=== PATIENT | male | born 1955 | race Caucasian/White ===

== ENCOUNTER 2020-06-26 10:26 | Outpatient (REF) | payer MEDICARE, OTHER, SELFPAY ==
--- NOTE | 2020-06-26 10:28 | XR_ITS ---
EXAMINATION: KNEE X-RAY CLINICAL INFORMATION: Left knee pain COMPARISON: Right knee x-ray December 2008 TECHNIQUE: Standing AP view of both knees and lateral and sunrise view of the left knee FINDINGS: Left knee: Bone alignment is normal. No fracture or dislocation is seen. There are small osteophytes at the patellofemoral joint. Joint spaces are otherwise normal. There is no significant joint effusion. Standing AP view of the right knee demonstrates mild medial femoral tibial joint space narrowing. XR/XR knee standing BI IMPRESSION: Left knee: Small osteophytes at the patellofemoral joint. Right knee: Mild medial femoral tibial joint space narrowing.
--- NOTE | 2020-06-26 10:28 | XR_ITS ---
EXAMINATION: KNEE X-RAY CLINICAL INFORMATION: Left knee pain COMPARISON: Right knee x-ray December 2008 TECHNIQUE: Standing AP view of both knees and lateral and sunrise view of the left knee FINDINGS: Left knee: Bone alignment is normal. No fracture or dislocation is seen. There are small osteophytes at the patellofemoral joint. Joint spaces are otherwise normal. There is no significant joint effusion. Standing AP view of the right knee demonstrates mild medial femoral tibial joint space narrowing. XR/XR knee LT 2V IMPRESSION: Left knee: Small osteophytes at the patellofemoral joint. Right knee: Mild medial femoral tibial joint space narrowing.
== END 2020-06-26 10:27 | disposition home or self-care (01) ==
LOC: HO.HOSX 10:26
PROVIDERS: Visit Provider Orthopaedic Surgery
DX: M25.562 Pain in left knee (principal); M25.561 Pain in right knee
CPT/HCPCS: 73560; 73565; 99202

== ENCOUNTER 2020-09-26 16:09 | Outpatient (REF) | payer MEDICARE, OTHER, SELFPAY ==
[2020-09-26 16:51] LABS: MANUAL DIFF FLAG NO
[2020-09-26 16:55] LABS: Basophils Percent Auto 0.5 % (0-2); Hematocrit 46.4 % (42-52); Hemoglobin 15.6 g/dl (14.0-18.0); Imm Gran Abs Auto 0.01 X10*3/uL (0.00-0.03); Imm Gran Pct Auto 0.1 % (0.0-0.4); Lymphocytes Absolute Auto 2.1 X10*3/uL (1.2-4.9); Lymphocytes Percent Auto 25.9 % (20-40); Mean Corpuscular HGB Conc 33.6 g/dl (31.0-36.0); Mean Corpuscular Hemoglobin 30.4 pg (27.0-33.0); Mean Corpuscular Volume 90.3 fL (80-98); Mean Platelet Volume 10.6 fL (9.4-12.4); Monocytes Absolute Auto 0.7 X10*3/uL (0.1-1.2); Monocytes Percent Auto 8.2 % (2-11); Neutrophils Absolute Auto 5.3 X10*3/uL (2.0-8.3); Neutrophils Percent Auto 65.3 % (45-73); Platelet Count 200 X10*3/uL (160-400); Red Blood Count 5.14 X10*6/uL (4.60-5.80); Red Cell Distribution Width 12.7 % (11.0-16.0); White Blood Count 8.2 X10*3/uL (4.8-10.8)
== END 2020-09-26 16:10 | disposition home or self-care (01) ==
LOC: HO.LABR 16:09
PROVIDERS: PCP Internal Medicine; Visit Provider Clinical Nurse Specialist Psychiatric/Mental Health, Adult
DX: Z79.899 Other long term (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 (principal)
CPT/HCPCS: 36415; 85025

== ENCOUNTER 2020-10-29 10:54 | Outpatient (REF) | payer MEDICARE, MEDICAID, OTHER, SELFPAY ==
--- NOTE | ~2020-10-29 | CT_ITS ---
EXAMINATION: CT CHEST SCREENING CLINICAL INFORMATION: Smoking history COMPARISON: Previous chest x-ray most recent January 2020 TECHNIQUE: Multidetector volumetric CT imaging of the chest is performed without contrast using low dose technique. Additional 2D coronal and sagittal reformatted images and axial 3D maximum intensity projection (MIP) images are generated on the CT workstation. This CT examination was performed using dose optimization techniques as appropriate, variously including the following: *Automated exposure control *Adjustment of mA and/or kV according to patient size (this includes techniques or standardized protocols for targeted exams where dose is matched to indication/reason for exam; i.e. extremities or head) *Use of iterative reconstruction technique DLP: 93 mGy-cm FINDINGS: LUNGS: There is a 3 mm calcified left lower lobe nodule axial image 199 series 4. There is a 3 mm calcified right lower lobe nodule axial image 316 series 4. There is a 2 mm calcified right lower lobe nodule axial image 09/20/1934 series 4. There is a 3 mm peripheral or subpleural calcified right lower lobe nodule axial image 376 series 4. This minimal scarring or subsegmental atelectasis in the inferior segment of the lingula. MEDIASTINUM: There is coronary artery calcification. The esophagus is slightly distended and filled with air. The mediastinum is otherwise normal. PLEURA: There is no pleural effusion. No pleural mass or thickening. AXILLA: No lymphadenopathy. UPPER ABDOMEN: Unremarkable OSSEOUS STRUCTURES: There are degenerative changes of the spine. CT/CT lung screening IMPRESSION: Small calcified pulmonary nodules. Mild coronary artery calcification. Slightly distended air-filled esophagus. ASSESSMENT: Lung-RADS category 2: Benign RECOMMENDATION: Annual low-dose chest CT follow-up recommended.
== END 2020-10-29 10:55 | disposition home or self-care (01) ==
LOC: HO.CT 10:54
PROVIDERS: Visit Provider Surgery
DX: Z12.2 Encounter for screening for malignant neoplasm of respiratory organs (principal); F17.210 Nicotine dependence, cigarettes, uncomplicated
CPT/HCPCS: 71271

== ENCOUNTER 2020-11-06 15:41 | Emergency (ER) | payer MEDICARE, MEDICAID, OTHER, SELFPAY ==
[2020-11-06 15:49] VITALS: PULSE 103; RESP 20; TEMP 36.9; O2SAT 96; BMI 31.6
[2020-11-06 15:56] VITALS: RESP 20
[2020-11-06 16:00] VITALS: RESP 20
--- NOTE | 2020-11-06 16:00 | ED_ITS ---
HPI - Psych General Chief Complaint: Psychiatric Symptoms Stated Complaint: CRISIS Time Seen by Provider: 11/06/20 16:00 Source: patient and EMS Mode of arrival: EMS Limitations: no limitations History of Present Illness HPI Narrative: 65 yo male with hx of mental health issues comes in with some agitation after having issues not getting his AM medications from a [facility] - he is unsure why this happened, denies SI/HI feels more calm now, is sorry he had to come to the ED MD complaint: anxiety Onset (ago): hour(s) (this AM) Duration: intermittent History of same: Yes Relieving factors: none Exacerbating factors: medication Context: other (issue getting medication) Associated psychiatric symptoms: none Associated symptoms: denies other symptoms Treatments prior to arrival: none Related Data Home Medications Medication Instructions Recorded Confirmed aripiprazole 10 mg tablet 10 mg PO DAILY 05/29/20 11/06/20 atorvastatin 10 mg tablet 10 mg PO DAILY 05/29/20 11/06/20 clonazepam 0.5 mg tablet 0.5 mg PO BEDTIME PRN 05/29/20 11/06/20 clozapine 100 mg tablet 200 mg PO BEDTIME 05/29/20 11/06/20 trazodone 50 mg tablet 50 mg PO BEDTIME 05/29/20 11/06/20 clozapine 1 tab PO DAILY 11/06/20 11/06/20 magnesium oxide 400 mg PO BEDTIME 11/06/20 11/06/20 sodium chloride 1,000 mg PO TID 11/06/20 11/06/20 trolamine salicylate 1 appl TOPICAL DAILY PRN 11/06/20 11/06/20 Previous Rx's Medication Instructions Recorded docusate sodium 100 mg tablet 100 mg PO BID #90 tab 04/30/20 pantoprazole 40 mg tablet,delayed 40 mg PO DAILY #90 tab 06/11/20 release aspirin 81 mg tablet,delayed 81 mg PO DAILY #90 tab 08/07/20 release diclofenac sodium 75 mg 75 mg PO BID #60 tab 10/05/20 tablet,delayed release Allergies Allergy/AdvReac Type Severity Reaction Status Date / Time haloperidol [From Haldol] Allergy Mild UNKNOWN Verified 11/05/20 13:14 lithium [[place]] Allergy Mild UNKOWN Verified 11/05/20 13:14 [place] Citrate Allergy Unknown nervous Uncoded 02/10/17 00:00 breakdown Review of Systems Review of Systems: Constitutional : No Fever, No Chills ENT/Mouth : No Ear Pain, No Nasal Congestion, No sore throat Eyes: No Eye Pain, No Swelling, No Redness Cardiovascular : No Chest Pain, No SOB Respiratory : No Cough, No Sputum, No Dyspnea Gastrointestinal : No Nausea, No Vomiting, No Diarrhea, No Hematochezia, No Alli na Genitourinary : No Dysuria, No Urinary Frequency, No Hematuria Musculoskeletal : No Myalgias Skin : No Skin Lesions, No rash Neuro : No Weakness, No Numbness, No Paresthesias, No Dizziness, No Headache Psych : positive Anxiety, no Depression, no SI/HI Heme/Lymph: No Lymphadenopathy Endocrine : No Polyuria, No Polydipsia All other systems reviewed and are negative [facility] Past Medical History Attestation statement: The following information was validated with the patient. Medical History Dysphagia Erosive esophagitis GERD (gastroesophageal reflux disease) Paranoid schizophrenia Rotator cuff impingement syndrome of right shoulder Surgical History History of hernia surgery History of tonsillectomy and adenoidectomy Family History Family History (Updated 11/05/20 @ 13:17 by Reva Davis) Mother No problems noted. Father No problems noted. Social History Social History Alcohol intake: never Smoking Status: Current every day smoker Packs Per Day: 0.5 Use of substances other than those prescribed or required for medical reasons: No Advance Directives: No Advance Directives Information Provided: No Current occupational status: disabled Current occupation: Right Handed Physical Exam Vital Signs: Vital Signs: Last Vital Signs Temp 98.4 F 11/06/20 15:49 Pulse 103 H 11/06/20 15:49 Resp 20 11/06/20 18:00 Pulse Ox 96 11/06/20 15:49 Body Mass Index 31.6 Appearance: Alert. Oriented X3. No acute distress. Anxious Eyes: Pupils equal, round and reactive to light. ENT: Pharynx normal. Neck: Normal inspection. Neck supple. CVS: Normal heart rate and rhythm. Pulses normal. Respiratory: No respiratory distress. Breath sounds normal. Abdomen: Soft and nontender. Skin: Skin warm and dry. Normal skin color. Normal skin turgor. Extremities: No lower extremity edema. No calf ttp Neuro: Oriented X 3. No motor deficit. No sensory deficit. Psych: anxious no SI/HI. Course Course Course Narrative: fpc spoke to RN in crisis pod - patient has been aggressive and charging staff needs to be seen by BHN Physician observation started at 542pm Patient placed in physician observation because the patient needed more time BHN evaluation and to see the need for psych admission. At the time observation was started the patient's vitals were stable, patient is alert and oriented but slightly agitated, Neuro: nonfocal, CV RRR, Lungs clear MDM - Psych MDM Narrative Medical decision making narrative: 65 yo male with schizophrenia here calm and cooperative sent from fpc after issue with [facility] and medications, patient has no SI/HI, RN in crisis pod is going to call fpc to assess need for BHN as the patient seems appropriate and insightful at this time of today's events Lab Data Result diagrams: 11/06/20 16:48 11/06/20 16:48 Labs: Lab Results 11/06/20 11/06/20 11/06/20 Range/Units 16:48 16:48 16:48 WBC 8.3 (4.8-10.8) X10*3/uL RBC 5.02 (4.60-5.80) X10*6/uL Hgb 15.3 (14.0-18.0) g/dl Hct 45.3 (42-52) % MCV 90.2 (80-98) fL MCH 30.5 (27.0-33.0) pg MCHC 33.8 (31.0-36.0) g/dl RDW 12.3 (11.0-16.0) % Plt Count 184 (160-400) X10*3/uL MPV 10.4 (9.4-12.4) fL Immature Gran % (Auto) 0.4 (0.0-0.4) % Neut % (Auto) 73.9 H (45-73) % Lymph % (Auto) 17.7 L (20-40) % [place] % (Auto) 7.5 (2-11) % Eos % (Auto) 0.0 (0-4) % Baso % (Auto) 0.5 (0-2) % Lymph # (Auto) 1.5 (1.2-4.9) X10*3/uL [place] # (Auto) 0.6 (0.1-1.2) X10*3/uL Eos # (Auto) 0.0 (0.0-0.4) X10*3/uL Baso # (Auto) 0.0 (0.0-0.2) X10*3/uL Abs Immat Gran (auto) 0.03 (0.00-0.03) X10*3/uL Absolute Neuts (auto) 6.1 (2.0-8.3) X10*3/uL Absolute Nucleated RBC 0.000 (0.0-0.012) X10*3/uL Nucleated RBC % (auto) 0.0 (0.0-0.2) /100WBC Sodium 142 (135-145) mmol/L Potassium 4.4 (3.3-5.1) mmol/L Chloride 110 H (96-108) mmol/L Carbon Dioxide 25 (22-29) mmol/L Anion Gap 11 L (12-20) BUN 30 H (9-16) mg/dL Creatinine 0.89 (0.5-1.4) mg/dL Estim Creat Clear Calc 90.9 Estimated GFR > 60 Random Glucose 114 (60-115) mg/dL Calcium 8.8 (8.4-10.2) mg/dL Total Bilirubin 0.6 (0.0-1.0) mg/dL Direct Bilirubin 0.2 (0.0-0.5) mg/dL AST 19 (5-37) U/L ALT 33 (0-40) U/L Alkaline Phosphatase 120 H (39-117) U/L Total Protein 6.7 (6.5-8.0) g/dL Albumin 4.4 (3.5-5.0) g/dL Urine Opiates Screen (Not Detect) Ur Barbiturates Screen (Not Detect) Ur Phencyclidine Scrn (Not Detect) Ur Amphetamines Screen (Not Detect) U Benzodiazepines Scrn (Not Detect) Urine Cocaine Screen (Not Detect) U Marijuana (THC) Screen (Not Detect) Ethyl Alcohol mg/dL COVID-19 ([facility]) Negative (Negative) COVID-19 Clin Com See Note 11/06/20 11/06/20 Range/Units 16:48 19:20 WBC (4.8-10.8) X10*3/uL RBC (4.60-5.80) X10*6/uL Hgb (14.0-18.0) g/dl Hct (42-52) % MCV (80-98) fL MCH (27.0-33.0) pg MCHC (31.0-36.0) g/dl RDW (11.0-16.0) % Plt Count (160-400) X10*3/uL MPV (9.4-12.4) fL Immature Gran % (Auto) (0.0-0.4) % Neut % (Auto) (45-73) % Lymph % (Auto) (20-40) % [place] % (Auto) (2-11) % Eos % (Auto) (0-4) % Baso % (Auto) (0-2) % Lymph # (Auto) (1.2-4.9) X10*3/uL [place] # (Auto) (0.1-1.2) X10*3/uL Eos # (Auto) (0.0-0.4) X10*3/uL Baso # (Auto) (0.0-0.2) X10*3/uL Abs Immat Gran (auto) (0.00-0.03) X10*3/uL Absolute Neuts (auto) (2.0-8.3) X10*3/uL Absolute Nucleated RBC (0.0-0.012) X10*3/uL Nucleated RBC % (auto) (0.0-0.2) /100WBC Sodium (135-145) mmol/L Potassium (3.3-5.1) mmol/L Chloride (96-108) mmol/L Carbon Dioxide (22-29) mmol/L Anion Gap (12-20) BUN (9-16) mg/dL Creatinine (0.5-1.4) mg/dL Estim Creat Clear Calc Estimated GFR Random Glucose (60-115) mg/dL Calcium (8.4-10.2) mg/dL Total Bilirubin (0.0-1.0) mg/dL Direct Bilirubin (0.0-0.5) mg/dL AST (5-37) U/L ALT (0-40) U/L Alkaline Phosphatase (39-117) U/L Total Protein (6.5-8.0) g/dL Albumin (3.5-5.0) g/dL Urine Opiates Screen Not Detected (Not Detect) Ur Barbiturates Screen Not Detected (Not Detect) Ur Phencyclidine Scrn Not Detected (Not Detect) Ur Amphetamines Screen Not Detected (Not Detect) U Benzodiazepines Scrn Not Detected (Not Detect) Urine Cocaine Screen Not Detected (Not Detect) U Marijuana (THC) Screen Not Detected (Not Detect) Ethyl Alcohol < 10 mg/dL COVID-19 ([facility]) (Negative) COVID-19 Clin Com Discharge Plan Discharge Clinical Impression: Chronic schizophrenia Prescriptions: No Action docusate sodium [DOK] 100 mg tablet 100 mg PO BID Qty: 90 RF: 8 pantoprazole 40 mg tablet,delayed release (DR/EC) 40 mg PO DAILY Qty: 90 RF: 8 aspirin 81 mg tablet,delayed release (DR/EC) 81 mg PO DAILY Qty: 90 RF: 8 diclofenac sodium 75 mg tablet,delayed release (DR/EC) 75 mg PO BID Qty: 60 RF: 2 clozapine 25 mg tablet 1 tab PO DAILY RF: 0 trolamine salicylate 10 % Cream 1 appl TOPICAL DAILY PRN (Reason: Pain) RF: 0 sodium chloride 1,000 mg Tablet,Soluble 1,000 mg PO TID RF: 0 magnesium oxide 400 mg magnesium Tablet 400 mg PO BEDTIME RF: 0 clozapine 100 mg tablet 200 mg PO BEDTIME RF: 0 aripiprazole 10 mg tablet 10 mg PO DAILY RF: 0 atorvastatin 10 mg tablet 10 mg PO DAILY RF: 0 clonazepam 0.5 mg tablet 0.5 mg PO BEDTIME PRN (Reason: Anxiety) RF: 0 trazodone 50 mg tablet 50 mg PO BEDTIME RF: 0
[2020-11-06 16:54] LABS: MANUAL DIFF FLAG NO
[2020-11-06 16:55] LABS: Basophils Percent Auto 0.5 % (0-2); Hematocrit 45.3 % (42-52); Hemoglobin 15.3 g/dl (14.0-18.0); Imm Gran Abs Auto 0.03 X10*3/uL (0.00-0.03); Imm Gran Pct Auto 0.4 % (0.0-0.4); Lymphocytes Absolute Auto 1.5 X10*3/uL (1.2-4.9); Lymphocytes Percent Auto 17.7 % (20-40); Mean Corpuscular HGB Conc 33.8 g/dl (31.0-36.0); Mean Corpuscular Hemoglobin 30.5 pg (27.0-33.0); Mean Corpuscular Volume 90.2 fL (80-98); Mean Platelet Volume 10.4 fL (9.4-12.4); Monocytes Absolute Auto 0.6 X10*3/uL (0.1-1.2); Monocytes Percent Auto 7.5 % (2-11); Neutrophils Absolute Auto 6.1 X10*3/uL (2.0-8.3); Neutrophils Percent Auto 73.9 % (45-73); Platelet Count 184 X10*3/uL (160-400); Red Blood Count 5.02 X10*6/uL (4.60-5.80); Red Cell Distribution Width 12.3 % (11.0-16.0); White Blood Count 8.3 X10*3/uL (4.8-10.8)
[2020-11-06 17:12] LABS: COVID-19 Test Negative (Negative)
[2020-11-06 17:32] LABS: Ethanol < 10 mg/dL
[2020-11-06 17:35] LABS: Alanine Aminotransferase 33 U/L (0-40); Albumin Level 4.4 g/dL (3.5-5.0); Alkaline Phosphatase 120 U/L (39-117); Anion Gap 11 (12-20); Aspartate Amino Transferase 19 U/L (5-37); Bilirubin Direct 0.2 mg/dL (0.0-0.5); Bilirubin Total 0.6 mg/dL (0.0-1.0); Blood Urea Nitrogen 30 mg/dL (9-16); Calcium 8.8 mg/dL (8.4-10.2); Carbon Dioxide 25 mmol/L (22-29); Chloride 110 mmol/L (96-108); Creatinine Clr Calc Pharmacy 90.9; Estimated Glomerular Filt Rate > 60; Glucose Random 114 mg/dL (60-115); Potassium 4.4 mmol/L (3.3-5.1); Sodium 142 mmol/L (135-145); Total Protein 6.7 g/dL (6.5-8.0)
--- NOTE | 2020-11-06 17:42 | PC.NURSE ---
Per fpc staff Jennifer Monaco, warehouse examiner, pt has been increasingly irritable, charging at staff at times, 'erupting all of a sudden'; staff feeling as if pt becoming increasingly close to becoming assaultive.
[2020-11-06 18:00] VITALS: RESP 20
--- NOTE | 2020-11-06 18:40 | PC.NURSE ---
Pt resting, resp unlabored.
--- NOTE | 2020-11-06 18:51 | PC.NURSE ---
Late entry: per diamond at custodial, pt has been compliant w/ medications at all times.
--- NOTE | 2020-11-06 19:19 | PC.NURSE ---
Patient agreed to provide urine sample, IBARRA pending, N called/spoke with [facility]/confirmed receipt of referral, will continue to monitor.
[2020-11-06 20:23] LABS: Amphetamine Screen Urine Not Detected (Not Detect); Barbiturates, Urine Not Detected (Not Detect); Benzodiazepines Screen Urine Not Detected (Not Detect); Cannabinoid Screen Urine Not Detected (Not Detect); Cocaine Screen Urine Not Detected (Not Detect); Opiate Screen Urine Not Detected (Not Detect); Phencyclidine Screen Urine Not Detected (Not Detect)
--- NOTE | 2020-11-06 21:57 | PC.NURSE ---
BHN with patient, patient seems engaged, will continue to monitor.
[2020-11-06] MEDS: clonazePAM 0.5 MG TABLET PO (23:11)
[2020-11-06] MEDS: Magnesium Oxide 400 MG TABLET PO (23:11)
[2020-11-06] MEDS: Atorvastatin Calcium 10 MG TABLET PO ×2 (23:11→23:12)
[2020-11-06] MEDS: traZODone HCL 50 MG TABLET PO (23:11)
[2020-11-06] MEDS: Docusate Sodium 100 MG CAPSULE PO (23:11)
[2020-11-07 00:04] VITALS: BP 139/82; PULSE 87; RESP 14; TEMP 36.1; O2SAT 94
[2020-11-07] MEDS: cloZAPine 100 MG TABLET 200 MG PO ×2 (00:11→00:12)
--- NOTE | 2020-11-07 00:15 | MHC.CARE ---
Pt cleared for discharge by [facility], who communicated with pt's [facility] re: his return. Initial plan was for pt to discharge in the morning and program staff would pick him up, however pt began to demand to leave tonight and stated that he would pay for a taxi. Another staff person in the ED had reported that the taxis were running at night again, so it was requested of CARE team to attempt to order a cab for the pt. Turns out the taxis aren't running. This was relayed to [facility] clinician and [facility] nurse. Then it was asked of this technical writer and editor to request a lyft to bring pt home. This technical writer and editor advised that it is unlikely that there will be a explosives truck driver available at this hour and that pt should be prepared for the news that he may have to wait until the morning to leave. If a lyft isn't able to be secured for transport home, pt will remain in ED until the morning and fpc staff will pick pt up, per [facility] clinician.
--- NOTE | 2020-11-07 01:30 | MHC.CARE ---
Unable to secure a lyft for transport home.
[2020-11-07] MEDS: Omeprazole 20 MG CAPSULE.DR PO (06:46)
--- NOTE | 2020-11-07 07:09 | PC.NURSE ---
Report received. PT currently resting, calm and cooperative, asking to leave.
--- NOTE | 2020-11-07 08:11 | PC.NURSE ---
snf to leaf size picker pt at 9AM
[2020-11-07 09:02] VITALS: BP 129/78; PULSE 100; RESP 17; TEMP 37.2; O2SAT 95
== END 2020-11-07 09:04 | disposition home or self-care (01) ==
PROVIDERS: Emergency Provider Emergency Medicine
DX: F20.9 Schizophrenia, unspecified (principal); F41.9 Anxiety disorder, unspecified; Z20.822 Contact with and (suspected) exposure to COVID-19; F17.200 Nicotine dependence, unspecified, uncomplicated; Z79.899 Other long term (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
CPT/HCPCS: 36415; 80048; 80076; 80307; 80320; 85025; 87635; 99285

== ENCOUNTER 2021-10-23 18:08 | Inpatient (IN) | payer MEDICARE, OTHER, SELFPAY ==
[2021-10-23 18:11] VITALS: BP 130/90; PULSE 100; O2SAT 96
[2021-10-23 18:16] VITALS: BP 140/99; PULSE 100; RESP 20; TEMP 36.6; O2SAT 97
[2021-10-23 18:17] VITALS: BMI 26.6
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
[2021-10-23 18:30] LABS: MANUAL DIFF FLAG NO
[2021-10-23 18:33] LABS: Basophils Percent Auto 0.7 % (0-2); Hematocrit 44.5 % (42.0-52.0); Hemoglobin 15.3 g/dl (14.0-18.0); Imm Gran Abs Auto 0.02 X10*3/uL (0.00-0.03); Imm Gran Pct Auto 0.3 % (0.0-0.4); Lymphocytes Percent Auto 23.6 % (20-40); Mean Corpuscular HGB Conc 34.4 g/dl (31.0-36.0); Mean Corpuscular Hemoglobin 31.4 pg (27.0-33.0); Mean Corpuscular Volume 91.4 fL (80.0-98.0); Mean Platelet Volume 10.6 fL (9.4-12.4); Monocytes Percent Auto 6.9 % (2-11); Neutrophils Absolute Auto 5.2 x10*3/uL (2.0-8.3); Neutrophils Percent Auto 68.5 % (45-73); Platelet Count 182 X10*3/uL (160-400); Red Blood Count 4.87 X10*6/uL (4.60-5.80); Red Cell Distribution Width 12.4 % (11.0-16.0); White Blood Count 7.6 X10*3/uL (4.8-10.8)
[2021-10-23 18:34] LABS: Basophils Absolute Auto 0.1 X10*3/uL (0.0-0.2); Lymphocytes Absolute Auto 1.8 X10*3/uL (1.2-4.9); Monocytes Absolute Auto 0.5 X10*3/uL (0.1-1.2)
[2021-10-23 18:48] LABS: COVID-19 Test Negative (Negative); IDNOW Serial# 55D5AD1C
[2021-10-23 18:50] LABS: Alanine Aminotransferase 30 U/L (0-40); Albumin Level 4.3 g/dL (3.5-5.0); Alkaline Phosphatase 102 U/L (39-117); Anion Gap 12 (12-20); Aspartate Amino Transferase 19 U/L (5-37); Bilirubin Total 0.6 mg/dL (0.0-1.0); Blood Urea Nitrogen 23 mg/dL (9-16); Carbon Dioxide 24 mmol/L (22-29); Chloride 106 mmol/L (96-108); Creatinine Clr Calc Pharmacy 79.6; Estimated Glomerular Filt Rate > 60; Glucose Random 121 mg/dL (60-115); Magnesium 2.2 mg/dL (1.6-2.6); Sodium 138 mmol/L (135-145); Total Protein 6.5 g/dL (6.5-8.0)
--- NOTE | 2021-10-23 20:00 | PC.NURSE ---
this RN notified patient that we needed a urine sample. pt got upset and stated, i cant, i only had chili today pt was offered fluids, pt got even more upset stating i cant go! i dont care if youre the general surgeon, i cant go! pt agitated stating that the monitor is fibrilating and he was in trouble pt reassured asked if he would like the lights off or the tv on and he stated, no, i will go into cardiac arrest pt resting in bed at this time
[2021-10-23] MEDS: LORazepam 1 MG TABLET PO (21:08)
[2021-10-23 22:17] LABS: Appearance Urine CLEAR; Color Urine YELLOW; Glucose Urine UA NEG (NEG); Leukocyte Esterase Urine NEG (NEG); Nitrite Urine NEG (NEG); Specific Gravity - Urine 1.015 (1.005-1.025); Urine Blood NEG (NEG); Urine Ketones 5 MG/DL (NEG); Urine Protein NEG (NEG-TRACE)
[2021-10-23 22:27] LABS: Amphetamine Screen Urine Not Detected (Not Detect); Barbiturates, Urine Not Detected (Not Detect); Benzodiazepines Screen Urine Not Detected (Not Detect); Cannabinoid Screen Urine Not Detected (Not Detect); Cocaine Screen Urine Not Detected (Not Detect); Fentanyl, urine Not Detected (Not Detect); Opiate Screen Urine Not Detected (Not Detect); Phencyclidine Screen Urine Not Detected (Not Detect)
[2021-10-23 23:29] VITALS: BP 126/89; PULSE 99; RESP 16; TEMP 36.8; O2SAT 95
--- NOTE | 2021-10-24 | ECG_ITS ---
Test Reason : MED CLEARANCE Blood Pressure : / mmHG Vent. Rate : 088 BPM Atrial Rate : 088 BPM P-R Int : 160 ms QRS Dur : 090 ms QT Int : 350 ms P-R-T Axes : 060 -83 068 degrees QTc Int : 423 ms Normal sinus rhythm Left axis deviation Abnormal ECG When compared with ECG of 24-JAN-2020 09:37, No significant change was found Referred By: Heavenly Santos Electronically Signed By:SHAN PIZARRO MD
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
--- NOTE | 2021-10-24 07:19 | PC.NURSE ---
Patient slept through the night, no distress observed/reported, behavior non concerning at this time, med rec completed/pending provider's approval, awaiting care team evaluation, will continue to monitor.
[2021-10-24 07:34] VITALS: BP 137/85; PULSE 98; RESP 12; TEMP 37.1; O2SAT 98
--- NOTE | 2021-10-24 07:38 | PC.NURSE ---
patient appears to remain asleep at present respirations are even and unlabored patient appears in no distress
[2021-10-24] MEDS: LORazepam 1 MG TABLET PO (09:48)
[2021-10-24] MEDS: cloZAPine 25 MG TABLET 50 MG PO (12:39)
[2021-10-24] MEDS: Aspirin Enteric Coated 81 MG TABLET.DR PO (12:39)
[2021-10-24] MEDS: clonazePAM 0.5 MG TABLET PO (20:16)
[2021-10-24] MEDS: cloZAPine 100 MG TABLET 200 MG PO (20:16)
[2021-10-24] MEDS: traZODone HCL 50 MG TABLET PO (20:17)
[2021-10-24] MEDS: Atorvastatin Calcium 10 MG TABLET PO (20:17)
[2021-10-24] MEDS: Magnesium Oxide 400 MG TABLET PO (20:17)
[2021-10-24] MEDS: Diclofenac Sodium Delayed Rel 75 MG TABLET.DR PO (20:17)
[2021-10-24] MEDS: ARIPiprazole 10 MG TABLET PO (20:17)
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
[2021-10-25 06:00] VITALS: BP 131/78; PULSE 104; RESP 17; TEMP 35.9; O2SAT 94
[2021-10-25] MEDS: cloZAPine 25 MG TABLET 50 MG PO (08:11)
[2021-10-25] MEDS: Omeprazole 20 MG CAPSULE.DR PO (08:11)
[2021-10-25] MEDS: Diclofenac Sodium Delayed Rel 75 MG TABLET.DR PO ×2 (08:11→19:39)
[2021-10-25] MEDS: Aspirin Enteric Coated 81 MG TABLET.DR PO (08:11)
[2021-10-25 08:18] LABS: Estimated Average Glucose 103 mg/dL; Hemoglobin A1c % 5.2 %
[2021-10-25 08:25] LABS: Cholesterol 221 mg/dL; HDL Cholesterol 42 mg/dL; LDL Cholesterol Calculated 160 mg/dl; Magnesium 2.4 mg/dL (1.6-2.6); Triglycerides 97 mg/dL
[2021-10-25 08:47] LABS: Free T4 (Free Thyroxine) 1.49 ng/dL (0.71-1.85)
[2021-10-25 08:57] LABS: Folate 17.2 ng/mL (> or = 4.0); Vitamin B12 515 pg/mL (200-900)
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
[2021-10-25] MEDS: Acetaminophen 325 MG TABLET 650 MG PO (15:26)
[2021-10-25 17:59] VITALS: BP 127/86; PULSE 118; TEMP 36.7
[2021-10-25] MEDS: ARIPiprazole 10 MG TABLET PO (19:38)
[2021-10-25] MEDS: Magnesium Oxide 400 MG TABLET PO (19:39)
[2021-10-25] MEDS: cloZAPine 100 MG TABLET 200 MG PO (19:39)
[2021-10-25] MEDS: clonazePAM 0.5 MG TABLET PO (19:40)
[2021-10-25] MEDS: Atorvastatin Calcium 10 MG TABLET PO (19:41)
[2021-10-25] MEDS: traZODone HCL 50 MG TABLET PO (19:41)
[2021-10-26 08:30] VITALS: BP 126/90; PULSE 124; TEMP 36.2
[2021-10-26] MEDS: cloZAPine 25 MG TABLET 50 MG PO (08:32)
[2021-10-26] MEDS: Diclofenac Sodium Delayed Rel 75 MG TABLET.DR PO (08:32)
[2021-10-26] MEDS: Omeprazole 20 MG CAPSULE.DR PO (08:32)
[2021-10-26] MEDS: Aspirin Enteric Coated 81 MG TABLET.DR PO (08:32)
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
[2021-10-26] MEDS: clonazePAM 0.5 MG TABLET PO ×2 (11:29→20:00)
[2021-10-26] MEDS: Atorvastatin Calcium 10 MG TABLET PO (20:00)
[2021-10-26] MEDS: cloZAPine 25 MG TABLET 225 MG PO (20:00)
[2021-10-26] MEDS: Magnesium Oxide 400 MG TABLET PO (20:00)
[2021-10-26] MEDS: ARIPiprazole 10 MG TABLET PO (20:01)
[2021-10-26] MEDS: traZODone HCL 50 MG TABLET PO (20:02)
[2021-10-27] MEDS: Aspirin Enteric Coated 81 MG TABLET.DR PO (08:20)
[2021-10-27] MEDS: Omeprazole 20 MG CAPSULE.DR PO (08:20)
[2021-10-27] MEDS: Diclofenac Sodium Delayed Rel 75 MG TABLET.DR PO (08:20)
[2021-10-27] MEDS: cloZAPine 25 MG TABLET 50 MG PO (08:22)
[2021-10-27] MEDS: clonazePAM 0.5 MG TABLET PO ×2 (08:23→20:14)
[2021-10-27 08:30] VITALS: BP 125/91; PULSE 130; TEMP 36.8
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
[2021-10-27 18:00] VITALS: BP 132/96; PULSE 110; RESP 20; TEMP 35.9; O2SAT 96
[2021-10-27] MEDS: ARIPiprazole 10 MG TABLET PO (20:14)
[2021-10-27] MEDS: Atorvastatin Calcium 10 MG TABLET PO (20:14)
[2021-10-27] MEDS: cloZAPine 25 MG TABLET 225 MG PO (20:15)
[2021-10-27] MEDS: Magnesium Oxide 400 MG TABLET PO (20:16)
[2021-10-27] MEDS: traZODone HCL 50 MG TABLET PO (20:18)
[2021-10-28 06:00] VITALS: BP 139/88; PULSE 100; RESP 18; O2SAT 94
[2021-10-28] MEDS: Omeprazole 20 MG CAPSULE.DR PO (08:19)
[2021-10-28] MEDS: Diclofenac Sodium Delayed Rel 75 MG TABLET.DR PO (08:19)
[2021-10-28] MEDS: Aspirin Enteric Coated 81 MG TABLET.DR PO (08:19)
[2021-10-28] MEDS: cloZAPine 25 MG TABLET 50 MG PO (08:19)
[2021-10-28 11:32] LABS: Clozapine (Clozaril) 52 mcg/L; Norclozapine 86 mcg/L (25-400)
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
[2021-10-28] MEDS: clonazePAM 0.5 MG TABLET 0.25 MG PO (13:41)
[2021-10-28] MEDS: traZODone HCL 50 MG TABLET PO (20:07)
[2021-10-28] MEDS: cloZAPine 25 MG TABLET 225 MG PO (20:07)
[2021-10-28] MEDS: clonazePAM 0.5 MG TABLET PO (20:07)
[2021-10-28] MEDS: Atorvastatin Calcium 10 MG TABLET PO (20:07)
[2021-10-28] MEDS: ARIPiprazole 10 MG TABLET PO (20:07)
[2021-10-28] MEDS: Magnesium Oxide 400 MG TABLET PO (20:07)
[2021-10-29 06:17] VITALS: BP 119/77; PULSE 99; RESP 16; TEMP 36.2; O2SAT 95
[2021-10-29] MEDS: Aspirin Enteric Coated 81 MG TABLET.DR PO (07:52)
[2021-10-29] MEDS: Omeprazole 20 MG CAPSULE.DR PO (07:53)
[2021-10-29] MEDS: Diclofenac Sodium Delayed Rel 75 MG TABLET.DR PO ×2 (07:53→19:43)
[2021-10-29] MEDS: clonazePAM 0.5 MG TABLET 0.25 MG PO (07:53)
[2021-10-29] MEDS: cloZAPine 25 MG TABLET 50 MG PO (07:53)
[2021-10-29 16:10] VITALS: RESP 16
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
[2021-10-29] MEDS: ARIPiprazole 10 MG TABLET PO (19:42)
[2021-10-29] MEDS: cloZAPine 25 MG TABLET 225 MG PO (19:42)
[2021-10-29] MEDS: clonazePAM 0.5 MG TABLET PO (19:42)
[2021-10-29] MEDS: Magnesium Oxide 400 MG TABLET PO (19:42)
[2021-10-29] MEDS: traZODone HCL 50 MG TABLET PO (19:43)
[2021-10-29] MEDS: Atorvastatin Calcium 10 MG TABLET PO (19:43)
[2021-10-30] MEDS: clonazePAM 0.5 MG TABLET 0.25 MG PO (08:22)
[2021-10-30] MEDS: Omeprazole 20 MG CAPSULE.DR PO (08:22)
[2021-10-30 08:23] LABS: Neut%MD 78.9 %; Neutrophils Absolute Auto 9.7 x10*3/uL (2.0-8.3); WBCANC 12.3 X10*3/uL
[2021-10-30] MEDS: Diclofenac Sodium Delayed Rel 75 MG TABLET.DR PO ×2 (08:23→20:00)
[2021-10-30] MEDS: Aspirin Enteric Coated 81 MG TABLET.DR PO (08:23)
[2021-10-30] MEDS: cloZAPine 100 MG TABLET 50 MG PO (08:24)
[2021-10-30 08:28] VITALS: BP 109/76; PULSE 117; RESP 18; TEMP 36.3; O2SAT 97
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
[2021-10-30 19:39] VITALS: BP 108/74; PULSE 100; RESP 17; TEMP 36.6; O2SAT 95
[2021-10-30] MEDS: clonazePAM 0.5 MG TABLET PO (20:00)
[2021-10-30] MEDS: Magnesium Oxide 400 MG TABLET PO (20:01)
[2021-10-30] MEDS: Atorvastatin Calcium 10 MG TABLET PO (20:01)
[2021-10-30] MEDS: traZODone HCL 50 MG TABLET PO (20:01)
[2021-10-30] MEDS: ARIPiprazole 10 MG TABLET PO (20:01)
[2021-10-30] MEDS: cloZAPine 25 MG TABLET 225 MG PO (20:02)
[2021-10-31 06:00] VITALS: BP 109/70; PULSE 97; RESP 18; TEMP 36.4; O2SAT 97
[2021-10-31 07:00] VITALS: BMI 27.3
[2021-10-31] MEDS: Omeprazole 20 MG CAPSULE.DR PO (07:55)
[2021-10-31] MEDS: Aspirin Enteric Coated 81 MG TABLET.DR PO (07:55)
[2021-10-31] MEDS: clonazePAM 0.5 MG TABLET 0.25 MG PO (07:55)
[2021-10-31] MEDS: cloZAPine 100 MG TABLET 50 MG PO (07:55)
[2021-10-31] MEDS: Diclofenac Sodium Delayed Rel 75 MG TABLET.DR PO (07:56)
[2021-10-31 17:05] VITALS: BP 136/86; PULSE 99; RESP 20; O2SAT 96
[2021-10-31] MEDS: Atorvastatin Calcium 10 MG TABLET PO (20:01)
[2021-10-31] MEDS: traZODone HCL 50 MG TABLET PO (20:01)
[2021-10-31] MEDS: clonazePAM 0.5 MG TABLET PO (20:01)
[2021-10-31] MEDS: ARIPiprazole 10 MG TABLET PO (20:02)
[2021-10-31] MEDS: Magnesium Oxide 400 MG TABLET PO (20:02)
[2021-10-31] MEDS: cloZAPine 25 MG TABLET 225 MG PO (20:02)
[2021-11-01 06:00] VITALS: BP 133/69; PULSE 104; RESP 16; TEMP 35.8; O2SAT 99
[2021-11-01] MEDS: Diclofenac Sodium Delayed Rel 75 MG TABLET.DR PO ×2 (08:09→19:56)
[2021-11-01] MEDS: clonazePAM 0.5 MG TABLET 0.25 MG PO (08:09)
[2021-11-01] MEDS: cloZAPine 100 MG TABLET 50 MG PO (08:09)
[2021-11-01] MEDS: Omeprazole 20 MG CAPSULE.DR PO (08:09)
[2021-11-01] MEDS: Aspirin Enteric Coated 81 MG TABLET.DR PO (08:09)
--- NOTE | 2021-11-01 10:20 | P.PNPSI_ITS ---
Subjective Subjective Date of Service: 10/31/21 Reason For Visit: Behavioral Interim History: late entry; pt seen on 10/31 pt again says he's feeling better and staff agrees he is more calm than on admission. He makes one extraneous comment i think they're wiring me for sound... but then says never mind that. continues to be more able to complete thoughts, less latency. Mental Status Exam Mental Status Exam Narrative: Pt is alert and oriented; behavior is cooperative, more disorganized; dressed in hospital gown, unkempt hair, but adequate hygiene; mood is described as better and affect congruent; eye contact appropriate; thought blocking present and Speech is a little latent, but improved; otherwise normal rate, volume; a little bit of an odd prosody;? no psychomotor agitation present; thought process more goal oriented and less tangential; more able to finish his sentences; can get tangential (baseline). Thought content is on returning to custodial (and other unrelated topics); intermittent paranoid ideations but less so; denies any SI/HI. Denies any AVH, though seems internally preoccupied. ?Patients insight and judgment are impaired but improved. Diagnostics Vital Signs (24Hr): Vital Signs - 24 hr 10/31/21 17:05 11/01/21 06:00 Temperature 96.4 F L Pulse Rate 99 104 H Respiratory Rate 20 16 Blood Pressure 136/86 133/69 Pulse Oximetry 96 99 BMI result Body Mass Index 27.3 Labs Results: 10/23/21 18:24 10/23/21 18:24 Medications Medications Current Medications Acetaminophen (Acetaminophen 325 Mg Tablet) 650 mg PO Q6H PRN PRN Reason: Headache/Pain Mild Scale (1-3) Last Admin: 10/25/21 15:26 Dose: 650 mg Documented by: Al Hydroxide/Mg Hydroxide (Magnesium Hydrox/Alum Hydrox 30 Ml Oral.Susp) 30 ml PO Q6H PRN PRN Reason: Heartburn/Nausea Aripiprazole (Aripiprazole 10 Mg Tablet) 10 mg PO BEDTIME [facility] Last Admin: 10/31/21 20:02 Dose: 10 mg Documented by: Aspirin (Aspirin Enteric Coated 81 Mg Tablet.) 81 mg PO DAILY [facility] Last Admin: 11/01/21 08:09 Dose: 81 mg Documented by: Atorvastatin Calcium (Atorvastatin Calcium 10 Mg Tablet) 10 mg PO BEDTIME [facility] Last Admin: 10/31/21 20:01 Dose: 10 mg Documented by: Clonazepam (Clonazepam 0.5 Mg Tablet) 0.5 mg PO BEDTIME [facility] Last Admin: 10/31/21 20:01 Dose: 0.5 mg Documented by: Clonazepam (Clonazepam 0.5 Mg Tablet) 0.25 mg PO DAILY [facility] Last Admin: 11/01/21 08:09 Dose: 0.25 mg Documented by: Clonazepam (Clonazepam 0.5 Mg Tablet) 0.5 mg PO DAILY PRN PRN Reason: mild agitation Clozapine (Clozapine 25 Mg Tablet) 225 mg PO BEDTIME [facility] Last Admin: 10/31/21 20:02 Dose: 225 mg Documented by: Clozapine (Clozapine 100 Mg Tablet) 50 mg PO DAILY [facility] Last Admin: 11/01/21 08:09 Dose: 50 mg Documented by: Diclofenac Sodium (Diclofenac Sodium Delayed Rel 75 Mg Tablet.) 75 mg PO BID [facility] Last Admin: 11/01/21 08:09 Dose: 75 mg Documented by: Docusate Sodium (Docusate Sodium 100 Mg Capsule) 100 mg PO DAILY PRN PRN Reason: Constipation Hydroxyzine HCl (Hydroxyzine Hcl 25 Mg Tablet) 25 mg PO Q6H PRN PRN Reason: Anxiety Magnesium Hydroxide (Milk Of Magnesia 30 Ml Oral.Susp) 30 ml PO DAILY PRN PRN Reason: Constipation Magnesium Oxide (Magnesium Oxide 400 Mg Tablet) 400 mg PO BEDTIME [facility] Last Admin: 10/31/21 20:02 Dose: 400 mg Documented by: Omeprazole (Omeprazole 20 Mg Capsule.) 20 mg PO DAILY [facility] Last Admin: 11/01/21 08:09 Dose: 20 mg Documented by: Trazodone HCl (Trazodone Hcl 50 Mg Tablet) 50 mg PO BEDTIME [facility] Last Admin: 10/31/21 20:01 Dose: 50 mg Documented by: Allergies Allergies Allergy/AdvReac Type Severity Reaction Status Date / Time haloperidol [From Haldol] Allergy Mild UNKNOWN Verified 11/05/20 13:14 lithium [[place]] Allergy Mild UNKOWN Verified 11/05/20 13:14 [place] Citrate Allergy Unknown nervous Uncoded 02/10/17 00:00 breakdown Assessment & Plan Assessment & Plan (1) Paranoid schizophrenia: Status: Acute Code(s): F20.0 - Paranoid schizophrenia Plan Patient is a 66-year-old male with history of schizophrenia, dysphagia, GERD who lives in a custodial, takes medications regular and presents after becoming agitated and dysregulated, throwing something at a peer and pushing a staff person. Currently patient is calm. long term reports that patient intermittently gets agitated and can become unsafe and is asking for either medication regimen to be altered or for a p.r.n. to be added to help prevent patient from losing control and becoming unsafe. 10/26 patient intermittently agitated and at made an abrupt move with a semi- aggressive stance towards nurse; paranoid ideation and intermittent trouble articulating his thoughts both of which staff says are baseline. Given staff so report patient does not seem to restore with catatonia. Patient is has increased positive symptoms of agitation and disorganization so will increase clozapine. Difficult to decide between increasing clozapine verses Abilify. While clozapine has a higher risk for metabolic syndrome, it was chosen because it is currently at a lower dose, patient's current HbA1c is within normal limits and is less likely to cause TD than Abilify. 10/27 moderate disorganized speech and behavior but no inappropriate behaviors, calm on the unit; no outbursts. No unsafe behavior 10/28 not too much change. Patient has said if you verbally inappropriate things; seems anxious during most of interactions and will schedule clonazepam 0.25 mg daily to see if that can help 10/29 still with some agitated behaviors, punching in the air, yelling at staff a nd feeling paranoid and defensive. Patient cannot articulate why. Wants to go back to the custodial. Of note patient seem to have a little better time finishing his sentences and completing his thoughts which could be just an anomaly or due to the fact that clonazepam was scheduled in the morning. Will continue to monitor. Project Hire wants to give another day or so at current clozapine/Abilify dose before increasing, to see if there can be some improvement at this dose in effort to mitigate risk of side effects. 10/30 pt says he feels a little better; staff says calmer, not irritable; able to finish sentences a little better and somewhat less speech latency. PLAN: CV Q 15 minute checks [facility] order ANC 10/30 a little elevated continue Clonazepam 0.25mg daily since pt comes across anxious; seems to be helping Increased Clozapine to 250mg qhs (up from 200mg) on 10/26 Continue Clozapine 50mg qam Will order weekly ANC Continue abiilfy 15mg daily PRN Clonazepam 0.25mg daily prn Will continue patient's home medications for now Will review history and consider either p.r.n. or making further medication adjustments I spent minutes with the patient and/or on the patient floor today, greater than?50% of which was spent counseling/coordinating care. Reason for contiued inpatient stay Substantial Risk for: med/psych decompensation
[2021-11-01 18:00] VITALS: RESP 18
[2021-11-01] MEDS: clonazePAM 0.5 MG TABLET PO (19:55)
[2021-11-01] MEDS: ARIPiprazole 10 MG TABLET PO (19:55)
[2021-11-01] MEDS: Magnesium Oxide 400 MG TABLET PO (19:55)
[2021-11-01] MEDS: cloZAPine 25 MG TABLET 225 MG PO (19:56)
[2021-11-01] MEDS: traZODone HCL 50 MG TABLET PO (19:56)
[2021-11-01] MEDS: Atorvastatin Calcium 10 MG TABLET PO (19:56)
--- NOTE | 2021-11-01 23:24 | HO.PSYCHPN ---
Subjective Subjective Date of Service: 11/01/21 Reason For Visit: Behavioral Subjective Notes: Terry Warning Interim History: Patient seen and discussed with team. Patient evaluated today and upon interview he reports his mood is I dont know, complains that his feet fell asleep today. Pt states he is on medication because they say I have a chemical imbalance, says the meds are helping him. He is sleeping soundly. Says he is going to his assisted thursday. In the milieu, patient is safe and appropriate in behavior, found watching tv in the group room. Denies SI/SIB/HI upon inquiry. Denies irritability or assaultive ideation. Says he feels safe. Medication Compliance: Yes Side effects from medications: No Attending Groups: Yes Review of Systems Acute medical concerns: No Medical Review of Systems: unchanged Mental Status Exam Mental Status Exam Narrative: Pt is alert and oriented; behavior is cooperative, continues to be disorganized; dressed in hospital gown, unkempt hair, but adequate hygiene; mood is described as i dont know and affect is distracted; eye contact appropriate; thought blocking present and Speech is a little latent, but improved; otherwise normal rate, volume; a little bit of an odd prosody;? no psychomotor agitation present; thought process more goal oriented and less tangential; more able to finish his sentences; can get tangential (baseline). Thought content is on returning to assisted (and other unrelated topics); intermittent paranoid ideations but does not appear to be bothering him; denies any SI/HI. Denies any AVH, though seems internally preoccupied. ?Patients insight and judgment are impaired but improved. Diagnostics Vital Signs (24Hr): Vital Signs - 24 hr 11/01/21 06:00 11/01/21 18:00 Temperature 96.4 F L Pulse Rate 104 H Respiratory Rate 16 18 Blood Pressure 133/69 Pulse Oximetry 99 BMI result Body Mass Index 27.3 Labs Results: 10/23/21 18:24 10/23/21 18:24 Medications Medications Current Medications Acetaminophen (Acetaminophen 325 Mg Tablet) 650 mg PO Q6H PRN PRN Reason: Headache/Pain Mild Scale (1-3) Last Admin: 10/25/21 15:26 Dose: 650 mg Documented by: Al Hydroxide/Mg Hydroxide (Magnesium Hydrox/Alum Hydrox 30 Ml Oral.Susp) 30 ml PO Q6H PRN PRN Reason: Heartburn/Nausea Aripiprazole (Aripiprazole 10 Mg Tablet) 10 mg PO BEDTIME [facility] Last Admin: 11/01/21 19:55 Dose: 10 mg Documented by: Aspirin (Aspirin Enteric Coated 81 Mg Tablet.) 81 mg PO DAILY [facility] Last Admin: 11/01/21 08:09 Dose: 81 mg Documented by: Atorvastatin Calcium (Atorvastatin Calcium 10 Mg Tablet) 10 mg PO BEDTIME [facility] Last Admin: 11/01/21 19:56 Dose: 10 mg Documented by: Clonazepam (Clonazepam 0.5 Mg Tablet) 0.5 mg PO BEDTIME [facility] Last Admin: 11/01/21 19:55 Dose: 0.5 mg Documented by: Clonazepam (Clonazepam 0.5 Mg Tablet) 0.25 mg PO DAILY [facility] Last Admin: 11/01/21 08:09 Dose: 0.25 mg Documented by: Clonazepam (Clonazepam 0.5 Mg Tablet) 0.5 mg PO DAILY PRN PRN Reason: mild agitation Clozapine (Clozapine 25 Mg Tablet) 225 mg PO BEDTIME [facility] Last Admin: 11/01/21 19:56 Dose: 225 mg Documented by: Clozapine (Clozapine 100 Mg Tablet) 50 mg PO DAILY [facility] Last Admin: 11/01/21 08:09 Dose: 50 mg Documented by: Diclofenac Sodium (Diclofenac Sodium Delayed Rel 75 Mg Tablet.) 75 mg PO BID [facility] Last Admin: 11/01/21 19:56 Dose: 75 mg Documented by: Docusate Sodium (Docusate Sodium 100 Mg Capsule) 100 mg PO DAILY PRN PRN Reason: Constipation Hydroxyzine HCl (Hydroxyzine Hcl 25 Mg Tablet) 25 mg PO Q6H PRN PRN Reason: Anxiety Magnesium Hydroxide (Milk Of Magnesia 30 Ml Oral.Susp) 30 ml PO DAILY PRN PRN Reason: Constipation Magnesium Oxide (Magnesium Oxide 400 Mg Tablet) 400 mg PO BEDTIME [facility] Last Admin: 11/01/21 19:55 Dose: 400 mg Documented by: Omeprazole (Omeprazole 20 Mg Capsule.) 20 mg PO DAILY [facility] Last Admin: 11/01/21 08:09 Dose: 20 mg Documented by: Trazodone HCl (Trazodone Hcl 50 Mg Tablet) 50 mg PO BEDTIME [facility] Last Admin: 11/01/21 19:56 Dose: 50 mg Documented by: Allergies Allergies Allergy/AdvReac Type Severity Reaction Status Date / Time haloperidol [From Haldol] Allergy Mild UNKNOWN Verified 11/05/20 13:14 lithium [[place]] Allergy Mild UNKOWN Verified 11/05/20 13:14 [place] Citrate Allergy Unknown nervous Uncoded 02/10/17 00:00 breakdown Assessment & Plan Assessment & Plan (1) Paranoid schizophrenia: Status: Acute Code(s): F20.0 - Paranoid schizophrenia Plan Patient is a 66-year-old male with history of schizophrenia, dysphagia, GERD who lives in a assisted, takes medications regular and presents after becoming agitated and dysregulated, throwing something at a peer and pushing a staff person. Currently patient is calm. alf reports that patient intermittently gets agitated and can become unsafe and is asking for either medication regimen to be altered or for a p.r.n. to be added to help prevent patient from losing control and becoming unsafe. 10/26 patient intermittently agitated and at made an abrupt move with a semi-aggressive stance towards nurse; paranoid ideation and intermittent trouble articulating his thoughts both of which staff says are baseline. Given staff so report patient does not seem to restore with catatonia. Patient is has increased positive symptoms of agitation and disorganization so will increase clozapine. Difficult to decide between increasing clozapine verses Abilify. While clozapine has a higher risk for metabolic syndrome, it was chosen because it is currently at a lower dose, patient's current HbA1c is within normal limits and is less likely to cause TD than Abilify. 10/27 moderate disorganized speech and behavior but no inappropriate behaviors, calm on the unit; no outbursts. No unsafe behavior 10/28 not too much change. Patient has said if you verbally inappropriate things; seems anxious during most of interactions and will schedule clonazepam 0.25 mg daily to see if that can help 10/29 still with some agitated behaviors, punching in the air, yelling at staff and feeling paranoid and defensive. Patient cannot articulate why. Wants to go back to the assisted. Of note patient seem to have a little better time finishing his sentences and completing his thoughts which could be just an anomaly or due to the fact that clonazepam was scheduled in the morning. Will continue to monitor. Shipping Associate wants to give another day or so at current clozapine/Abilify dose before increasing, to see if there can be some improvement at this dose in effort to mitigate risk of side effects. 10/30 pt says he feels a little better; staff says calmer, not irritable; able to finish sentences a little better and somewhat less speech latency. 10/31: continue medications, no behavioral or mood concerns PLAN: CV Q 15 minute checks [facility] order ANC 10/30 a little elevated continue Clonazepam 0.25mg daily since pt comes across anxious; seems to be helping Increased Clozapine to 250mg qhs (up from 200mg) on 10/26 Continue Clozapine 50mg qam Will order weekly ANC Continue abiilfy 15mg daily PRN Clonazepam 0.25mg daily prn Will continue patient's home medications for now Will review history and consider either p.r.n. or making further medication adjustments I spent minutes with the patient and/or on the patient floor today, greater than?50% of which was spent counseling/coordinating care. Patient educated on: diagnosis Reason for contiued inpatient stay Substantial Risk for: inability to function and med/psych decompensation
[2021-11-02 06:00] VITALS: BP 119/80; PULSE 86; RESP 16; TEMP 37; O2SAT 95
[2021-11-02] MEDS: Diclofenac Sodium Delayed Rel 75 MG TABLET.DR PO ×2 (08:11→19:34)
[2021-11-02] MEDS: cloZAPine 100 MG TABLET 50 MG PO (08:11)
[2021-11-02] MEDS: Aspirin Enteric Coated 81 MG TABLET.DR PO (08:11)
[2021-11-02] MEDS: Omeprazole 20 MG CAPSULE.DR PO (08:11)
[2021-11-02] MEDS: clonazePAM 0.5 MG TABLET 0.25 MG PO (08:11)
[2021-11-02 16:33] VITALS: RESP 16
--- NOTE | 2021-11-02 18:35 | P.PNPSI_ITS ---
Subjective Subjective Date of Service: 11/02/21 Reason For Visit: Behavioral Interim History: Harris reports he is doing well. Today he has no questions or concerns with his medication regime He is visable in milieu, social and supportive of his room-mate. Medication Compliance: Yes Side effects from medications: No Attending Groups: Yes Review of Systems Acute medical concerns: No Medical Review of Systems: unchanged Mental Status Exam Mental Status Exam Patient Appearance: Disheveled Patient Orientation: Person, Place and Situation Level of Consciousness: Alert Patient Behavior: Appropriate, Talkative, Cooperative, Passive, Suspicious (mild), Anxious (mild), Distractible and Good Eye Contact Mood Description: Blunted Affect Description: Blunted Patient Cognition Impaired: No Ability to Follow Directions: Good Speech Pattern: Spontaneous Speech, Soft-Spoken and Delayed Memory Description: Episodic Impaired Hallucinations: None (denies) Delusions: Paranoid Ideation Thought Process: Distracted and Rumination Thought Content: positive for [place], positive for Perseveration, positive for Thought Blocking (appears to present sx, but denies), positive for Suicidal Ideation (denies) and positive for Homicidal Ideation (denies) Depressive Symptoms: Increased Anxiety and Thoughts of /Suicide (denies) Judgement: Fair Diagnostics Vital Signs (24Hr): Vital Signs - 24 hr 11/02/21 06:00 11/02/21 16:33 Temperature 98.6 F Pulse Rate 86 Respiratory Rate 16 16 Blood Pressure 119/80 Pulse Oximetry 95 BMI result Body Mass Index 27.3 Labs Results: 10/23/21 18:24 10/23/21 18:24 Medications Medications Current Medications Acetaminophen (Acetaminophen 325 Mg Tablet) 650 mg PO Q6H PRN PRN Reason: Headache/Pain Mild Scale (1-3) Last Admin: 10/25/21 15:26 Dose: 650 mg Documented by: Al Hydroxide/Mg Hydroxide (Magnesium Hydrox/Alum Hydrox 30 Ml Oral.Susp) 30 ml PO Q6H PRN PRN Reason: Heartburn/Nausea Aripiprazole (Aripiprazole 10 Mg Tablet) 10 mg PO BEDTIME [facility] Last Admin: 11/01/21 19:55 Dose: 10 mg Documented by: Aspirin (Aspirin Enteric Coated 81 Mg Tablet.) 81 mg PO DAILY [facility] Last Admin: 11/02/21 08:11 Dose: 81 mg Documented by: Atorvastatin Calcium (Atorvastatin Calcium 10 Mg Tablet) 10 mg PO BEDTIME [facility] Last Admin: 11/01/21 19:56 Dose: 10 mg Documented by: Clonazepam (Clonazepam 0.5 Mg Tablet) 0.5 mg PO BEDTIME [facility] Last Admin: 11/01/21 19:55 Dose: 0.5 mg Documented by: Clonazepam (Clonazepam 0.5 Mg Tablet) 0.25 mg PO DAILY [facility] Last Admin: 11/02/21 08:11 Dose: 0.25 mg Documented by: Clonazepam (Clonazepam 0.5 Mg Tablet) 0.5 mg PO DAILY PRN PRN Reason: mild agitation Clozapine (Clozapine 25 Mg Tablet) 225 mg PO BEDTIME [facility] Last Admin: 11/01/21 19:56 Dose: 225 mg Documented by: Clozapine (Clozapine 100 Mg Tablet) 50 mg PO DAILY [facility] Last Admin: 11/02/21 08:11 Dose: 50 mg Documented by: Diclofenac Sodium (Diclofenac Sodium Delayed Rel 75 Mg Tablet.) 75 mg PO BID [facility] Last Admin: 11/02/21 08:11 Dose: 75 mg Documented by: Docusate Sodium (Docusate Sodium 100 Mg Capsule) 100 mg PO DAILY PRN PRN Reason: Constipation Hydroxyzine HCl (Hydroxyzine Hcl 25 Mg Tablet) 25 mg PO Q6H PRN PRN Reason: Anxiety Magnesium Hydroxide (Milk Of Magnesia 30 Ml Oral.Susp) 30 ml PO DAILY PRN PRN Reason: Constipation Magnesium Oxide (Magnesium Oxide 400 Mg Tablet) 400 mg PO BEDTIME [facility] Last Admin: 11/01/21 19:55 Dose: 400 mg Documented by: Omeprazole (Omeprazole 20 Mg Capsule.) 20 mg PO DAILY [facility] Last Admin: 11/02/21 08:11 Dose: 20 mg Documented by: Trazodone HCl (Trazodone Hcl 50 Mg Tablet) 50 mg PO BEDTIME [facility] Last Admin: 11/01/21 19:56 Dose: 50 mg Documented by: Allergies Allergies Allergy/AdvReac Type Severity Reaction Status Date / Time haloperidol [From Haldol] Allergy Mild UNKNOWN Verified 11/05/20 13:14 lithium [[place]] Allergy Mild UNKOWN Verified 11/05/20 13:14 [place] Citrate Allergy Unknown nervous Uncoded 02/10/17 00:00 breakdown Assessment & Plan Assessment & Plan (1) Paranoid schizophrenia: Status: Acute Code(s): F20.0 - Paranoid schizophrenia Plan Patient is a 66-year-old male with history of schizophrenia, dysphagia, GERD who lives in a [place] [facility], takes medications regular and presents after becoming agitated and dysregulated, throwing something at a peer and pushing a staff person. Currently patient is calm. prison reports that patient intermittently gets agitated and can become unsafe and is asking for either medication regimen to be altered or for a p.r.n. to be added to help prevent patient from losing control and becoming unsafe. 10/26 patient intermittently agitated and at made an abrupt move with a semi- aggressive stance towards nurse; paranoid ideation and intermittent trouble articulating his thoughts both of which staff says are baseline. Given staff so report patient does not seem to restore with catatonia. Patient is has increased positive symptoms of agitation and disorganization so will increase clozapine. Difficult to decide between increasing clozapine verses Abilify. While clozapine has a higher risk for metabolic syndrome, it was chosen because it is currently at a lower dose, patient's current HbA1c is within normal limits and is less likely to cause TD than Abilify. 10/27 moderate disorganized speech and behavior but no inappropriate behaviors, calm on the unit; no outbursts. No unsafe behavior 10/28 not too much change. Patient has said if you verbally inappropriate things; seems anxious during most of interactions and will schedule clonazepam 0.25 mg daily to see if that can help 10/29 still with some agitated behaviors, punching in the air, yelling at staff and feeling paranoid and defensive. Patient cannot articulate why. Wants to go back to the [place] [facility]. Of note patient seem to have a little better time finishing his sentences and completing his thoughts which could be just an anomaly or due to the fact that clonazepam was scheduled in the morning. Will continue to monitor. Call Center Rn wants to give another day or so at current clozapine/Abilify dose before increasing, to see if there can be some improvement at this dose in effort to mitigate risk of side effects. 10/30 pt says he feels a little better; staff says calmer, not irritable; able to finish sentences a little better and somewhat less speech latency. 10/31: continue medications, no behavioral or mood concerns 11/02/21: Continue plan of care PLAN: CV Q 15 minute checks [facility] order ANC 10/30 a little elevated continue Clonazepam 0.25mg daily since pt comes across anxious; seems to be helping Increased Clozapine to 250mg qhs (up from 200mg) on 10/26 Continue Clozapine 50mg qam Will order weekly ANC Continue abiilfy 15mg daily PRN Clonazepam 0.25mg daily prn Will continue patient's home medications for now Will review history and consider either p.r.n. or making further medication adjustments I spent minutes with the patient and/or on the patient floor today, greater than?50% of which was spent counseling/coordinating care. Patient educated on: medication risk/benefits and therapeutic strategies Informed Consent: further education needed Reason for contiued inpatient stay Substantial Risk for: harm to self, inability to function and rapid decompensation
[2021-11-02] MEDS: ARIPiprazole 10 MG TABLET PO (19:33)
[2021-11-02] MEDS: clonazePAM 0.5 MG TABLET PO (19:33)
[2021-11-02] MEDS: Atorvastatin Calcium 10 MG TABLET PO (19:34)
[2021-11-02] MEDS: traZODone HCL 50 MG TABLET PO (19:34)
[2021-11-02] MEDS: cloZAPine 25 MG TABLET 225 MG PO (19:34)
[2021-11-02] MEDS: Magnesium Oxide 400 MG TABLET PO (19:34)
[2021-11-03] MEDS: clonazePAM 0.5 MG TABLET 0.25 MG PO (08:39)
[2021-11-03] MEDS: Omeprazole 20 MG CAPSULE.DR PO (08:39)
[2021-11-03] MEDS: Diclofenac Sodium Delayed Rel 75 MG TABLET.DR PO ×2 (08:39→19:15)
[2021-11-03] MEDS: Aspirin Enteric Coated 81 MG TABLET.DR PO (08:39)
[2021-11-03] MEDS: cloZAPine 100 MG TABLET 50 MG PO (08:39)
[2021-11-03 09:54] VITALS: BP 117/69; PULSE 100; RESP 18; TEMP 36.3; O2SAT 98
--- NOTE | 2021-11-03 15:37 | HO.PSYCHPN ---
Subjective Subjective Date of Service: 11/03/21 Reason For Visit: Behavioral Interim History: Reports he is feeling well. Denies sx of concern, denies breakthrough symptoms, believes he is prepared for discharge. Reports adequate sleep, appetite Visable with peers on the unit. Jovial, tangential at times. Medication Compliance: Yes Side effects from medications: No Attending Groups: Yes Review of Systems Acute medical concerns: No Medical Review of Systems: unchanged Mental Status Exam Mental Status Exam Patient Appearance: Disheveled Patient Orientation: Person, Place and Situation Level of Consciousness: Alert Patient Behavior: Appropriate, Talkative, Cooperative, Passive, Suspicious (mild), Anxious (mild), Distractible and Good Eye Contact Mood Description: Blunted Affect Description: Blunted Patient Cognition Impaired: No Ability to Follow Directions: Good Speech Pattern: Spontaneous Speech, Soft-Spoken and Delayed Memory Description: Episodic Impaired Hallucinations: None (denies) Delusions: Paranoid Ideation Thought Process: Distracted and Rumination Thought Content: positive for [place], positive for Perseveration, positive for Thought Blocking (appears to present sx, but denies), positive for Suicidal Ideation (denies) and positive for Homicidal Ideation (denies) Depressive Symptoms: Increased Anxiety and Thoughts of /Suicide (denies) Judgement: Fair Diagnostics Vital Signs (24Hr): Vital Signs - 24 hr 11/02/21 16:33 11/03/21 09:54 Temperature 97.4 F Pulse Rate 100 Respiratory Rate 16 18 Blood Pressure 117/69 Pulse Oximetry 98 BMI result Body Mass Index 27.3 Labs Results: 10/23/21 18:24 10/23/21 18:24 Medications Medications Current Medications Acetaminophen (Acetaminophen 325 Mg Tablet) 650 mg PO Q6H PRN PRN Reason: Headache/Pain Mild Scale (1-3) Last Admin: 10/25/21 15:26 Dose: 650 mg Documented by: Al Hydroxide/Mg Hydroxide (Magnesium Hydrox/Alum Hydrox 30 Ml Oral.Susp) 30 ml PO Q6H PRN PRN Reason: Heartburn/Nausea Aripiprazole (Aripiprazole 10 Mg Tablet) 10 mg PO BEDTIME [facility] Last Admin: 11/02/21 19:33 Dose: 10 mg Documented by: Aspirin (Aspirin Enteric Coated 81 Mg Tablet.) 81 mg PO DAILY [facility] Last Admin: 11/03/21 08:39 Dose: 81 mg Documented by: Atorvastatin Calcium (Atorvastatin Calcium 10 Mg Tablet) 10 mg PO BEDTIME [facility] Last Admin: 11/02/21 19:34 Dose: 10 mg Documented by: Clonazepam (Clonazepam 0.5 Mg Tablet) 0.5 mg PO DAILY PRN PRN Reason: mild agitation Clozapine (Clozapine 25 Mg Tablet) 225 mg PO BEDTIME [facility] Last Admin: 11/02/21 19:34 Dose: 225 mg Documented by: Clozapine (Clozapine 100 Mg Tablet) 50 mg PO DAILY [facility] Last Admin: 11/03/21 08:39 Dose: 50 mg Documented by: Diclofenac Sodium (Diclofenac Sodium Delayed Rel 75 Mg Tablet.) 75 mg PO BID [facility] Last Admin: 11/03/21 08:39 Dose: 75 mg Documented by: Docusate Sodium (Docusate Sodium 100 Mg Capsule) 100 mg PO DAILY PRN PRN Reason: Constipation Hydroxyzine HCl (Hydroxyzine Hcl 25 Mg Tablet) 25 mg PO Q6H PRN PRN Reason: Anxiety Magnesium Hydroxide (Milk Of Magnesia 30 Ml Oral.Susp) 30 ml PO DAILY PRN PRN Reason: Constipation Magnesium Oxide (Magnesium Oxide 400 Mg Tablet) 400 mg PO BEDTIME [facility] Last Admin: 11/02/21 19:34 Dose: 400 mg Documented by: Omeprazole (Omeprazole 20 Mg Capsule.) 20 mg PO DAILY [facility] Last Admin: 11/03/21 08:39 Dose: 20 mg Documented by: Trazodone HCl (Trazodone Hcl 50 Mg Tablet) 50 mg PO BEDTIME [facility] Last Admin: 11/02/21 19:34 Dose: 50 mg Documented by: Allergies Allergies Allergy/AdvReac Type Severity Reaction Status Date / Time haloperidol [From Haldol] Allergy Mild UNKNOWN Verified 11/05/20 13:14 lithium [[place]] Allergy Mild UNKOWN Verified 11/05/20 13:14 [place] Citrate Allergy Unknown nervous Uncoded 02/10/17 00:00 breakdown Assessment & Plan Assessment & Plan (1) Paranoid schizophrenia: Status: Acute Code(s): F20.0 - Paranoid schizophrenia Plan Patient is a 66-year-old male with history of schizophrenia, dysphagia, GERD who lives in a care home, takes medications regular and presents after becoming agitated and dysregulated, throwing something at a peer and pushing a staff person. Currently patient is calm. longterm reports that patient intermittently gets agitated and can become unsafe and is asking for either medication regimen to be altered or for a p.r.n. to be added to help prevent patient from losing control and becoming unsafe. 10/26 patient intermittently agitated and at made an abrupt move with a semi-aggressive stance towards nurse; paranoid ideation and intermittent trouble articulating his thoughts both of which staff says are baseline. Given staff so report patient does not seem to restore with catatonia. Patient is has increased positive symptoms of agitation and disorganization so will increase clozapine. Difficult to decide between increasing clozapine verses Abilify. While clozapine has a higher risk for metabolic syndrome, it was chosen because it is currently at a lower dose, patient's current HbA1c is within normal limits and is less likely to cause TD than Abilify. 10/27 moderate disorganized speech and behavior but no inappropriate behaviors, calm on the unit; no outbursts. No unsafe behavior 10/28 not too much change. Patient has said if you verbally inappropriate things; seems anxious during most of interactions and will schedule clonazepam 0.25 mg daily to see if that can help 10/29 still with some agitated behaviors, punching in the air, yelling at staff and feeling paranoid and defensive. Patient cannot articulate why. Wants to go back to the care home. Of note patient seem to have a little better time finishing his sentences and completing his thoughts which could be just an anomaly or due to the fact that clonazepam was scheduled in the morning. Will continue to monitor. Hydraulic Blocker wants to give another day or so at current clozapine/Abilify dose before increasing, to see if there can be some improvement at this dose in effort to mitigate risk of side effects. 10/30 pt says he feels a little better; staff says calmer, not irritable; able to finish sentences a little better and somewhat less speech latency. 10/31: continue medications, no behavioral or mood concerns 11/02/21: Continue plan of care 11/03/21: Prepare for discharge. Pt agrees that he is ready to leave the hospital. PLAN: CV Q 15 minute checks [facility] order ANC 10/30 a little elevated continue Clonazepam 0.25mg daily since pt comes across anxious; seems to be helping Increased Clozapine to 250mg qhs (up from 200mg) on 10/26 Continue Clozapine 50mg qam Will order weekly ANC Continue abiilfy 15mg daily PRN Clonazepam 0.25mg daily prn Will continue patient's home medications for now Will review history and consider either p.r.n. or making further medication adjustments I spent minutes with the patient and/or on the patient floor today, greater than?50% of which was spent counseling/coordinating care. Patient educated on: therapeutic strategies Informed Consent: further education needed Reason for contiued inpatient stay Substantial Risk for: inability to function and rapid decompensation
[2021-11-03 15:50] VITALS: RESP 16
[2021-11-03] MEDS: cloZAPine 25 MG TABLET 225 MG PO (19:15)
[2021-11-03] MEDS: Atorvastatin Calcium 10 MG TABLET PO (19:15)
[2021-11-03] MEDS: ARIPiprazole 10 MG TABLET PO (19:15)
[2021-11-03] MEDS: Magnesium Oxide 400 MG TABLET PO (19:15)
[2021-11-03] MEDS: traZODone HCL 50 MG TABLET PO (19:15)
[2021-11-04 06:00] VITALS: BP 135/71; PULSE 86; RESP 16; TEMP 36.4; O2SAT 96
[2021-11-04] MEDS: Diclofenac Sodium Delayed Rel 75 MG TABLET.DR PO (08:05)
[2021-11-04] MEDS: cloZAPine 100 MG TABLET 50 MG PO (08:05)
[2021-11-04] MEDS: Aspirin Enteric Coated 81 MG TABLET.DR PO (08:05)
[2021-11-04] MEDS: Omeprazole 20 MG CAPSULE.DR PO (08:06)
--- NOTE | 2021-11-04 09:34 | P.DS_ITS ---
DS: Providers Provider Date of Service: 11/04/21 Date of admission: 10/24/21 15:39 Date of discharge: 11/04/21 Primary care physician: Keven Kirkland MD Attending physician on admission: Jay Madrid Attending physician on discharge: Jay Madrid DS: Diagnosis Discharge Diagnosis (1) Paranoid schizophrenia: Status: Acute DS: Medications Discharge Medications Home Medications: Home Medications Medication Instructions Recorded Confirmed aripiprazole 10 mg tablet 10 mg PO BEDTIME 05/29/20 10/23/21 trazodone 50 mg tablet 50 mg PO BEDTIME 05/29/20 10/23/21 trolamine salicylate 10 % topical 1 appl TOPICAL DAILY PRN 11/06/20 10/23/21 cream aspirin 81 mg tablet,delayed 81 mg PO QAM 10/23/21 10/23/21 release atorvastatin 10 mg tablet 10 mg PO BEDTIME 10/23/21 10/23/21 docusate sodium 100 mg tablet (DOK) 100 mg PO NEEDED 10/23/21 10/23/21 Previous Rx's Medication Instructions Recorded sodium chloride 1,000 mg soluble 1,000 mg PO TID #90 tab 05/27/21 tablet pantoprazole 40 mg tablet,delayed 40 mg PO DAILY #90 tab 06/11/21 release magnesium oxide 400 mg PO BEDTIME #90 tab 07/03/21 diclofenac sodium 75 mg 75 mg PO BID #60 tab 08/30/21 tablet,delayed release clonazepam 0.5 mg tablet See Rx Instructions .ROUTE 11/04/21 .COMPLEX 30 Days #75 tab clozapine 200 mg tablet 200 mg PO BEDTIME 30 Days #30 tab 11/04/21 clozapine 25 mg tablet See Rx Instructions .ROUTE 11/04/21 .COMPLEX 30 Days #90 tab Mental Status Exam Mental Status Exam Narrative: Patient Appearance:?Disheveled Patient Orientation:?Person, Place and Situation Level of Consciousness:?Alert Patient Behavior:?Appropriate, Talkative, Cooperative, Passive, Suspicious (mild), Anxious (mild), Distractible and Good Eye Contact Mood Description:?Blunted Affect Description:?Blunted Patient Cognition Impaired:?No Ability to Follow Directions:?Good Speech Pattern:?Spontaneous Speech, Soft-Spoken and Delayed Memory Description:?Episodic Impaired Hallucinations:?None (denies) Delusions:?Paranoid Ideation Thought Process:?Distracted and Rumination Thought Content:?positive for [place], positive for Perseveration, positive for Thought Blocking (appears to present sx, but denies), denies Suicidal Ideation/Homicidal Ideation Depressive Symptoms:?Increased Anxiety and Thoughts of /Suicide (denies) Judgement:?Fair Data Data Completed and Pending Completed studies during hospitalization [Text1]: 10/24/21 10/30/21 09:50 07:59 Absolute Neuts (auto) 9.7 H Clozapine 52 Norclozapine 86 DS: Summary Hospital Course Hospital Course: HPI: On [facility] Patient is a 66-year-old male with history of schizophrenia, dysphagia, GERD who lives in a [facility], takes medications regular and presents after becoming agitated and dysregulated, throwing something at a peer and pushing a staff person.? Currently patient is calm.? senior living reports that patient intermittently gets agitated and can become unsafe and is asking for either medication regimen to be altered or for a p.r.n. to be added to help prevent patient from losing control and becoming unsafe. Hospital course: 10/26 patient intermittently agitated and at made an abrupt move with a semi- aggressive stance towards nurse; paranoid ideation and intermittent trouble articulating his thoughts both of which staff says are baseline. Not catatonic. Patient had increased positive symptoms of agitation and disorganization so increased clozapine (clozapine increased instead of Abilify since it is currently at a lower dose, patient's current HbA1c is within normal limits and is less likely to cause TD than Abilify). Patient remained with some moderately disorganized speech and behavior but was no longer an appropriate or aggressive and was calm on the unit. He seemed anxious and would sometimes say some carli bally inappropriate things so clonazepam 0.25 mg was scheduled which seemed helpful patient was able to finish his sentences and complete his thoughts better. Patient said he wanted to go back to the [facility]. Staff agreed that he was calmer, not irritable and both more organized in speech behavior than on admission. Staff who know him well feels that patient is at his baseline and team discussed with [facility]ci will also agreed the patient was appropriate for discharge home. He continued throughout his admission to deny any SI or HI and while he has a history of mood dysregulation, he is currently not in imminent risk for harm to self or others and a appropriate for discharge back to his fci which is staffed and a supportive environment. Time spent discussing smoking cessation with patient: 3 to 10 minutes Status at Discharge Functional status at discharge: independent ambulation Overall status at discharge: patient is back to baseline Time Spent with Patient Time attestation: Total time spent providing and/or coordinating discharge services: Time spent: Less than 30 minutes Discharge Plan Discharge Patient Disposition: Home, Self-Care Discharge Diagnosis: Schizophrenia, paranoid Referrals: Psychiatric Prescriber: Dr. Jose J Queen [Other] - 11/22/21 11:00 am (This is a Telehealth appointment) Keven Kirkland MD [Primary Care Provider] - 11/12/21 2:30 pm (in office) Discharge Medications: New clozapine 200 mg tablet 200 mg PO BEDTIME 30 Days Qty: 30 0RF Rx Instructions: take with 25mg tab for total of 225mg at bedtime clonazepam 0.5 mg tablet See Rx Instructions .ROUTE .COMPLEX 30 Days Qty: 75 0RF Rx Instructions: take 1/2 tab daily; take 1 tab at bedtime; may take additional tab daily as needed for anxiety/agitation Continued sodium chloride 1,000 mg tablet,soluble 1,000 mg PO TID Qty: 90 8RF pantoprazole 40 mg tablet,delayed release (DR/EC) 40 mg PO DAILY Qty: 90 8RF magnesium oxide 400 mg magnesium tablet 400 mg PO BEDTIME Qty: 90 8RF atorvastatin 10 mg tablet 10 mg PO BEDTIME 0RF aspirin 81 mg tablet,delayed release (DR/EC) 81 mg PO QAM 0RF docusate sodium [DOK] 100 mg tablet 100 mg PO NEEDED 0RF aripiprazole 10 mg tablet 10 mg PO BEDTIME 0RF trazodone 50 mg tablet 50 mg PO BEDTIME 0RF Changed clozapine 25 mg tablet See Rx Instructions .ROUTE .COMPLEX 30 Days Qty: 90 0RF Rx Instructions: take 2 tabs in the morning and 1 tab at bedtime Discontinued clozapine 100 mg tablet 200 mg PO BEDTIME 0RF clonazepam 0.5 mg tablet 0.5 mg PO BEDTIME 0RF Rx Instructions: MAY REPEAT X 1 No Action diclofenac sodium 75 mg tablet,delayed release (DR/EC) 75 mg PO Q12H Qty: 60 0RF Discharge Orders: Discharge Order (Routine); Ordered 11/04/21 Ordered By: Jay Madrid Diet: regular diet Activity on Discharge: As tolerated Stand Alone Forms: Patient Portal Discharge page, Community Support Care Plan Goals: Maintain mood and safe behaviors Take medications as prescribed Practice coping skills Continue with outpatient providers and reach out to them as needed Health Concerns: Mood stability and behaviors Plan of Treatment: Follow up with your PCP, psychiatric provider and other outpatient providers regarding above concerns Take medications as prescribed Assessment: Risk assessment at time of discharge:? Patient was interviewed prior to discharge and found to be fully oriented and without any SI or HI. Patient has i nsight and demonstrates good judgment in terms of wanting to pursue treatment. Patient is not in imminent risk of harm to self or others and has a safety plan that includes presenting to the closest ER or calling 911 if feeling unsafe.? Patient has been observed closely by nursing and unit staff throughout admission. Discharge Date/Time: 11/04/21 13:38
== END 2021-11-04 13:38 | disposition home or self-care (01) | DRG 885 ==
LOC: HO.ED 22:32 → HO.PM5 10-24 15:43
PROVIDERS: Emergency Medicine Emergency Medical Services; Physician Assistant; Registered Nurse; Admitting Provider Clinical Nurse Specialist Psychiatric/Mental Health, Adult; Emergency Provider Emergency Medicine; PCP Internal Medicine; Visit Provider Psychiatry & Neurology Psychiatry
DX: F20.0 Paranoid schizophrenia (principal); K21.9 Gastro-esophageal reflux disease without esophagitis; F17.210 Nicotine dependence, cigarettes, uncomplicated; Z20.822 Contact with and (suspected) exposure to COVID-19; Z71.6 Tobacco abuse counseling; Z88.8 Allergy status to other drugs, medicaments and biological substances; Z79.82 Long term (current) use of aspirin; Z79.899 Other long term (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
CPT/HCPCS: 36415; 80053; 80061; 80159; 80307; 81003; 82607; 82746; 83036; 83735; 84439; 84443; 85025; 85048; 87635; 93005; 99285

== ENCOUNTER 2022-02-21 16:00 | Emergency (ER) | payer MEDICARE, OTHER, SELFPAY ==
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
[2022-02-21 16:17] VITALS: BP 134/72; PULSE 92; TEMP 36.3; O2SAT 96; BMI 28.1
[2022-02-21 16:37] LABS: MANUAL DIFF FLAG NO
[2022-02-21 16:40] LABS: Appearance Urine CLEAR; Color Urine STRAW; Glucose Urine UA NEG (NEG); Leukocyte Esterase Urine NEG (NEG); Nitrite Urine NEG (NEG); Specific Gravity - Urine 1.015 (1.005-1.025); Urine Blood NEG (NEG); Urine Ketones NEG (NEG); Urine Protein NEG (NEG-TRACE)
[2022-02-21 16:44] LABS: Basophils Absolute Auto 0.1 X10*3/uL (0.0-0.2); Basophils Percent Auto 0.7 % (0-2); Hematocrit 47.4 % (42.0-52.0); Imm Gran Abs Auto 0.03 X10*3/uL (0.00-0.03); Imm Gran Pct Auto 0.4 % (0.0-0.4); Lymphocytes Absolute Auto 1.4 X10*3/uL (1.2-4.9); Lymphocytes Percent Auto 19.7 % (20-40); Mean Corpuscular HGB Conc 33.8 g/dl (31.0-36.0); Mean Corpuscular Hemoglobin 30.6 pg (27.0-33.0); Mean Corpuscular Volume 90.6 fL (80.0-98.0); Mean Platelet Volume 10.6 fL (9.4-12.4); Monocytes Absolute Auto 0.4 X10*3/uL (0.1-1.2); Monocytes Percent Auto 5.6 % (2-11); NRBC Pct Auto 0.3 /100WBC (0.0-0.2); Neutrophils Absolute Auto 5.4 x10*3/uL (2.0-8.3); Neutrophils Percent Auto 73.6 % (45-73); Platelet Count 176 X10*3/uL (160-400); Red Blood Count 5.23 X10*6/uL (4.60-5.80); Red Cell Distribution Width 12.4 % (11.0-16.0); White Blood Count 7.3 X10*3/uL (4.8-10.8)
--- NOTE | 2022-02-21 16:52 | PHA.MEDREC ---
Pharmacy Consult ? Medication Reconciliation Pharmacy has completed the medication reconciliation.
[2022-02-21 16:56] LABS: Acetaminophen LAB < 1 mcg/mL (<30); Ethanol < 10 mg/dL; Salicylate < 5.0 mg/dL (15-30)
[2022-02-21 16:57] LABS: Alanine Aminotransferase 28 U/L (0-40); Albumin Level 4.5 g/dL (3.5-5.0); Alkaline Phosphatase 114 U/L (39-117); Anion Gap 15 (12-20); Aspartate Amino Transferase 20 U/L (5-37); Bilirubin Total 0.6 mg/dL (0.0-1.0); Blood Urea Nitrogen 22 mg/dL (9-16); Calcium 9.1 mg/dL (8.4-10.2); Carbon Dioxide 24 mmol/L (22-29); Chloride 106 mmol/L (96-108); Creatinine Clr Calc Pharmacy 91.1; Estimated Glomerular Filt Rate > 60; Glucose Random 110 mg/dL (60-115); Potassium 4.2 mmol/L (3.3-5.1); Sodium 141 mmol/L (135-145); Total Protein 6.9 g/dL (6.5-8.0)
[2022-02-21 16:58] LABS: Amphetamine Screen Urine Not Detected (Not Detect); Barbiturates, Urine Not Detected (Not Detect); Benzodiazepines Screen Urine Not Detected (Not Detect); COVID-19 Test Negative (Negative); Cannabinoid Screen Urine Not Detected (Not Detect); Cocaine Screen Urine Not Detected (Not Detect); Fentanyl, urine Not Detected (Not Detect); IDNOW Serial# 16C4AD1C; Opiate Screen Urine Not Detected (Not Detect); Phencyclidine Screen Urine Not Detected (Not Detect)
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
[2022-02-21] MEDS: cloZAPine 25 MG TABLET PO (23:48)
[2022-02-21] MEDS: clonazePAM 0.5 MG TABLET PO (23:48)
[2022-02-21] MEDS: ARIPiprazole 10 MG TABLET PO (23:48)
[2022-02-21] MEDS: traZODone HCL 50 MG TABLET PO (23:48)
[2022-02-21] MEDS: Magnesium Oxide 400 MG TABLET PO (23:48)
[2022-02-21] MEDS: Atorvastatin Calcium 10 MG TABLET PO (23:48)
[2022-02-21] MEDS: cloZAPine 100 MG TABLET 200 MG PO (23:48)
[2022-02-21 23:50] VITALS: BP 125/82; PULSE 85; RESP 16; TEMP 36.4; O2SAT 95
--- NOTE | 2022-02-22 06:41 | PC.NURSE ---
Patient slept through the night, no distress observed/reported, behavior non concerning, medication compliant, patient was assessed by [facility] disposition discharge back to residential, residential will come pick him up in the morning, [place] ([phone]) is the banquet set up person at residential for ride, VSS, will continue to monitor.
[2022-02-22] MEDS: Omeprazole 20 MG CAPSULE.DR PO (06:48)
--- NOTE | 2022-02-22 07:05 | PC.NURSE ---
patient appears to remain asleep at present respirations are even and unlabored patient appears in nop distress
[2022-02-22] MEDS: Aspirin Enteric Coated 81 MG TABLET.DR PO (08:39)
[2022-02-22] MEDS: Sodium Chloride Tab 1 GM TABLET PO (08:39)
[2022-02-22] MEDS: clonazePAM 0.5 MG TABLET 0.25 MG PO (08:40)
[2022-02-22] MEDS: cloZAPine 25 MG TABLET 50 MG PO (08:40)
[2022-02-22] MEDS: Diclofenac Sodium Delayed Rel 75 MG TABLET.DR PO (08:40)
== END 2022-02-22 10:34 | disposition home or self-care (01) ==
PROVIDERS: Physician Assistant; Emergency Provider Student in an Organized Health Care Education/Training Program; PCP Internal Medicine
DX: F20.0 Paranoid schizophrenia (principal); R45.851 Suicidal ideations; F33.1 Major depressive disorder, recurrent, moderate; F17.210 Nicotine dependence, cigarettes, uncomplicated; Z71.6 Tobacco abuse counseling; Z20.822 Contact with and (suspected) exposure to COVID-19; Z79.899 Other long term (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
CPT/HCPCS: 36415; 80053; 80143; 80179; 80307; 81003; 82077; 83735; 85025; 87635; 99284

== ENCOUNTER 2023-01-08 09:22 | Outpatient (REF) | payer MEDICARE, OTHER, SELFPAY | END 2023-01-08 09:23 | disposition home or self-care (01) | LOC: HO.HOSX 09:22 | PROVIDERS: Visit Provider Physician Assistant | DX: Z13.89 Encounter for screening for other disorder (principal) ==

== ENCOUNTER 2023-03-19 10:54 | Emergency (ER) | payer MEDICARE, OTHER, SELFPAY ==
--- NOTE | 2023-03-19 10:59 | ED_ITS ---
HPI - Psych General Stated Complaint: CRISIS EVAL FROM [facility] PER EMS Time Seen by Provider: 03/19/23 10:59 Source: patient and EMS Mode of arrival: EMS Limitations: no limitations History of Present Illness HPI Narrative: 67 yo male with history of paranoid schizophrenia, dysphagia, GERD and HLD who presents to the ER via EMS from his custodial for evaluation Related Data Home Medications Medication Instructions Recorded Confirmed aripiprazole 10 mg tablet 10 mg PO BEDTIME 05/29/20 02/21/22 trazodone 50 mg tablet 50 mg PO BEDTIME 05/29/20 02/21/22 clonazepam 0.5 mg tablet 0.25 mg PO DAILY 02/21/22 02/21/22 clonazepam 0.5 mg tablet 0.5 mg PO BEDTIME 02/21/22 02/21/22 clonazepam 0.5 mg tablet 0.5 mg PO DAILY PRN Anxiety 02/21/22 02/21/22 clozapine 25 mg tablet 25 mg PO BEDTIME 02/21/22 02/21/22 clozapine 25 mg tablet 50 mg PO DAILY 02/21/22 02/21/22 Previous Rx's Medication Instructions Recorded clozapine 200 mg tablet 200 mg PO BEDTIME 30 days #30 tabs 11/04/21 atorvastatin 10 mg tablet 10 mg PO BEDTIME #90 tabs 04/24/22 pantoprazole 40 mg tablet,delayed 40 mg PO DAILY #90 tabs 06/18/22 release sodium chloride 1,000 mg soluble 1,000 mg PO BID #90 tabs 07/29/22 tablet magnesium oxide 400 mg PO BEDTIME #90 tabs 09/02/22 docusate sodium 100 mg tablet (DOK) 100 mg PO DAILY PRN Constipation 11/04/22 #90 tabs diclofenac sodium 75 mg 75 mg PO Q12H #60 tabs 11/20/22 tablet,delayed release aspirin 81 mg tablet,delayed 81 mg PO DAILY #90 tabs 12/29/22 release Allergies Allergy/AdvReac Type Severity Reaction Status Date / Time haloperidol [From Haldol] Allergy Mild UNKNOWN Verified 02/11/22 11:50 lithium [[place]] Allergy Mild UNKOWN Verified 02/11/22 11:50 [place] Citrate Allergy Unknown nervous Uncoded 02/10/17 00:00 breakdown PMFSH Past Medical History Medical History Dysphagia Erosive esophagitis GERD (gastroesophageal reflux disease) Paranoid schizophrenia Rotator cuff impingement syndrome of right shoulder Surgical History History of hernia surgery History of tonsillectomy and adenoidectomy Family History Family History Mother No problems noted. Father No problems noted. 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 Members Other:: [facility]: staff and clients Housing: Other Housing Other:: Detention Do you presently have visiting nurse or other home services: No Unable to assess alcohol history related to: Unknown Alcohol intake: never Patient Tobacco Use Status: Current someday Tobacco user Tobacco use type: Cigarette Cigarette Packs Per Day: 0.5 e-Cigarette/Vaping Use: Never Used Second Hand Smoke Exposure: Yes service: Yes ([employer]) Current occupational status: disabled Current occupation: Right Handed Sexual orientation: Did not discuss Cognitive needs: Yes Hearing needs: No Vision needs: No Discharge Plan Discharge Prescriptions: No Action atorvastatin 10 mg tablet 10 mg PO BEDTIME Qty: 90 8RF pantoprazole 40 mg tablet,delayed release (DR/EC) 40 mg PO DAILY Qty: 90 8RF sodium chloride 1,000 mg tablet,soluble 1,000 mg PO BID Qty: 90 6RF magnesium oxide 400 mg magnesium tablet 400 mg PO BEDTIME Qty: 90 8RF docusate sodium [DOK] 100 mg tablet 100 mg PO DAILY PRN (Reason: Constipation) Qty: 90 7RF diclofenac sodium 75 mg tablet,delayed release (DR/EC) 75 mg PO Q12H Qty: 60 0RF aspirin 81 mg tablet,delayed release (DR/EC) 81 mg PO DAILY Qty: 90 5RF clozapine 200 mg tablet 200 mg PO BEDTIME 30 Days Qty: 30 0RF Rx Instructions: take with 25mg tab for total of 225mg at bedtime clonazepam 0.5 mg tablet 0.5 mg PO BEDTIME clonazepam 0.5 mg tablet 0.25 mg PO DAILY clonazepam 0.5 mg tablet 0.5 mg PO DAILY PRN (Reason: Anxiety) clozapine 25 mg tablet 25 mg PO BEDTIME clozapine 25 mg tablet 50 mg PO DAILY aripiprazole 10 mg tablet 10 mg PO BEDTIME trazodone 50 mg tablet 50 mg PO BEDTIME
[2023-03-19 11:02] VITALS: BP 110/91; BP 146/74; PULSE 101; PULSE 115; RESP 18; TEMP 36.1; O2SAT 95; O2SAT 96; BMI 26.6
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
== END 2023-03-19 12:34 | disposition home or self-care (01) ==
LOC: HO.ED 11:17
PROVIDERS: Emergency Provider Emergency Medicine; PCP Internal Medicine
DX: F91.8 Other conduct disorders (principal); R45.1 Restlessness and agitation; F20.0 Paranoid schizophrenia; E78.5 Hyperlipidemia, unspecified; F17.210 Nicotine dependence, cigarettes, uncomplicated; Z79.899 Other long term (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
CPT/HCPCS: 99283

== ENCOUNTER 2023-11-05 09:53 | Outpatient (AMB) | payer MEDICARE, MEDICAID, SELFPAY ==
[2023-11-05 10:00] VITALS: BP 112/80; PULSE 102; O2SAT 96; BMI 29.8
--- NOTE | 2023-11-05 10:00 | A.OFFPC_ITS ---
Vital Signs 11/05/23 10:00 Height 5 ft 7 in Weight 190 lb 0.8 oz BMI 29.8 BP 112/80 Blood Pressure Location Lt brachial Position Sitting Pulse 102 H Pulse Source Pulse Oximeter Pulse Oximetry (%) 96 Oxygen Delivery Method Room Air Intake Visit Reasons: annual exam Research Program Assistant Required: No Accompanied by: Self / Same As Patient Allergies haloperidol [From Haldol] Allergy (Mild, Verified 02/11/22 11:50) UNKNOWN lithium [[place]] Allergy (Mild, Verified 02/11/22 11:50) UNKOWN [place] Citrate Allergy (Unknown, Uncoded 02/10/17 00:00) nervous breakdown Medication List - Last Reconciled 11/05/23 by Keven Kirkland MD aripiprazole 10 mg PO BEDTIME aspirin 81 mg PO DAILY atorvastatin 10 mg PO BEDTIME clonazepam 0.5 mg PO BEDTIME clonazepam 0.25 mg PO DAILY clonazepam 0.5 mg PO DAILY PRN clozapine 50 mg PO DAILY clozapine 200 mg PO BEDTIME 30 days clozapine 25 mg PO BEDTIME diclofenac sodium 75 mg PO Q12H docusate sodium (DOK) 100 mg PO DAILY PRN magnesium oxide 400 mg PO BEDTIME pantoprazole 40 mg PO DAILY sodium chloride 1,000 mg PO BID trazodone 50 mg PO BEDTIME Tobacco use date assessed: 11/05/23 Dental Screening Dental Screen Date: 11/05/23 Did you have a dental visit in the last 12 months?: No Did you have a dental problem in the last 6 months where you did not have access to dental care?: No HPI annual exam HPI Details schizophrenia; sees psych on meds; hyperlip on rx PFSH Medical History Dysphagia Erosive esophagitis GERD (gastroesophageal reflux disease) Paranoid schizophrenia Rotator cuff impingement syndrome of right shoulder Surgical History History of hernia surgery History of tonsillectomy and adenoidectomy Family History Mother No problems noted. Father No problems noted. Social History Household Members: Other Household Members Other:: [facility]: staff and clients Housing: Other Housing Other:: Detention Do you presently have visiting nurse or other home services: No Unable to assess alcohol history related to: Unknown Alcohol intake: never Patient Tobacco Use Status: Current someday Tobacco user Tobacco use type: Cigarette Cigarette Packs Per Day: 0.5 e-Cigarette/Vaping Use: Never Used Second Hand Smoke Exposure: Yes service: Yes ([employer]) Current occupational status: disabled Current occupation: Right Handed Sexual orientation: Did not discuss Cognitive needs: Yes Hearing needs: No Vision needs: No Questionnaire PHQ-9 Over the last 2 weeks, how often have you been bothered by any of the following problems? 1. Little interest or pleasure in doing things: not at all 2. Feeling down, depressed, or hopeless: not at all 3. Trouble falling or staying asleep, or sleeping too much: not at all 4. Feeling tired or having little energy: not at all 5. Poor appetite or overeating: not at all 6. Feeling bad about yourself - or that you are a failure or have let yourself or your family down: not at all 7. Trouble concentrating on things, such as reading the newspaper or watching television: not at all 8. Moving or speaking so slowly that other people could have noticed. Or the opposite - being so fidgety or restless that you have been moving around a lot more than usual: not at all 9. Thoughts that you would be better off or of hurting yourself in some way: not at all Total score: 0 Depression Screening Interpretation: Negative Depression Screening Done: Yes [id number] - PHQ-9 Billing: Yes Source: Developed by Drs. Adam Irby, Mendy Clemens, Michael Montero and colleagues, with an educational roel from [employer]. Thrive Questionnaire Date Thrive assessed: 11/05/23 I am a: Patient What is your living situation today?: I have a steady place to live Within the past 12 months, did the food you bought not last and you didn't have the money to get more?: Never true Within the past 12 months, did you worry whether your food would run out before you got money to buy more?: Never true Do you have trouble paying for medicines?: No Do you have trouble getting transportation to medical appointments?: No Do you have trouble paying your heating and electricity bill?: No Do you have trouble taking care of your child, family member or friend?: No Do you have trouble with day-to-day activities such as bathing, preparing meals, shopping, managing finances, etc.?: No Are you currently unemployed and looking for a job?: No Are you interested in more education?: No Please select the resources that you would like help with: None Currently or been in a relationship where the following occur: no concerns reported THRIVE Score: 0 AUDIT C Alcohol Use Questionnaire (AUDIT-C) 1. How often do you have a drink containing alcohol?: Never 3. How often do you have six or more drinks on one occasion?: Never Total Score: 0 Score Reviewed/Action Taken: Yes DEREK-7 AMB Questionnaire DEREK-7 Date DEREK - 7 assessed: 11/05/23 Source: Developed by Drs. Adam Irby, Mendy Clemens, Michael Montero and colleagues, with an educational roel from [employer]. Review of Systems Const Denies chills, Denies fatigue, Denies headache(s) and Denies weight loss Eyes Denies change in vision, Denies diplopia and Denies eye pain ENT Denies vertigo, Denies dizziness, Denies headache(s) and Denies nasal discharge Card Denies chest pain, Denies rapid heart rate and Denies dyspnea on exertion Resp Denies chest congestion, Denies cough, Denies pain with cough and Denies dyspnea on exertion GI Denies abdominal pain, Denies hematochezia and Denies change in bowel habits Musc Denies myalgias, Denies arthralgias and Denies joint swelling Skin/Breast Denies lesions and Denies unusual bruising Neuro Denies vertigo, Denies dizziness, Denies headache(s) and Denies focal weakness Endo Denies fatigue Physical exam (Primary Care) Vital Signs: Last Vital Signs Pulse 102 H 11/05/23 10:00 BP 112/80 11/05/23 10:00 Pulse Ox 96 11/05/23 10:00 Oxygen Delivery Method Room Air 11/05/23 10:00 BMI result Body Mass Index 29.8 Tobacco/Smoking Status: Tobacco use Status Tobacco use date assessed 11/05/23 11/05/23 10:03 Patient Tobacco Use Status Current someday Tobacco 11/05/23 10:03 Tobacco use type Cigarette 11/05/23 10:03 e-Cigarette/Vaping Use Never Used 11/05/23 10:03 PHQ-9: PHQ-9 Score PHQ-9: Total score 0 11/05/23 10:03 Depression Screening Interpretation: Negative Thrive Assessment: Date of Thrive Assessment Date Thrive assessed 11/05/23 11/05/23 10:03 Currently or been in a relationship where the following occur: no concerns reported Const General: cooperative, healthy appearing and no acute distress Orientation/consciousness: oriented to person, oriented to place and oriented to time HENMT Head: Yes normal to inspection, Yes normocephalic and Yes atraumatic Mouth: Normal oral and palatal mucosa present and tongue normal Throat: Yes posterior oropharynx normal and Yes uvula midline Eyes General: appearance normal, both eyes and all related structures Neck Neck: Yes normal visual inspection, Yes full ROM and Yes no lymphadenopathy Thyroid: Thyroid normal Carotids: normal carotid upstroke Chest Chest palpation & inspection: normal inspection of the chest Resp Effort & Inspection: normal respiratory effort and able to speak in complete sentences Auscultation: clear to auscultation bilaterally Cardio Jugular venous distension: no JVD Palpation: normal PMI Rate: regular rate Rhythm: regular rhythm Heart sounds: S1 normal heart sound present and S2 normal heart sound present GI Inspection: Yes normal to inspection Palpation (GI): Soft to palpation and No hepatosplenomegaly present Auscultation: normal bowel sounds General: Yes no CVA tenderness Back/Spine/Pelvis Back: no CVA tenderness Skin General skin exam: no rashes or lesions noted Neuro General: oriented to person, oriented to place and oriented to time Extrem General: Yes normal to inspection and Yes full ROM Assessment and Plan Assessment & Plan (1) Physical exam: Code(s): Z00.00 - Encounter for general adult medical examination without abnormal fi ndings Plan: do labs (2) Hyperlipidemia: Code(s): E78.5 - Hyperlipidemia, unspecified Plan: stable (3) Paranoid schizophrenia: Code(s): F20.0 - Paranoid schizophrenia Plan: per psych Orders: Orders Lipid Panel Today Z13.220 - Encounter for screening for lipoid disorders Complete Blood Count Auto Diff Today Z13.0 - Encounter for screening for diseases of the blood and blood-forming organs and certain disorders involving the immune mechanism Thyroid Stimulating Hormone Today Z13.29 - Encounter for screening for other suspected endocrine disorder Comprehensive [place]. Panel Fast Today Z13.9 - Encounter for screening, unspecified Coding Level of Care Code Est Pt Prev Care >65y(17868) Diagnoses Physical exam Z00.00 Hyperlipidemia E78.5 Paranoid schizophrenia F20.0
== END 2023-11-05 10:22 | disposition home or self-care (01) ==
PROVIDERS: PCP Internal Medicine; Visit Provider Internal Medicine
DX: Z00.00 Encounter for general adult medical examination without abnormal findings (principal); E78.5 Hyperlipidemia, unspecified; F20.0 Paranoid schizophrenia
CPT/HCPCS: 99397

== ENCOUNTER 2023-12-18 17:36 | Inpatient (IN) | payer MEDICARE, OTHER, SELFPAY ==
[2023-12-18 17:50] VITALS: BP 120/74; PULSE 108; O2SAT 98
[2023-12-18 18:03] VITALS: BP 138/86; PULSE 93; RESP 16; TEMP 37; O2SAT 98; BMI 24.6
--- NOTE | 2023-12-18 18:16 | ED_ITS ---
HPI - Psych General Chief Complaint: Psychiatric Symptoms Stated Complaint: hearing voices telling him to harm himself Time Seen by Provider: 12/18/23 18:12 Source: patient and EMS Mode of arrival: EMS Limitations: no limitations History of Present Illness ED Provider: Martha Castillo PA-C HPI Narrative: 68-year-old male with history of paranoid schizophrenia, dysphagia, GERD who lives in a care home presents the ER for evaluation of auditory hallucinations, voices telling him to kill himself. He is here on a voluntary basis for crisis evaluation. He states he is hearing things like the TV which is making it hard for him at home. He is hoping to get help from Dr. Madrid. He is a poor historian. He has been compliant with all his medications. He denies any drug use. He denies any suicidal thoughts. MD complaint: hallucinations Onset (ago): unknown History of same: Yes Relieving factors: medication Associated psychiatric symptoms: racing thoughts and auditory hallucinations Associated symptoms: insomnia Related Data Home Medications ?Medication ?Instructions ?Recorded ?Confirmed aripiprazole 10 mg tablet 10 mg PO BEDTIME 05/29/20 12/18/23 trazodone 50 mg tablet 50 mg PO BEDTIME 05/29/20 12/18/23 clonazepam 0.5 mg tablet 0.25 mg PO DAILY 02/21/22 12/18/23 clonazepam 0.5 mg tablet 0.5 mg PO BEDTIME 02/21/22 12/18/23 clonazepam 0.5 mg tablet 0.5 mg PO DAILY PRN Anxiety 02/21/22 12/18/23 clozapine 25 mg tablet 25 mg PO BEDTIME 02/21/22 12/18/23 clozapine 25 mg tablet 62.5 mg PO DAILY 02/21/22 12/18/23 Previous Rx's ?Medication ?Instructions ?Recorded clozapine 200 mg tablet 200 mg PO BEDTIME 30 days #30 tabs 11/04/21 aspirin 81 mg tablet,delayed 81 mg PO DAILY #90 tabs 12/29/22 release pantoprazole 40 mg tablet,delayed 40 mg PO DAILY #90 tabs 06/03/23 release sodium chloride 1,000 mg soluble 1,000 mg PO BID #90 tabs 08/19/23 tablet atorvastatin 10 mg tablet 10 mg PO BEDTIME #90 tabs 10/29/23 diclofenac sodium 75 mg 75 mg PO Q12H #60 tabs 11/02/23 tablet,delayed release magnesium oxide 400 mg PO BEDTIME #90 tabs 11/10/23 docusate sodium 100 mg tablet (DOK) 100 mg PO DAILY PRN Constipation 11/11/23 #90 tabs Allergies Allergy/AdvReac Type Severity Reaction Status Date / Time haloperidol [From Haldol] Allergy Mild UNKNOWN Verified 12/18/23 18:10 lithium [[place]] Allergy Mild UNKOWN Verified 12/18/23 18:10 [place] Citrate Allergy Unknown nervous Uncoded 12/18/23 18:10 breakdown Review of Systems 2 Review of Systems: Yes all other systems are reviewed and are negative [facility] Past Medical History Medical History Dysphagia Erosive esophagitis GERD (gastroesophageal reflux disease) Paranoid schizophrenia Rotator cuff impingement syndrome of right shoulder Surgical History History of hernia surgery History of tonsillectomy and adenoidectomy Family History Family History Mother No problems noted. Father No problems noted. 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 Members Other:: [facility]: staff and clients Housing: Other Housing Other:: [facility] Do you presently have visiting nurse or other home services: No Unable to assess alcohol history related to: Unknown Alcohol intake: never Patient Tobacco Use Status: Current someday Tobacco user Tobacco use type: Cigarette Cigarette Packs Per Day: 0.5 Smoked in Last 30 Days: Yes e-Cigarette/Vaping Use: Never Used Second Hand Smoke Exposure: Yes Use of substances other than those prescribed or required for medical reasons: No Advance Directives: No Advance Directives Information Provided: No Do you have a plan to hurt others: No Plan service: Yes ([employer]) Current occupational status: disabled Current occupation: Right Handed Sexual orientation: Did not discuss Cognitive needs: Yes Hearing needs: No Vision needs: No Physical Exam 2 Vital Signs: Vital Signs: Last Vital Signs Temp 98.6 F 12/18/23 18:17 Pulse 93 12/18/23 18:17 Resp 16 12/18/23 18:17 BP 138/86 12/18/23 18:17 Pulse Ox 98 12/18/23 18:17 O2 Del Method Room Air 12/18/23 18:17 BMI result Body Mass Index 24.6 Appearance: Alert. Oriented X3. No acute distress. Head: normocephalic, atraumatic. Eyes: Pupils equal, round and reactive to light. ENT: Pharynx normal. No tonsillar swelling or exudate. Neck: Normal inspection. Neck supple. CVS: Normal heart rate and rhythm. Pulses normal. Respiratory: No respiratory distress. Breath sounds normal. Abdomen: Soft and nontender. +BS x4 Skin: Skin warm and dry. Normal skin color. Normal skin turgor. No rashes. Extremities: No lower extremity edema. No joint swelling. Neuro/psych: Oriented X 3. No motor deficit. No sensory deficit. CN II-XII intact. Normal speech. Responding to internal stimuli, unable to answer simple questions Course Reevaluation(s) Reevaluation #1: Physician observation started at 19:37. Patient placed in physician observation because patient is awaiting CARE team evaluation for the possible need of inpatient psych admission. At the time observation was started patient's vital signs were stable. Patient is alert and oriented. Neuro exam is non-focal. CV: RRR and lungs are clear. Will continue to monitor. Time: 19:37 Time: 22:13 Medical Decision Making Medical Decision Making [facility] Narrative: 68-year-old male presenting to the ER for exacerbation of paranoid schizophrenia with auditory hallucinations. Patient is responding to internal stimuli and is dysregulated, unable to hold a conversation in the Behavioral pot. Patient denies any suicidal or homicidal thoughts. At this time patient would benefit from inpatient level of care for medication adjustments. Patient is in agreement. 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 No significant metabolic derangement 12/18/23 18:58 12/18/23 18:58 Labs: Lab Results 12/18/23 12/18/23 Range/Units 18:58 19:27 WBC 8.6 (4.8-10.8) X10*3/uL RBC 5.11 (4.60-5.80) X10*6/uL Hgb 15.8 (14.0-18.0) g/dl Hct 46.3 (42.0-52.0) % MCV 90.6 (80.0-98.0) fL MCH 30.9 (27.0-33.0) pg MCHC 34.1 (31.0-36.0) g/dl RDW 13.2 (11.0-16.0) % Plt Count 182 (160-400) X10*3/uL MPV 10.5 (9.4-12.4) fL Immature Gran % (Auto) 0.3 (0.0-0.4) % Neut % (Auto) 73.3 H (45-73) % Lymph % (Auto) 18.6 L (20-40) % [place] % (Auto) 7.0 (2-11) % Eos % (Auto) 0.2 (0-4) % Baso % (Auto) 0.6 (0-2) % Lymph # (Auto) 1.6 (1.2-4.9) X10*3/uL [place] # (Auto) 0.6 (0.1-1.2) X10*3/uL Eos # (Auto) 0.0 (0.0-0.4) X10*3/uL Baso # (Auto) 0.1 (0.0-0.2) X10*3/uL Abs Immat Gran (auto) 0.03 (0.00-0.03) X10*3/uL Absolute Neuts (auto) 6.3 (2.0-8.3) x10*3/uL Absolute Nucleated RBC 0.000 (0.0-0.012) X10*3/uL Nucleated RBC % (auto) 0.0 (0.0-0.2) /100WBC Sodium 141 (135-145) mmol/L Potassium 4.3 (3.3-5.1) mmol/L Chloride 106 (96-108) mmol/L Carbon Dioxide 26 (22-29) mmol/L Anion Gap 13 (12-20) BUN 21 H (9-16) mg/dL Creatinine 0.85 (0.5-1.4) mg/dL Estim Creat Clear Calc 79.3 Estimated GFR > 60 Random Glucose 136 H (60-115) mg/dL Calcium 9.5 (8.4-10.2) mg/dL Total Bilirubin 0.3 (0.0-1.0) mg/dL AST 19 (5-37) U/L ALT 26 (0-40) U/L Alkaline Phosphatase 110 (39-117) U/L Total Protein 6.8 (6.5-8.0) g/dL Albumin 4.4 (3.5-5.0) g/dL Urine Color Yellow Urine Appearance Clear Urine pH 7.0 (5.0-9.0) Ur Specific [place] 1.015 (1.005-1.025) Urine Protein Negative (Neg-Trace) mg/dL Urine Glucose (UA) Negative (Negative) mg/dL Urine Ketones Negative (Negative) mg/dL Urine Blood Negative (Negative) Urine Nitrite Negative (Negative) Ur Leukocyte Esterase Negative (Negative) Urine Opiates Screen Not Detected (Not Detect) Ur Buprenorphine Scrn Not Detected (Not Detect) ng/mL Ur Oxycodone Screen Not Detected (Not Detect) ng/mL Urine Methadone Screen Not Detected (Not Detect) ng/mL Urine Fentanyl Screen Not Detected (Not Detect) Ur Barbiturates Screen Not Detected (Not Detect) Ur Phencyclidine Scrn Not Detected (Not Detect) Ur Amphetamines Screen Not Detected (Not Detect) U Benzodiazepines Scrn Not Detected (Not Detect) Urine Cocaine Screen Not Detected (Not Detect) U Marijuana (THC) Screen Not Detected (Not Detect) Ethyl Alcohol < 10 mg/dL Independent Historian Clinical information obtained from an independent historian. History obtained from or confirmed by: EMS External Record Review External record reviewed: Inpatient record, Outpatient record, Prior outpatient labs and Prior outpatient radiology Prescription Management I considered prescription management with: Other (Antipsychotic) Chronic Conditions Patient?s care impacted by: Other (Paranoid schizophrenia) Social Determinants Patient?s care significantly limited by Social Determinants of Health including: Problems related to primary support group and Other Social Determinant of Health Critical Care Time Critical Care Time Critical Care Time: No Discharge Plan Discharge Clinical Impression: Paranoid schizophrenia Patient Disposition: Admitted As Inpatient
[2023-12-18 18:17] VITALS: BP 138/86; PULSE 93; RESP 16; TEMP 37; O2SAT 98
--- NOTE | 2023-12-18 18:25 | MHC.CARE ---
[employer] called patient's [facility] and spoke with Luca Pascal who states that patient approached staff and requested to come to the ED today due to increased, distressing AH. Luca reports pateint has been 'on and off' the past few days and has been interacting with his auditory hallucinations, be;ieving they are real. He has become more isolative and withdrawn and 'dwells on the AH' to the point that he gets 'real angry with other residents and staff.' Increased sleep difficulties are also reported by Luca. Long Term Mgr. [place] number is [phone] as needed for disposition/discharge planning.
[2023-12-18 19:04] LABS: MANUAL DIFF FLAG NO
[2023-12-18 19:07] LABS: Basophils Absolute Auto 0.1 X10*3/uL (0.0-0.2); Basophils Percent Auto 0.6 % (0-2); Eosinophils Percent Auto 0.2 % (0-4); Hematocrit 46.3 % (42.0-52.0); Hemoglobin 15.8 g/dl (14.0-18.0); Imm Gran Abs Auto 0.03 X10*3/uL (0.00-0.03); Imm Gran Pct Auto 0.3 % (0.0-0.4); Lymphocytes Absolute Auto 1.6 X10*3/uL (1.2-4.9); Lymphocytes Percent Auto 18.6 % (20-40); Mean Corpuscular HGB Conc 34.1 g/dl (31.0-36.0); Mean Corpuscular Hemoglobin 30.9 pg (27.0-33.0); Mean Corpuscular Volume 90.6 fL (80.0-98.0); Mean Platelet Volume 10.5 fL (9.4-12.4); Monocytes Absolute Auto 0.6 X10*3/uL (0.1-1.2); Neutrophils Absolute Auto 6.3 x10*3/uL (2.0-8.3); Neutrophils Percent Auto 73.3 % (45-73); Platelet Count 182 X10*3/uL (160-400); Red Blood Count 5.11 X10*6/uL (4.60-5.80); Red Cell Distribution Width 13.2 % (11.0-16.0); White Blood Count 8.6 X10*3/uL (4.8-10.8)
[2023-12-18 19:33] LABS: Alanine Aminotransferase 26 U/L (0-40); Albumin Level 4.4 g/dL (3.5-5.0); Alkaline Phosphatase 110 U/L (39-117); Anion Gap 13 (12-20); Aspartate Amino Transferase 19 U/L (5-37); Bilirubin Total 0.3 mg/dL (0.0-1.0); Blood Urea Nitrogen 21 mg/dL (9-16); Calcium 9.5 mg/dL (8.4-10.2); Carbon Dioxide 26 mmol/L (22-29); Chloride 106 mmol/L (96-108); Creatinine Clr Calc Pharmacy 79.3; Estimated Glomerular Filt Rate > 60; Ethanol < 10 mg/dL; Glucose Random 136 mg/dL (60-115); Potassium 4.3 mmol/L (3.3-5.1); Sodium 141 mmol/L (135-145); Total Protein 6.8 g/dL (6.5-8.0)
[2023-12-18 19:50] LABS: Appearance Urine Clear; Color Urine Yellow; Glucose Urine UA Negative (Negative); Leukocyte Esterase Urine Negative (Negative); Nitrite Urine Negative (Negative); Specific Gravity - Urine 1.015 (1.005-1.025); Urine Blood Negative (Negative); Urine Ketones Negative (Negative); Urine Protein Negative (Neg-Trace)
[2023-12-18 20:52] LABS: Amphetamine Screen Urine Not Detected (Not Detect); Barbiturates, Urine Not Detected (Not Detect); Benzodiazepines Screen Urine Not Detected (Not Detect); Buprenorphine Scr Not Detected (Not Detect); Cannabinoid Screen Urine Not Detected (Not Detect); Cocaine Screen Urine Not Detected (Not Detect); Fentanyl, urine Not Detected (Not Detect); Methadone Screen, Urine Not Detected (Not Detect); Opiate Screen Urine Not Detected (Not Detect); Oxycodone Screen Urine Not Detected (Not Detect); Phencyclidine Screen Urine Not Detected (Not Detect)
[2023-12-18] MEDS: traZODone HCL 50 MG TABLET PO (23:07)
[2023-12-18] MEDS: Acetaminophen 325 MG TABLET 650 MG PO (23:07)
--- NOTE | 2023-12-18 23:42 | PC.NURSE ---
this rn did not do inital admission, previous rn did not document.
--- NOTE | 2023-12-19 01:47 | PC.NURSE ---
Placed PT in disp bed. Not able to discharge due to [place] suicide scale not being complete on inital triage.
[2023-12-19 03:16] VITALS: BP 158/88; PULSE 90; RESP 18; TEMP 36.6; O2SAT 95
[2023-12-19 03:17] VITALS: BMI 29.0
--- NOTE | 2023-12-19 03:18 | PC.ADMIT ---
Addendum entered by David Wall RN 12/19/23 03:39: Patient would only state that he is here to see Dr. Madrid. Patient appears anxious, unkempt, and is odorous. He is fidgety. His skin check was performed and skin is intact. He is a current everyday smoker but is refusing nicotine replacement. His answers to questions are mostly vague. Some questions he will provide limited answers, some he declines and states that its personal and other questions he just cant recall. He seems to need a quiet place and doesn't do well with chaos or loudness. He was triggered upon arrival when a patient on the unit was yelling. After that incident he could not concentrate and states I feel bad for that woman . He could not complete the safety tool due to lack of concentration and focus and when asked a question would respond with sherman degroot, I cant think . Patient states that he likes to be alone and doesnt like crowded places. Patient does not want to talk about auditory hallucinations, if he has them, or what they tell him. He appears to get upset when tallking about anything personal. He states he has no support system besides the people at his [facility]. He has a sister and two brothers that he does not speak with. He states he cant remember the name of anyone there that he confides in or speaks with. RN decided it was best to acclimate the patient around the unit and get him to his room so that he could rest. Patient has no lower teeth and should be on a modified diet. He also reports some difficulty with constipation. He takes colace at his [facility] and reports having to dis-impact himself occasionally. Patient is safe on the unit, states he will speak with staff if he has any issues or concerns. Trazadone administered for sleep and patient is currently sleeping. No acute concerns. Will monitor sleep patterns and behaviors overnight and continue care with behavioral health team in the morning. Original Note: Patient is being admitted to through the [facility] ED Behavioral Health Pod with a diagnosis of Paranoid Schizophrenia. Patient resides at a [facility] in [place]. skilled nursing staff report that over the last few days the patient has become more irritable, isolative, and withdrawn which is not his baseline. According to the medical record patient has been observed interacting with hallucinations, voices telling him to kill himself . RN made small talk with patient first in the ED Behavioral Health Pod. RN asked him a few questions about his living situation. Patient reports I dont really want to get into it, I know your trying to help me but.. .
[2023-12-19] MEDS: clonazePAM 0.5 MG TABLET PO ×2 (07:01→20:25)
--- NOTE | 2023-12-19 07:29 | HE.PHANOTE ---
clozaril Called patients [facility] to confirm clozaril dose and date last taken. Spoke with Rip. Patient takes 62.5 mg of clozaril in the morning and 225 mg in the evening. Patient last took doses on 12/18/23 in morning ( missed PM doses on 12/17)
[2023-12-19 08:00] VITALS: BP 151/80; PULSE 86; RESP 18; TEMP 37.1; O2SAT 95
[2023-12-19 08:20] LABS: Estimated Average Glucose 111 mg/dL; Hemoglobin A1c % 5.5 % (<6.0)
[2023-12-19 08:38] LABS: Cholesterol 177 mg/dL (<200); HDL Cholesterol 51 mg/dL (>40); LDL Cholesterol Calculated 111 mg/dL (<100); Magnesium 2.3 mg/dL (1.6-2.6); Triglycerides 76 mg/dL (<150)
[2023-12-19 08:50] LABS: Free T4 (Free Thyroxine) 1.19 ng/dL (0.71-1.85); Thyroid Stimulating Hormone 2.03 uIU/mL (0.32-4.0)
[2023-12-19 09:03] LABS: Folate 11.2 ng/mL (> or = 4.0); Vitamin B12 631 pg/mL (200-900)
[2023-12-19] MEDS: Aspirin 81 MG TAB.CHEW PO (09:55)
[2023-12-19] MEDS: cloZAPine 25 MG TABLET 62.5 MG PO (09:55)
[2023-12-19] MEDS: Sodium Chloride Tab 1 GM TABLET PO ×2 (11:25→20:24)
[2023-12-19] MEDS: Diclofenac Sodium Delayed Rel 75 MG TABLET.DR PO ×2 (11:25→20:25)
[2023-12-19] MEDS: Omeprazole 20 MG CAPSULE.DR PO (11:26)
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
[2023-12-19] MEDS: hydrOXYzine HCL 25 MG TABLET PO (17:25)
[2023-12-19 20:00] VITALS: BP 128/86; PULSE 88; RESP 18; TEMP 36.9; O2SAT 95
[2023-12-19] MEDS: ARIPiprazole 10 MG TABLET PO (20:24)
[2023-12-19] MEDS: Acetaminophen 325 MG TABLET 650 MG PO (20:24)
[2023-12-19] MEDS: Atorvastatin Calcium 10 MG TABLET PO (20:24)
[2023-12-19] MEDS: Magnesium Oxide 400 MG TABLET PO (20:24)
[2023-12-19] MEDS: cloZAPine 25 MG TABLET PO (20:25)
[2023-12-20] MEDS: Omeprazole 20 MG CAPSULE.DR PO (05:28)
[2023-12-20] MEDS: hydrOXYzine HCL 25 MG TABLET PO ×2 (05:29→20:23)
[2023-12-20] MEDS: Docusate Sodium 100 MG CAPSULE PO (05:29)
[2023-12-20] MEDS: clonazePAM 0.5 MG TABLET PO ×2 (05:35→20:23)
[2023-12-20 08:00] VITALS: BP 142/85; PULSE 87; RESP 18; TEMP 36.4; O2SAT 94
[2023-12-20] MEDS: Aspirin 81 MG TAB.CHEW PO (09:23)
[2023-12-20] MEDS: Diclofenac Sodium Delayed Rel 75 MG TABLET.DR PO ×2 (09:23→20:22)
[2023-12-20] MEDS: cloZAPine 25 MG TABLET 62.5 MG PO (09:23)
[2023-12-20] MEDS: Sodium Chloride Tab 1 GM TABLET PO ×2 (09:25→20:23)
--- NOTE | 2023-12-20 10:57 | P.PNPSI_ITS ---
Subjective Subjective Date of Service: 12/20/23 Reason For Visit: Schizophrenia Subjective Notes: 3 Day Interim History: Angry, psychotic, disorganized, punched the wall while talking with tw. Ep[employer] preoccupation. Expressed himself verbally, verbally caustic and abusive, then ambivalent and apologetic for his expression. The did this, he made people to make me angry, like you, like [place]. I am sorry, this has nothing to do with you. But is does, people leave me, you will leave me, where is Julius, did he leave too? Pt able to work to acknowledge some parameters on team being here to assist him, listen and help him move ahead which he was able to hear and calmed after this. Medication Compliance: Yes Side effects from medications: No Attending Groups: No Review of Systems Acute medical concerns: No Medical Review of Systems: unchanged Review of Systems Review of Systems Yes Unobtainable due to mental status Mental Status Exam Mental Status Exam Patient Appearance: Fatigued Patient Orientation: Person, Place and Situation Level of Consciousness: Alert Patient Behavior: Appropriate, Talkative, Cooperative and Good Eye Contact Mood Description: Depressed, Hostile and Angry Affect Description: Flat Patient Cognition Impaired: No Ability to Follow Directions: Good Speech Pattern: Spontaneous Speech Memory Description: Episodic Impaired Hallucinations: Auditory Delusions: Present Perceptual Disturbances: Derealization Thought Process: Rumination Thought Content: positive for Perseveration Depressive Symptoms: Increased Fatigue, Loss of Energy and Difficulty Concentrating Judgement: Fair Diagnostics Vital Signs (24Hr): Vital Signs - 24 hr 12/19/23 20:00 Temperature 98.4 F Pulse Rate 88 Respiratory Rate 18 Blood Pressure 128/86 Pulse Oximetry 95 Oxygen Delivery Method Room Air BMI result Body Mass Index 29.0 Labs 12/18/23 18:58 12/18/23 18:58 Labs: Laboratory Results - last 48 hr 12/18/23 12/18/23 12/19/23 18:58 19:27 07:30 WBC 8.6 RBC 5.11 Hgb 15.8 Hct 46.3 MCV 90.6 MCH 30.9 MCHC 34.1 RDW 13.2 Plt Count 182 MPV 10.5 Immature Gran % (Auto) 0.3 Neut % (Auto) 73.3 H Lymph % (Auto) 18.6 L [place] % (Auto) 7.0 Eos % (Auto) 0.2 Baso % (Auto) 0.6 Lymph # (Auto) 1.6 [place] # (Auto) 0.6 Eos # (Auto) 0.0 Baso # (Auto) 0.1 Abs Immat Gran (auto) 0.03 Absolute Neuts (auto) 6.3 Absolute Nucleated RBC 0.000 Nucleated RBC % (auto) 0.0 Sodium 141 Potassium 4.3 Chloride 106 Carbon Dioxide 26 Anion Gap 13 BUN 21 H Creatinine 0.85 Estim Creat Clear Calc 79.3 Estimated GFR > 60 Random Glucose 136 H Estimat Average Glucose 111 Hemoglobin A1c % 5.5 Calcium 9.5 Magnesium 2.3 Total Bilirubin 0.3 AST 19 ALT 26 Alkaline Phosphatase 110 Total Protein 6.8 Albumin 4.4 Triglycerides 76 Cholesterol 177 LDL Cholesterol, Calc 111 H HDL Cholesterol 51 Vitamin B12 631 Folate 11.2 TSH 2.03 Free T4 1.19 Urine Color Yellow Urine Appearance Clear Urine pH 7.0 Ur Specific [place] 1.015 Urine Protein Negative Urine Glucose (UA) Negative Urine Ketones Negative Urine Blood Negative Urine Nitrite Negative Ur Leukocyte Esterase Negative Urine Opiates Screen Not Detected Ur Buprenorphine Scrn Not Detected Ur Oxycodone Screen Not Detected Urine Methadone Screen Not Detected Urine Fentanyl Screen Not Detected Ur Barbiturates Screen Not Detected Ur Phencyclidine Scrn Not Detected Ur Amphetamines Screen Not Detected U Benzodiazepines Scrn Not Detected Urine Cocaine Screen Not Detected U Marijuana (THC) Screen Not Detected Ethyl Alcohol < 10 Medications Medications Current Medications Acetaminophen (Acetaminophen 325 Mg Tablet) 650 mg PO Q6H PRN PRN Reason: Headache/Pain Mild Scale (1-3) Last Admin: 12/19/23 20:24 Dose: 650 mg Al Hydroxide/Mg Hydroxide (Magnesium Hydrox/Alum Hydrox 30 Ml Oral.Susp) 30 ml PO Q6H PRN PRN Reason: Heartburn/Nausea Aripiprazole (Aripiprazole 10 Mg Tablet) 10 mg PO BEDTIME [facility] Last Admin: 12/19/23 20:24 Dose: 10 mg Artificial Tears (Artificial Tears 15 Ml Drops) 2 drop EYE-BOTH Q4H PRN PRN Reason: discomfort Aspirin (Aspirin 81 Mg Tab.Chew) 81 mg PO DAILY [facility] Last Admin: 12/20/23 09:23 Dose: 81 mg Atorvastatin Calcium (Atorvastatin Calcium 10 Mg Tablet) 10 mg PO BEDTIME [facility] Last Admin: 12/19/23 20:24 Dose: 10 mg Clonazepam (Clonazepam 0.5 Mg Tablet) 0.5 mg PO DAILY PRN PRN Reason: Anxiety Last Admin: 12/20/23 05:35 Dose: 0.5 mg Clonazepam (Clonazepam 0.5 Mg Tablet) 0.5 mg PO BEDTIME [facility] Last Admin: 12/19/23 20:25 Dose: 0.5 mg Clonazepam (Clonazepam 0.125 Mg Tab.Rapdis) 0.25 mg PO DAILY [facility] Last Admin: 12/20/23 09:23 Dose: 0.25 mg Clozapine (Clozapine 25 Mg Tablet) 62.5 mg PO DAILY [facility] Last Admin: 12/20/23 09:23 Dose: 62.5 mg Clozapine (Clozapine 25 Mg Tablet) 25 mg PO BEDTIME [facility] Last Admin: 12/19/23 20:25 Dose: 25 mg Diclofenac Sodium (Diclofenac Sodium Delayed Rel 75 Mg Tablet.) 75 mg PO BID [facility] Last Admin: 12/20/23 09:23 Dose: 75 mg Docusate Sodium (Docusate Sodium 100 Mg Capsule) 100 mg PO DAILY PRN PRN Reason: Constipation Last Admin: 12/20/23 05:29 Dose: 100 mg Hydroxyzine HCl (Hydroxyzine Hcl 25 Mg Tablet) 25 mg PO Q6H PRN PRN Reason: Anxiety Last Admin: 12/20/23 05:29 Dose: 25 mg Magnesium Hydroxide (Milk Of Magnesia 30 Ml Oral.Susp) 30 ml PO DAILY PRN PRN Reason: Constipation Magnesium Oxide (Magnesium Oxide 400 Mg Tablet) 400 mg PO BEDTIME [facility] Last Admin: 12/19/23 20:24 Dose: 400 mg Omeprazole (Omeprazole 20 Mg Capsule.) 20 mg PO DAILY@0630 [facility] Last Admin: 12/20/23 05:28 Dose: 20 mg Sodium Chloride (Sodium Chloride Tab 1 Gm Tablet) 1 gm PO BID [facility] Last Admin: 12/20/23 09:25 Dose: 1 gm Trazodone HCl (Trazodone Hcl 50 Mg Tablet) 50 mg PO BEDTIME MRX1 PRN PRN Reason: Insomnia Last Admin: 12/18/23 23:07 Dose: 50 mg Allergies Allergies Allergy/AdvReac Type Severity Reaction Status Date / Time haloperidol [From Haldol] Allergy Mild UNKNOWN Verified 12/18/23 18:10 lithium [[place]] Allergy Mild UNKOWN Verified 12/18/23 18:10 [place] Citrate Allergy Unknown nervous Uncoded 12/18/23 18:10 breakdown Assessment & Plan Assessment & Plan (1) Paranoid schizophrenia: Status: Acute Code(s): F20.0 - Paranoid schizophrenia Assessment and Plan: 68 yo male, exacerbation of paranoid schizophrenia with an increase in auditory perceptual alterations, isolation and withdrawal. Plan: Re-establish regime, Clozaril titration Collateral contact Observe in [facility] Medical eval 12/19 Clarification of Clozaril dosing. 200 mg HS, 62.5 mg AM Reason for continued inpatient stay Substantial Risk for: rapid decompensation Time Spent With Patient Time: Total time managing care of this patient today ____ minutes.
[2023-12-20 20:00] VITALS: BP 132/85; PULSE 95; RESP 18; TEMP 36.7; O2SAT 99
[2023-12-20] MEDS: ARIPiprazole 10 MG TABLET PO (20:22)
[2023-12-20] MEDS: traZODone HCL 50 MG TABLET PO (20:22)
[2023-12-20] MEDS: Atorvastatin Calcium 10 MG TABLET PO (20:23)
[2023-12-20] MEDS: Magnesium Oxide 400 MG TABLET PO (20:23)
[2023-12-20] MEDS: cloZAPine 100 MG TABLET 200 MG PO (20:23)
[2023-12-21 07:30] VITALS: BP 137/80; PULSE 108; RESP 16; TEMP 36.3; O2SAT 94
[2023-12-21] MEDS: cloZAPine 25 MG TABLET 62.5 MG PO (08:10)
[2023-12-21] MEDS: Sodium Chloride Tab 1 GM TABLET PO ×2 (08:10→19:47)
[2023-12-21] MEDS: Diclofenac Sodium Delayed Rel 75 MG TABLET.DR PO ×2 (08:12→19:47)
[2023-12-21] MEDS: Aspirin 81 MG TAB.CHEW PO (08:12)
[2023-12-21] MEDS: Omeprazole 20 MG CAPSULE.DR PO (08:12)
--- NOTE | 2023-12-21 09:54 | P.PNPSI_ITS ---
Subjective Subjective Date of Service: 12/21/23 Reason For Visit: Schizophrenia Interim History: Met with patient; discussed with team Patient having trouble getting his sentences out, rambling some, starting a thought and then switching gears, emotional and tearful at times; expressed gratitude and love for [place] people and apologized that they were not being treated well. Patient says I thought I was hearing voices... I wanted to see the water.... [Then tearfully] I am sorry I am taking up your time.. Patient said that he was sure he heard [place] praying to him about 2 nights ago. Mental Status Exam Mental Status Exam Narrative: Pt is alert and oriented; behavior is cooperative, but disorganized; dressed in hospital gown, unkempt hair, marginal hygiene; mood is described as anxious and affect congruent, somewhat labile; eye contact appropriate; thought blocking present, but normal rate, volume; a little bit of an odd prosody; some intermittent psychomotor agitation present; thought process distracted; can get some goal oriented thoughts out a lot of tangential thinking;Thought content is on various concerns about the [place] people, his life, auditory hallucinations and other seemingly unrelated topics; intermittent paranoid ideations; denies any SI/HI. +AH, and internally preoccupied. ?Patients insight and judgment are impaired Diagnostics Vital Signs (24Hr): Vital Signs - 24 hr 12/20/23 20:00 Temperature 98.1 F Pulse Rate 95 Respiratory Rate 18 Blood Pressure 132/85 Pulse Oximetry 99 Oxygen Delivery Method Room Air BMI result Body Mass Index 29.0 Labs 12/18/23 18:58 12/18/23 18:58 Medications Medications Current Medications Acetaminophen (Acetaminophen 325 Mg Tablet) 650 mg PO Q6H PRN PRN Reason: Headache/Pain Mild Scale (1-3) Last Admin: 12/19/23 20:24 Dose: 650 mg Al Hydroxide/Mg Hydroxide (Magnesium Hydrox/Alum Hydrox 30 Ml Oral.Susp) 30 ml PO Q6H PRN PRN Reason: Heartburn/Nausea Aripiprazole (Aripiprazole 10 Mg Tablet) 10 mg PO BEDTIME [facility] Last Admin: 12/20/23 20:22 Dose: 10 mg Artificial Tears (Artificial Tears 15 Ml Drops) 2 drop EYE-BOTH Q4H PRN PRN Reason: discomfort Aspirin (Aspirin 81 Mg Tab.Chew) 81 mg PO DAILY [facility] Last Admin: 12/21/23 08:12 Dose: 81 mg Atorvastatin Calcium (Atorvastatin Calcium 10 Mg Tablet) 10 mg PO BEDTIME [facility] Last Admin: 12/20/23 20:23 Dose: 10 mg Clonazepam (Clonazepam 0.5 Mg Tablet) 0.5 mg PO DAILY PRN PRN Reason: Anxiety Last Admin: 12/20/23 05:35 Dose: 0.5 mg Clonazepam (Clonazepam 0.5 Mg Tablet) 0.5 mg PO BEDTIME [facility] Last Admin: 12/20/23 20:23 Dose: 0.5 mg Clonazepam (Clonazepam 0.125 Mg Tab.Rapdis) 0.25 mg PO DAILY [facility] Last Admin: 12/21/23 08:10 Dose: 0.25 mg Clozapine (Clozapine 25 Mg Tablet) 62.5 mg PO DAILY [facility] Last Admin: 12/21/23 08:10 Dose: 62.5 mg Clozapine (Clozapine 100 Mg Tablet) 200 mg PO BEDTIME [facility] Last Admin: 12/20/23 20:23 Dose: 200 mg Diclofenac Sodium (Diclofenac Sodium Delayed Rel 75 Mg Tablet.) 75 mg PO BID [facility] Last Admin: 12/21/23 08:12 Dose: 75 mg Docusate Sodium (Docusate Sodium 100 Mg Capsule) 100 mg PO DAILY PRN PRN Reason: Constipation Last Admin: 12/20/23 05:29 Dose: 100 mg Hydroxyzine HCl (Hydroxyzine Hcl 25 Mg Tablet) 25 mg PO Q6H PRN PRN Reason: Anxiety Last Admin: 12/20/23 20:23 Dose: 25 mg Magnesium Hydroxide (Milk Of Magnesia 30 Ml Oral.Susp) 30 ml PO DAILY PRN PRN Reason: Constipation Magnesium Oxide (Magnesium Oxide 400 Mg Tablet) 400 mg PO BEDTIME [facility] Last Admin: 12/20/23 20:23 Dose: 400 mg Omeprazole (Omeprazole 20 Mg Capsule.Dr) 20 mg PO DAILY@0630 [facility] Last Admin: 12/21/23 08:12 Dose: 20 mg Sodium Chloride (Sodium Chloride Tab 1 Gm Tablet) 1 gm PO BID [facility] Last Admin: 12/21/23 08:10 Dose: 1 gm Trazodone HCl (Trazodone Hcl 50 Mg Tablet) 50 mg PO BEDTIME MRX1 PRN PRN Reason: Insomnia Last Admin: 12/20/23 20:22 Dose: 50 mg Allergies Allergies Allergy/AdvReac Type Severity Reaction Status Date / Time haloperidol [From Haldol] Allergy Mild UNKNOWN Verified 12/18/23 18:10 lithium [[place]] Allergy Mild UNKOWN Verified 12/18/23 18:10 Magnet Citrate Allergy Unknown nervous Uncoded 12/18/23 18:10 breakdown Assessment & Plan Assessment & Plan (1) Paranoid schizophrenia: Status: Acute Code(s): F20.0 - Paranoid schizophrenia Assessment and Plan: 68 yo male, history of paranoid schizophrenia, living a a senior care. Pt to ER with an increase in auditory perceptual alterations, isolation, withdrawal from community, poor sleep and increase in mood lability, anger, agitation in response to the intensity of perceptual alterations. Hospital course: 12/19 Angry, psychotic, disorganized, punched the wall while talking with tw. 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 Expressed himself verbally, verbally caustic and abusive, then ambivalent and apologetic for his expression. The did this, he made people to make me angry, like you, like [place]. I am sorry, this has nothing to do with you. But is does, people leave me, you will leave me, where is Julius, did he leave too? Pt able to work to acknowledge some parameters on team being here to assist him, listen and help him move ahead which he was able to hear and calmed after this. -Clarification of Clozaril dosing. 200 mg HS, 62.5 mg AM (last admission 10/2021, was on total of Clozaril 275mg daily (225mg qhs/50mg daily); now on total of 262.5mg 12/20 Patient having trouble getting his sentences out, rambling some, starting a thought and then switching gears, emotional and tearful at times; expressed gratitude and love for [place] people and apologized that they were not being treated well. Patient says I thought I was hearing voices... I wanted to see the water.... [Then tearfully] I am sorry I am taking up your time.. Patient said that he was sure he heard [place] praying to him about 2 nights ago. Plan: CV q15min Medications: Aripiprazole 10 mg PO BEDTIME [facility] Clozapine 62.5 mg PO DAILY [facility] Clozapine 200 mg PO BEDTIME [facility] Magnesium Oxide 400 mg PO BEDTIME [facility] Trazodone HCl ?50 mg PO BEDTIME MRX1 PRN Clonazepam 0.5 mg PO DAILY PRN Clonazepam 0.25 mg PO DAILY [facility] Clonazepam 0.5 mg PO BEDTIME [facility] Aspirin 81 mg PO DAILY [facility] Atorvastatin Calcium 10 mg PO BEDTIME [facility] Docusate Sodium 100 mg PO DAILY PRN Omeprazole 20 mg PO DAILY@0630 [facility] Sodium Chloride 1 gm PO BID [facility] Diclofenac Sodium 75 mg PO BID [facility] Artificial Tears 2 drop EYE-BOTH Q4H PRN Patient educated on: diagnosis and medication risk/benefits Informed Consent: understands, does not understand and further education needed Reason for continued inpatient stay Substantial Risk for: inability to function Time Spent With Patient Time: Total time managing care of this patient today ____ minutes.
[2023-12-21] MEDS: Artificial Tears 15 ML DROPS 2 DROP EYE-BOTH ×2 (15:47→19:46)
[2023-12-21] MEDS: Atorvastatin Calcium 10 MG TABLET PO (19:47)
[2023-12-21] MEDS: clonazePAM 0.5 MG TABLET PO (19:47)
[2023-12-21] MEDS: ARIPiprazole 10 MG TABLET PO (19:47)
[2023-12-21] MEDS: Magnesium Oxide 400 MG TABLET PO (19:47)
[2023-12-21] MEDS: cloZAPine 100 MG TABLET 200 MG PO (19:47)
[2023-12-21 20:00] VITALS: BP 143/91; PULSE 97; RESP 16; TEMP 36.4; O2SAT 95
[2023-12-22] MEDS: Omeprazole 20 MG CAPSULE.DR PO (06:01)
[2023-12-22 08:00] VITALS: BP 125/83; PULSE 100; RESP 16; TEMP 36.4; O2SAT 95
[2023-12-22] MEDS: Aspirin 81 MG TAB.CHEW PO (09:01)
[2023-12-22] MEDS: cloZAPine 25 MG TABLET 62.5 MG PO (09:02)
[2023-12-22] MEDS: Diclofenac Sodium Delayed Rel 75 MG TABLET.DR PO ×2 (09:03→21:39)
[2023-12-22] MEDS: Sodium Chloride Tab 1 GM TABLET PO ×2 (09:05→21:40)
[2023-12-22] MEDS: clonazePAM 0.5 MG TABLET PO (12:18)
--- NOTE | 2023-12-22 17:35 | HO.PSYCHPN ---
Subjective Subjective Date of Service: 12/22/23 Reason For Visit: Schizophrenia Subjective Notes: Conditional Voluntary and 3 Day Interim History: Met with patient; discussed with team Patient still struggling to get his sentences out, distracted by racing thoughts and internal preoccupation,. He says he is having problem with voices, that he can not sleep... He said he is worried he is going crazy... Unrelated patient said I thought I would hit but only to defend myself... Later on he said I am going to break boards like Hai Alexis..' but then tearfully apologized and said he did not mean it. Patient agreed to increase clonazepam and Clozaril. Signed a CV Mental Status Exam Mental Status Exam Narrative: Pt is alert and oriented; behavior is cooperative, but disorganized; dressed in hospital gown, unkempt hair, marginal hygiene; mood is described as anxious and affect congruent, somewhat labile; eye contact appropriate; thought blocking present, but normal rate, volume; a little bit of an odd prosody; some intermittent psychomotor agitation present; thought process distracted; can get some goal oriented thoughts out a lot of tangential thinking;Thought content is on various concerns about the [employer] people, his life, auditory hallucinations and other seemingly unrelated topics; intermittent paranoid ideations; denies any SI/HI. +AH, and internally preoccupied. ?Patients insight and judgment are impaired Diagnostics Vital Signs (24Hr): Vital Signs - 24 hr 12/21/23 20:00 12/22/23 08:00 Temperature 97.6 F 97.5 F Pulse Rate 97 100 Respiratory Rate 16 16 Blood Pressure 143/91 H 125/83 Pulse Oximetry 95 95 Oxygen Delivery Method Room Air Room Air BMI result Body Mass Index 29.0 Labs 12/18/23 18:58 12/18/23 18:58 Medications Medications Current Medications Acetaminophen (Acetaminophen 325 Mg Tablet) 650 mg PO Q6H PRN PRN Reason: Headache/Pain Mild Scale (1-3) Last Admin: 12/19/23 20:24 Dose: 650 mg Al Hydroxide/Mg Hydroxide (Magnesium Hydrox/Alum Hydrox 30 Ml Oral.Susp) 30 ml PO Q6H PRN PRN Reason: Heartburn/Nausea Aripiprazole (Aripiprazole 10 Mg Tablet) 10 mg PO BEDTIME COUNTS INCLUDE 234 BEDS AT THE [facility] Last Admin: 06/03/24 19:47 Dose: 10 mg Artificial Tears (Artificial Tears 15 Ml Drops) 2 drop EYE-BOTH Q4H PRN PRN Reason: discomfort Last Admin: 12/21/23 19:46 Dose: 2 drop Artificial Tears (Artificial Tears 15 Ml Drops) 1 drop EYE-BOTH TID COUNTS INCLUDE 234 BEDS AT THE [facility] Last Admin: 12/22/23 14:41 Dose: Not Given Aspirin (Aspirin 81 Mg Tab.Chew) 81 mg PO DAILY COUNTS INCLUDE 234 BEDS AT THE [facility] Last Admin: 12/22/23 09:01 Dose: 81 mg Atorvastatin Calcium (Atorvastatin Calcium 10 Mg Tablet) 10 mg PO BEDTIME COUNTS INCLUDE 234 BEDS AT THE [facility] Last Admin: 12/21/23 19:47 Dose: 10 mg Clonazepam (Clonazepam 0.5 Mg Tablet) 0.5 mg PO DAILY PRN PRN Reason: Anxiety Last Admin: 12/20/23 05:35 Dose: 0.5 mg Clonazepam (Clonazepam 0.125 Mg Tab.Rapdis) 0.5 mg PO DAILY COUNTS INCLUDE 234 BEDS AT THE [facility] Clonazepam (Clonazepam 1 Mg Tablet) 1 mg PO BEDTIME COUNTS INCLUDE 234 BEDS AT THE [facility] Clozapine (Clozapine 25 Mg Tablet) 225 mg PO BEDTIME COUNTS INCLUDE 234 BEDS AT THE [facility] Clozapine (Clozapine 25 Mg Tablet) 50 mg PO DAILY COUNTS INCLUDE 234 BEDS AT THE [facility] Diclofenac Sodium (Diclofenac Sodium Delayed Rel 75 Mg Tablet.Dr) 75 mg PO BID COUNTS INCLUDE 234 BEDS AT THE [facility] Last Admin: 12/22/23 09:03 Dose: 75 mg Docusate Sodium (Docusate Sodium 100 Mg Capsule) 100 mg PO DAILY PRN PRN Reason: Constipation Last Admin: 12/20/23 05:29 Dose: 100 mg Hydroxyzine HCl (Hydroxyzine Hcl 25 Mg Tablet) 25 mg PO Q6H PRN PRN Reason: Anxiety Last Admin: 12/20/23 20:23 Dose: 25 mg Magnesium Hydroxide (Milk Of Magnesia 30 Ml Oral.Susp) 30 ml PO DAILY PRN PRN Reason: Constipation Magnesium Oxide (Magnesium Oxide 400 Mg Tablet) 400 mg PO BEDTIME COUNTS INCLUDE 234 BEDS AT THE [facility] Last Admin: 12/21/23 19:47 Dose: 400 mg Omeprazole (Omeprazole 20 Mg Capsule.Dr) 20 mg PO DAILY@0630 COUNTS INCLUDE 234 BEDS AT THE [facility] Last Admin: 12/22/23 06:01 Dose: 20 mg Sodium Chloride (Sodium Chloride Tab 1 Gm Tablet) 1 gm PO BID COUNTS INCLUDE 234 BEDS AT THE [facility] Last Admin: 12/22/23 09:05 Dose: 1 gm Trazodone HCl (Trazodone Hcl 50 Mg Tablet) 50 mg PO BEDTIME MRX1 PRN PRN Reason: Insomnia Last Admin: 12/20/23 20:22 Dose: 50 mg Allergies Allergies Allergy/AdvReac Type Severity Reaction Status Date / Time haloperidol [From Haldol] Allergy Mild UNKNOWN Verified 12/18/23 18:10 lithium [[place]] Allergy Mild UNKOWN Verified 12/18/23 18:10 [place] Citrate Allergy Unknown nervous Uncoded 12/18/23 18:10 breakdown Assessment & Plan Assessment & Plan (1) Paranoid schizophrenia: Status: Acute Code(s): F20.0 - Paranoid schizophrenia Assessment and Plan: 68 yo male, history of paranoid schizophrenia, living a a [facility]. Pt to ER with an increase in auditory perceptual alterations, isolation, withdrawal from community, poor sleep and increase in mood lability, anger, agitation in response to the intensity of perceptual alterations. Hospital course: 12/19 Angry, psychotic, disorganized, punched the wall while talking with tw. Buddhism preoccupation. Expressed himself verbally, verbally caustic and abusive, then ambivalent and apologetic for his expression. The did this, he made people to make me angry, like you, like [place]. I am sorry, this has nothing to do with you. But is does, people leave me, you will leave me, where is Julius, did he leave too? Pt able to work to acknowledge some parameters on team being here to assist him, listen and help him move ahead which he was able to hear and calmed after this. -Clarification of Clozaril dosing. 200 mg HS, 62.5 mg AM (last admission 10/2021, was on total of Clozaril 275mg daily (225mg qhs/50mg daily); now on total of 262.5mg 12/20 Patient having trouble getting his sentences out, rambling some, starting a thought and then switching gears, emotional and tearful at times; expressed gratitude and love for [employer] people and apologized that they were not being treated well. Patient says I thought I was hearing voices... I wanted to see the water.... [Then tearfully] I am sorry I am taking up your time.. Patient said that he was sure he heard [place] praying to him about 2 nights ago. 12/21 Patient still struggling to get his sentences out, distracted by racing thoughts and internal preoccupation,. He says he is having problem with voices, that he can not sleep... He said he is worried he is going crazy... Unrelated patient said I thought I would hit but only to defend myself... Later on he said I am going to break boards like Hai Alexis..' but then tearfully apologized and said he did not mean it. Patient agreed to increase clonazepam and Clozaril. Signed a CV -will increase Clozaril by 12.5 mg; for now Will increase clonazepam. Increasing Clozaril since hopefully less risk EPS side effects verses aripiprazole Plan: CV (signed 12/21) q15min Medications: Change to Clozapine 50 mg PO DAILY [facility] Increase to Clozapine 225 mg PO BEDTIME [facility] Increase to Clonazepam 0. 0.5 mg PO DAILY [facility] Increase to Clonazepam 1 mg PO BEDTIME [facility] Continue Clonazepam 0.5 mg PO DAILY PRN Continue Aripiprazole 10 mg PO BEDTIME [facility] Continue Magnesium Oxide 400 mg PO BEDTIME [facility] Trazodone HCl ?50 mg PO BEDTIME MRX1 PRN Aspirin 81 mg PO DAILY [facility] Atorvastatin Calcium 10 mg PO BEDTIME [facility] Docusate Sodium 100 mg PO DAILY PRN Omeprazole 20 mg PO DAILY@0630 [facility] Sodium Chloride 1 gm PO BID [facility] Diclofenac Sodium 75 mg PO BID [facility] Artificial Tears 2 drop EYE-BOTH Q4H PRN Patient educated on: diagnosis and medication risk/benefits Informed Consent: understands, does not understand and further education needed Reason for continued inpatient stay Substantial Risk for: inability to function Time Spent With Patient Time: Total time managing care of this patient today ____ minutes.
--- NOTE | 2023-12-22 18:04 | PC.NURSE ---
Mr. Neville was awake in his room at shift change. He took all meds as ordered. Provider ordered a clonazepam PRN x 1 for agitation late morning. Agitation was evidenced by striking the plexiglass at the nurses station and 2 verbal outbursts while waiting for this music writer to prepare his morning meds. Mr. Neville spent most of this shift in his room, including eating his meals in his room. His agitation was greatly reduced after the x1 clonazepam, evidenced by a pleasant and polite demeanor, making intermittent eye contact and holding the door open for this music writer to wheel the WOW out of his room, and calling me by name. He denied A-V hallucinations but did appear to be responding.
[2023-12-22 20:00] VITALS: BP 147/94; PULSE 105; RESP 16; TEMP 36.4
[2023-12-22] MEDS: ARIPiprazole 10 MG TABLET PO (21:39)
[2023-12-22] MEDS: Magnesium Oxide 400 MG TABLET PO (21:39)
[2023-12-22] MEDS: Atorvastatin Calcium 10 MG TABLET PO (21:39)
[2023-12-22] MEDS: clonazePAM 1 MG TABLET PO (21:39)
[2023-12-22] MEDS: cloZAPine 25 MG TABLET 225 MG PO (21:40)
[2023-12-23 05:19] LABS: Clozapine (Clozaril) 88 mcg/L; Norclozapine 182 mcg/L (25-400)
[2023-12-23] MEDS: Omeprazole 20 MG CAPSULE.DR PO (07:22)
[2023-12-23] MEDS: Aspirin 81 MG TAB.CHEW PO (09:05)
[2023-12-23] MEDS: Sodium Chloride Tab 1 GM TABLET PO ×2 (09:05→20:28)
[2023-12-23] MEDS: Diclofenac Sodium Delayed Rel 75 MG TABLET.DR PO (09:06)
[2023-12-23] MEDS: cloZAPine 25 MG TABLET 50 MG PO (09:06)
[2023-12-23 09:21] VITALS: BP 115/84; PULSE 95; RESP 18; TEMP 36.3; O2SAT 96
--- NOTE | 2023-12-23 09:54 | P.PNPSI_ITS ---
Subjective Subjective Date of Service: 12/23/23 Reason For Visit: Schizophrenia Interim History: met with patient; discussed with team pt reports he's better and good. He says he slept well and no AH at all. Pt is also much more able to complete his sentences which are much more organized. Pt asked about discharge which was discussed and agreed on for Thursday. Mental Status Exam Mental Status Exam Narrative: Pt is alert and oriented; behavior is cooperative, more organized, friendly, more calm; dressed in hospital gown, unkempt hair, marginal hygiene; mood is described as good and affect congruent, brighter, more calm; eye contact appropriate; less thought blocking present, normal rate, volume; a little bit of an odd prosody; today no intermittent psychomotor agitation present; thought process more goal oriented and more linear though can still be distracted;Thought content is on feeling better, going home; intermittently on various concerns about the [employer] people, his life, and other seemingly unrelated topics; no intermittent paranoid ideations expressed; denies any SI/HI. Reports AH resolved. ?Patients insight and judgment are impaired but improved and maybe close to baseline Diagnostics Vital Signs (24Hr): Vital Signs - 24 hr 12/22/23 20:00 12/23/23 09:21 Temperature 97.5 F 97.3 F Pulse Rate 105 H 95 Respiratory Rate 16 18 Blood Pressure 147/94 H 115/84 Pulse Oximetry 96 Oxygen Delivery Method Room Air BMI result Body Mass Index 29.0 Labs 12/18/23 18:58 12/18/23 18:58 Labs: Laboratory Results - last 48 hr 12/18/23 20:43 Clozapine 88 Norclozapine 182 Medications Medications Current Medications Acetaminophen (Acetaminophen 325 Mg Tablet) 650 mg PO Q6H PRN PRN Reason: Headache/Pain Mild Scale (1-3) Last Admin: 12/19/23 20:24 Dose: 650 mg Al Hydroxide/Mg Hydroxide (Magnesium Hydrox/Alum Hydrox 30 Ml Oral.Susp) 30 ml PO Q6H PRN PRN Reason: Heartburn/Nausea Aripiprazole (Aripiprazole 10 Mg Tablet) 10 mg PO BEDTIME [facility] Last Admin: 12/22/23 21:39 Dose: 10 mg Artificial Tears (Artificial Tears 15 Ml Drops) 2 drop EYE-BOTH Q4H PRN PRN Reason: discomfort Last Admin: 12/21/23 19:46 Dose: 2 drop Artificial Tears (Artificial Tears 15 Ml Drops) 1 drop EYE-BOTH TID [facility] Last Admin: 12/23/23 09:21 Dose: Not Given Aspirin (Aspirin 81 Mg Tab.Chew) 81 mg PO DAILY [facility] Last Admin: 12/23/23 09:05 Dose: 81 mg Atorvastatin Calcium (Atorvastatin Calcium 10 Mg Tablet) 10 mg PO BEDTIME [facility] Last Admin: 12/22/23 21:39 Dose: 10 mg Clonazepam (Clonazepam 0.5 Mg Tablet) 0.5 mg PO DAILY PRN PRN Reason: Anxiety Last Admin: 12/20/23 05:35 Dose: 0.5 mg Clonazepam (Clonazepam 0.125 Mg Tab.Rapdis) 0.5 mg PO DAILY [facility] Last Admin: 12/23/23 09:06 Dose: 0.5 mg Clonazepam (Clonazepam 1 Mg Tablet) 1 mg PO BEDTIME [facility] Last Admin: 12/22/23 21:39 Dose: 1 mg Clozapine (Clozapine 25 Mg Tablet) 225 mg PO BEDTIME [facility] Last Admin: 12/22/23 21:40 Dose: 225 mg Clozapine (Clozapine 25 Mg Tablet) 50 mg PO DAILY [facility] Last Admin: 12/23/23 09:06 Dose: 50 mg Diclofenac Sodium (Diclofenac Sodium Delayed Rel 75 Mg Tablet.) 75 mg PO BID [facility] Last Admin: 12/23/23 09:06 Dose: 75 mg Docusate Sodium (Docusate Sodium 100 Mg Capsule) 100 mg PO DAILY PRN PRN Reason: Constipation Last Admin: 12/20/23 05:29 Dose: 100 mg Hydroxyzine HCl (Hydroxyzine Hcl 25 Mg Tablet) 25 mg PO Q6H PRN PRN Reason: Anxiety Last Admin: 12/20/23 20:23 Dose: 25 mg Magnesium Hydroxide (Milk Of Magnesia 30 Ml Oral.Susp) 30 ml PO DAILY PRN PRN Reason: Constipation Magnesium Oxide (Magnesium Oxide 400 Mg Tablet) 400 mg PO BEDTIME [facility] Last Admin: 12/22/23 21:39 Dose: 400 mg Omeprazole (Omeprazole 20 Mg Capsule.Dr) 20 mg PO DAILY@0630 [facility] Last Admin: 12/23/23 07:22 Dose: 20 mg Sodium Chloride (Sodium Chloride Tab 1 Gm Tablet) 1 gm PO BID [facility] Last Admin: 12/23/23 09:05 Dose: 1 gm Trazodone HCl (Trazodone Hcl 50 Mg Tablet) 50 mg PO BEDTIME MRX1 PRN PRN Reason: Insomnia Last Admin: 12/20/23 20:22 Dose: 50 mg Allergies Allergies Allergy/AdvReac Type Severity Reaction Status Date / Time haloperidol [From Haldol] Allergy Mild UNKNOWN Verified 12/18/23 18:10 lithium [[place]] Allergy Mild UNKOWN Verified 12/18/23 18:10 [place] Citrate Allergy Unknown nervous Uncoded 12/18/23 18:10 breakdown Assessment & Plan Assessment & Plan (1) Paranoid schizophrenia: Status: Acute Code(s): F20.0 - Paranoid schizophrenia Assessment and Plan: 68 yo male, history of paranoid schizophrenia, living a a [facility]. Pt to ER with an increase in auditory perceptual alterations, isolation, withdrawal from community, poor sleep and increase in mood lability, anger, agitation in response to the intensity of perceptual alterations. Hospital course: 12/19 Angry, psychotic, disorganized, punched the wall while talking with tw. [employer] preoccupation. Expressed himself verbally, verbally caustic and abusive, then ambivalent and apologetic for his expression. The did this, he made people to make me angry, like you, like [place]. I am sorry, this has nothing to do with you. But is does, people leave me, you will leave me, where is Julius, did he leave too? Pt able to work to acknowledge some parameters on team being here to assist him, listen and help him move ahead which he was able to hear and calmed after this. -Clarification of Clozaril dosing. 200 mg HS, 62.5 mg AM (last admission 10/2021, was on total of Clozaril 275mg daily (225mg qhs/50mg daily); now on total of 262.5mg 12/20 Patient having trouble getting his sentences out, rambling some, starting a thought and then switching gears, emotional and tearful at times; expressed gratitude and love for [employer] people and apologized that they were not being treated well. Patient says I thought I was hearing voices... I wanted to see the water.... [Then tearfully] I am sorry I am taking up your time.. Patient said that he was sure he heard [place] praying to him about 2 nights ago. 12/21 Patient still struggling to get his sentences out, distracted by racing thoughts and internal preoccupation,. He says he is having problem with voices, that he can not sleep... He said he is worried he is going crazy... Unrelated patient said I thought I would hit but only to defend myself... Later on he said I am going to break boards like Hai Alexis..' but then tearfully apologized and said he did not mean it. Patient agreed to increase clonazepam and Clozaril. Signed a CV -will increase Clozaril by 12.5 mg; for now Will increase clonazepam. Increasing Clozaril since hopefully less risk EPS side effects verses aripiprazole 12/22 pt reports he's better and good. He says he slept well and no AH at all. Pt is also much more able to complete his sentences which are much more organized. Pt asked about discharge which was discussed and agreed on for Thursday. May be approaching baseline Plan: CV (signed 12/21) q15min Medications: Change to Clozapine 50 mg PO DAILY [facility] Increase to Clozapine 225 mg PO BEDTIME [facility] Increase to Clonazepam 0. 0.5 mg PO DAILY [facility] Increase to Clonazepam 1 mg PO BEDTIME [facility] Continue Clonazepam 0.5 mg PO DAILY PRN Continue Aripiprazole 10 mg PO BEDTIME [facility] Continue Magnesium Oxide 400 mg PO BEDTIME [facility] Trazodone HCl ?50 mg PO BEDTIME MRX1 PRN Aspirin 81 mg PO DAILY [facility] Atorvastatin Calcium 10 mg PO BEDTIME [facility] Docusate Sodium 100 mg PO DAILY PRN Omeprazole 20 mg PO DAILY@0630 [facility] Sodium Chloride 1 gm PO BID [facility] Diclofenac Sodium 75 mg PO BID [facility] Artificial Tears 2 drop EYE-BOTH Q4H PRN Patient educated on: diagnosis, medication risk/benefits and therapeutic strategies Informed Consent: understands and further education needed Reason for continued inpatient stay Substantial Risk for: stable for discharge and rapid decompensation Time Spent With Patient Time: Total time managing care of this patient today ____ minutes.
[2023-12-23] MEDS: hydrOXYzine HCL 25 MG TABLET PO (11:05)
[2023-12-23 20:00] VITALS: BP 134/79; PULSE 97; RESP 18; TEMP 36.4; O2SAT 96
[2023-12-23] MEDS: Atorvastatin Calcium 10 MG TABLET PO (20:27)
[2023-12-23] MEDS: ARIPiprazole 10 MG TABLET PO (20:27)
[2023-12-23] MEDS: Magnesium Oxide 400 MG TABLET PO (20:28)
[2023-12-23] MEDS: cloZAPine 200 MG, cloZAPine 25 MG 225 MG PO (20:28)
[2023-12-23] MEDS: clonazePAM 1 MG TABLET PO (20:28)
[2023-12-24] MEDS: Omeprazole 20 MG CAPSULE.DR PO (06:19)
[2023-12-24 07:55] VITALS: BP 115/73; PULSE 93; RESP 17; TEMP 36.4; O2SAT 94
[2023-12-24] MEDS: cloZAPine 25 MG TABLET 50 MG PO (08:24)
[2023-12-24] MEDS: Aspirin 81 MG TAB.CHEW PO (08:24)
[2023-12-24] MEDS: Sodium Chloride Tab 1 GM TABLET PO ×2 (08:25→20:14)
[2023-12-24] MEDS: Diclofenac Sodium Delayed Rel 75 MG TABLET.DR PO ×2 (08:25→20:14)
--- NOTE | 2023-12-24 19:51 | P.PNPSI_ITS ---
Subjective Subjective Date of Service: 12/24/23 Reason For Visit: Schizophrenia Interim History: Met with patient; discussed with team Patient a little anxious today but says overall better; says sleeping well and continues to deny any AH.? Patient shared more about his life and his favored topics which include, Judaism people, Dennis Wilson, Jaimes Mod[place], and Casey Howell. Mental Status Exam Mental Status Exam Narrative: Pt is alert and oriented; behavior is cooperative, more organized, friendly, more calm; dressed in hospital gown, unkempt hair, marginal hygiene; mood is described as good and affect congruent, brighter, more calm; eye contact appropriate; less thought blocking present, normal rate, volume; a little bit of an odd prosody; today no intermittent psychomotor agitation present; thought process more goal oriented and more linear though can still be distracted;Thought content is on feeling better, going home; intermittently on various concerns about the Judaism people, his life, and other seemingly unrelated topics; no intermittent paranoid ideations expressed; denies any SI/HI. Reports AH resolved. ?Patients insight and judgment are impaired but improved and maybe close to baseline Diagnostics Vital Signs (24Hr): Vital Signs - 24 hr 12/23/23 20:00 12/24/23 07:55 Temperature 97.6 F 97.5 F Pulse Rate 97 93 Respiratory Rate 18 17 Blood Pressure 134/79 115/73 Pulse Oximetry 96 94 Oxygen Delivery Method Room Air Room Air BMI result Body Mass Index 29.0 Labs 12/18/23 18:58 12/18/23 18:58 Labs: Laboratory Results - last 48 hr 12/18/23 20:43 Clozapine 88 Norclozapine 182 Medications Medications Current Medications Acetaminophen (Acetaminophen 325 Mg Tablet) 650 mg PO Q6H PRN PRN Reason: Headache/Pain Mild Scale (1-3) Last Admin: 12/19/23 20:24 Dose: 650 mg Al Hydroxide/Mg Hydroxide (Magnesium Hydrox/Alum Hydrox 30 Ml Oral.Susp) 30 ml PO Q6H PRN PRN Reason: Heartburn/Nausea Aripiprazole (Aripiprazole 10 Mg Tablet) 10 mg PO BEDTIME DACIA Last Admin: 12/23/23 20:27 Dose: 10 mg Artificial Tears (Artificial Tears 15 Ml Drops) 2 drop EYE-BOTH Q4H PRN PRN Reason: discomfort Last Admin: 12/21/23 19:46 Dose: 2 drop Artificial Tears (Artificial Tears 15 Ml Drops) 1 drop EYE-BOTH TID REPLACED BY [facility] Last Admin: 12/24/23 15:41 Dose: Not Given Aspirin (Aspirin 81 Mg Tab.Chew) 81 mg PO DAILY REPLACED BY [facility] Last Admin: 12/24/23 08:24 Dose: 81 mg Atorvastatin Calcium (Atorvastatin Calcium 10 Mg Tablet) 10 mg PO BEDTIME REPLACED BY [facility] Last Admin: 12/23/23 20:27 Dose: 10 mg Clonazepam (Clonazepam 0.5 Mg Tablet) 0.5 mg PO DAILY PRN PRN Reason: Anxiety Last Admin: 12/20/23 05:35 Dose: 0.5 mg Clonazepam (Clonazepam 0.125 Mg Tab.Rapdis) 0.5 mg PO DAILY REPLACED BY [facility] Last Admin: 12/24/23 08:25 Dose: 0.5 mg Clonazepam (Clonazepam 1 Mg Tablet) 1 mg PO BEDTIME REPLACED BY [facility] Last Admin: 12/23/23 20:28 Dose: 1 mg Clozapine (Clozapine 25 Mg Tablet) 50 mg PO DAILY REPLACED BY [facility] Last Admin: 12/24/23 08:24 Dose: 50 mg Clozapine 200 mg/ Clozapine 25 (mg) 225 mg PO BEDTIME REPLACED BY [facility] Last Admin: 12/23/23 20:28 Dose: 225 mg Diclofenac Sodium (Diclofenac Sodium Delayed Rel 75 Mg Tablet.) 75 mg PO BID REPLACED BY [facility] Last Admin: 12/24/23 08:25 Dose: 75 mg Docusate Sodium (Docusate Sodium 100 Mg Capsule) 100 mg PO DAILY PRN PRN Reason: Constipation Last Admin: 12/20/23 05:29 Dose: 100 mg Hydroxyzine HCl (Hydroxyzine Hcl 25 Mg Tablet) 25 mg PO Q6H PRN PRN Reason: Anxiety Last Admin: 12/23/23 11:05 Dose: 25 mg Magnesium Hydroxide (Milk Of Magnesia 30 Ml Oral.Susp) 30 ml PO DAILY PRN PRN Reason: Constipation Magnesium Oxide (Magnesium Oxide 400 Mg Tablet) 400 mg PO BEDTIME REPLACED BY [facility] Last Admin: 12/23/23 20:28 Dose: 400 mg Omeprazole (Omeprazole 20 Mg Capsule.Dr) 20 mg PO DAILY@0630 REPLACED BY [facility] Last Admin: 12/24/23 06:19 Dose: 20 mg Sodium Chloride (Sodium Chloride Tab 1 Gm Tablet) 1 gm PO BID REPLACED BY [facility] Last Admin: 12/24/23 08:25 Dose: 1 gm Trazodone HCl (Trazodone Hcl 50 Mg Tablet) 50 mg PO BEDTIME MRX1 PRN PRN Reason: Insomnia Last Admin: 12/20/23 20:22 Dose: 50 mg Allergies Allergies Allergy/AdvReac Type Severity Reaction Status Date / Time haloperidol [From Haldol] Allergy Mild UNKNOWN Verified 12/18/23 18:10 lithium [[place]] Allergy Mild UNKOWN Verified 12/18/23 18:10 [place] Citrate Allergy Unknown nervous Uncoded 12/18/23 18:10 breakdown Assessment & Plan Assessment & Plan (1) Paranoid schizophrenia: Status: Acute Code(s): F20.0 - Paranoid schizophrenia Assessment and Plan: 68 yo male, history of paranoid schizophrenia, living a a fdc. Pt to ER with an increase in auditory perceptual alterations, isolation, withdrawal from community, poor sleep and increase in mood lability, anger, agitation in response to the intensity of perceptual alterations. Hospital course: 12/19 Angry, psychotic, disorganized, punched the wall while talking with tw. [employer]ybeterian preoccupation. Expressed himself verbally, verbally caustic and abusive, then ambivalent and apologetic for his expression. The did this, he made people to make me angry, like you, like Landstrom. I am sorry, this has nothing to do with you. But is does, people leave me, you will leave me, where is Julius, did he leave too? Pt able to work to acknowledge some parameters on team being here to assist him, listen and help him move ahead which he was able to hear and calmed after this. -Clarification of Clozaril dosing. 200 mg HS, 62.5 mg AM (last admission 10/2021, was on total of Clozaril 275mg daily (225mg qhs/50mg daily); now on total of 262.5mg 12/20 Patient having trouble getting his sentences out, rambling some, starting a thought and then switching gears, emotional and tearful at times; expressed gratitude and love for Judaism people and apologized that they were not being treated well. Patient says I thought I was hearing voices... I wanted to see the water.... [Then tearfully] I am sorry I am taking up your time.. Patient said that he was sure he heard Pope [place] praying to him about 2 nights ago. 12/21 Patient still struggling to get his sentences out, distracted by racing thoughts and internal preoccupation,. He says he is having problem with voices, that he can not sleep... He said he is worried he is going crazy... Unrelated patient said I thought I would hit but only to defend myself... Later on he said I am going to break boards like Hai Alexis..' but then tearfully apologized and said he did not mean it. Patient agreed to increase clonazepam and Clozaril. Signed a CV -will increase Clozaril by 12.5 mg; for now Will increase clonazepam. Increasing Clozaril since hopefully less risk EPS side effects verses aripiprazole 12/22 pt reports he's better and good. He says he slept well and no AH at all. Pt is also much more able to complete his sentences which are much more organized. Pt asked about discharge which was discussed and agreed on for Thursday. May be approaching baseline 12/23 patient remains stable; will continue current regimen including increased clonazepam. Patient wants to discharge and return to fdc; he has extensive outpatient support in place. He has not in imminent risk for harm to self or others and request for discharge honored. Plan: CV (signed 12/21) q15min Medications: Change to Clozapine 50 mg PO DAILY DACIA Increase to Clozapine 225 mg PO BEDTIME DACIA Increase to Clonazepam 0.5 mg PO DAILY DACIA Increase to Clonazepam 1 mg PO BEDTIME DACIA Continue Clonazepam 0.5 mg PO DAILY PRN Continue Aripiprazole 10 mg PO BEDTIME DACIA Continue Magnesium Oxide 400 mg PO BEDTIME DACIA Trazodone HCl ?50 mg PO BEDTIME MRX1 PRN Aspirin 81 mg PO DAILY DACIA Atorvastatin Calcium 10 mg PO BEDTIME DACIA Docusate Sodium 100 mg PO DAILY PRN Omeprazole 20 mg PO DAILY@0630 DACIA Sodium Chloride 1 gm PO BID DACIA Diclofenac Sodium 75 mg PO BID DACIA Artificial Tears 2 drop EYE-BOTH Q4H PRN Patient educated on: diagnosis and medication risk/benefits Informed Consent: understands and further education needed Reason for continued inpatient stay Substantial Risk for: stable for discharge Time Spent With Patient Time: Total time managing care of this patient today ____ minutes.
[2023-12-24 20:00] VITALS: BP 123/73; PULSE 88; RESP 18; TEMP 36.4; O2SAT 96
[2023-12-24] MEDS: Magnesium Oxide 400 MG TABLET PO (20:14)
[2023-12-24] MEDS: Atorvastatin Calcium 10 MG TABLET PO (20:14)
[2023-12-24] MEDS: cloZAPine 200 MG, cloZAPine 25 MG 225 MG PO (20:14)
[2023-12-24] MEDS: clonazePAM 1 MG TABLET PO (20:14)
[2023-12-24] MEDS: ARIPiprazole 10 MG TABLET PO (20:14)
--- NOTE | 2023-12-24 20:19 | P.DS_ITS ---
DS: Providers Provider Date of Service: 12/25/23 Date of admission: 12/18/23 21:23 Date of discharge: 12/25/23 Primary care physician: Keven Kirkland MD Attending physician on admission: Jay Madrid Attending physician on discharge: Jay Madrid DS: Diagnosis Discharge Diagnosis (1) Paranoid schizophrenia: Status: Acute DS: Medications Discharge Medications Home Medications: Previous Rx's ?Medication ?Instructions ?Recorded aspirin 81 mg tablet,delayed 81 mg PO DAILY #90 tabs 12/29/22 release pantoprazole 40 mg tablet,delayed 40 mg PO DAILY #90 tabs 06/03/23 release sodium chloride 1,000 mg soluble 1,000 mg PO BID #90 tabs 08/19/23 tablet atorvastatin 10 mg tablet 10 mg PO BEDTIME #90 tabs 10/29/23 diclofenac sodium 75 mg 75 mg PO Q12H #60 tabs 11/02/23 tablet,delayed release aripiprazole 10 mg tablet 10 mg PO BEDTIME 30 days #30 tabs 12/24/23 clonazepam 0.5 mg tablet 0.5 mg PO DAILY 30 days #30 tabs 12/24/23 clonazepam 0.5 mg tablet 0.5 mg PO DAILY PRN Anxiety 30 12/24/23 days #30 tabs clonazepam 1 mg tablet See Rx Instructions .Route 12/24/23 .COMPLEX 30 days #30 tabs clozapine 200 mg tablet 200 mg PO BEDTIME 30 days #30 tabs 12/24/23 clozapine 25 mg tablet 25 mg PO BEDTIME 30 days #30 tabs 12/24/23 clozapine 50 mg tablet 50 mg PO DAILY 30 days #30 tabs 12/24/23 docusate sodium 100 mg tablet (DOK) 100 mg PO DAILY PRN Constipation 12/24/23 30 days #90 tabs magnesium oxide 400 mg PO BEDTIME 30 days #30 tabs 12/24/23 peg [id number] 1 1 drp ophthalmic (eye) TID 30 days 12/24/23 %-0.2 %-0.2 % eye drops #15 mL (Artificial Tears ([id number])) trazodone 50 mg tablet 50 mg PO BEDTIME PRN insomnia 30 12/24/23 days #30 tabs Mental Status Exam Mental Status Exam Narrative: Pt is alert and oriented; behavior is cooperative, more organized, friendly, more calm; dressed in hospital gown, unkempt hair, marginal hygiene; mood is described as good and affect congruent, brighter, more calm; eye contact appropriate; less thought blocking present, normal rate, volume; a little bit of an odd prosody; today no intermittent psychomotor agitation present; thought process more goal oriented and more linear though can still be distracte d;Thought content is on feeling better, going home; intermittently on various concerns about the Pentecostalism people, his life, and other seemingly unrelated topics; no intermittent paranoid ideations expressed; denies any SI/HI. Reports AH resolved. ?Patients insight and judgment are impaired but improved and at baseline Data Data Completed and Pending Completed studies during hospitalization [Text1]: 12/18/23 12/18/23 12/18/23 18:58 19:27 20:43 WBC 8.6 RBC 5.11 Hgb 15.8 Hct 46.3 MCV 90.6 MCH 30.9 MCHC 34.1 RDW 13.2 Plt Count 182 MPV 10.5 Immature Gran % (Auto) 0.3 Neut % (Auto) 73.3 H Lymph % (Auto) 18.6 L [place] % (Auto) 7.0 Eos % (Auto) 0.2 Baso % (Auto) 0.6 Lymph # (Auto) 1.6 [place] # (Auto) 0.6 Eos # (Auto) 0.0 Baso # (Auto) 0.1 Abs Immat Gran (auto) 0.03 Absolute Neuts (auto) 6.3 Absolute Nucleated RBC 0.000 Nucleated RBC % (auto) 0.0 Sodium 141 Potassium 4.3 Chloride 106 Carbon Dioxide 26 Anion Gap 13 BUN 21 H Creatinine 0.85 Estim Creat Clear Calc 79.3 Estimated GFR > 60 Random Glucose 136 H Estimat Average Glucose Hemoglobin A1c % Calcium 9.5 Magnesium Total Bilirubin 0.3 AST 19 ALT 26 Alkaline Phosphatase 110 Total Protein 6.8 Albumin 4.4 Triglycerides Cholesterol LDL Cholesterol, Calc HDL Cholesterol Vitamin B12 Folate TSH Free T4 Urine Color Yellow Urine Appearance Clear Urine pH 7.0 Ur Specific [place] 1.015 Urine Protein Negative Urine Glucose (UA) Negative Urine Ketones Negative Urine Blood Negative Urine Nitrite Negative Ur Leukocyte Esterase Negative Urine Opiates Screen Not Detected Ur Buprenorphine Scrn Not Detected Ur Oxycodone Screen Not Detected Urine Methadone Screen Not Detected Urine Fentanyl Screen Not Detected Ur Barbiturates Screen Not Detected Ur Phencyclidine Scrn Not Detected Clozapine 88 Norclozapine 182 Ur Amphetamines Screen Not Detected U Benzodiazepines Scrn Not Detected Urine Cocaine Screen Not Detected U Marijuana (THC) Screen Not Detected Ethyl Alcohol < 10 12/19/23 07:30 WBC RBC Hgb Hct MCV MCH MCHC RDW Plt Count MPV Immature Gran % (Auto) Neut % (Auto) Lymph % (Auto) [place] % (Auto) Eos % (Auto) Baso % (Auto) Lymph # (Auto) [place] # (Auto) Eos # (Auto) Baso # (Auto) Abs Immat Gran (auto) Absolute Neuts (auto) Absolute Nucleated RBC Nucleated RBC % (auto) Sodium Potassium Chloride Carbon Dioxide Anion Gap BUN Creatinine Estim Creat Clear Calc Estimated GFR Random Glucose Estimat Average Glucose 111 Hemoglobin A1c % 5.5 Calcium Magnesium 2.3 Total Bilirubin AST ALT Alkaline Phosphatase Total Protein Albumin Triglycerides 76 Cholesterol 177 LDL Cholesterol, Calc 111 H HDL Cholesterol 51 Vitamin B12 631 Folate 11.2 TSH 2.03 Free T4 1.19 Urine Color Urine Appearance Urine pH Ur Specific [place] Urine Protein Urine Glucose (UA) Urine Ketones Urine Blood Urine Nitrite Ur Leukocyte Esterase Urine Opiates Screen Ur Buprenorphine Scrn Ur Oxycodone Screen Urine Methadone Screen Urine Fentanyl Screen Ur Barbiturates Screen Ur Phencyclidine Scrn Clozapine Norclozapine Ur Amphetamines Screen U Benzodiazepines Scrn Urine Cocaine Screen U Marijuana (THC) Screen Ethyl Alcohol DS: Summary Hospital Course Hospital Course: 68 yo male, history of paranoid schizophrenia, living a a longterm. Pt to ER with an increase in auditory perceptual alterations, isolation, withdrawal from community, poor sleep and increase in mood lability, anger, agitation in response to the intensity of perceptual alterations. Hospital course: 6/ Angry, psychotic, disorganized, punched the wall while talking with tw. Adventism preoccupation. Expressed himself verbally, verbally caustic and abus rica, then ambivalent and apologetic for his expression. The henderson did this, he made people to make me angry, like you, like Landstrom. I am sorry, this has nothing to do with you. But is does, people leave me, you will leave me, where is Julius, did he leave too? Pt able to work to acknowledge some parameters on team being here to assist him, listen and help him move ahead which he was able to hear and calmed after this. -Clarification of Clozaril dosing. 200 mg HS, 62.5 mg AM (last admission 10/2021, was on total of Clozaril 275mg daily (225mg qhs/50mg daily); now on total of 262.5mg 12/20 Patient having trouble getting his sentences out, rambling some, starting a thought and then switching gears, emotional and tearful at times; expressed gratitude and love for Pentecostalism people and apologized that they were not being treated well. Patient says I thought I was hearing voices... I wanted to see the water.... [Then tearfully] I am sorry I am taking up your time.. Patient said that he was sure he heard [place] praying to him about 2 nights ago. 12/21 Patient still struggling to get his sentences out, distracted by racing thoughts and internal preoccupation,. He says he is having problem with voices, that he can not sleep... He said he is worried he is going crazy... Unrelated patient said I thought I would hit but only to defend myself... Later on he said I am going to break boards like Hai Alexis..' but then tearfully apologized and said he did not mean it. Patient agreed to increase clonazepam and Clozaril. Signed a CV -will increase Clozaril by 12.5 mg; for now Will increase clonazepam. Increasing Clozaril since hopefully less risk EPS side effects verses aripiprazole 12/22 pt reports he's better and good. He says he slept well and no AH at all. Pt is also much more able to complete his sentences which are much more organized. Pt asked about discharge which was discussed and agreed on for Thursday. May be approaching baseline 12/23 patient remains stable; will continue current regimen including increased clonazepam. Patient wants to discharge and return to longterm; he has extensive outpatient support in place. He has not in imminent risk for harm to self or others and request for discharge honored. Medications: Change to Clozapine 50 mg PO DAILY DACIA Increase to Clozapine 225 mg PO BEDTIME DACIA Increase to Clonazepam 0.5 mg PO DAILY DACIA Increase to Clonazepam 1 mg PO BEDTIME DACIA Continue Clonazepam 0.5 mg PO DAILY PRN Continue Aripiprazole 10 mg PO BEDTIME DACIA Continue Magnesium Oxide 400 mg PO BEDTIME DACIA Trazodone HCl ?50 mg PO BEDTIME MRX1 PRN Time spent discussing smoking cessation with patient: 3 to 10 minutes Status at Discharge Functional status at discharge: independent ambulation Overall status at discharge: patient is back to baseline Time Spent with Patient Time attestation: Total time managing care of this patient today ____ minutes. Time spent: Less than 30 minutes Discharge Plan Discharge Anticipated Discharge Date/Time: 12/25/23 11:19 Patient Disposition: Home, Self-Care Discharge Diagnosis: schizophrenia Referrals: [facility] Psychiatry checo Mcneil [Other] - 01/12/24 10:20 am Keven Kirkland MD [Primary Care Provider] - 1 Week (office will call patient forfollow-up appointment.) Discharge Medications: Continued pantoprazole 40 mg tablet,delayed release (DR/EC) 40 mg PO DAILY Qty: 90 8RF sodium chloride 1,000 mg tablet,soluble 1,000 mg PO BID Qty: 90 6RF clozapine 25 mg tablet 25 mg PO BEDTIME 30 Days Qty: 30 0RF Rx Instructions: take with 200mg tab for total of 225mg at bedtime aripiprazole 10 mg tablet 10 mg PO BEDTIME 30 Days Qty: 30 0RF clozapine 200 mg tablet 200 mg PO BEDTIME 30 Days Qty: 30 0RF Rx Instructions: take with 25mg tab for total of 225mg at bedtime magnesium oxide 400 mg magnesium tablet 400 mg PO BEDTIME 30 Days Qty: 30 0RF Changed trazodone 50 mg tablet 50 mg PO BEDTIME PRN (Reason: insomnia) 30 Days Qty: 30 0RF clonazepam 1 mg tablet See Rx Instructions .ROUTE .COMPLEX 30 Days Qty: 30 0RF Rx Instructions: Give 1/2 to 1 tab, 30 minutes before bedtime clozapine 50 mg tablet 50 mg PO DAILY 30 Days Qty: 30 0RF Discontinued docusate sodium [DOK] 100 mg tablet 100 mg PO DAILY PRN (Reason: Constipation) Qty: 90 0RF clonazepam 0.5 mg tablet 0.25 mg PO DAILY clonazepam 0.5 mg tablet 0.5 mg PO DAILY PRN (Reason: Anxiety) No Action aspirin 81 mg tablet,delayed release (DR/EC) 81 mg PO DAILY Qty: 90 10RF atorvastatin 10 mg tablet 10 mg PO BEDTIME Qty: 90 1RF docusate sodium [DOK] 100 mg tablet 100 mg PO BID clonazepam 0.5 mg tablet 0.5 mg PO DAILY amoxicillin-pot clavulanate 875-125 mg Tablet 1 tab PO BID Qty: 8 0RF Discharge Orders: Discharge Order (Routine); Ordered 12/25/23 Ordered By: Jay Madrid Diet: Regular diet Activity on Discharge: As tolerated Stand Alone Forms: Patient Portal Discharge page, Community Support Print Language: Danish Care Plan Goals: Maintain mood and safe behaviors Take medications as prescribed Practice coping skills Continue with outpatient providers and reach out to them as needed Health Concerns: Mood stability and behaviors Elevated cholesterol GERD Plan of Treatment: Follow up with your PCP, psychiatric provider and other outpatient providers regarding above concerns Take medications as prescribed Assessment: Risk assessment at time of discharge:? Patient was interviewed prior to discharge and found to be fully oriented and without any SI or HI. Patient has improved insight and judgment and wants to continue treatment. Patient is not in imminent risk of harm to self or others and has a safety plan that includes presenting to the closest ER or calling 911 if feeling unsafe.? Patient has been observed closely by nursing and unit staff throughout admission; patient has not engaged in any behaviors that suggest dangerousness to self or others and has demonstrated appropriate behaviors and impulse control Discharge Date/Time: 12/25/23 11:55
[2023-12-25] MEDS: Omeprazole 20 MG CAPSULE.DR PO (05:48)
[2023-12-25 08:00] VITALS: BP 107/63; PULSE 92; RESP 18; TEMP 36.4; O2SAT 95
[2023-12-25] MEDS: Diclofenac Sodium Delayed Rel 75 MG TABLET.DR PO (08:19)
[2023-12-25] MEDS: cloZAPine 25 MG TABLET 50 MG PO (08:19)
[2023-12-25] MEDS: Sodium Chloride Tab 1 GM TABLET PO (08:20)
[2023-12-25] MEDS: Aspirin 81 MG TAB.CHEW PO (08:20)
[2023-12-25 08:32] LABS: Neut%MD 68.9 %; Neutrophils Absolute Auto 5.3 x10*3/uL (2.0-8.3); WBCANC 7.7 X10*3/uL
--- NOTE | 2023-12-25 09:00 | ECG_ITS ---
Test Reason : DISCHARGE Blood Pressure : / mmHG Vent. Rate : 096 BPM Atrial Rate : 096 BPM P-R Int : 152 ms QRS Dur : 090 ms QT Int : 354 ms P-R-T Axes : 061 268 055 degrees QTc Int : 447 ms Normal sinus rhythm Right superior axis deviation Right ventricular hypertrophy Abnormal ECG When compared with ECG of 24-OCT-2021 16:08, No significant change was found Referred By: Jay Madrid Electronically Signed By:SHAN PIZARRO MD
== END 2023-12-25 11:55 | disposition home or self-care (01) | DRG 885 ==
LOC: HO.ED 20:29 → HO.PM5 21:46
PROVIDERS: Admitting Provider Clinical Nurse Specialist Psychiatric/Mental Health, Adult; Emergency Provider Emergency Medicine Emergency Medical Services; PCP Internal Medicine; Visit Provider Psychiatry & Neurology Psychiatry
DX: F20.0 Paranoid schizophrenia (principal); F17.210 Nicotine dependence, cigarettes, uncomplicated; Z71.6 Tobacco abuse counseling; Z79.82 Long term (current) use of aspirin; Z79.899 Other long term (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
CPT/HCPCS: 36415; 80053; 80061; 80159; 80307; 81003; 82607; 82746; 83036; 83735; 84439; 84443; 85025; 85048; 93005; 99285; S9485

== ENCOUNTER 2023-12-18 21:23 | Outpatient (BNV) | payer MEDICARE, SELFPAY | END 2023-12-25 09:00 | PROVIDERS: Admitting Provider Clinical Nurse Specialist Psychiatric/Mental Health, Adult; Emergency Provider Emergency Medicine Emergency Medical Services; PCP Internal Medicine; Visit Provider Internal Medicine Cardiovascular Disease | DX: R94.31 Abnormal electrocardiogram [ECG] [EKG] (principal) | CPT/HCPCS: 93010 ==

== ENCOUNTER → 2023-12-18 21:23 | Outpatient (BNV) | payer MEDICARE, MEDICAID, SELFPAY | PROVIDERS: Admitting Provider Clinical Nurse Specialist Psychiatric/Mental Health, Adult; Emergency Provider Emergency Medicine Emergency Medical Services; PCP Internal Medicine; Visit Provider Clinical Nurse Specialist Psychiatric/Mental Health, Adult | DX: F20.0 Paranoid schizophrenia (principal) | CPT/HCPCS: 90792; 99231; 99232; 99238 ==

== ENCOUNTER 2024-01-22 12:34 | Observation (INO) | payer MEDICARE, OTHER, SELFPAY ==
--- NOTE | ~2024-01-22 | XR_ITS ---
EXAMINATION: XR CHEST 2 VIEW CLINICAL INFORMATION: Cough, choking COMPARISON: 01/24/2020 TECHNIQUE: Frontal and lateral views of the chest obtained. FINDINGS: The lungs are clear. There are no pleural effusions. The cardiomediastinal silhouette is normal. XR/XR chest 2V IMPRESSION: No acute cardiopulmonary disease.
[2024-01-22 12:43] VITALS: BP 124/70; BP 139/58; PULSE 115; PULSE 116; RESP 16; TEMP 37.9; O2SAT 94; O2SAT 95; BMI 29.6
[2024-01-22 12:45] VITALS: BP 139/58; PULSE 116; RESP 16; TEMP 37.9; O2SAT 94
--- NOTE | 2024-01-22 14:53 | ED_ITS ---
HPI - General Adult General Chief complaint: Nausea/Vomiting/Diarrhea Stated complaint: N/V/SHAKING Time Seen by Provider: 01/22/24 14:52 History of Present Illness ED Provider: Dr. Guy HPI narrative: 68 y/o M patient; PMH paranoid schizophrenia, dysphagia, GERD; who presents from [facility] with report of nausea/vomiting, shakiness, and diaphoresis. The patient states he was at the day program today when he ? aspirated food and then had two episodes of vomiting. He denies: abdominal pain, SOB, cough/congestion, dysuria/hematuria/frequency. Related Data Previous Rx's ?Medication ?Instructions ?Recorded aspirin 81 mg tablet,delayed 81 mg PO DAILY #90 tabs 12/29/22 release pantoprazole 40 mg tablet,delayed 40 mg PO DAILY #90 tabs 06/03/23 release sodium chloride 1,000 mg soluble 1,000 mg PO BID #90 tabs 08/19/23 tablet atorvastatin 10 mg tablet 10 mg PO BEDTIME #90 tabs 10/29/23 aripiprazole 10 mg tablet 10 mg PO BEDTIME 30 days #30 tabs 12/24/23 clonazepam 0.5 mg tablet 0.5 mg PO DAILY PRN Anxiety 30 12/24/23 days #30 tabs clonazepam 1 mg tablet See Rx Instructions .Route 12/24/23 .COMPLEX 30 days #30 tabs clozapine 200 mg tablet 200 mg PO BEDTIME 30 days #30 tabs 12/24/23 clozapine 25 mg tablet 25 mg PO BEDTIME 30 days #30 tabs 12/24/23 clozapine 50 mg tablet 50 mg PO DAILY 30 days #30 tabs 12/24/23 docusate sodium 100 mg tablet (DOK) 100 mg PO DAILY PRN Constipation 12/24/23 30 days #90 tabs magnesium oxide 400 mg PO BEDTIME 30 days #30 tabs 12/24/23 trazodone 50 mg tablet 50 mg PO BEDTIME PRN insomnia 30 12/24/23 days #30 tabs Allergies Allergy/AdvReac Type Severity Reaction Status Date / Time haloperidol [From Haldol] Allergy Mild UNKNOWN Verified 01/22/24 12:47 lithium [[place]] Allergy Mild UNKOWN Verified 01/22/24 12:47 [place] Citrate Allergy Unknown nervous Uncoded 01/22/24 12:47 breakdown Review of Systems 2 Review of Systems: Yes all other systems are reviewed and are negative Neurologic: Denies Sensory deficit (Neuro) [facility] Past Medical History Attestation statement: The following information was validated with the patient. 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 Father No problems noted. 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 Housing: Other Housing Other:: [facility] Do you presently have visiting nurse or other home services: Yes ([facility], meals delivered, nursing visits) Unable to assess alcohol history related to: Unknown Alcohol intake: never Patient Tobacco Use Status: Current everyday Tobacco user Tobacco use type: Cigarette Cigarette Packs Per Day: 0.5 e-Cigarette/Vaping Use: Never Used Second Hand Smoke Exposure: No Advance Directives: Yes Advance Directives Information Provided: Yes Advance Directives on File: No Do you have a plan to hurt others: No Plan service: Yes ( [employer]) Current occupational status: disabled Current occupation: Right Handed Sexual orientation: Did not discuss Cognitive needs: Yes Hearing needs: No Vision needs: No Physical Exam ED Vital Signs: Vital Signs - 24 hr 01/22/24 12:43 01/22/24 12:45 01/22/24 16:00 Temperature 100.3 F 100.3 F 98.7 F Pulse Rate 116 H 116 H 110 H Respiratory Rate 16 16 22 H Blood Pressure 139/58 L 139/58 L 117/76 Pulse Oximetry 94 94 95 Oxygen Delivery Method Nasal Cannula Nasal Cannula Room Air Oxygen Flow Rate 2 BMI result Body Mass Index 29.6 Patient is febrile, tachycardic, and hypoxic requiring 2L NC. Const General: cooperative Orientation/consciousness: patient oriented x3 HENMT Head: Yes normal to inspection and Yes atraumatic Eyes General: appearance normal, both eyes and all related structures Pupils: Equal, round and reactive pupils present EOM: EOMs intact bilaterally Neck Neck: Yes normal visual inspection, Yes full ROM, Yes supple and No tender Chest Chest palpation & inspection: normal inspection of the chest and normal palpation of entire chest wall Resp Effort & Inspection: normal respiratory effort, able to speak in complete sentences, no cough and no respiratory distress Auscultation: clear to auscultation bilaterally Cardio Rate: tachycardic Rhythm: regular rhythm Peripheral pulses: Peripheral pulses 2+ throughout GI Inspection: Yes normal to inspection and No distended Palpation (GI): Soft to palpation, not firm, nontender, no guarding and not rigid Auscultation: normal bowel sounds Back/Spine/Pelvis Back: No back tenderness Neuro General: patient oriented x3 Cranial nerves: Yes Equal, round and reactive pupils present Motor exam (neuro): 5/5 motor strength present throughout Sensory Exam: No Sensory deficit (Neuro) Course Course Course Narrative: Patient is febrile, tachycardic, and hypoxic requiring 2L NC. Ordered for blood cultures, LA, CXR, and basic labs. Starting on 1L IVF and Tylenol 1g IV. Reevaluation(s) Reevaluation #1: Laboratory studies reviewed. Leukocytosis 14.8. Patient is meeting SIRS criteria with fever and tachycardia. Started on Ceftriaxone and Doxycycline for suspected respiratory source. Possible aspiration event today followed by nausea/vomiting. COVID/FLU/RSV negative. SIRS focused exam completed. Plan: Admit to hospitalist for hypoxia Condition: Stable Medications Administered Generic Name Dose Route Start Last Admin Trade Name Freq PRN Reason Stop Dose Admin Doxycycline Hyclate 100 mg/ 250 mls @ 166.67 mls/hr 01/22/24 15:58 01/22/24 16:47 Sodium Chloride IV 01/22/24 17:27 166.67 mls/hr ONCE ONE Administration Sodium Chloride 1,000 mls @ 999 mls/hr 01/22/24 16:45 01/22/24 16:47 Ns IV 01/22/24 17:45 999 mls/hr .Q1H1M DACIA Administration Discontinued Medications Generic Name Dose Route Start Last Admin Trade Name Freq PRN Reason Stop Dose Admin Sodium Chloride 1,000 mls @ 999 mls/hr 01/22/24 15:00 01/22/24 16:31 Ns IV 01/22/24 16:00 Infused .Q1H1M DACIA Infusion Acetaminophen 1,000 mg in 100 mls @ 400 mls/hr 01/22/24 15:05 01/22/24 16:31 Ofirmev IV 01/22/24 15:19 Infused ONCE ONE Infusion Ceftriaxone Sodium 1 gm/ 50 mls @ 100 mls/hr 01/22/24 15:58 01/22/24 16:48 Sodium Chloride IV 01/22/24 16:27 Infused ONCE ONE Infusion Medical Decision Making Lab Data 01/22/24 15:20 01/22/24 15:20 Labs: Lab Results 01/22/24 01/22/24 Range/Units 15:20 15:23 WBC 14.8 H (4.8-10.8) X10*3/uL RBC 4.96 (4.60-5.80) X10*6/uL Hgb 15.4 (14.0-18.0) g/dl Hct 44.1 (42.0-52.0) % MCV 88.9 (80.0-98.0) fL MCH 31.0 (27.0-33.0) pg MCHC 34.9 (31.0-36.0) g/dl RDW 13.3 (11.0-16.0) % Plt Count 153 L (160-400) X10*3/uL MPV 10.7 (9.4-12.4) fL Immature Gran % (Auto) 0.4 (0.0-0.4) % Neut % (Auto) 88.3 H (45-73) % Lymph % (Auto) 3.6 L (20-40) % [place] % (Auto) 7.4 (2-11) % Eos % (Auto) 0.0 (0-4) % Baso % (Auto) 0.3 (0-2) % Lymph # (Auto) 0.5 L (1.2-4.9) X10*3/uL [place] # (Auto) 1.1 (0.1-1.2) X10*3/uL Eos # (Auto) 0.0 (0.0-0.4) X10*3/uL Baso # (Auto) 0.0 (0.0-0.2) X10*3/uL Abs Immat Gran (auto) 0.06 H (0.00-0.03) X10*3/uL Absolute Neuts (auto) 13.0 H (2.0-8.3) x10*3/uL Absolute Nucleated RBC 0.000 (0.0-0.012) X10*3/uL Nucleated RBC % (auto) 0.0 (0.0-0.2) /100WBC VBG pH 7.41 (7.32-7.43) VBG pCO2 41 mmHg VBG pO2 50 mmHg VBG HCO3 26 (22-26) mmol/L VBG O2 Saturation 81.0 % VBG Base Excess 2.2 mmol/L Sodium 140 (135-145) mmol/L Potassium 4.0 (3.3-5.1) mmol/L Chloride 107 (96-108) mmol/L Carbon Dioxide 24 (22-29) mmol/L Anion Gap 13 (12-20) BUN 30 H (9-16) mg/dL Creatinine 0.92 (0.5-1.4) mg/dL Estim Creat Clear Calc 81.8 Estimated GFR > 60 Random Glucose 104 (60-115) mg/dL Lactic Acid 0.9 (0.5-2.0) mmol/L Calcium 9.3 (8.4-10.2) mg/dL Total Bilirubin 0.6 (0.0-1.0) mg/dL Direct Bilirubin 0.2 (0.0-0.5) mg/dL AST 20 (5-37) U/L ALT 32 (0-40) U/L Alkaline Phosphatase 105 (39-117) U/L Total Protein 6.8 (6.5-8.0) g/dL Albumin 4.3 (3.5-5.0) g/dL Lipase 27 (8-78) U/L Influenza Type A (PCR) NEGATIVE (Negative) Influenza Type B (PCR) NEGATIVE (Negative) RSV RNA Qual (PCR) NEGATIVE (Negative) SARS-CoV-2 RNA (RT-PCR) NEGATIVE (Negative) Radiology Impression Discussion of test interpretation with radiology: I have reviewed the radiologist's reading. Radiologist Impression: EXAMINATION: XR CHEST 2 VIEW CLINICAL INFORMATION: Cough, choking COMPARISON: 01/24/2020 TECHNIQUE: Frontal and lateral views of the chest obtained. FINDINGS: The lungs are clear. There are no pleural effusions. The cardiomediastinal silhouette is normal. XR/XR chest 2V IMPRESSION: No acute cardiopulmonary disease. Discharge Plan Discharge Clinical Impression: Sepsis, Aspiration pneumonia due to vomitus Patient Disposition: Admitted As Inpatient Print Language: Bulgarian
[2024-01-22 15:26] LABS: MANUAL DIFF FLAG NO
[2024-01-22 15:29] LABS: VBG Base Excess 2.2 mmol/L; VBG HCO3 26 mmol/L (22-26); VBG pCO2 41 mmHg; VBG pH 7.41 (7.32-7.43); VBG pO2 50 mmHg
[2024-01-22 15:30] LABS: Venous Blood Gas Refer to POC result
[2024-01-22 15:35] LABS: Basophils Percent Auto 0.3 % (0-2); Hematocrit 44.1 % (42.0-52.0); Hemoglobin 15.4 g/dl (14.0-18.0); Imm Gran Abs Auto 0.06 X10*3/uL (0.00-0.03); Imm Gran Pct Auto 0.4 % (0.0-0.4); Lymphocytes Absolute Auto 0.5 X10*3/uL (1.2-4.9); Lymphocytes Percent Auto 3.6 % (20-40); Mean Corpuscular HGB Conc 34.9 g/dl (31.0-36.0); Mean Corpuscular Volume 88.9 fL (80.0-98.0); Mean Platelet Volume 10.7 fL (9.4-12.4); Monocytes Absolute Auto 1.1 X10*3/uL (0.1-1.2); Monocytes Percent Auto 7.4 % (2-11); Neutrophils Percent Auto 88.3 % (45-73); Platelet Count 153 X10*3/uL (160-400); Red Blood Count 4.96 X10*6/uL (4.60-5.80); Red Cell Distribution Width 13.3 % (11.0-16.0); White Blood Count 14.8 X10*3/uL (4.8-10.8)
[2024-01-22 15:39] LABS: Lactic Acid 0.9 mmol/L (0.5-2.0)
[2024-01-22] MEDS: Acetaminophen 1,000 MG/100 ML PIGGYBACK 400 MG IV (15:44)
[2024-01-22] MEDS: 0.9 % Sodium Chloride 1,000 ML 999 ML IV ×2 (15:44→16:47)
[2024-01-22 15:45] LABS: Alanine Aminotransferase 32 U/L (0-40); Albumin Level 4.3 g/dL (3.5-5.0); Alkaline Phosphatase 105 U/L (39-117); Anion Gap 13 (12-20); Aspartate Amino Transferase 20 U/L (5-37); Bilirubin Direct 0.2 mg/dL (0.0-0.5); Bilirubin Total 0.6 mg/dL (0.0-1.0); Blood Urea Nitrogen 30 mg/dL (9-16); Calcium 9.3 mg/dL (8.4-10.2); Carbon Dioxide 24 mmol/L (22-29); Chloride 107 mmol/L (96-108); Creatinine Clr Calc Pharmacy 81.8; Estimated Glomerular Filt Rate > 60; Glucose Random 104 mg/dL (60-115); Lipase 27 U/L (8-78); Sodium 140 mmol/L (135-145); Total Protein 6.8 g/dL (6.5-8.0)
[2024-01-22 16:00] VITALS: BP 117/76; PULSE 110; RESP 22; TEMP 37.1; O2SAT 95
[2024-01-22 16:12] LABS: Influenza A PCR NEGATIVE (Negative); Influenza B PCR NEGATIVE (Negative); Resp Syncy Virus RNA Qual PCR NEGATIVE (Negative); SARS COV2 PCR INHOUSE NEGATIVE (Negative)
[2024-01-22] MEDS: cefTRIAXone sodium 1 GM in 0.9 % Sodium Chloride 50 ML IV (16:39)
[2024-01-22] MEDS: Doxycycline Hyclate 100 MG in 0.9 % Sodium Chloride 250 ML 166.67 MG IV (16:47)
--- NOTE | 2024-01-22 17:16 | PM.IMHP ---
History of Present Illness Date of Service: 01/22/24 Attending physician on admission: Erick Jacinto Chief Complaint: nausea/vomiting ?aspiration This is a 68-year-old male with history of paranoid schizophrenia, esophagitis, documented history of dysphagia who presents to the emergency department with question nausea/vomiting. Patient is a somewhat disorganized historian. Per the emergency room provider he had an aspiration event earlier today following which time he had episode of vomiting and was sent in for further evaluation. Patient however denies any choking or coughing after eating. He did report that he was eating and then he began shaking and then felt like he needed to try to induce vomiting which he attempted but nothing much came up. In the emergency department he was tachycardic and mildly tachypneic on arrival. He was also noted to have low-grade fever of 100.3. Reportedly he require 2 L of supplemental oxygen as he dropped to 88% on room air. He received ceftriaxone and doxycycline, IV fluid. Chest x-ray was negative for any infiltrate. Lab work was significant for leukocytosis of 14.8 and was otherwise unremarkable. At the time of evaluation he was denying any shortness of breath cough. He denies any abdominal pain, nausea, vomiting, diarrhea. 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 Father No problems noted. 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 Housing: Other Housing Other:: long-term Do you presently have visiting nurse or other home services: Yes (long-term, meals delivered, nursing visits) Unable to assess alcohol history related to: Unknown Alcohol intake: never Patient Tobacco Use Status: Current everyday Tobacco user Tobacco use type: Cigarette Cigarette Packs Per Day: 0.5 e-Cigarette/Vaping Use: Never Used Second Hand Smoke Exposure: No Advance Directives: Yes Advance Directives Information Provided: Yes Advance Directives on File: No Do you have a plan to hurt others: No Plan service: Yes ([employer]) Current occupational status: disabled Current occupation: Right Handed Sexual orientation: Did not discuss Cognitive needs: Yes Hearing needs: No Vision needs: No Meds Allergies Allergy/AdvReac Type Severity Reaction Status Date / Time haloperidol [From Haldol] Allergy Mild UNKNOWN Verified 01/22/24 12:47 lithium [[place]] Allergy Mild UNKOWN Verified 01/22/24 12:47 [place] Citrate Allergy Unknown nervous Uncoded 01/22/24 12:47 breakdown Active Medications: Current Medications Acetaminophen (Acetaminophen 325 Mg Tablet) 650 mg PO Q6H PRN PRN Reason: Pain, Mild (Pain Scale 1-3), fever or headache Albuterol Sulfate (Albuterol Sulfate (0.083%) 2.5 Mg/3 Ml Vial.Neb) 2.5 mg INHALE Q6H PRN PRN Reason: Shortness of Breath Amoxicillin/Clavulanate Potassium (Amoxicillin/Potassium Clav 875 Mg Tablet) 875 mg PO BID [facility] Docusate Sodium (Docusate Sodium 100 Mg Capsule) 100 mg PO BID [facility] Enoxaparin Sodium (Enoxaparin Sodium 40 Mg/0.4 Ml Syringe) 40 mg SUBCUT Q24H [facility] Doxycycline Hyclate 100 mg/ (Sodium Chloride) 250 mls @ 166.67 mls/hr IV ONCE ONE Stop: 01/22/24 17:27 Last Admin: 01/22/24 16:47 Dose: 166.67 mls/hr Sodium Chloride (Ns) 1,000 mls @ 999 mls/hr IV .Q1H1M [facility] Stop: 01/22/24 17:45 Last Admin: 01/22/24 16:47 Dose: 999 mls/hr Nicotine (Nicotine 14 Mg Patch.Td24) 14 mg TRANSDERMA DAILY [facility] Ondansetron HCl (Ondansetron Hcl 4 Mg/2 Ml Vial) 4 mg IVPUSH Q8H PRN PRN Reason: Nausea and Vomiting Polyethylene Glycol (Polyethylene Glycol 3350 17 Gm Powd.Pack) 17 gm PO DAILY PRN PRN Reason: Constipation Physical Exam Vital Signs and Narrative: Vital Signs: Last Vital Signs Temp 98.7 F 01/22/24 16:00 Pulse 110 H 01/22/24 16:00 Resp 22 H 01/22/24 16:00 BP 117/76 01/22/24 16:00 Pulse Ox 95 01/22/24 16:00 O2 Del Method Room Air 01/22/24 16:00 O2 Flow Rate 2 01/22/24 12:45 Oxygen Flow Rate 2 01/22/24 12:43 BMI result Body Mass Index 29.6 Const: General: cooperative, comfortable, no acute distress, alert and awake Nutritional Appearance: average body habitus Resp: Effort & Inspection: normal respiratory effort, able to speak in complete sentences, no respiratory distress and no use of accessory muscles Auscultation: clear to auscultation bilaterally Cardio: Rate: tachycardic GI: Other: no guarding, no rebound, +BS Inspection: No distended Palpation (GI): Soft to palpation and nontender Neuro: Other: Grossly nonfocal General: moves all extremities Results Labs 01/22/24 15:20 01/22/24 15:20 Labs: Laboratory Results - last 24 hr 01/22/24 01/22/24 15:20 15:23 MCV 88.9 MCH 31.0 MCHC 34.9 RDW 13.3 Plt Count 153 L MPV 10.7 Immature Gran % (Auto) 0.4 Neut % (Auto) 88.3 H Lymph % (Auto) 3.6 L [place] % (Auto) 7.4 Eos % (Auto) 0.0 Baso % (Auto) 0.3 Lymph # (Auto) 0.5 L [place] # (Auto) 1.1 Eos # (Auto) 0.0 Baso # (Auto) 0.0 Abs Immat Gran (auto) 0.06 H Absolute Neuts (auto) 13.0 H Absolute Nucleated RBC 0.000 Nucleated RBC % (auto) 0.0 VBG pH 7.41 VBG pCO2 41 VBG pO2 50 VBG HCO3 26 VBG O2 Saturation 81.0 VBG Base Excess 2.2 Anion Gap 13 Estim Creat Clear Calc 81.8 Estimated GFR > 60 Random Glucose 104 Lactic Acid 0.9 Calcium 9.3 Total Bilirubin 0.6 Direct Bilirubin 0.2 AST 20 ALT 32 Alkaline Phosphatase 105 Total Protein 6.8 Albumin 4.3 Lipase 27 Influenza Type A (PCR) NEGATIVE Influenza Type B (PCR) NEGATIVE RSV RNA Qual (PCR) NEGATIVE SARS-CoV-2 RNA (RT-PCR) NEGATIVE Imaging Radiologist's Impressions: Impressions Chest X-Ray 01/22/24 15:55 IMPRESSION: No acute cardiopulmonary disease. Assessment and Plan (1) Aspiration pneumonia due to vomitus: Status: Acute Plan This is a 68-year-old male with a history of paranoid schizophrenia, peptic ulcer disease, sent in from long-term due to possible aspiration event Nausea/vomiting No abdominal pain Seems to have resolved at this time Symptomatic support acute hypoxia due to aspiration event Chest x-ray negative for infiltrate. no respiratory symptoms at this time received empiric antibiotics in ED follow blood cultures speech evaluation empiric augmentin to cover for any possible aspiration Wean oxygen as tolerated NPO pending swallow evaluation SIRS meets sirs criteria with tachycardia, tachypnea and leukocytosis No severe features. No definitive source of infection. Lactic acid normal Follow-up results of blood cultures Schizophrenia Continue baseline medication Esophagitis/GERD continue PPI ?h/o hyponatremia continue baseline dose of sodium chloride HLD continue statin DVT prophylaxis-Lovenox dispo - return to long-term when medically stable Likely will require a 2 midnight in the hospital for close monitoring of oxygen saturation as well as evaluation of dysphagia in the setting of possible aspiration event Quality Stroke Does the patient have a stroke diagnosis?: No VTE Prior VTE?: No VTE Risk Level:: Medical - moderate - high VTE Device Contraindication: N/A - Device Ordered VTE Drug Contraindication: N/A - Med Ordered
--- NOTE | 2024-01-22 17:19 | PHA.MEDREC ---
Pharmacy Consult ? Medication Reconciliation Pharmacy has completed the medication reconciliation. Confirmed medication with list provided by [facility].
[2024-01-22 19:09] VITALS: BP 122/74; PULSE 98; RESP 17; TEMP 36.7
--- NOTE | 2024-01-22 19:43 | PC.NURSE ---
This RN spoke with pt regarding meds that were due @ 5pm. Per pt will take the lovenox, but refused the nicotine. Plan of care ongoing.
[2024-01-22] MEDS: Enoxaparin Sodium 40 MG/0.4 ML SYRINGE SUBCUT (19:49)
--- NOTE | 2024-01-22 19:50 | PC.NURSE ---
Pt medicated per sep. Plan of care ongoing.
[2024-01-22 20:00] VITALS: BP 126/73; PULSE 87; RESP 20; TEMP 36.5; O2SAT 97
[2024-01-22 20:36] VITALS: BMI 30.3
[2024-01-22] MEDS: LORazepam 2 MG/ML VIAL 1 MG IVPUSH (23:53)
[2024-01-23 04:00] VITALS: BP 130/77; PULSE 86; RESP 20; TEMP 37; O2SAT 96
[2024-01-23 06:51] LABS: Hematocrit 43.2 % (42.0-52.0); Hemoglobin 14.8 g/dl (14.0-18.0); Mean Corpuscular HGB Conc 34.3 g/dl (31.0-36.0); Mean Corpuscular Hemoglobin 31.2 pg (27.0-33.0); Mean Corpuscular Volume 91.1 fL (80.0-98.0); Mean Platelet Volume 10.7 fL (9.4-12.4); Platelet Count 141 X10*3/uL (160-400); Red Blood Count 4.74 X10*6/uL (4.60-5.80); Red Cell Distribution Width 13.7 % (11.0-16.0); White Blood Count 11.4 X10*3/uL (4.8-10.8)
[2024-01-23 08:00] VITALS: BP 132/77; PULSE 82; RESP 20; TEMP 36.7; O2SAT 96
--- NOTE | 2024-01-23 10:28 | P.DS_ITS ---
DS: Providers Provider Date of Service: 01/23/24 Date of admission: 01/22/24 17:10 Primary care physician: Keven Kirkland MD DS: Diagnosis Discharge Diagnosis (1) Aspiration pneumonia due to vomitus: Status: Acute DS: Summary Hospital Course Hospital Course: History and physical as per admitting provider. This is a 68-year-old male with history of paranoid schizophrenia, esophagitis, documented history of dysphagia who presents to the emergency department with question nausea/vomiting. Patient is a somewhat disorganized historian. Per the emergency room provider he had an aspiration event earlier today following which time he had episode of vomiting and was sent in for further evaluation. Patient however denies any choking or coughing after eating. He did report that he was eating and then he began shaking and then felt like he needed to try to induce vomiting which he attempted but nothing much came up. In the emergency department he was tachycardic and mildly tachypneic on arrival. He was also noted to have low- grade fever of 100.3. Reportedly he require 2 L of supplemental oxygen as he dropped to 88% on room air. He received ceftriaxone and doxycycline, IV fluid. Chest x-ray was negative for any infiltrate. Lab work was significant for leukocytosis of 14.8 and was otherwise unremarkable. At the time of evaluation he was denying any shortness of breath cough. He denies any abdominal pain, nausea, vomiting, diarrhea. 68-year-old man admitted after an episode of vomiting with eating. He likely developed aspiration pneumonia with hypoxia. Chest x-ray was negative infiltrate the patient had no other respiratory symptoms. He did meet SIRS criteria with tachycardia, tachypnea leukocytosis but no severe features. He was treated with Augmentin initially. He had a bedside swallow and did well, regular diet was ordered and patient had no issues with choking difficulty swallowing with eating. Plan will be to transfer patient back to [facility] today, he is in agreement of this. Schizophrenia. Continue baseline medications Esophagitis/GERD. Continue PPI Hyperlipidemia. Continue statin Time Attestation Discharge Coordination Time (in mins): 35 Quality: Safe Use of Opioids Does Pt have an Active Cancer Diagnosis on the Problem List?: No Quality: Stroke Does the patient have a stroke diagnosis?: No Physical Exam Vital Signs: Vital Signs: Last Vital Signs Temp 98.0 F 01/23/24 08:00 Pulse 82 01/23/24 08:00 Resp 20 01/23/24 08:00 BP 132/77 01/23/24 08:00 Pulse Ox 96 01/23/24 08:00 O2 Del Method Room Air 01/23/24 08:00 O2 Flow Rate 2 01/22/24 20:00 Oxygen Flow Rate 2 01/22/24 12:43 BMI result Body Mass Index 30.3 Appearing in no acute distress head is normocephalic atraumatic eyes pupils are PERRLA sclera is anicteric mouth throat mucous membranes are intact and moist neck is supple no lymphadenopathy, no JVD noted lung sounds are clear to auscultation heart regular rate rhythm, clear S1, S2 positive bowel sounds, abdomen is soft, nontender neuro patient is alert x3, no focal deficits DS: Data Data Completed and Pending Labs on day of discharge: Laboratory Results - last 24 hr 01/22/24 01/22/24 01/23/24 15:20 15:23 06:31 WBC 14.8 H 11.4 H RBC 4.96 4.74 Hgb 15.4 14.8 Hct 44.1 43.2 MCV 88.9 91.1 MCH 31.0 31.2 MCHC 34.9 34.3 RDW 13.3 13.7 Plt Count 153 L 141 L MPV 10.7 10.7 Immature Gran % (Auto) 0.4 Neut % (Auto) 88.3 H Lymph % (Auto) 3.6 L [place] % (Auto) 7.4 Eos % (Auto) 0.0 Baso % (Auto) 0.3 Lymph # (Auto) 0.5 L [place] # (Auto) 1.1 Eos # (Auto) 0.0 Baso # (Auto) 0.0 Abs Immat Gran (auto) 0.06 H Absolute Neuts (auto) 13.0 H Absolute Nucleated RBC 0.000 0.000 Nucleated RBC % (auto) 0.0 0.0 VBG pH 7.41 VBG pCO2 41 VBG pO2 50 VBG HCO3 26 VBG O2 Saturation 81.0 VBG Base Excess 2.2 Sodium 140 Potassium 4.0 Chloride 107 Carbon Dioxide 24 Anion Gap 13 BUN 30 H Creatinine 0.92 Estim Creat Clear Calc 81.8 Estimated GFR > 60 Random Glucose 104 Lactic Acid 0.9 Calcium 9.3 Total Bilirubin 0.6 Direct Bilirubin 0.2 AST 20 ALT 32 Alkaline Phosphatase 105 Total Protein 6.8 Albumin 4.3 Lipase 27 Influenza Type A (PCR) NEGATIVE Influenza Type B (PCR) NEGATIVE RSV RNA Qual (PCR) NEGATIVE SARS-CoV-2 RNA (RT-PCR) NEGATIVE Discharge Plan Discharge Anticipated Discharge Date/Time: 01/23/24 10:26 Patient Disposition: Xfer Other Discharge Diagnosis: Aspiration pneumonia Referrals: Keven Kirkland MD [Primary Care Provider] - 1 Week Discharge Medications: New amoxicillin-pot clavulanate 875-125 mg Tablet 1 tab PO BID Qty: 8 0RF Continued aspirin 81 mg tablet,delayed release (DR/EC) 81 mg PO DAILY Qty: 90 5RF pantoprazole 40 mg tablet,delayed release (DR/EC) 40 mg PO DAILY Qty: 90 8RF sodium chloride 1,000 mg tablet,soluble 1,000 mg PO BID Qty: 90 6RF atorvastatin 10 mg tablet 10 mg PO BEDTIME Qty: 90 0RF docusate sodium [DOK] 100 mg tablet 100 mg PO BID clonazepam 0.5 mg tablet 0.5 mg PO DAILY trazodone 50 mg tablet 50 mg PO BEDTIME PRN (Reason: insomnia) 30 Days Qty: 30 0RF clonazepam 1 mg tablet See Rx Instructions .ROUTE .COMPLEX 30 Days Qty: 30 0RF Rx Instructions: Give 1/2 to 1 tab, 30 minutes before bedtime clozapine 25 mg tablet 25 mg PO BEDTIME 30 Days Qty: 30 0RF Rx Instructions: take with 200mg tab for total of 225mg at bedtime aripiprazole 10 mg tablet 10 mg PO BEDTIME 30 Days Qty: 30 0RF clozapine 50 mg tablet 50 mg PO DAILY 30 Days Qty: 30 0RF clozapine 200 mg tablet 200 mg PO BEDTIME 30 Days Qty: 30 0RF Rx Instructions: take with 25mg tab for total of 225mg at bedtime magnesium oxide 400 mg magnesium tablet 400 mg PO BEDTIME 30 Days Qty: 30 0RF Discharge Orders: Discharge Order (Routine); Ordered 01/23/24 Ordered By: Melvina Patiño Diet: Advance to usual diet Activity on Discharge: As tolerated Stand Alone Forms: Patient Portal Discharge page Print Language: Citizen Of [place] Care Plan Goals: Complete course of antibiotic Health Concerns: Aspiration pneumonia Plan of Treatment: Follow-up with primary care provider as needed Take all medications as prescribed Assessment: See discharge summary
--- NOTE | 2024-01-23 11:47 | MHC.CM.PN ---
Carmen 01/23/24, pt lives in a senior living, he has been medically cleared to return there. CM contacted senior living and asked if they could pick pt. up and was told that they cannot, only one staff person is on today. [facility] was arranged to bring pt home, senior living notified, DC summary will be faxed to [phone] per senior living request.
== END 2024-01-23 12:00 | disposition other institution (70) ==
LOC: HO.ED 16:35 → HO.EDOVER 17:20 → HO.IMC 18:14
PROVIDERS: Admitting Provider Physician Assistant Medical; Emergency Provider Emergency Medicine; PCP Internal Medicine; Visit Provider Nurse Practitioner Acute Care
DX: J69.0 Pneumonitis due to inhalation of food and vomit (principal); R11.2 Nausea with vomiting, unspecified; R50.9 Fever, unspecified; R61 Generalized hyperhidrosis; K21.9 Gastro-esophageal reflux disease without esophagitis; D72.829 Elevated white blood cell count, unspecified; R05.9 Cough, unspecified; R09.89 Other specified symptoms and signs involving the circulatory and respiratory systems; Z79.899 Other long term (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; Z03.818 Encounter for observation for suspected exposure to other biological agents ruled out
CPT/HCPCS: 0241U; 36415; 71046; 80048; 80076; 82803; 83605; 83690; 85025; 85027; 87040; 96365; 96366; 96367; 96372; 96375; 99222; 99285; J0131; J0696; J1650; J2060

== ENCOUNTER → 2024-01-22 17:10 | Outpatient (BNV) | payer MEDICARE, MEDICAID, SELFPAY | PROVIDERS: Admitting Provider Physician Assistant Medical; Emergency Provider Emergency Medicine; PCP Internal Medicine; Visit Provider Physician Assistant Medical | DX: J69.0 Pneumonitis due to inhalation of food and vomit (principal) | CPT/HCPCS: 99223; 99239 ==

== ENCOUNTER 2024-03-10 10:49 | Outpatient (AMB) | payer MEDICARE, MEDICAID, SELFPAY ==
[2024-03-10 10:50] VITALS: BP 112/72; PULSE 86; O2SAT 96; BMI 30.1
--- NOTE | 2024-03-10 10:50 | AM.OFFVISMDC ---
Intake Vital Signs 03/10/24 10:50 Height 5 ft 8 in Weight 198 lb BMI 30.1 BP 112/72 Blood Pressure Location Lt brachial Position Sitting Pulse 86 Pulse Source Pulse Oximeter Pulse Oximetry (%) 96 Oxygen Delivery Method Room Air Intake Visit Reasons: MAW Allergies haloperidol [From Haldol] Allergy (Mild, Verified 03/10/24 10:51) UNKNOWN lithium [[place]] Allergy (Mild, Verified 03/10/24 10:51) UNKOWN [place] Citrate Allergy (Unknown, Uncoded 03/10/24 10:51) nervous breakdown Medication List - Last Reconciled 03/11/24 by Keven Kirkland MD acetaminophen (Tylenol) 650 mg PO Q6H PRN aspirin 81 mg PO DAILY clonazepam Give 1/2 to 1 tab, 30 minutes before bedtime 30 days clonazepam 0.5 mg PO DAILY clozapine 25 mg PO BEDTIME 30 days clozapine 200 mg PO BEDTIME 30 days clozapine 50 mg PO DAILY 30 days docusate sodium (DOK) 100 mg PO BID magnesium oxide 400 mg PO BEDTIME 30 days omeprazole 20 mg PO DAILY pantoprazole 40 mg PO DAILY sodium chloride 1,000 mg PO BID trazodone 50 mg PO BEDTIME PRN 30 days HPI MAW HPI Details paranoid schizophrenia; on rx and complinat; PFSH Medical History Dysphagia Erosive esophagitis Paranoid schizophrenia Rotator cuff impingement syndrome of right shoulder GERD (gastroesophageal reflux disease) Surgical History History of hernia surgery History of tonsillectomy and adenoidectomy Family History Mother No problems noted. Father No problems noted. 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 Housing: Other Housing Other:: [facility] member Do you presently have visiting nurse or other home services: No Unable to assess alcohol history related to: Unknown Alcohol intake: never Patient Tobacco Use Status: Current someday Tobacco user Tobacco use type: Cigarette Cigarette Packs Per Day: 0.5 e-Cigarette/Vaping Use: Never Used Second Hand Smoke Exposure: No Advance Directives Date on File: 01/22/24 service: Yes ( [employer]) Current occupational status: disabled Current occupation: Right Handed Sexual orientation: Did not discuss Cognitive needs: Yes Hearing needs: No Vision needs: No Questionnaire Medicare Wellness Checkup What [age] What gender do you identify with?: male During the past 4 weeks, how much have you been bothered by emotional problems such as feeling anxious, depressed, irritable, sad or downhearted, and blue?: not at all During the past 4 weeks, has your physical & emotional health limited your social activities with family, friends, neighbors, or groups?: not at all During the past 4 weeks, how much bodily pain have you generally had?: no pain During the past 4 weeks, was someone available to help you if you needed & wanted help?: no, not at all During the past 4 weeks, what was the hardest physical activity you could do for at least 2 minutes?: moderate Can you get to places out of walking distance without help? (For eg., can you travel alone on buses, taxis or drive your car?): Yes Can you go shopping for groceries or clothes without someone's help?: No Can you prepare your own meals?: Yes Can you do your housework without help?: Yes Because of any health problems, do you need the help of another person with your personal care needs such as eating, bathing, dressing or getting around the house?: No Can you handle your own money without help?: Yes During the past 4 weeks, how would you rate your health in general?: good During the past 4 weeks how have things been going for you?: pretty well Are you having difficulties driving your car?: not applicable, I don't use a car Do you always fasten your seat belt when you are in a car?: yes, usually During past 4 weeks, have you been bothered by the following: never: Falling or dizzy when standing up, Sexual problems?, Trouble eating well?, Teeth or denture problems?, Problems using the telephone? and Tiredness or fatigue? Have you fallen 2 or more times in the past year?: No Are you afraid of falling?: No Are you a smoker?: yes, and I might quit During the past 4 weeks, how many drinks of wine, beer, or other alcoholic beverages did you have?: no alcohol at all Do you exercise for about 20 minutes 3 or more times a week?: yes, some of the time Have you been given information to help with the following?: no: Hazards in your house that might hurt you? and no: Keeping track of your medications? How often do you have trouble taking medicines the way you have been told to take them?: I always take medicine as prescribed How confident are you that you can control & manage most of your health problems?: very confident What is your race?: White Mini Mental State Exam (MMSE) Orientation What is the (year) (season) (date) (day) (month)?: year and season Where are we (state) (county) (town or city) (hospital) (floor)?: state Registration Name of 3 unrelated objects clearly and slowly, then ask patient to repeat all 3 of them. (1st repeat determines score. Make sure they can repeat all three): object 1, object 2 and object 3 Recall Ask patient to repeat the 3 items from question #3.: object 1 Score Score: 7 Activity of Daily Living Bathing - sponge bath, tub bath or shower: receives no assistance (gets in/out by self, if usual bathing means Dressing - getting clothes from closets & drawers, including inner/outer garments & fasteners.: gets clothes & gets completely dressed without help Toileting - going to the 'toilet room' for urine/bowel elimination & cleaning self/arranging clothes: goes to toilet room, cleans self, arranges clothes without help Transfer: moves in & out of bed and chair without help (may use support object) Continence: controls urination/bowel movements completely by self Feeding: feeds self without help Total Score: 0 Information obtained from: patient Using telephone: independent Traveling: needs assistance Shopping: needs assistance Preparing meals: needs assistance Housework: independent Taking medicine: needs assistance Managing money: needs assistance PHQ-9 Over the last 2 weeks, how often have you been bothered by any of the following problems? 1. Little interest or pleasure in doing things: not at all 2. Feeling down, depressed, or hopeless: not at all 3. Trouble falling or staying asleep, or sleeping too much: not at all 4. Feeling tired or having little energy: not at all 5. Poor appetite or overeating: not at all 6. Feeling bad about yourself - or that you are a failure or have let yourself or your family down: not at all 7. Trouble concentrating on things, such as reading the newspaper or watching television: not at all 8. Moving or speaking so slowly that other people could have noticed. Or the opposite - being so fidgety or restless that you have been moving around a lot more than usual: not at all 9. Thoughts that you would be better off or of hurting yourself in some way: not at all Total score: 0 Depression Screening Interpretation: Negative Depression Screening Done: Yes 13518 - PHQ-9 Billing: Yes Source: Developed by Drs. Adam Irby, Mendy Clemens, Michael Montero and colleagues, with an educational roel from [employer]. Review of Systems Const Denies chills, Denies fatigue, Denies headache(s) and Denies weight loss Eyes Denies change in vision, Denies diplopia and Denies eye pain ENT Reports Normal hearing present, Denies vertigo, Denies dizziness, Denies headache(s) and Denies nasal discharge Card Denies chest pain, Denies rapid heart rate and Denies dyspnea on exertion Resp Denies chest congestion, Denies cough, Denies pain with cough and Denies dyspnea on exertion GI Denies abdominal pain, Denies hematochezia and Denies change in bowel habits Musc Denies myalgias, Denies arthralgias and Denies joint swelling Skin/Breast Denies lesions and Denies unusual bruising Neuro Reports Normal hearing present, Denies vertigo, Denies dizziness, Denies headache(s) and Denies focal weakness Endo Denies fatigue Physical Exam Vital Signs: Last Vital Signs Pulse 86 03/10/24 10:50 BP 112/72 03/10/24 10:50 Pulse Ox 96 03/10/24 10:50 Oxygen Delivery Method Room Air 03/10/24 10:50 BMI result Body Mass Index 30.1 Neuro Cranial nerves: Yes Normal hearing present Assessment & Plan Assessment & Plan (1) Encounter for subsequent annual wellness visit (AWV) in Medicare patient: Comment: whisper and rhomberg tests nl; all AWV forms given to patient Code(s): Z00.00 - Encounter for general adult medical examination without abnormal findings Plan: smoking screen Quality Reporting (2019) Depression/Bipolar (159/160/161/177) PHQ-9: Total score: 0 Coding Level of Care Code Medicare Subsequent (G0439) Diagnoses Encounter for subsequent annual wellness visit (AWV) in Medicare patient Z00.00 CPT Codes Advance Care Planning - Advance Care Planning discussion: On file, no changes ([id number]) Advance Care Planning Advance Care Planning discussion: On file, no changes Forms completed: Health Care Proxy
== END 2024-03-10 14:07 | disposition home or self-care (01) ==
PROVIDERS: PCP Internal Medicine; Visit Provider Internal Medicine
DX: Z00.00 Encounter for general adult medical examination without abnormal findings (principal)
CPT/HCPCS: 1123F; G0439

== ENCOUNTER 2024-05-06 10:44 | Outpatient (AMB) | payer MEDICARE, MEDICAID, SELFPAY ==
--- NOTE | 2024-05-06 08:36 | MHC.OFFVIS ---
Intake Visit Reasons: Current Smoker Allergies haloperidol [From Haldol] Allergy (Mild, Verified 03/10/24 10:51) UNKNOWN lithium [[place]] Allergy (Mild, Verified 03/10/24 10:51) UNKOWN [place] Citrate Allergy (Unknown, Uncoded 03/10/24 10:51) nervous breakdown HPI HPI Current Smoker: Details: Initial visit for this 68yo smoker with a 25PYH. Patient started smoking at age 17 for 51 years at 1/2ppd. . Reports marijuana use. Denies second hand smoke exposure. Denies exposure to chemicals or substances like asbestos. . Denies known family history of lung cancer. Denies personal history of cancers. . Denies chest CT in last year. LDCT done 10/29/20 was lung-RADS 2 . Denies recent travel outside the [place]. Denies recent respiratory illness or recent hospitalization for respiratory issues. Reports testing positive for COVID. Admits receiving COVID Vaccine. . Denies fever, chills, new/worsening cough, hemoptysis, hoarseness or dysphagia. Denies significant chest pain, significant dyspnea or unintentional weight loss. Patient Lung Cancer Screening Questionnaire reviewed with patient by provider. . Shared Decision Making Completed. Patient meets criteria. Discussed in detail with patient, the risk vs benefit of LDCT screening. Patient consents to proceed with scan. Discussed smoking cessation. [facility] Medical History (Updated 05/06/24 @ 11:03 by Juany Mckeon PA-C) Hyperlipidemia Nicotine dependence, cigarettes, uncomplicated Dysphagia Erosive esophagitis Paranoid schizophrenia Rotator cuff impingement syndrome of right shoulder GERD (gastroesophageal reflux disease) Surgical History (Updated 05/06/24 @ 10:58 by Juany Mckeon PA-C) History of right inguinal hernia repair History of esophagogastroduodenoscopy (EGD) History of tonsillectomy and adenoidectomy Family History Mother No problems noted. Father No problems noted. 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 Housing: Other Housing Other:: nursing home member Do you presently have visiting nurse or other home services: No Unable to assess alcohol history related to: Unknown Alcohol intake: never Patient Tobacco Use Status: Current everyday Tobacco user Tobacco use type: Cigarette Cigarette Packs Per Day: 0.5 Years Smoked: (onset 17yo, 1/2ppd x 51yrs, 25PYH) e-Cigarette/Vaping Use: Never Used Second Hand Smoke Exposure: No Advance Directives Date on File: 01/22/24 service: Yes ([employer]) Current occupational status: disabled Current occupation: Right Handed Sexual orientation: Did not discuss Cognitive needs: Yes Hearing needs: No Vision needs: No Assessment & Plan Assessment & Plan (1) Nicotine dependence, cigarettes, uncomplicated: Comment: (onset 17yo, 1/2ppd x 51yrs, 25PYH) Code(s): F17.210 - Nicotine dependence, cigarettes, uncomplicated Category: Medical Plan: - SDM visit completed today in office. - Patient meets criteria for LDCT for lung cancer screening purposes and is asymptomatic. - Smoking cessation counseling offered. Patients can always call [phone]. - Will arrange for a LDCT scan of the chest for screening purposes at [facility]. - Risks, benefits, and alternatives were discussed in detail and the patient agrees to proceed. - Risks discussed include but are not limited to: radiation exposure, anxiety during testing and while awaiting results, false negatives, false positives and possibility of additional intervention such as further imaging or surgical procedures for benign disease. - Benefits are obviously detection of lung cancer at an early stage which can lead to improved outcomes. - Discussed the importance of screening program compliance with adherence to yearly LDCT scan as scheduled - or sooner interval scans for personalized screening regimen. - Discussed follow up plan. Our office will send a letter discussing results and if needed set up phone call and office visit based on CT findings. - Patient educated on results categorization and the management decisions for suspicious findings potentially found on the screening LDCT scan. Any patient with a Lung RADS score of 3 or 4 will be reviewed by a multidisciplinary team at [facility] to form a plan of action in regards to scan findings. - If further work up is warranted for a suspicious lung finding this will be followed by the Lung Cancer Screening program in conjunction with the Thoracic Surgery Department at [facility]. - A copy of the office note and LDCT will be sent to the patient's PCP - as well as documentation on any associated further plans of care. - Incidental findings on LDCT are the PCP's responsibility. These findings are indicated with an S finding on the LDCT Assessment. A note discussing the findings will be sent to the PCP who is then responsible for further management. - All questions answered.? Coding Level of Care Code Lung Cancer Screening G0296 Diagnoses Nicotine dependence, cigarettes, uncomplicated F17.210
== END 2024-05-06 11:04 | disposition home or self-care (01) ==
PROVIDERS: PCP Internal Medicine; Visit Provider Physician Assistant Medical
DX: F17.210 Nicotine dependence, cigarettes, uncomplicated (principal)
CPT/HCPCS: G0296

== ENCOUNTER 2024-05-06 11:02 | Outpatient (REF) | payer MEDICARE, MEDICAID, SELFPAY ==
--- NOTE | ~2024-05-06 | CT_ITS ---
EXAMINATION: CT LOW-DOSE SCREENING CHEST WITHOUT CONTRAST CLINICAL INFORMATION: Nicotine dependence, cigarettes, uncomplicated. The patient is a current smoker with a 51 pack-year history of smoking. COMPARISON: X-ray chest 01/22/2024. CT chest 10/29/2020. TECHNIQUE: Multidetector volumetric CT imaging of the chest is performed on a Siemens SOMATOM Definition scanner without contrast using low dose technique. Additional 2D coronal and sagittal reformatted images and axial 3D maximum intensity projection (MIP) images are generated on the CT workstation. This CT examination was performed using dose optimization techniques as appropriate, variously including the following: *Automated exposure control *Adjustment of mA and/or kV according to patient size (this includes techniques or standardized protocols for targeted exams where dose is matched to indication/reason for exam; i.e. extremities or head) *Use of iterative reconstruction technique TOTAL EXAM DLP: 67 mGy-cm. CTDIvol: 1.88 mGy. FINDINGS: PULMONARY NODULES: A few scattered calcified and noncalcified micronodules are seen, which are unchanged (see saved loo images). LUNGS: Lungs bilaterally symmetrically expanded. There is mild emphysema along with bronchial thickening without bronchiectasis. No effusion or pneumothorax. Central airways patent. MEDIASTINUM: No mediastinal, hilar or axillary adenopathy or free fluid collection. CORONARY ARTERY CALCIFICATION: Moderate. THYROID GLAND: Unremarkable to the extent seen. CARDIOVASCULAR STRUCTURES: Aortic and heart size normal. No pericardial effusion. CHEST WALL/AXILLA: Unremarkable. UPPER ABDOMEN: Included portions of the solid organs in the upper abdomen unremarkable on noncontrast imaging. OSSEOUS STRUCTURES: No suspicious focal findings. CT/CT lung screening IMPRESSION: 1. No evidence of pulmonary malignancy. 2. Mild emphysema and bronchial thickening. 3. Moderate coronary calcifications. ASSESSMENT: 1. Lung-RADS Category 2: Benign appearance or behavior of nodules. N/A 2. Lung-RADS Category S: Negative. There are no clinically significant or potentially clinically significant findings not related to the lungs requiring urgent additional evaluation. RECOMMENDATION: Continued routine annual low-dose CT lung screening in 1 year is recommended. An order for CT CHEST LOW DOSE CANCER SCREENING ([id number]) can be placed. Electronically signed by: Juvencio Thomas MD 06/23/2024 02:53 PM [facility]
== END 2024-05-06 11:03 | disposition home or self-care (01) ==
LOC: HO.CT 11:02
PROVIDERS: PCP Internal Medicine; Visit Provider Physician Assistant Medical
DX: Z12.2 Encounter for screening for malignant neoplasm of respiratory organs (principal); F17.210 Nicotine dependence, cigarettes, uncomplicated
CPT/HCPCS: 71271; G0296

== ENCOUNTER 2024-05-09 09:35 | Outpatient (AMB) | payer MEDICARE, MEDICAID, SELFPAY ==
[2024-05-09 09:36] VITALS: BP 110/68; PULSE 95; O2SAT 93; BMI 29.6
--- NOTE | 2024-05-09 09:36 | A.OFFPC_ITS ---
Vital Signs 05/09/24 09:36 Height 5 ft 8 in Weight 195 lb BMI 29.6 BP 110/68 Blood Pressure Location Lt brachial Position Sitting Pulse 95 Pulse Source Pulse Oximeter Pulse Oximetry (%) 93 Oxygen Delivery Method Room Air Intake Visit Reasons: 6mof\[employer] Assistant Required: No Accompanied by: Staff Allergies haloperidol [From Haldol] Allergy (Mild, Verified 05/09/24 09:36) UNKNOWN lithium [[place]] Allergy (Mild, Verified 05/09/24 09:36) UNKOWN [place] Citrate Allergy (Unknown, Uncoded 05/09/24 09:36) nervous breakdown Medication List - Last Reconciled 05/09/24 by Keven Kirkland MD acetaminophen (Tylenol) 650 mg (2 x 325 mg) PO Q6H PRN aspirin 81 mg PO DAILY atorvastatin 10 mg PO DAILY clonazepam Give 1/2 to 1 tab, 30 minutes before bedtime 30 days clonazepam 0.5 mg PO DAILY clozapine 25 mg PO BEDTIME 30 days clozapine 200 mg PO BEDTIME 30 days clozapine 50 mg PO DAILY 30 days docusate sodium (DOK) 100 mg PO BID magnesium oxide 400 mg PO BEDTIME 30 days omeprazole 20 mg PO DAILY pantoprazole 40 mg PO DAILY sodium chloride 1,000 mg PO BID trazodone 50 mg PO BEDTIME PRN 30 days Tobacco use date assessed: 11/05/23 Fall risk assessment: No Falls in past year Last assessed Fall Risk: 05/09/24 Dental Screening Dental Screen Date: 11/05/23 HPI 6mof\u HPI Details hyperlipidemia on rx; doing well; compliant [facility] Medical History (Updated 05/06/24 @ 11:03 by Juany Mckeon PA-C) Hyperlipidemia Nicotine dependence, cigarettes, uncomplicated Dysphagia Erosive esophagitis Paranoid schizophrenia Rotator cuff impingement syndrome of right shoulder GERD (gastroesophageal reflux disease) Surgical History (Updated 05/06/24 @ 10:58 by Juany Mckeon PA-C) History of right inguinal hernia repair History of esophagogastroduodenoscopy (EGD) History of tonsillectomy and adenoidectomy Family History Mother No problems noted. Father No problems noted. 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 Housing: Other Housing Other:: care home member Do you presently have visiting nurse or other home services: No Unable to assess alcohol history related to: Unknown Alcohol intake: never Patient Tobacco Use Status: Current everyday Tobacco user Tobacco use type: Cigarette Cigarette Packs Per Day: 0.5 Years Smoked: (onset 17yo, 1/2ppd x 51yrs, 25PYH) e-Cigarette/Vaping Use: Never Used Second Hand Smoke Exposure: No Advance Directives Date on File: 01/22/24 service: Yes ([employer]) Current occupational status: disabled Current occupation: Right Handed Sexual orientation: Did not discuss Cognitive needs: Yes Hearing needs: No Vision needs: No Questionnaire PHQ-9 Over the last 2 weeks, how often have you been bothered by any of the following problems? 1. Little interest or pleasure in doing things: not at all 2. Feeling down, depressed, or hopeless: not at all 3. Trouble falling or staying asleep, or sleeping too much: not at all 4. Feeling tired or having little energy: not at all 5. Poor appetite or overeating: not at all 6. Feeling bad about yourself - or that you are a failure or have let yourself or your family down: not at all 7. Trouble concentrating on things, such as reading the newspaper or watching television: not at all 8. Moving or speaking so slowly that other people could have noticed. Or the opposite - being so fidgety or restless that you have been moving around a lot more than usual: not at all 9. Thoughts that you would be better off or of hurting yourself in some way: not at all Total score: 0 Depression Screening Interpretation: Negative Depression Screening Done: Yes 97148 - PHQ-9 Billing: Yes Source: Developed by Drs. Adam Irby, Mendy Clemens, Michael Montero and colleagues, with an educational roel from [email or web address]. Thrive Questionnaire Date Thrive assessed: 11/05/23 AUDIT C Alcohol Use Questionnaire (AUDIT-C) 1. How often do you have a drink containing alcohol?: Never 3. How often do you have six or more drinks on one occasion?: Never Total Score: 0 Score Reviewed/Action Taken: Yes DEREK-7 AMB Questionnaire DEREK-7 Date DEREK - 7 assessed: 11/05/23 Source: Developed by Drs. Adam Irby, Mendy Clemens, Michael Montero and colleagues, with an educational roel from [email or web address]. Review of Systems Const Denies chills, Denies headache(s) and Denies weight loss ENT Denies headache(s) Card Denies chest pain, Denies syncope, Denies irregular heart rhythm and Denies dyspnea Resp Denies chest congestion, Denies cough and Denies dyspnea GI Denies abdominal pain, Denies change in stool character, Denies nausea and Denies vomiting Musc Denies deformity and Denies joint swelling Neuro Denies syncope and Denies headache(s) Physical exam (Primary Care) Vital Signs: Last Vital Signs Pulse 95 05/09/24 09:36 BP 110/68 05/09/24 09:36 Pulse Ox 93 05/09/24 09:36 Oxygen Delivery Method Room Air 05/09/24 09:36 BMI result Body Mass Index 29.6 Tobacco/Smoking Status: Tobacco use Status Tobacco use date assessed 11/05/23 05/09/24 09:44 Patient Tobacco Use Status Current everyday Tobacco 05/09/24 09:44 Tobacco use type Cigarette 05/09/24 09:44 e-Cigarette/Vaping Use Never Used 05/09/24 09:44 PHQ-9: PHQ-9 Score PHQ-9: Total score 0 05/09/24 09:44 Depression Screening Interpretation: Negative Thrive Assessment: Date of Thrive Assessment Date Thrive assessed 11/05/23 05/09/24 09:44 Const General: cooperative, comfortable, no acute distress and alert Neck Neck: Yes no lymphadenopathy Thyroid: Thyroid normal Resp Effort & Inspection: normal respiratory effort Auscultation: clear to auscultation bilaterally Percussion: percussion normal Cardio Jugular venous distension: no JVD Palpation: normal PMI Rate: regular rate Rhythm: regular rhythm Heart sounds: S1 normal heart sound present and S2 normal heart sound present GI Inspection: Yes normal to inspection Palpation (GI): No hepatosplenomegaly present Skin General skin exam: no rashes or lesions noted Extrem General: Yes no clubbing, cyanosis or edema Coding Level of Care Code Est Pt Level 3 (81625) Diagnoses Hyperlipidemia E78.5 Assessment & Plan Assessment & Plan (1) Hyperlipidemia: Code(s): E78.5 - Hyperlipidemia, unspecified Category: Medical Plan: stable; same rx Orders: Orders Lipid Panel Today Z13.220 - Encounter for screening for lipoid disorders Medications: Refilled acetaminophen (Tylenol) 650 mg (2 x 325 mg) PO Q6H PRN 90 caps 0RF fever or pain trazodone 50 mg PO BEDTIME 30 days PRN 30 tabs 0RF insomnia pantoprazole 40 mg PO DAILY 90 tabs 8RF magnesium oxide 400 mg PO BEDTIME 30 days 30 tabs 1RF aspirin 81 mg PO DAILY 90 tabs 10RF sodium chloride 1,000 mg PO BID 90 tabs 6RF
== END 2024-05-09 09:54 | disposition home or self-care (01) ==
PROVIDERS: PCP Internal Medicine; Visit Provider Internal Medicine
DX: E78.5 Hyperlipidemia, unspecified (principal)

== ENCOUNTER → 2024-05-09 09:35 | Outpatient (BNVA) | payer MEDICARE, MEDICAID, SELFPAY | PROVIDERS: PCP Internal Medicine; Visit Provider Internal Medicine | DX: E78.5 Hyperlipidemia, unspecified (principal); Z79.899 Other long term (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 | CPT/HCPCS: 96127; 99212 ==

== ENCOUNTER 2024-06-07 15:41 | Emergency (ER) | payer MEDICARE, MEDICAID, SELFPAY ==
[2024-06-07 15:46] VITALS: BP 152/78; PULSE 86; O2SAT 94
[2024-06-07 15:51] VITALS: BP 139/80; PULSE 90; RESP 18; TEMP 36.6; O2SAT 95; BMI 27.3
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
[2024-06-07 17:25] LABS: MANUAL DIFF FLAG NO
[2024-06-07 17:26] LABS: Basophils Percent Auto 0.3 % (0-2); Eosinophils Percent Auto 0.4 % (0-4); Hematocrit 43.1 % (42.0-52.0); Hemoglobin 14.9 g/dl (14.0-18.0); Imm Gran Abs Auto 0.03 X10*3/uL (0.00-0.03); Imm Gran Pct Auto 0.3 % (0.0-0.4); Lymphocytes Absolute Auto 1.4 X10*3/uL (1.2-4.9); Lymphocytes Percent Auto 13.4 % (20-40); Mean Corpuscular HGB Conc 34.6 g/dl (31.0-36.0); Mean Corpuscular Hemoglobin 31.1 pg (27.0-33.0); Mean Platelet Volume 10.3 fL (9.4-12.4); Monocytes Absolute Auto 0.7 X10*3/uL (0.1-1.2); Monocytes Percent Auto 7.3 % (2-11); Neutrophils Percent Auto 78.3 % (45-73); Platelet Count 169 X10*3/uL (160-400); Red Blood Count 4.79 X10*6/uL (4.60-5.80); Red Cell Distribution Width 12.6 % (11.0-16.0); White Blood Count 10.2 X10*3/uL (4.8-10.8)
[2024-06-07 17:42] LABS: Anion Gap 13 (12-20); Blood Urea Nitrogen 17 mg/dL (9-16); Calcium 9.3 mg/dL (8.4-10.2); Carbon Dioxide 25 mmol/L (22-29); Chloride 108 mmol/L (96-108); Creatinine Clr Calc Pharmacy 84.6; Estimated Glomerular Filt Rate > 60; Glucose Random 113 mg/dL (60-115); Potassium 3.9 mmol/L (3.3-5.1); Sodium 142 mmol/L (135-145)
--- NOTE | 2024-06-07 18:24 | PC.NURSE ---
Pt reports he does not need to urinate at this time. Will attempt again later for a sample
--- NOTE | 2024-06-07 21:23 | MHC.CARE ---
Pt cleared by CARE team- dispo- return home to continue working with current providers. skilled nursing contacted, Luca from prison reports he is the only staff on at the moment and they are unable to picking supervisor pt until the am. Pt is not safe to send home in [facility]. Dr. Charlton consulted.
[2024-06-07 23:33] VITALS: BP 140/67; PULSE 74; RESP 18; TEMP 36.6; O2SAT 96
[2024-06-08] MEDS: traZODone HCL 50 MG TABLET PO (00:33)
[2024-06-08] MEDS: clonazePAM 0.5 MG TABLET PO (00:33)
[2024-06-08] MEDS: Sodium Chloride Tab 1 GM TABLET PO ×2 (01:18→08:38)
[2024-06-08] MEDS: cloZAPine 100 MG TABLET 200 MG PO (01:18)
[2024-06-08] MEDS: cloZAPine 25 MG TABLET PO (01:18)
--- NOTE | 2024-06-08 01:45 | PC.NURSE ---
med rec completed per med list from retirement. MD Couchu made aware and meds ordered per sep. pt medicated per sep, resting comfortably. prior to medicating pt agitated d/t transportation to retirement not available tonight. per retirement staff at time of discharge only 1 staff on overnight and pt cannot be picked up until AM. MD Couchu consulted about possible transfer home via lyft and per MD not comfortable with plan. pt awaiting for retirement staff in AM at this time.
[2024-06-08 08:00] VITALS: BP 133/72; PULSE 98; RESP 17; O2SAT 94
[2024-06-08] MEDS: clonazePAM 0.5 MG TABLET 0.25 MG PO (08:37)
[2024-06-08] MEDS: cloZAPine 25 MG TABLET 50 MG PO (08:38)
[2024-06-08] MEDS: Atorvastatin Calcium 10 MG TABLET PO (08:39)
[2024-06-08] MEDS: Aspirin Enteric Coated 81 MG TABLET.DR PO (08:39)
[2024-06-08] MEDS: Omeprazole 20 MG CAPSULE.DR PO (08:39)
[2024-06-08] MEDS: Acetaminophen 325 MG TABLET 650 MG PO (08:39)
[2024-06-08] MEDS: ARIPiprazole 10 MG TABLET PO (08:39)
[2024-06-08 10:15] VITALS: BP 133/72; PULSE 98; RESP 17; TEMP -17.7; TEMP 0; O2SAT 94
== END 2024-06-08 09:15 | disposition home or self-care (01) ==
PROVIDERS: Emergency Provider Emergency Medicine Emergency Medical Services; PCP Internal Medicine
DX: F20.9 Schizophrenia, unspecified (principal); R45.1 Restlessness and agitation; E78.5 Hyperlipidemia, unspecified; F17.210 Nicotine dependence, cigarettes, uncomplicated; Z79.899 Other long term (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
CPT/HCPCS: 36415; 80048; 85025; 99284; S9485

== ENCOUNTER 2024-06-30 11:32 | Outpatient (AMB) | payer MEDICARE, MEDICAID, SELFPAY ==
[2024-06-30 11:41] VITALS: BP 118/68; PULSE 93; O2SAT 97; BMI 27.0
--- NOTE | 2024-06-30 11:41 | MHC.PC.OV ---
Vital Signs 06/30/24 11:41 Height 5 ft 10 in Weight 188 lb BMI 27.0 BP 118/68 Blood Pressure Location Lt brachial Position Sitting Pulse 93 Pulse Source Pulse Oximeter Pulse Oximetry (%) 97 Oxygen Delivery Method Room Air Intake Visit Reasons: med review Allergies haloperidol [From Haldol] Allergy (Mild, Verified 06/30/24 11:41) UNKNOWN lithium [[place]] Allergy (Mild, Verified 06/30/24 11:41) UNKOWN lactose Adverse Reaction (Verified 06/30/24 11:41) Unknown [place] Citrate Allergy (Unknown, Uncoded 06/30/24 11:41) nervous breakdown Medication List - Last Reconciled 07/01/24 by Keven Kirkland MD acetaminophen (Tylenol) 650 mg (2 x 325 mg) PO Q6H PRN aripiprazole 10 mg PO DAILY aspirin 81 mg PO DAILY atorvastatin 10 mg PO DAILY clonazepam 0.5 mg PO BEDTIME clonazepam 0.25 mg PO DAILY [clonazepam 0.5 mg PO NEEDED PRN] clozapine 25 mg PO BEDTIME 30 days clozapine 200 mg PO BEDTIME 30 days clozapine 50 mg PO DAILY 30 days magnesium oxide 400 mg PO BEDTIME 30 days omeprazole 20 mg PO DAILY sodium chloride 1,000 mg PO BID trazodone 50 mg PO BEDTIME PRN 30 days Tobacco use date assessed: 11/05/23 Fall risk assessment: No Falls in past year Last assessed Fall Risk: 06/30/24 Dental Screening Dental Screen Date: 11/05/23 HPI med review HPI Details had an er visit for schizophrenia; doing well with psych [facility] Medical History Hyperlipidemia Nicotine dependence, cigarettes, uncomplicated Dysphagia Erosive esophagitis Paranoid schizophrenia Rotator cuff impingement syndrome of right shoulder GERD (gastroesophageal reflux disease) Surgical History History of right inguinal hernia repair History of esophagogastroduodenoscopy (EGD) History of tonsillectomy and adenoidectomy Family History Mother No problems noted. Father No problems noted. 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 Housing: Other Housing Other:: half-way member Do you presently have visiting nurse or other home services: No Unable to assess alcohol history related to: Unknown Alcohol intake: never Patient Tobacco Use Status: Current everyday Tobacco user Tobacco use type: Cigarette Cigarette Packs Per Day: 0.5 Years Smoked: (onset 17yo, 1/2ppd x 51yrs, 25PYH) e-Cigarette/Vaping Use: Never Used Second Hand Smoke Exposure: No Advance Directives Date on File: 01/22/24 service: Yes ([employer]) Current occupational status: disabled Current occupation: Right Handed Sexual orientation: Did not discuss Cognitive needs: Yes Hearing needs: No Vision needs: No Questionnaire PHQ-9 Over the last 2 weeks, how often have you been bothered by any of the following problems? 1. Little interest or pleasure in doing things: not at all 2. Feeling down, depressed, or hopeless: not at all 3. Trouble falling or staying asleep, or sleeping too much: not at all 4. Feeling tired or having little energy: not at all 5. Poor appetite or overeating: not at all 6. Feeling bad about yourself - or that you are a failure or have let yourself or your family down: not at all 7. Trouble concentrating on things, such as reading the newspaper or watching television: not at all 8. Moving or speaking so slowly that other people could have noticed. Or the opposite - being so fidgety or restless that you have been moving around a lot more than usual: not at all 9. Thoughts that you would be better off or of hurting yourself in some way: not at all Total score: 0 Depression Screening Interpretation: Negative Depression Screening Done: Yes 52947 - PHQ-9 Billing: Yes Source: Developed by Drs. Adam Irby, Mendy Clemens, Micheal Montero and colleagues, with an educational roel from [employer]. Thrive Questionnaire Date Thrive assessed: 11/05/23 AUDIT C Alcohol Use Questionnaire (AUDIT-C) 1. How often do you have a drink containing alcohol?: Never 3. How often do you have six or more drinks on one occasion?: Never Total Score: 0 Score Reviewed/Action Taken: Yes DEREK-7 AMB Questionnaire DEREK-7 Date DEREK - 7 assessed: 11/05/23 Source: Developed by Drs. Adam Irby, Mendy Clemens, Michael Montero and colleagues, with an educational roel from [employer]. Review of Systems Const Denies chills, Denies headache(s) and Denies weight loss ENT Denies headache(s) Card Denies chest pain, Denies syncope, Denies irregular heart rhythm and Denies dyspnea Resp Denies chest congestion, Denies cough and Denies dyspnea GI Denies abdominal pain, Denies change in stool character, Denies nausea and Denies vomiting Musc Denies deformity and Denies joint swelling Neuro Denies syncope and Denies headache(s) Physical exam (Primary Care) Vital Signs: Last Vital Signs Pulse 93 06/30/24 11:41 BP 118/68 06/30/24 11:41 Pulse Ox 97 06/30/24 11:41 Oxygen Delivery Method Room Air 06/30/24 11:41 BMI result Body Mass Index 27.0 Tobacco/Smoking Status: Tobacco use Status Tobacco use date assessed 11/05/23 06/30/24 11:45 Patient Tobacco Use Status Current everyday Tobacco 06/30/24 11:45 Tobacco use type Cigarette 06/30/24 11:45 e-Cigarette/Vaping Use Never Used 06/30/24 11:45 PHQ-9: PHQ-9 Score PHQ-9: Total score 0 06/30/24 11:45 Depression Screening Interpretation: Negative Thrive Assessment: Date of Thrive Assessment Date Thrive assessed 11/05/23 06/30/24 11:45 Const General: cooperative, comfortable, no acute distress and alert Neck Neck: Yes no lymphadenopathy Thyroid: Thyroid normal Resp Effort & Inspection: normal respiratory effort Auscultation: clear to auscultation bilaterally Percussion: percussion normal Cardio Jugular venous distension: no JVD Palpation: normal PMI Rate: regular rate Rhythm: regular rhythm Heart sounds: S1 normal heart sound present and S2 normal heart sound present GI Inspection: Yes normal to inspection Palpation (GI): No hepatosplenomegaly present Skin General skin exam: no rashes or lesions noted Extrem General: Yes no clubbing, cyanosis or edema Coding Level of Care Code Est Pt Level 3 (68147) Diagnoses Paranoid schizophrenia F20.0 Additional Codes PHQ-9 - 25040 - PHQ-9 Billing: Yes ([id number]) Assessment & Plan Assessment & Plan (1) Paranoid schizophrenia: Code(s): F20.0 - Paranoid schizophrenia Category: Medical Plan: stable; as per psych
== END 2024-06-30 13:06 | disposition home or self-care (01) ==
PROVIDERS: PCP Internal Medicine; Visit Provider Internal Medicine
DX: F20.0 Paranoid schizophrenia (principal)

== ENCOUNTER → 2024-06-30 11:32 | Outpatient (BNVA) | payer MEDICARE, MEDICAID, SELFPAY | PROVIDERS: PCP Internal Medicine; Visit Provider Internal Medicine | DX: F20.0 Paranoid schizophrenia (principal) | CPT/HCPCS: 96127; 99212 ==

== ENCOUNTER 2024-09-07 16:07 | Emergency (ER) | payer MEDICARE, MEDICAID, SELFPAY ==
[2024-09-07 16:10] VITALS: BP 180/100; PULSE 92; O2SAT 99
[2024-09-07 16:19] VITALS: BP 136/79; PULSE 84; RESP 16; TEMP 36.5; O2SAT 95; BMI 29.2
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
--- OUTSIDE RECORDS SUMMARY | 2024-09-07 16:50 | XMS_ITS | Encounter Summary ---
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 Social History Tobacco Use Types Packs/Day Years Used Date Smoking Tobacco: Never Assessed Sex and Gender Information Value Date Recorded Sex Assigned at Not on file Legal Sex Male 10:48 AM EST Gender Identity Not on file Sexual Orientation Not on file documented as of this encounter Plan of Treatment Not on file documented as of this encounter Procedures Procedure Name Priority Date/Time Associated Diagnosis Comments CBC WITH AUTO DIFFERENTIAL Routine 08/16/2024 6:30 AM EST Other halfway (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 CBC AND DIFFERENTIAL Routine 08/16/2024 6:30 AM EST Other halfway (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 documented in this encounter Results * CBC auto differential (08/16/2024 6:30 AM EST) WBC 8.2 4.8 - 10.8 K/[facility] LAB HEMETOLOGY METHOD 08/16/2024 10:[address] [facility] RBC 5.00 4.50 - 5.50 M/[facility] LAB HEMETOLOGY METHOD 08/16/2024 10:05 AM [facility] Hemoglobin 15.5 13.5 - 17.5 g/dL LAB HEMETOLOGY METHOD 08/16/2024 10:05 AM [facility] LAB Hematocrit 46.9 42.0 - 54.0 % LAB HEMETOLOGY METHOD 08/16/2024 10:05 AM [facility] LAB MCV 94.4 79.0 - 98.0 FL LAB HEMETOLOGY METHOD 08/16/2024 10:05 AM [facility] LAB MCH 31.2 27.0 - 32.0 pcg LAB HEMETOLOGY METHOD 08/16/2024 10:05 AM [facility] LAB MCHC 33.0 32.0 - 37.0 g/dL LAB HEMETOLOGY METHOD 08/16/2024 10:05 AM [facility] LAB RDW 13.0 11.0 - 15.0 % LAB HEMETOLOGY METHOD 08/16/2024 10:05 AM [facility] LAB Platelets 180 130 - 400 K/mcL LAB HEMETOLOGY METHOD 08/16/2024 10:05 AM [facility] LAB MPV 11.0 7.0 - 11.0 FL LAB HEMETOLOGY METHOD 08/16/2024 10:05 AM [facility] LAB NRBC 0.0 <1.0 % LAB HEMETOLOGY METHOD 08/16/2024 10:05 AM [facility] NRBC Absolute 0.00 <0.10 K/mcL LAB HEMETOLOGY METHOD 08/16/2024 10:05 AM [facility] Neutrophils Relative 69.6 % LAB HEMETOLOGY METHOD 08/16/2024 10:05 AM [facility] Lymphocytes Relative 21.3 % LAB HEMETOLOGY METHOD 08/16/2024 10:05 AM [facility] Monocytes Relative 7.1 % LAB HEMETOLOGY METHOD 08/16/2024 10:05 AM [facility] Eosinophils Relative 1.3 % LAB HEMETOLOGY METHOD 08/16/2024 10:05 AM [facility] Basophils Relative 0.5 % LAB HEMETOLOGY METHOD 08/16/2024 10:05 AM [facility] Immature Granulocytes Relative 0.2 % LAB HEMETOLOGY METHOD 08/16/2024 10:05 AM [facility] Neutrophils Absolute 5.72 1.50 - 7.00 K/mcL LAB HEMETOLOGY METHOD 08/16/2024 10:05 AM [facility] Lymphocytes Absolute 1.75 1.00 - 5.00 K/mcL LAB HEMETOLOGY METHOD 08/16/2024 10:05 AM [facility] Monocytes Absolute 0.58 0.20 - 1.00 K/mcL LAB HEMETOLOGY METHOD 08/16/2024 10:[address] [facility] Eosinophils Absolute 0.11 0.00 - 0.50 K/mcL LAB HEMETOLOGY METHOD 08/16/2024 10:05 AM [facility] Basophils Absolute 0.04 0.00 - 0.20 K/mcL LAB HEMETOLOGY METHOD 08/16/2024 10:05 AM [facility] Immature Granulocytes Absolute 0.02 0.00 - 0.03 K/mcL LAB HEMETOLOGY METHOD 08/16/2024 10:05 AM [facility] Blood Venous blood specimen / Unknown Venipuncture / Unknown 08/16/2024 6:30 AM EST 08/16/2024 8:35 AM EST us Steve Fitzgerald MD LAB BLOOD ORDERABLES Final Resul t [facility] [address] [place] [address], documented in this encounter Visit Diagnoses Diagnosis Other halfway (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 documented in this encounter Care Teams Web Press Operator Apprentice Relationship Specialty Start Date End Date Keven Kirkland MD [address] [place] [address] PCP - General Internal Medicine 11/28/16 documented as of this encounter
--- OUTSIDE RECORDS SUMMARY | 2024-09-07 16:50 | XMS_ITS | Encounter Summary ---
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 Social History Tobacco Use [...] Diagnosis Comments CBC WITH AUTO DIFFERENTIAL Routine 07/19/2024 7:29 AM EST Other penitentiary (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 CBC AND DIFFERENTIAL Routine 07/19/2024 7:29 AM EST Other penitentiary (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 documented in this encounter Results * (ABNORMAL) CBC auto differential (07/19/2024 7:29 AM EST) WBC 5.6 4.8 - 10.8 K/[facility] LAB HEMETOLOGY METHOD 07/19/2024 12:18 PM EST [facility] RBC 4.80 4.50 - 5.50 /[facility] LAB HEMETOLOGY METHOD 07/19/2024 12:18 PM [facility] LAB Hemoglobin 14.8 13.5 - 17.5 g/dL LAB HEMETOLOGY METHOD 07/19/2024 12:18 PM [facility] LAB Hematocrit 45.0 42.0 - 54.0 % LAB HEMETOLOGY METHOD 07/19/2024 12:18 PM [facility] LAB MCV 93.2 79.0 - 98.0 FL LAB HEMETOLOGY METHOD 07/19/2024 12:18 PM [facility] LAB MCH 30.6 27.0 - 32.0 pcg LAB HEMETOLOGY METHOD 07/19/2024 12:18 PM [facility] LAB MCHC 32.9 32.0 - 37.0 g/dL LAB HEMETOLOGY METHOD 07/19/2024 12:18 PM [facility] LAB RDW 12.7 11.0 - 15.0 % LAB HEMETOLOGY METHOD 07/19/2024 12:18 PM [facility] LAB Platelets 155 130 - 400 K/mcL LAB HEMETOLOGY METHOD 07/19/2024 12:18 PM [facility] LAB MPV 11.1(H) 7.0 - 11.0 FL LAB HEMETOLOGY METHOD 07/19/2024 12:18 PM [facility] LAB NRBC 0.0 <1.0 % LAB HEMETOLOGY METHOD 07/19/2024 12:18 PM [facility] LAB NRBC Absolute 0.00 <0.10 K/mcL LAB HEMETOLOGY METHOD 07/19/2024 12:18 PM [facility] Neutrophils Relative 65.6 % LAB HEMETOLOGY METHOD 07/19/2024 12:18 PM [facility] Lymphocytes Relative 25.4 % LAB HEMETOLOGY METHOD 07/19/2024 12:18 PM [facility] Monocytes Relative 6.9 % LAB HEMETOLOGY METHOD 07/19/2024 12:18 PM EST [facility] Eosinophils Relative 1.4 % LAB HEMETOLOGY METHOD 07/19/2024 12:18 PM [facility] Basophils Relative 0.5 % LAB HEMETOLOGY METHOD 07/19/2024 12:18 PM [facility] Immature Granulocytes Relative 0.2 % LAB HEMETOLOGY METHOD 07/19/2024 12:18 PM EST [facility] LAB Neutrophils Absolute 3.68 1.50 - 7.00 K/mcL LAB HEMETOLOGY METHOD 07/19/2024 12:18 PM [facility] Lymphocytes Absolute 1.43 1.00 - 5.00 K/mcL LAB HEMETOLOGY METHOD 07/19/2024 12:18 PM [facility] Monocytes Absolute 0.39 0.20 - 1.00 K/mcL LAB HEMETOLOGY METHOD 07/19/2024 12:18 PM EST [facility] LAB Eosinophils Absolute 0.08 0.00 - 0.50 K/mcL LAB HEMETOLOGY METHOD 07/19/2024 12:18 PM EST [facility] LAB Basophils Absolute 0.03 0.00 - 0.20 K/mcL LAB HEMETOLOGY METHOD 07/19/2024 12:18 PM [facility] Immature Granulocytes Absolute 0.01 0.00 - 0.03 K/mcL LAB HEMETOLOGY METHOD 07/19/2024 12:18 PM EST [facility] LAB Blood Venous blood specimen / Unknown Venipuncture / Unknown 07/19/2024 7:29 AM EST 07/19/2024 11:33 AM EST us Steve Fitzgerald MD LAB BLOOD ORDERABLES Final Resul t [facility]) [facility] [address] [place], [place] [address] [phone] documented in this encounter Visit Diagnoses Diagnosis 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
--- OUTSIDE RECORDS SUMMARY | 2024-09-07 16:50 | XMS_ITS | Encounter Summary ---
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 Social History Tobacco Use [...] Procedure Name Priority Date/Time Associated Diagnosis Comments TRAVEL PHLEBOTOMY FEE Routine 05/24/2024 9:08 AM EST 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 CBC WITH AUTO DIFFERENTIAL Routine 05/24/2024 9:08 AM EST [place] 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 CBC AND DIFFERENTIAL Routine 05/24/2024 9:08 AM EST 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 documented in this encounter Results * (ABNORMAL) CBC auto differential (05/24/2024 9:08 AM EST) WBC 5.8 4.8 - 10.8 K/[facility] LAB HEMETOLOGY METHOD 05/24/2024 11:38 AM [facility] LAB RBC 4.80 4.50 - 5.50 M/mcL LAB HEMETOLOGY METHOD 05/24/2024 11:38 AM [facility] LAB Hemoglobin 14.5 13.5 - 17.5 g/dL LAB HEMETOLOGY METHOD 05/24/2024 11:38 AM [facility] LAB Hematocrit 44.4 42.0 - 54.0 % LAB HEMETOLOGY METHOD 05/24/2024 11:38 AM [facility] LAB MCV 92.5 79.0 - 98.0 FL LAB HEMETOLOGY METHOD 05/24/2024 11:38 AM [facility] LAB MCH 30.2 27.0 - 32.0 pcg LAB HEMETOLOGY METHOD 05/24/2024 11:38 AM [facility] LAB MCHC 32.7 32.0 - 37.0 g/dL LAB HEMETOLOGY METHOD 05/24/2024 11:38 AM [facility] LAB RDW 12.8 11.0 - 15.0 % LAB HEMETOLOGY METHOD 05/24/2024 11:38 AM [facility] LAB Platelets 167 130 - 400 K/mcL LAB HEMETOLOGY METHOD 05/24/2024 11:38 AM [facility] LAB MPV 11.6(H) 7.0 - 11.0 FL LAB HEMETOLOGY METHOD 05/24/2024 11:38 AM [facility] LAB NRBC 0.0 <1.0 % LAB HEMETOLOGY METHOD 05/24/2024 11:38 AM [facility] LAB NRBC Absolute 0.00 <0.10 K/mcL LAB HEMETOLOGY METHOD 05/24/2024 11:38 AM [facility] LAB Neutrophils Relative 70.4 % LAB HEMETOLOGY METHOD 05/24/2024 11:38 AM [facility] LAB Lymphocytes Relative 21.6 % LAB HEMETOLOGY METHOD 05/24/2024 11:38 AM [facility] LAB Monocytes Relative 6.5 % LAB HEMETOLOGY METHOD 05/24/2024 11:38 AM [facility] LAB Eosinophils Relative 0.3 % LAB HEMETOLOGY METHOD 05/24/2024 11:38 AM [facility] LAB Basophils Relative 0.9 % LAB HEMETOLOGY METHOD 05/24/2024 11:38 AM [facility] LAB Immature Granulocytes Relative 0.3 % LAB HEMETOLOGY METHOD 05/24/2024 11:38 AM [facility] LAB Neutrophils Absolute 4.10 1.50 - 7.00 K/mcL LAB HEMETOLOGY METHOD 05/24/2024 11:38 AM [facility] LAB Lymphocytes Absolute 1.26 1.00 - 5.00 K/mcL LAB HEMETOLOGY METHOD 05/24/2024 11:38 AM [facility] LAB Monocytes Absolute 0.38 0.20 - 1.00 K/mcL LAB HEMETOLOGY METHOD 05/24/2024 11:38 AM [facility] LAB Eosinophils Absolute 0.02 0.00 - 0.50 K/mcL LAB HEMETOLOGY METHOD 05/24/2024 11:38 AM [facility] LAB Basophils Absolute 0.05 0.00 - 0.20 K/mcL LAB HEMETOLOGY METHOD 05/24/2024 11:38 AM [facility] LAB Immature Granulocytes Absolute 0.02 0.00 - 0.03 K/mcL LAB HEMETOLOGY METHOD 05/24/2024 11:38 AM [facility] LAB Blood Venous blood specimen / Unknown Venipuncture / Unknown 05/24/2024 9:08 AM EST 05/24/2024 10:32 AM EST us Steve Fitzgerald MD LAB BLOOD ORDERABLES Final Resul t [facility] LAB [address] [place] [address], * Travel phlebotomy fee (05/24/2024 9:08 AM EST) [facility] TRAVEL PHLEBOTOMY FEE Completed 05/24/2024 11:02 AM EST [facility] LAB Blood Venous blood specimen / Unknown Venipuncture / Unknown 05/24/2024 9:08 AM EST 05/24/2024 10:32 AM EST Steve Fitzgerald MD LAB BLOOD ORDERABLES Final Resul t Performing Organization Address [facility] Co de Phone Number [facility] [address] [place] [address], documented in this encounter Visit Diagnoses Diagnosis 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
--- OUTSIDE RECORDS SUMMARY | 2024-09-07 16:50 | XMS_ITS | Encounter Summary ---
Author Organization [facility] Address [address] [place] [address] Care Team Providers Care Senior Sql Server Developer Name Role Phone Keven Kirkland MD Primary Care Provider [phone] Encounter Details Date Type Department Care Team (Late st Contact Info) Description 06/21/[address] 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 LAB Hemoglobin 15.1 13.5 - 17.5 g/dL LAB HEMETOLOGY METHOD 06/21/2024 10:[address] [facility] LAB Hematocrit 46.0 42.0 - 54.0 % LAB HEMETOLOGY METHOD 06/21/2024 10:[address] [facility] LAB MCV 92.2 79.0 - 98.0 FL LAB HEMETOLOGY METHOD 06/21/2024 10:[address] [facility] LAB MCH 30.3 27.0 - 32.0 pcg LAB HEMETOLOGY METHOD 06/21/2024 10:[address] [facility] LAB MCHC 32.8 32.0 - 37.0 g/dL LAB HEMETOLOGY METHOD 06/21/2024 10:[address] [facility] LAB RDW 12.6 11.0 - 15.0 % LAB HEMETOLOGY METHOD 06/21/2024 10:[address] [facility] LAB Platelets 193 130 - 400 K/mcL LAB HEMETOLOGY METHOD 06/21/2024 10:[address] [facility] LAB MPV 11.3(H) 7.0 - 11.0 FL LAB HEMETOLOGY METHOD 06/21/2024 10:[address] [facility] LAB NRBC 0.0 <1.0 % LAB HEMETOLOGY METHOD 06/21/2024 10:[address] [facility] LAB NRBC Absolute 0.00 <0.10 K/mcL LAB HEMETOLOGY METHOD 06/21/2024 10:[address] [facility] LAB Neutrophils Relative 72.8 % LAB HEMETOLOGY METHOD 06/21/2024 10:[address] [facility] LAB Lymphocytes Relative 19.8 % LAB HEMETOLOGY METHOD 06/21/2024 10:[address] [facility] LAB Monocytes Relative 6.0 % LAB HEMETOLOGY METHOD 06/21/2024 10:[address] [facility] LAB Eosinophils Relative 0.6 % LAB HEMETOLOGY METHOD 06/21/2024 10:[address] [facility] LAB Basophils Relative 0.5 % LAB HEMETOLOGY METHOD 06/21/2024 10:[address] [facility] LAB Immature Granulocytes Relative 0.3 % LAB HEMETOLOGY METHOD 06/21/2024 10:[address] [facility] LAB Neutrophils Absolute 6.46 1.50 - 7.00 K/mcL LAB HEMETOLOGY METHOD 06/21/2024 10:[address] [facility] LAB Lymphocytes Absolute 1.75 1.00 - 5.00 K/mcL LAB HEMETOLOGY METHOD 06/21/2024 10:[address] [facility] LAB Monocytes Absolute 0.53 0.20 - 1.00 K/mcL LAB HEMETOLOGY METHOD 06/21/2024 10:[address] [facility] LAB Eosinophils Absolute 0.05 0.00 - 0.50 K/mcL LAB HEMETOLOGY METHOD 06/21/2024 10:[address] [facility] LAB Basophils Absolute 0.04 0.00 - 0.20 K/mcL LAB HEMETOLOGY METHOD 06/21/2024 10:[address] [facility] LAB Immature Granulocytes Absolute 0.03 0.00 - 0.03 K/mcL LAB HEMETOLOGY METHOD 06/21/2024 10:[address] [facility] LAB Blood Venous blood specimen / Unknown Venipuncture / Unknown 06/21/2024 6:31 AM EST 06/21/2024 9:47 AM EST us Steve Fitzgerald MD LAB BLOOD ORDERABLES Final Resul t [facility]) [facility] [address] [place], [place] [address] [phone] documented in this encounter Visit Diagnoses Diagnosis Other jail (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 documented in this encounter Care Teams Senior Sql Server Developer Relationship Specialty Start Date End Date Keven Kirkland MD [address] [facility] [address] [place] [address] PCP - General Internal Medicine 11/28/16 documented as of this encounter
--- OUTSIDE RECORDS SUMMARY | 2024-09-07 16:50 | XMS_ITS | Clinical Summary ---
Author Organization [address] [facility] Address [address] [place] [address] Phone Care Team Providers Care Color Developer Name Role Phone Keven Kirkland MD Primary Care Provider Encounters Date Type Department Care Team Description 08/16/[address] [facility] Lab [address] [place] [phone] Steve Fitzgerald MD Other [facility] (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 07/19/[address] [facility] [address] [place] [phone] Steve Fitzgerald MD Other [facility] (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 06/21/[address] [facility] Lab [address] [place] [phone] Steve Ftizgerald MD Other [facility] (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 from Last 3 Months Social History Tobacco Use Types Packs/Day Years Used Date Smoking Tobacco: Never Assessed Sex and Gender Information Value Date Recorded Sex Assigned at Not on file Legal Sex Male 10:48 AM EST Gender Identity Not on file Sexual Orientation Not on file Plan of Treatment Health Maintenance Due Date Last Done Comments DTaP,Tdap,and Td Vaccines (1 - Tdap) 1973 Pneumococcal Vaccine: 50+ Ye ars (1 of 1 - PCV) 2004 Zoster Vaccines (1 of 2) 2004 Abdominal Aortic Aneurysm (A AA) Screen 06/23/2022 Cholesterol Screening (Lipid Panel) 06/23/2022 Colorectal Cancer Screening: Colonoscopy 06/23/2022 Depression Screening 06/23/2022 Falls Risk Assessment 06/23/2022 Hepatitis C Screening 06/23/2022 Medicare Annual Wellness Visit 06/23/2022 Social Influencers of Health Screening 06/23/2022 COVID-19 Vaccine ( - 2023-2 5 season) 2024 Influenza Vaccine (#1) 2024 RSV Immunization Patients 60 + Years Old (1 - 1-dose 75+ series) 2029 HIB Vaccines Aged Out No longer eligi ble based on patient's age to complete this topic HPV Vaccines Aged Out No longer eligi ble based on patient's age to complete this topic Hepatitis A Vaccines Aged Out No long er eligible based on patient's age to complete this topic Hepatitis B Vaccines Aged Out No long er eligible based on patient's age to complete this topic IPV Vaccines Aged Out No longer eligi ble based on patient's age to complete this topic MMR Vaccines Aged Out No longer eligi ble based on patient's age to complete this topic Meningococcal ACWY Vaccine Aged Out N o longer eligible based on patient's age to complete this topic Meningococcal B Vacine Aged Out No lo nger eligible based on patient's age to complete this topic RSV Immunization Patients Un ramón 20 months Aged Out No longer eligible b ased on patient's age to complete this topic Varicella Vaccines Aged Out No longer eligible based on patient's age to complete this topic Procedures Procedure Name Priority Date/Time Associated Diagnosis Comments CBC WITH AUTO DIFFERENTIAL Routine 08/16/2024 6:30 AM EST Other [facility] (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 CBC AND DIFFERENTIAL Routine 08/16/2024 6:30 AM EST 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 WBC 8.2 4.8 - 10.8 K/mcL LAB HEMETOLOGY METHOD 08/16/2024 10:05 AM [facility] LAB RBC 5.00 4.50 - 5.50 M/mcL LAB HEMETOLOGY METHOD 08/16/2024 10:05 AM [facility] LAB Hemoglobin 15.5 13.5 - 17.5 g/dL LAB HEMETOLOGY METHOD 08/16/2024 10:05 AM [facility] LAB Hematocrit 46.9 42.0 - 54.0 % LAB HEMETOLOGY METHOD 08/16/2024 10:05 AM [facility] LAB MCV 94.4 79.0 - 98.0 FL LAB HEMETOLOGY METHOD 08/16/2024 10:05 AM [facility] LAB MCH 31.2 27.0 - 32.0 pcg LAB HEMETOLOGY METHOD 08/16/2024 10:05 AM [facility] LAB MCHC 33.0 32.0 - 37.0 g/dL LAB HEMETOLOGY METHOD 08/16/2024 10:05 AM [facility] LAB RDW 13.0 11.0 - 15.0 % LAB HEMETOLOGY METHOD 08/16/2024 10:05 AM [facility] LAB Platelets 180 130 - 400 K/mcL LAB HEMETOLOGY METHOD 08/16/2024 10:05 AM [facility] LAB MPV 11.0 7.0 - 11.0 FL LAB HEMETOLOGY METHOD 08/16/2024 10:05 AM [facility] LAB NRBC 0.0 <1.0 % LAB HEMETOLOGY METHOD 08/16/2024 10:05 AM [facility] LAB NRBC Absolute 0.00 <0.10 K/mcL LAB HEMETOLOGY METHOD 08/16/2024 10:05 AM [facility] LAB Neutrophils Relative 69.6 % LAB HEMETOLOGY METHOD 08/16/2024 10:05 AM [facility] LAB Lymphocytes Relative 21.3 % LAB HEMETOLOGY METHOD 08/16/2024 10:05 AM [facility] LAB Monocytes Relative 7.1 % LAB HEMETOLOGY METHOD 08/16/2024 10:05 AM [facility] LAB Eosinophils Relative 1.3 % LAB HEMETOLOGY METHOD 08/16/2024 10:05 AM [facility] LAB Basophils Relative 0.5 % LAB HEMETOLOGY METHOD 08/16/2024 10:05 AM [facility] LAB Immature Granulocytes Relative 0.2 % LAB HEMETOLOGY METHOD 08/16/2024 10:05 AM [facility] LAB Neutrophils Absolute 5.72 1.50 - 7.00 K/mcL LAB HEMETOLOGY METHOD 08/16/2024 10:05 AM [facility] LAB Lymphocytes Absolute 1.75 1.00 - 5.00 K/mcL LAB HEMETOLOGY METHOD 08/16/2024 10:05 AM [facility] LAB Monocytes Absolute 0.58 0.20 - 1.00 K/mcL LAB HEMETOLOGY METHOD 08/16/2024 10:05 AM [facility] LAB Eosinophils Absolute 0.11 0.00 - 0.50 K/mcL LAB HEMETOLOGY METHOD 08/16/2024 10:05 AM [facility] LAB Basophils Absolute 0.04 0.00 - 0.20 K/mcL LAB HEMETOLOGY METHOD 08/16/2024 10:05 AM [facility] LAB Immature Granulocytes Absolute 0.02 0.00 - 0.03 K/mcL LAB HEMETOLOGY METHOD 08/16/2024 10:05 AM EST [facility] LAB Blood Venous blood specimen / Unknown Venipuncture / Unknown 08/16/2024 6:30 AM EST 08/16/2024 8:35 AM EST us Steve Fitzgerald MD LAB BLOOD ORDERABLES Final Resul t [facility] [address] [place] [address], from Last 3 Months Insurance MEDICARE MEDICAID - [place] Care Teams Color Developer Relationship Specialty Start Date End Date Keven Kirkland MD [address] [place] [address] PCP - General Internal Medicine 11/28/16
[2024-09-07 16:51] LABS: Appearance Urine Clear; Color Urine Yellow; Glucose Urine UA Negative (Negative); Leukocyte Esterase Urine Negative (Negative); Nitrite Urine Negative (Negative); PH 6.5 (5.0-9.0); Specific Gravity - Urine >= 1.030 (1.005-1.025); Urine Blood Negative (Negative); Urine Ketones Negative (Negative); Urine Protein Negative (Neg-Trace)
[2024-09-07] MEDS: LORazepam 1 MG TABLET PO (16:55)
[2024-09-07 17:00] LABS: Amphetamine Screen Urine Not Detected (Not Detect); Barbiturates, Urine Not Detected (Not Detect); Benzodiazepines Screen Urine Not Detected (Not Detect); Buprenorphine Scr Not Detected (Not Detect); Cannabinoid Screen Urine Not Detected (Not Detect); Cocaine Screen Urine Not Detected (Not Detect); Fentanyl, urine Not Detected (Not Detect); Methadone Screen, Urine Not Detected (Not Detect); Opiate Screen Urine Not Detected (Not Detect); Oxycodone Screen Urine Not Detected (Not Detect); Phencyclidine Screen Urine Not Detected (Not Detect)
--- NOTE | 2024-09-07 18:30 | MHC.EDTECH ---
Blood work was taken send to the lab, Patient resting quietly on his bed.
[2024-09-07 18:37] LABS: MANUAL DIFF FLAG NO
[2024-09-07 18:39] LABS: Basophils Percent Auto 0.5 % (0-2); Eosinophils Percent Auto 0.5 % (0-4); Hematocrit 42.6 % (42.0-52.0); Hemoglobin 14.8 g/dl (14.0-18.0); Imm Gran Abs Auto 0.02 X10*3/uL (0.00-0.03); Imm Gran Pct Auto 0.2 % (0.0-0.4); Lymphocytes Absolute Auto 1.6 X10*3/uL (1.2-4.9); Lymphocytes Percent Auto 18.1 % (20-40); Mean Corpuscular HGB Conc 34.7 g/dl (31.0-36.0); Mean Corpuscular Hemoglobin 31.4 pg (27.0-33.0); Mean Corpuscular Volume 90.4 fL (80.0-98.0); Mean Platelet Volume 10.2 fL (9.4-12.4); Monocytes Absolute Auto 0.6 X10*3/uL (0.1-1.2); Monocytes Percent Auto 7.3 % (2-11); Neutrophils Absolute Auto 6.3 x10*3/uL (2.0-8.3); Neutrophils Percent Auto 73.4 % (45-73); Platelet Count 182 X10*3/uL (160-400); Red Blood Count 4.71 X10*6/uL (4.60-5.80); Red Cell Distribution Width 12.6 % (11.0-16.0); White Blood Count 8.6 X10*3/uL (4.8-10.8)
[2024-09-07 18:58] LABS: Anion Gap 10 (12-20); Blood Urea Nitrogen 25 mg/dL (9-16); Calcium 8.6 mg/dL (8.4-10.2); Carbon Dioxide 25 mmol/L (22-29); Chloride 107 mmol/L (96-108); Creatinine Clr Calc Pharmacy 93.3; Estimated Glomerular Filt Rate > 60; Ethanol 12 mg/dL; Glucose Random 113 mg/dL (60-115); Potassium 4.2 mmol/L (3.3-5.1); Sodium 138 mmol/L (135-145)
[2024-09-07 19:11] LABS: Salicylate < 5.0 mg/dL (15-30)
--- NOTE | 2024-09-07 19:21 | MHC.CARE ---
Per ED provider Libertad Núñez MD Pt does not require a LOC evaluation. T/W spoke to Pt who is calm and not currently experiencing a crisis.
[2024-09-07 20:48] VITALS: BP 111/75; PULSE 83; RESP 16; TEMP 36.9; O2SAT 94
--- NOTE | 2024-09-07 22:40 | PC.NURSE ---
Patient continues to wait for Lyft ride home. intermediate staff unable to come and pick patient up, patient has no other contacts to bring him home.
== END 2024-09-07 20:59 | disposition home or self-care (01) ==
PROVIDERS: Emergency Provider Emergency Medicine
DX: F41.9 Anxiety disorder, unspecified (principal); F20.0 Paranoid schizophrenia; E78.5 Hyperlipidemia, unspecified; F17.210 Nicotine dependence, cigarettes, uncomplicated; Z79.02 Long term (current) use of antithrombotics/antiplatelets; Z79.899 Other long term (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; Z79.82 Long term (current) use of aspirin
CPT/HCPCS: 36415; 80048; 80179; 80307; 81003; 85025; 99284; 99285

== ENCOUNTER 2024-12-27 10:16 | Outpatient (AMB) | payer MEDICARE, MEDICAID, SELFPAY ==
[2024-12-27 10:21] VITALS: BP 124/62; PULSE 102; TEMP 36.3; O2SAT 95; BMI 29.9
--- NOTE | 2024-12-27 10:21 | A.OFFPC_ITS ---
Vital Signs 12/27/24 10:21 Height 5 ft 8 in Weight 196 lb 6 oz BMI 29.9 BP 124/62 Blood Pressure Location Lt brachial Position Sitting Pulse 102 H Pulse Source Pulse Oximeter Temp 97.3 F Temp Source Temporal Artery Scan Pulse Oximetry (%) 95 Oxygen Delivery Method Room Air Intake Visit Reasons: MARRY from [facility]/follow up Allergies haloperidol [From Haldol] Allergy (Mild, Verified 12/27/24 10:23) UNKNOWN lithium [[place]] Allergy (Mild, Verified 12/27/24 10:23) UNKOWN lactose Adverse Reaction (Verified 12/27/24 10:23) Unknown [place] Citrate Allergy (Unknown, Uncoded 12/27/24 10:23) nervous breakdown Medication List - Last Reconciled 12/27/24 by Leona Ramírez MD acetaminophen (Tylenol) 650 mg (2 x 325 mg) PO Q6H PRN aripiprazole 10 mg PO DAILY aspirin 81 mg PO DAILY atorvastatin 10 mg PO DAILY clonazepam (Klonopin) 1 mg PO BID PRN clozapine 25 mg PO BEDTIME 30 days clozapine 200 mg PO BEDTIME 30 days clozapine 50 mg PO DAILY 30 days diclofenac sodium 75 mg PO Q12H magnesium oxide 400 mg PO BEDTIME 30 days sodium chloride 1,000 mg PO BID trazodone 50 mg PO BEDTIME PRN 30 days Tobacco use date assessed: 12/27/24 Fall risk assessment: No Falls in past year Last assessed Fall Risk: 12/27/24 Dental Screening Dental Screen Date: 12/27/24 Did you have a dental visit in the last 12 months?: No Did you have a dental problem in the last 6 months where you did not have access to dental care?: No Was dental information given to patient?: Patient declined HPI MARRY from [facility]/follow up HPI Details 69-year-old overweight male with a histo ry of paranoid schizophrenia hypercholesterolemia patient is a smoker with GERD coming in to be seen for the 1st time. Patient [facility] Medical History (Updated 12/27/24 @ 17:08 by Leona Ramírez MD) Hyperlipidemia Nicotine dependence, cigarettes, uncomplicated Dysphagia Erosive esophagitis Paranoid schizophrenia Rotator cuff impingement syndrome of right shoulder GERD (gastroesophageal reflux disease) Surgical History History of right inguinal hernia repair History of esophagogastroduodenoscopy (EGD) History of tonsillectomy and adenoidectomy Family History Mother No problems noted. Father No problems noted. 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 Housing: Other Housing Other:: intermediate member Do you presently have visiting nurse or other home services: No Unable to assess alcohol history related to: Unknown Alcohol intake: never Patient Tobacco Use Status: Current everyday Tobacco user Tobacco use type: Cigarette Cigarette Packs Per Day: 1.5 Cigarettes Per Day: 30 Years Smoked: (onset 17yo, 1/2ppd x 51yrs, 25PYH) Packs Per Year: 0 e-Cigarette/Vaping Use: Never Used Second Hand Smoke Exposure: No Advance Directives Date on File: 01/22/24 service: Yes ([employer]) Current occupational status: disabled Current occupation: Right Handed Sexual orientation: Did not discuss Cognitive needs: Yes Hearing needs: No Vision needs: No Questionnaire PHQ-9 Over the last 2 weeks, how often have you been bothered by any of the following problems? 1. Little interest or pleasure in doing things: not at all 2. Feeling down, depressed, or hopeless: not at all 3. Trouble falling or staying asleep, or sleeping too much: nearly every day 4. Feeling tired or having little energy: several days 5. Poor appetite or overeating: several days 6. Feeling bad about yourself - or that you are a failure or have let yourself or your family down: not at all 7. Trouble concentrating on things, such as reading the newspaper or watching television: several days 8. Moving or speaking so slowly that other people could have noticed. Or the opposite - being so fidgety or restless that you have been moving around a lot more than usual: not at all 9. Thoughts that you would be better off or of hurting yourself in some way: not at all Total score: 6 Depression Screening Interpretation: Negative Depression Screening Done: Yes 23522 - PHQ-9 Billing: Yes Source: Developed by Drs. Adam Irby, Mendy Clemens, Michael Montero and colleagues, with an educational roel from [facility]. Thrive Questionnaire Date Thrive assessed: 12/27/24 I am a: Patient What is your living situation today?: I choose not to answer this question Within the past 12 months, did the food you bought not last and you didn't have the money to get more?: I choose not to answer this question Within the past 12 months, did you worry whether your food would run out before you got money to buy more?: I choose not to answer this question Do you have trouble paying for medicines?: I choose not to answer this question Do you have trouble getting transportation to medical appointments?: I choose not to answer this question Do you have trouble paying your heating and electricity bill?: I choose not to answer this question Do you have trouble taking care of your child, family member or friend?: I choose not to answer this question Do you have trouble with day-to-day activities such as bathing, preparing meals, shopping, managing finances, etc.?: I choose not to answer this question Are you currently unemployed and looking for a job?: I choose not to answer this question Are you interested in more education?: I choose not to answer this question Please select the resources that you would like help with: Transportation Currently or been in a relationship where the following occur: I choose not to answer THRIVE Score: 0 AUDIT C Alcohol Use Questionnaire (AUDIT-C) 1. How often do you have a drink containing alcohol?: Never 3. How often do you have six or more drinks on one occasion?: Never Total Score: 0 DEREK-7 AMB Questionnaire DEREK-7 Date DEREK - 7 assessed: 12/27/24 Feeling nervous, anxious, or on edge: 1 = Several days Not being able to stop or control worryin = Several days Worrying too much about different things: 2 = More than half the days Trouble relaxin = More than half the days Being so restless that it is hard to sit still: 0 = Not at all Becoming easily annoyed or irritable: 2 = More than half the days Feeling afraid as if something awful might happen: 2 = More than half the days Total DEREK-7 score (0-4 normal; 5-9 mild; 10-14 moderate; 15-21 severe): 10 Source: Developed by Mendy Ordoñez B.W. Sarath, Michael Montero and colleagues, with an educational roel from [facility]. DEREK-7 Assessment Billing DEREK-7 Assessment Tool: DEREK-7 Assessment 52918 Physical exam (Primary Care) Vital Signs: Last Vital Signs Temp 97.3 F 12/27/24 10:21 Pulse 102 H 12/27/24 10:21 BP 124/62 12/27/24 10:21 Pulse Ox 95 12/27/24 10:21 Oxygen Delivery Method Room Air 12/27/24 10:21 BMI result Body Mass Index 29.9 Tobacco/Smoking Status: Tobacco use Status Tobacco use date assessed 12/27/24 12/27/24 10:27 Patient Tobacco Use Status Current everyday Tobacco 12/27/24 10:38 Tobacco use type Cigarette 12/27/24 10:38 e-Cigarette/Vaping Use Never Used 12/27/24 10:38 PHQ-9: PHQ-9 Score PHQ-9: Total score 6 12/27/24 10:53 Depression Screening Interpretation: Negative Thrive Assessment: Date of Thrive Assessment Date Thrive assessed 12/27/24 12/27/24 10:27 Currently or been in a relationship where the following occur: I choose not to answer Const General: alert; No acute distress Eyes Conjunctivae: conjunctivae normal Resp Auscultation: clear to auscultation bilaterally Cardio Rate: regular rate Rhythm: regular rhythm GI Inspection: Yes normal to inspection Extrem General: Yes normal to inspection and No edema Immunizations pneumoc 20-lroenzo conj-dip cr(PF) 0.5 mL IM syringe Performing Provider: Leona Ramírez MD [facility] Administered by: MELANIE Beltran on 12/27/24 10:53 Dose Route Admin Location Dispensed Lot Number Expiration Date [facility] Paper Folder 0.5 mL IM Left Deltoid 0.5 mL [id number] 09/17/25 0412-8169-67 [employer] VIS Given Date VIS Provided VIS Publication Date 12/27/24 Single Vaccine 21 Eligibility Eligibility Date Funding Source Not [facility] Eligible 12/27/24 Private Coding Level of Care Code Est Pt Level 4 (25736) Complex EM visit Add On G2211 Diagnoses Nicotine dependence, cigarettes, uncomplicated F17.210 Hyperlipidemia E78.5 Paranoid schizophrenia F20.0 Gastroesophageal reflux disease without esophagitis K21.9 Esophagitis presence: without esophagitis Additional Codes DEREK-7 Assessment Billing - DEREK-7 Assessment Tool: DEREK-7 Assessment 44501 ([id number]) PHQ-9 - 12752 - PHQ-9 Billing: Yes ([id number]) Assessment & Plan Assessment & Plan (1) Nicotine dependence, cigarettes, uncomplicated: Comment: (onset 17yo, 1/2ppd x 51yrs, 25PYH) lung cancer screening program April 2024 Code(s): F17.210 - Nicotine dependence, cigarettes, uncomplicated Category: Medical Plan: Patient is strongly advised to stop smoking! April 2024 last CAT scan patient is in the lung cancer screening program (2) Hyperlipidemia: Code(s): E78.5 - Hyperlipidemia, unspecified Category: Medical Plan: Avoid fried foods, chicken skin, eggs, butter margarine, pastries and meat. Be it pork or beef they have a lot of cholesterol on atorvastatin. LDL goal of less than 130 and triglyceride of less than 150 (3) Paranoid schizophrenia: Code(s): F20.0 - Paranoid schizophrenia Category: Medical Plan: Continue to follow-up with counseling and therapy (4) GERD (gastroesophageal reflux disease): Code(s): K21.9 - Gastro-esophageal reflux disease without esophagitis Category: Medical Qualifiers: Esophagitis presence: without esophagitis Qualified Code(s): K21.9 - Gastro-esophageal reflux disease without esophagitis Plan: Avoid the foods that causes that usually spicy foods, tomato products, juices, coffee, soda and foods that your sensitive to. After eating do not lie down, allow 3-4 hours before in lie down. And keep the head of bed above 30 degrees to avoid the acid from going up. Orders: Orders Free T4 (Free Thyroxine) Today E78.5 - Hyperlipidemia, unspecified Lipid Panel Today E78.00 - Pure hypercholesterolemia, unspecified, E78.5 - Hyperlipidemia, unspecified Thyroid Stimulating Hormone Today E78.5 - Hyperlipidemia, unspecified Hepatitis B,C Profile Today E78.5 - Hyperlipidemia, unspecified, R79.89 - Other specified abnormal findings of blood chemistry Pneumococcal 20 Immunization Today Z23 - Encounter for immunization Complete Blood Count Auto Diff Today E78.5 - Hyperlipidemia, unspecified Comprehensive Met. Panel Today E78.5 - Hyperlipidemia, unspecified Hemoglobin A1c Today E78.5 - Hyperlipidemia, unspecified Vitamin B12 and Folate Today E78.5 - Hyperlipidemia, unspecified Prostate Specific Antigen Scr Today E78.5 - Hyperlipidemia, unspecified UA CC w/rflx Micro + Cult Today E78.5 - Hyperlipidemia, unspecified, R30.0 - Dysuria Uric Acid Today E78.5 - Hyperlipidemia, unspecified T Spot TB Today E78.5 - Hyperlipidemia, unspecified Medications: New docusate sodium (Colace) 100 mg PO DAILY PRN 30 caps 12RF constipation Changed From acetaminophen (Tylenol) 650 mg (2 x 325 mg) PO Q6H PRN 90 caps 0RF fever or pain To acetaminophen 650 mg (2 x 325 mg) PO Q6H PRN 90 caps 0RF fever or pain Refilled magnesium oxide 400 mg PO BEDTIME 30 tabs 0RF 30 days atorvastatin 10 mg PO DAILY 30 tabs 2RF diclofenac sodium 75 mg PO Q12H 60 tabs 0RF M17.11 - Unilateral primary osteoarthritis, right knee
--- OUTSIDE RECORDS SUMMARY | 2024-12-27 11:53 | XMS_ITS | Encounter Summary ---
Author Organization [facility] Address [address] [place] [address] Care Team Providers Care Tour Leader Name Role Phone Keven Kirkland MD Primary Care Provider [phone] Encounter Details Date Type Department Care Team (Late st Contact Info) Description 11/08/2024 Lab Requisition [facility] - Main Lab [address] [facility] [place] [address] Steve Fitzgerald MD [address] Other long-term (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 Social History Tobacco Use [...] Diagnosis Comments CBC WITH AUTO DIFFERENTIAL Routine 11/08/2024 6:10 AM EDT Other long-term (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 CBC AND DIFFERENTIAL Routine 11/08/2024 6:10 AM EDT Other long-term (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 documented in this encounter Results * (ABNORMAL) CBC auto differential (11/08/2024 6:10 AM EDT) WBC 7.6 4.8 - 10.8 K/[facility] LAB HEMETOLOGY METHOD 11/08/2024 8:37 AM EDT [facility] RBC 5.10 4.50 - 5.50 M/mcL LAB HEMETOLOGY METHOD 11/08/2024 8:37 AM [facility] LAB Hemoglobin 15.9 13.5 - 17.5 g/dL LAB HEMETOLOGY METHOD 11/08/2024 8:37 AM [facility] LAB Hematocrit 47.6 42.0 - 54.0 % LAB HEMETOLOGY METHOD 11/08/2024 8:37 AM [facility] LAB MCV 93.5 79.0 - 98.0 FL LAB HEMETOLOGY METHOD 11/08/2024 8:37 AM [facility] LAB MCH 31.2 27.0 - 32.0 pcg LAB HEMETOLOGY METHOD 11/08/2024 8:37 AM [facility] LAB MCHC 33.4 32.0 - 37.0 g/dL LAB HEMETOLOGY METHOD 11/08/2024 8:37 AM [facility] LAB RDW 12.5 11.0 - 15.0 % LAB HEMETOLOGY METHOD 11/08/2024 8:37 AM [facility] LAB Platelets 201 130 - 400 K/mcL LAB HEMETOLOGY METHOD 11/08/2024 8:37 AM [facility] LAB MPV 11.2(H) 7.0 - 11.0 FL LAB HEMETOLOGY METHOD 11/08/2024 8:37 AM [facility] LAB NRBC 0.0 <1.0 % LAB HEMETOLOGY METHOD 11/08/2024 8:37 AM [facility] LAB NRBC Absolute 0.00 <0.10 K/mcL LAB HEMETOLOGY METHOD 11/08/2024 8:37 AM [facility] LAB Neutrophils Relative 64.7 % LAB HEMETOLOGY METHOD 11/08/2024 8:37 AM [facility] LAB Lymphocytes Relative 25.3 % LAB HEMETOLOGY METHOD 11/08/2024 8:37 AM EDT [facility] LAB Monocytes Relative 8.1 % LAB HEMETOLOGY METHOD 11/08/2024 8:37 AM EDT [facility] LAB Eosinophils Relative 1.1 % LAB HEMETOLOGY METHOD 11/08/2024 8:37 AM EDT [facility] LAB Basophils Relative 0.5 % LAB HEMETOLOGY METHOD 11/08/2024 8:37 AM EDT [facility] LAB Immature Granulocytes Relative 0.3 % LAB HEMETOLOGY METHOD 11/08/2024 8:37 AM EDT [facility] LAB Neutrophils Absolute 4.90 1.50 - 7.00 K/mcL LAB HEMETOLOGY METHOD 11/08/2024 8:37 AM EDT [facility] LAB Lymphocytes Absolute 1.91 1.00 - 5.00 K/mcL LAB HEMETOLOGY METHOD 11/08/2024 8:37 AM EDT [facility] LAB Monocytes Absolute 0.61 0.20 - 1.00 K/mcL LAB HEMETOLOGY METHOD 11/08/2024 8:37 AM EDT [facility] LAB Eosinophils Absolute 0.08 0.00 - 0.50 K/mcL LAB [facility]ETOLOGY METHOD [facility] Basophils Absolute 0.04 0.00 - 0.20 K/mcL LAB HEMETOLOGY METHOD 11/08/2024 8:37 AM EDT [facility] LAB Immature Granulocytes Absolute 0.02 0.00 - 0.03 K/mcL LAB HEMETOLOGY METHOD 11/08/2024 8:37 AM EDT [facility] LAB Blood Venous blood specimen / Unknown Venipuncture / Unknown 11/08/2024 6:10 AM EDT 11/08/2024 7:39 AM EDT us Steve Fitzgerald MD LAB BLOOD ORDERABLES Final Resul t [place]YAN ARGUETA [place] ([facility] LAB [address] [place] [address], documented in this encounter Visit Diagnoses Diagnosis 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
== END 2024-12-27 11:09 | disposition home or self-care (01) ==
LOC: HO.HMCH 10:17
PROVIDERS: PCP Internal Medicine; Visit Provider Internal Medicine
DX: F17.210 Nicotine dependence, cigarettes, uncomplicated (principal); E78.5 Hyperlipidemia, unspecified; F20.0 Paranoid schizophrenia; K21.9 Gastro-esophageal reflux disease without esophagitis; Z23 Encounter for immunization

== ENCOUNTER → 2024-12-27 10:16 | Outpatient (BNVA) | payer MEDICARE, MEDICAID, SELFPAY | PROVIDERS: PCP Internal Medicine; Visit Provider Internal Medicine | DX: Z23 Encounter for immunization (principal); E78.5 Hyperlipidemia, unspecified; F20.0 Paranoid schizophrenia; K21.9 Gastro-esophageal reflux disease without esophagitis; F17.210 Nicotine dependence, cigarettes, uncomplicated; Z71.3 Dietary counseling and surveillance | CPT/HCPCS: 90471; 90677; 96127; 99212 ==

== ENCOUNTER 2025-06-01 14:32 | Outpatient (AMB) | payer MEDICARE, SELFPAY ==
--- NOTE | 2025-06-01 14:40 | MHC.PC.OV ---
Vital Signs 06/01/25 14:41 Height 5 ft 8 in Weight 196 lb 8 oz BMI 29.9 BP 118/70 Blood Pressure Location Lt brachial Position Sitting Pulse 90 Pulse Source Pulse Oximeter Temp 97.3 F Temp Source Temporal Artery Scan Pulse Oximetry (%) 96 Oxygen Delivery Method Room Air Intake Visit Reasons: medication f/u Accompanied by: Staff Allergies haloperidol (From Haldol) Allergy (Mild, Verified 06/01/25 14:41) UNKNOWN lithium ([place]) Allergy (Mild, Verified 06/01/25 14:41) UNKOWN lactose Adverse Reaction (Verified 06/01/25 14:41) Unknown [place] Citrate Allergy (Unknown, Uncoded 12/27/24 10:23) nervous breakdown Medication List - Last Reconciled 06/01/25 by Leona Ramírez MD acetaminophen 650 mg (2 x 325 mg) PO Q6H PRN aripiprazole 10 mg PO DAILY atorvastatin 10 mg PO DAILY clonazepam (Klonopin) 1 mg PO BID PRN clozapine 25 mg PO BEDTIME 30 days clozapine 200 mg PO BEDTIME 30 days clozapine 50 mg PO DAILY 30 days diclofenac sodium 75 mg PO Q12H docusate sodium (Colace) 100 mg PO DAILY PRN magnesium oxide 400 mg PO BEDTIME 30 days sodium chloride 1,000 mg PO BID trazodone 100 mg PO BEDTIME Tobacco use date assessed: 12/27/24 Fall risk assessment: No Falls in past year Last assessed Fall Risk: 12/27/24 Dental Screening Dental Screen Date: 12/27/24 Did you have a dental visit in the last 12 months?: No Did you have a dental problem in the last 6 months where you did not have access to dental care?: No Was dental information given to patient?: No [facility] Medical History Hyperlipidemia Nicotine dependence, cigarettes, uncomplicated Dysphagia Erosive esophagitis Paranoid schizophrenia Rotator cuff impingement syndrome of right shoulder GERD (gastroesophageal reflux disease) Surgical History History of right inguinal hernia repair History of esophagogastroduodenoscopy (EGD) History of tonsillectomy and adenoidectomy Family History Mother No problems noted. Father No problems noted. 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 Housing: Other Housing Other:: senior living member Do you presently have visiting nurse or other home services: No Alcohol intake: never Patient Tobacco Use Status: Current everyday Tobacco user Tobacco use type: Cigarette Cigarette Packs Per Day: 1.5 Cigarettes Per Day: 30 Years Smoked: (onset 17yo, 1/2ppd x 51yrs, 25PYH) e-Cigarette/Vaping Use: Never Used Second Hand Smoke Exposure: No Advance Directives Date on File: 01/22/24 service: Yes ( [employer]) Current occupational status: disabled Current occupation: Right Handed Sexual orientation: Did not discuss Cognitive needs: Yes Hearing needs: No Vision needs: No Questionnaire PHQ-9 Over the last 2 weeks, how often have you been bothered by any of the following problems? 1. Little interest or pleasure in doing things: not at all 2. Feeling down, depressed, or hopeless: not at all 3. Trouble falling or staying asleep, or sleeping too much: nearly every day 4. Feeling tired or having little energy: several days 5. Poor appetite or overeating: several days 6. Feeling bad about yourself - or that you are a failure or have let yourself or your family down: not at all 7. Trouble concentrating on things, such as reading the newspaper or watching television: several days 8. Moving or speaking so slowly that other people could have noticed. Or the opposite - being so fidgety or restless that you have been moving around a lot more than usual: not at all 9. Thoughts that you would be better off or of hurting yourself in some way: not at all Total score: 6 Depression Screening Interpretation: Negative Depression Screening Done: Yes 14227 - PHQ-9 Billing: Yes Source: Developed by Drs. Adam Irby, Mendy Clemens, Michael Montero and colleagues, with an educational roel from [employer]. Thrive Questionnaire Date Thrive assessed: 12/27/24 I am a: Patient What is your living situation today?: I choose not to answer this question Within the past 12 months, did the food you bought not last and you didn't have the money to get more?: I choose not to answer this question Within the past 12 months, did you worry whether your food would run out before you got money to buy more?: I choose not to answer this question Do you have trouble paying for medicines?: I choose not to answer this question Do you have trouble getting transportation to medical appointments?: I choose not to answer this question Do you have trouble paying your heating and electricity bill?: I choose not to answer this question Do you have trouble taking care of your child, family member or friend?: I choose not to answer this question Do you have trouble with day-to-day activities such as bathing, preparing meals, shopping, managing finances, etc.?: I choose not to answer this question Are you currently unemployed and looking for a job?: I choose not to answer this question Are you interested in more education?: I choose not to answer this question Please select the resources that you would like help with: Transportation Currently or been in a relationship where the following occur: I choose not to answer THRIVE Score: 0 AUDIT C Alcohol Use Questionnaire (AUDIT-C) 1. How often do you have a drink containing alcohol?: Never 3. How often do you have six or more drinks on one occasion?: Never Total Score: 0 DEREK-7 AMB Questionnaire DEREK-7 Date DEREK - 7 assessed: 12/27/24 Feeling nervous, anxious, or on edge: 1 = Several days Not being able to stop or control worryin = Several days Worrying too much about different things: 2 = More than half the days Trouble relaxin = More than half the days Being so restless that it is hard to sit still: 0 = Not at all Becoming easily annoyed or irritable: 2 = More than half the days Feeling afraid as if something awful might happen: 2 = More than half the days Total DEREK-7 score (0-4 normal; 5-9 mild; 10-14 moderate; 15-21 severe): 10 Source: Developed by Drs. Adam Irby, Mendy Clemens, Michael Montero and colleagues, with an educational roel from [employer]. Physical exam (Primary Care) Vital Signs: Last Vital Signs Temp 97.3 F 06/01/25 14:41 Pulse 90 06/01/25 14:41 BP 118/70 11/13/25 14:41 Pulse Ox 96 06/01/25 14:41 Oxygen Delivery Method Room Air 06/01/25 14:41 BMI result Body Mass Index 29.9 Tobacco/Smoking Status: Tobacco use Status Tobacco use date assessed 12/27/24 06/01/25 14:53 Patient Tobacco Use Status Current everyday Tobacco 06/01/25 14:53 Tobacco use type Cigarette 06/01/25 14:53 e-Cigarette/Vaping Use Never Used 06/01/25 14:53 PHQ-9: PHQ-9 Score PHQ-9: Total score 6 06/01/25 14:59 Depression Screening Interpretation: Negative Thrive Assessment: Date of Thrive Assessment Date Thrive assessed 12/27/24 06/01/25 14:53 Currently or been in a relationship where the following occur: I choose not to answer Const General: alert; No acute distress Eyes Conjunctivae: conjunctivae normal Resp Auscultation: clear to auscultation bilaterally Cardio Rate: regular rate Rhythm: regular rhythm GI Inspection: Yes normal to inspection Extrem General: Yes normal to inspection and No edema Office Procedures Flu Questionnaire Does the patient have a severe egg allergy?: No Does the patient have severe life threatening allergies?: No Does the patient have a fever or illness today?: No Has the patient ever had Guillain-Mcgrew Syndrome?: No Has the patient ever had any past reaction to a flu shot?: No Immunizations Fluarix [id number] (PF) 45 mcg (15 mcg x 3)/0.5 mL IM syringe Performing Provider: Leona Ramírez MD [facility] Administered by: Dina Guzmán CMA on 06/01/25 15:18 Dose Route Admin Location Dispensed Lot Number Expiration Date NDC Mechanical Research Engineer 0.5 mL IM Left Deltoid 0.5 mL [id number] 01/16/26 85528-828-87 [employer] VIS Given Date VIS Provided VIS Publication Date 06/01/25 Single Vaccine 24 Eligibility Eligibility Date Funding Source Not [facility] Eligible 06/01/25 Private Coding Level of Care Code Est Pt Level 4 (25692) Complex EM visit Add On G2211 Diagnoses Nicotine dependence, cigarettes, uncomplicated F17.210 Gastroesophageal reflux disease without esophagitis K21.9 Esophagitis presence: without esophagitis Hyperlipidemia E78.5 Paranoid schizophrenia F20.0 Additional Codes PHQ-9 - 69157 - PHQ-9 Billing: Yes ([id number]) Assessment & Plan Assessment & Plan (1) Nicotine dependence, cigarettes, uncomplicated: Comment: (onset 17yo, 1/2ppd x 51yrs, 25PYH) lung cancer screening program April 2024 Code(s): F17.210 - Nicotine dependence, cigarettes, uncomplicated Category: Medical Plan: Patient is strongly advised to stop smoking. Patient is in the lung cancer screening program and has an upcoming CT Scan in June. With the cough Delsym prescription done (2) GERD (gastroesophageal reflux disease): Code(s): K21.9 - Gastro-esophageal reflux disease without esophagitis Category: Medical Qualifiers: Esophagitis presence: without esophagitis Qualified Code(s): K21.9 - Gastro-esophageal reflux disease without esophagitis Plan: Avoid the foods that causes that usually spicy foods, tomato products, juices, coffee, soda and foods that your sensitive to. After eating do not lie down, allow 3-4 hours before in lie down. And keep the head of bed above 30 degrees to avoid the acid from going up. (3) Hyperlipidemia: Code(s): E78.5 - Hyperlipidemia, unspecified Category: Medical Plan: Avoid fried foods, chicken skin, eggs, butter margarine, pastries and meat. Be it pork or beef they have a lot of cholesterol 2023 last blood work on atorvastatin 10 mg once a day blood work requested (4) Paranoid schizophrenia: Code(s): F20.0 - Paranoid schizophrenia Category: Medical Plan: continue with counseling and therapy Plan History of Present Illness The patient is a 69-year-old overweight male with a history of paranoid schizophrenia, hypercholesterolemia, gastroesophageal reflux disease (GERD), and is a current smoker. He was last seen in December 2024. His last blood work in August 2024 showed a normal blood count, electrolytes, and renal function, with a mildly elevated blood sugar of 113 and a normal hemoglobin A1c. Cholesterol testing in December 2023 revealed an LDL of 111 and normal triglycerides. The patient is managed with atorvastatin 10 mg once daily. He is enrolled in a lung cancer screening program and had a CT scan in June. Health Maintenance - Smoking cessation: The patient is a smoker and was strongly advised to stop. - Lung cancer screening: The patient is in the lung cancer screening program and has an upcoming CT scan in June. Social History - Substance Use: The patient is a current smoker. Review of Systems Physical Exam Results - Labs (August 2024): Results showed a normal blood count, good electrolytes, normal renal function, mildly elevated blood sugar at 113, and a normal hemoglobin A1c. - Labs (December 2023): Cholesterol testing revealed an LDL of 111 and normal triglycerides. - Imaging: A CT scan was performed in June. Plan Patient was informed and verbally consented to the use of an ambient scribe for clinic note documentation during this visit. 1. Paranoid Schizophrenia The plan is to continue with counseling and therapy. 2. Hypercholesterolemia Continue atorvastatin 10 mg once a day. Blood work has been requested for follow-up. 3. Tobacco Use Disorder The patient was strongly advised to stop smoking. He will continue in the lung cancer screening program and has an upcoming CT scan in June. 4. Gastroesophageal Reflux Disease A plan for reflux was considered, though no specific interventions were outlined. 5. Prediabetes Recent labs showed a mildly elevated blood sugar of 113, though hemoglobin A1c was normal. Monitoring will be continued with new blood work requested. Discussion Notes I reviewed the patient's medical history, including paranoid schizophrenia, hypercholesterolemia, GERD, and his status as a smoker. I strongly advised him to stop smoking and discussed his continued participation in the lung cancer screening program, which includes an upcoming CT scan in June. We will continue his current dose of atorvastatin 10 mg daily for cholesterol management and he will continue with counseling and therapy. I have requested new blood work for monitoring. Patient Instructions - It is very important to stop smoking. - Continue taking your atorvastatin 10 mg pill once a day. - Continue with your counseling and therapy. - Please go to the lab to have new blood work done. - You have an upcoming CT scan in June for lung cancer screening. Orders: Orders Influenza [id number] Immunization Today Z23 - Encounter for immunization Medications: New dextromethorphan polistirex ER (Delsym 12 hour) 10 mL PO Q12H PRN 89 mL 0RF cough K21.9 - Gastro-esophageal reflux disease without esophagitis Refilled diclofenac sodium 75 mg PO Q12H 60 tabs 0RF M17.11 - Unilateral primary osteoarthritis, right knee
[2025-06-01 14:41] VITALS: BP 118/70; PULSE 90; TEMP 36.3; O2SAT 96; BMI 29.9
--- OUTSIDE RECORDS SUMMARY | 2025-06-01 17:58 | XMS_ITS | Encounter Summary ---
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 Social History Tobacco Use [...] Diagnosis Comments CBC WITH AUTO DIFFERENTIAL Routine 12/06/2024 6:38 AM EDT Other usp (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 CBC AND DIFFERENTIAL Routine 12/06/2024 6:38 AM EDT Other usp (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 documented in this encounter Results * CBC auto differential (12/06/2024 6:38 AM EDT) WBC 6.3 4.8 - 10.8 K/[facility] LAB HEMETOLOGY METHOD 12/06/2024 8:25 AM EDT [facility] RBC 5.00 4.50 - 5.50 M/[facility] LAB HEMETOLOGY METHOD 12/06/2024 8:25 AM EDT [facility] LAB Hemoglobin 15.2 13.5 - 17.5 g/dL LAB HEMETOLOGY METHOD 12/06/2024 8:25 AM T [facility] LAB Hematocrit 46.6 42.0 - 54.0 % LAB HEMETOLOGY METHOD 12/06/2024 8:25 AM T [facility] LAB MCV 94.1 79.0 - 98.0 FL LAB HEMETOLOGY METHOD 12/06/2024 8:25 AM EDT [facility] LAB MCH 30.7 27.0 - 32.0 pcg LAB HEMETOLOGY METHOD 12/06/2024 8:25 AM [facility] LAB MCHC 32.6 32.0 - 37.0 g/dL LAB HEMETOLOGY METHOD 12/06/2024 8:25 AM [facility] LAB RDW 12.8 11.0 - 15.0 % LAB HEMETOLOGY METHOD 12/06/2024 8:25 AM [facility] LAB Platelets 194 130 - 400 K/mcL LAB HEMETOLOGY METHOD 12/06/2024 8:25 AM [facility] LAB MPV 11.0 7.0 - 11.0 FL LAB HEMETOLOGY METHOD 12/06/2024 8:25 AM [facility] LAB NRBC 0.0 <1.0 % LAB HEMETOLOGY METHOD 12/06/2024 8:25 AM [facility] LAB NRBC Absolute 0.00 <0.10 K/mcL LAB HEMETOLOGY METHOD 12/06[facility]24 [facility] Neutrophils Relative 66.4 % LAB HEMETOLOGY METHOD 12/06/2024 8:25 AM [facility] LAB Lymphocytes Relative 23.3 % LAB HEMETOLOGY METHOD 12/06/2024 8:25 AM EDT [facility] LAB Monocytes Relative 7.1 % LAB HEMETOLOGY METHOD 12/06/2024 8:25 AM EDT [facility] LAB Eosinophils Relative 2.1 % LAB HEMETOLOGY METHOD 12/06/2024 8:25 AM T [facility] LAB Basophils Relative 0.8 % LAB HEMETOLOGY METHOD 12/06/2024 8:25 AM EDT [facility] LAB Immature Granulocytes Relative 0.3 % LAB HEMETOLOGY METHOD 12/06/2024 8:25 AM EDT [facility] LAB Neutrophils Absolute 4.21 1.50 - 7.00 K/mcL LAB HEMETOLOGY METHOD 12/06/2024 8:25 AM [facility] LAB Lymphocytes Absolute 1.48 1.00 - 5.00 K/mcL LAB HEMETOLOGY METHOD 12/06/2024 8:25 AM EDT [facility] LAB Monocytes Absolute 0.45 0.20 - 1.00 K/mcL LAB HEMETOLOGY METHOD 12/06/2024 8:25 AM T [facility] LAB Eosinophils Absolute 0.13 0.00 - 0.50 K/mcL LAB HEMETOLOGY METHOD 12/06/2024 8:25 AM [facility] LAB Basophils Absolute 0.05 0.00 - 0.20 K/mcL LAB HEMETOLOGY METHOD 12/06[facility]2024 [facility] Immature Granulocytes Absolute 0.02 0.00 - 0.03 K/mcL LAB HEMETOLOGY METHOD 12/06/2024 8:25 AM [facility] LAB Blood Venous blood specimen / Unknown Venipuncture / Unknown 12/06/2024 6:38 AM EDT 12/06/2024 8:08 AM EDT us Steve Fitzgerald MD LAB BLOOD ORDERABLES Final Resul t [facility] [address] [place] [address], documented in this encounter 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
--- OUTSIDE RECORDS SUMMARY | 2025-06-01 17:58 | XMS_ITS | Encounter Summary ---
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 Social History [...] DIFFERENTIAL Routine 07/19/2024 7:29 AM EST Other group home (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 CBC AND DIFFERENTIAL Routine 07/19/2024 7:29 AM EST Other group home (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 documented in this encounter Results * (ABNORMAL) CBC auto differential (07/19/2024 7:29 AM EST) WBC 5.6 4.8 - 10.8 K/[facility] LAB HEMETOLOGY METHOD 07/19/2024 12:18 PM EST [facility] LAB RBC 4.80 4.50 - 5.50 /[facility] LAB HEMETOLOGY METHOD 07/19/2024 12:18 PM [facility] LAB Hemoglobin 14.8 13.5 - 17.5 g/dL LAB HEMETOLOGY METHOD 07/19/2024 12:18 PM [facility] LAB Hematocrit 45.0 42.0 - 54.0 % LAB HEMETOLOGY METHOD 07/19/2024 12:18 PM [facility] LAB MCV 93.2 79.0 - 98.0 FL LAB HEMETOLOGY METHOD 07/19/2024 12:18 PM [facility] LAB MCH 30.6 27.0 - 32.0 pcg LAB HEMETOLOGY METHOD 07/19/2024 12:18 PM [facility] LAB MCHC 32.9 32.0 - 37.0 g/dL LAB HEMETOLOGY METHOD 07/19/2024 12:18 PM [facility] LAB RDW 12.7 11.0 - 15.0 % LAB HEMETOLOGY METHOD 07/19/2024 12:18 PM [facility] LAB Platelets 155 130 - 400 K/mcL LAB HEMETOLOGY METHOD 07/19/2024 12:18 PM [facility] LAB MPV 11.1(H) 7.0 - 11.0 FL LAB HEMETOLOGY METHOD 07/19/2024 12:18 PM [facility] LAB NRBC 0.0 <1.0 % LAB HEMETOLOGY METHOD 07/19/2024 12:18 PM [facility] LAB NRBC Absolute 0.00 <0.10 K/mcL LAB HEMETOLOGY METHOD 07/19/2024 12:18 PM [facility] LAB Neutrophils Relative 65.6 % LAB HEMETOLOGY METHOD 07/19/2024 12:18 PM [facility] LAB Lymphocytes Relative 25.4 % LAB HEMETOLOGY METHOD 07/19/2024 12:18 PM [facility] LAB Monocytes Relative 6.9 % LAB HEMETOLOGY METHOD 07/19/2024 12:18 PM EST [facility] LAB Eosinophils Relative 1.4 % LAB HEMETOLOGY METHOD 07/19/2024 12:18 PM [facility] LAB Basophils Relative 0.5 % LAB HEMETOLOGY METHOD 07/19/2024 12:18 PM [facility] LAB Immature Granulocytes Relative 0.2 % LAB HEMETOLOGY METHOD 07/19/2024 12:18 PM EST [facility] LAB Neutrophils Absolute 3.68 1.50 - 7.00 K/mcL LAB HEMETOLOGY METHOD 07/19/2024 12:18 PM [facility] LAB Lymphocytes Absolute 1.43 1.00 - 5.00 K/mcL LAB HEMETOLOGY METHOD 07/19/2024 12:18 PM [facility] LAB Monocytes Absolute 0.39 0.20 - 1.00 K/mcL LAB HEMETOLOGY METHOD 07/19/2024 12:18 PM EST [facility] LAB Eosinophils Absolute 0.08 0.00 - 0.50 K/mcL LAB HEMETOLOGY METHOD 07/19/2024 12:18 PM EST [facility] LAB Basophils Absolute 0.03 0.00 - 0.20 K/mcL LAB HEMETOLOGY METHOD 07/19/2024 12:18 PM [facility] LAB Immature Granulocytes Absolute 0.01 0.00 - 0.03 K/mcL LAB HEMETOLOGY METHOD 07/19/2024 12:18 PM EST [facility] LAB Blood Venous blood specimen / Unknown Venipuncture / Unknown 07/19/2024 7:29 AM EST 07/19/2024 11:33 AM EST us Steve Fitzgerald MD LAB BLOOD ORDERABLES Final Resul t [facility] [address] [place], [place] [address] [phone] documented in this encounter 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
--- OUTSIDE RECORDS SUMMARY | 2025-06-01 17:58 | XMS_ITS | Encounter Summary ---
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 LAB HEMETOLOGY METHOD 06/21/2024 10:08 AM EST [facility] LAB RBC 5.00 4.50 - 5.50 M/[facility] LAB HEMETOLOGY METHOD 06/21/2024 10:08 AM [facility] LAB Hemoglobin 15.1 13.5 - 17.5 g/dL LAB HEMETOLOGY METHOD 06/21/2024 10:08 AM [facility] LAB Hematocrit 46.0 42.0 - 54.0 % LAB HEMETOLOGY METHOD 06/21/2024 10:08 AM [facility] LAB MCV 92.2 79.0 - 98.0 FL LAB HEMETOLOGY METHOD 06/21/2024 10:08 AM [facility] LAB MCH 30.3 27.0 - 32.0 pcg LAB HEMETOLOGY METHOD 06/21/2024 10:08 AM [facility] LAB MCHC 32.8 32.0 - 37.0 g/dL LAB HEMETOLOGY METHOD 06/21/2024 10:08 AM [facility] LAB RDW 12.6 11.0 - 15.0 % LAB HEMETOLOGY METHOD 06/21/2024 10:08 AM [facility] LAB Platelets 193 130 - 400 K/mcL LAB HEMETOLOGY METHOD 06/21/2024 10:08 AM [facility] LAB MPV 11.3(H) 7.0 - 11.0 FL LAB HEMETOLOGY METHOD 06/21/2024 10:08 AM [facility] LAB NRBC 0.0 <1.0 % LAB HEMETOLOGY METHOD 06/21/2024 10:08 AM [facility] LAB NRBC Absolute 0.00 <0.10 K/mcL LAB HEMETOLOGY METHOD 06/21/2024 10:08 AM [facility] LAB Neutrophils Relative 72.8 % LAB HEMETOLOGY METHOD 06/21/2024 10:08 AM [facility] LAB Lymphocytes Relative 19.8 % LAB HEMETOLOGY METHOD 06/21/2024 10:08 AM [facility] LAB Monocytes Relative 6.0 % LAB HEMETOLOGY METHOD 06/21/2024 10:08 AM EST [facility] LAB Eosinophils Relative 0.6 % LAB HEMETOLOGY METHOD 06/21/2024 10:08 AM [facility] LAB Basophils Relative 0.5 % LAB HEMETOLOGY METHOD 06/21/2024 10:08 AM [facility] LAB Immature Granulocytes Relative 0.3 % LAB HEMETOLOGY METHOD 06/21/2024 10:08 AM EST [facility] LAB Neutrophils Absolute 6.46 1.50 - 7.00 K/mcL LAB HEMETOLOGY METHOD 06/21/2024 10:08 AM [facility] LAB Lymphocytes Absolute 1.75 1.00 - 5.00 K/mcL LAB HEMETOLOGY METHOD 06/21/2024 10:08 AM [facility] LAB Monocytes Absolute 0.53 0.20 - 1.00 K/mcL LAB HEMETOLOGY METHOD 06/21/2024 10:08 AM EST [facility] LAB Eosinophils Absolute 0.05 0.00 - 0.50 K/mcL LAB HEMETOLOGY METHOD 06/21/2024 10:08 AM [facility] LAB Basophils Absolute 0.04 0.00 - 0.20 K/mcL LAB HEMETOLOGY METHOD 06/21/2024 10:08 AM [facility] LAB Immature Granulocytes Absolute 0.03 0.00 - 0.03 K/mcL LAB HEMETOLOGY METHOD 06/21/2024 10:08 AM [facility] LAB Blood Venous blood specimen / Unknown Venipuncture / Unknown 06/21/2024 6:31 AM EST 06/21/2024 9:47 AM EST us Steve Fitzgerald MD LAB BLOOD ORDERABLES Final Resul t [facility]) [facility] LAB [address] [place], [place] [address] [phone] documented in this encounter Visit Diagnoses Diagnosis Other senior care (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 documented in this encounter Care Teams Joint Special Operations Relationship Specialty Start Date End Date Keven Kirkland MD [address] [facility] [address] [place] [address] PCP - General Internal Medicine 11/28/16 documented as of this encounter
--- OUTSIDE RECORDS SUMMARY | 2025-06-01 17:58 | XMS_ITS | Encounter Summary ---
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 Social History Tobacco Use [...] Diagnosis Comments CBC WITH AUTO DIFFERENTIAL Routine 05/05/2025 9:03 AM EDT Other intermediate (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 CBC AND DIFFERENTIAL Routine 05/05/2025 9:03 AM EDT Other intermediate (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 documented in this encounter Results * (ABNORMAL) CBC auto differential (05/05/2025 9:03 AM EDT) WBC 6.0 4.8 - 10.8 K/[facility] LAB HEMETOLOGY METHOD 05/05/2025 9:57 AM EDT [facility] LAB RBC 4.50 4.50 - 5.50 M/mcL LAB HEMETOLOGY METHOD 05/05/2025 9:57 AM T [facility] LAB Hemoglobin 13.6 13.5 - 17.5 g/dL LAB HEMETOLOGY METHOD 05/05/2025 9:57 AM [facility] LAB Hematocrit 40.8(L) 42.0 - 54.0 % LAB HEMETOLOGY METHOD 05/05/2025 9:57 AM [facility] LAB MCV 91.1 79.0 - 98.0 FL LAB HEMETOLOGY METHOD 05/05/2025 9:57 AM [facility] LAB MCH 30.4 27.0 - 32.0 pcg LAB HEMETOLOGY METHOD 05/05/2025 9:57 AM [facility] LAB MCHC 33.3 32.0 - 37.0 g/dL LAB HEMETOLOGY METHOD 05/05/2025 9:57 AM [facility] LAB RDW 12.7 11.0 - 15.0 % LAB HEMETOLOGY METHOD 05/05/2025 9:57 AM [facility] LAB Platelets 162 130 - 400 K/mcL LAB HEMETOLOGY METHOD 05/05/2025 9:57 AM [facility] LAB MPV 10.7 7.0 - 11.0 FL LAB HEMETOLOGY METHOD 05/05/2025 9:57 AM [facility] LAB NRBC 0.0 <1.0 % LAB HEMETOLOGY METHOD 05/05/2025 9:57 AM [facility] LAB NRBC Absolute 0.00 <0.10 K/mcL LAB HEMETOLOGY METHOD 05/05/2025 9:57 AM [facility] LAB Neutrophils Relative 70.9 % LAB HEMETOLOGY METHOD 05/05/2025 9:57 AM [facility] LAB Lymphocytes Relative 20.0 % LAB HEMETOLOGY METHOD 05/05/2025 9:57 AM EDT [facility] LAB Monocytes Relative 6.8 % LAB HEMETOLOGY METHOD 05/05/2025 9:57 AM EDT [facility] LAB Eosinophils Relative 1.5 % LAB HEMETOLOGY METHOD 05/05/2025 9:57 AM EDT [facility] LAB Basophils Relative 0.5 % LAB HEMETOLOGY METHOD 05/05/2025 9:57 AM EDT [facility] LAB Immature Granulocytes Relative 0.3 % LAB HEMETOLOGY METHOD 05/05/2025 9:57 AM EDT [facility] LAB Neutrophils Absolute 4.26 1.50 - 7.00 K/mcL LAB HEMETOLOGY METHOD 05/05/2025 9:57 AM EDT [facility] LAB Lymphocytes Absolute 1.20 1.00 - 5.00 K/mcL LAB HEMETOLOGY METHOD 05/05/2025 9:57 AM EDT [facility] LAB Monocytes Absolute 0.41 0.20 - 1.00 K/mcL LAB HEMETOLOGY METHOD 05/05/2025 9:57 AM EDT [facility] LAB Eosinophils Absolute 0.09 0.00 - 0.50 K/mcL LAB HEMETOLOGY METHOD 05/05/2025 9:57 AM EDT [facility] LAB Basophils Absolute 0.03 0.00 - 0.20 K/mcL LAB HEMETOLOGY METHOD 05/05/2025 9:57 AM EDT [facility] LAB Immature Granulocytes Absolute 0.02 0.00 - 0.03 K/mcL LAB HEMETOLOGY METHOD 05/05/2025 9:57 AM EDT [facility] LAB Blood Venous blood specimen / Unknown Venipuncture / Unknown 05/05/2025 9:03 AM EDT 05/05/2025 9:43 AM EDT us Steve Fitzgerald MD LAB BLOOD ORDERABLES Final Resul t [facility] [place] ([facility]) HOSPITAL LAB [address] [place] [address], documented in this encounter Visit Diagnoses Diagnosis Other intermediate (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 documented in this encounter Care Teams Title Abstractor Relationship Specialty Start Date End Date Keven Kirkland MD [address] [place] [address] PCP - General Internal Medicine 11/28/16 documented as of this encounter
--- OUTSIDE RECORDS SUMMARY | 2025-06-01 17:58 | XMS_ITS | Encounter Summary ---
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 CBC WITH AUTO DIFFERENTIAL Routine 05/24/2024 9:08 AM EST Other fpc (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 CBC AND DIFFERENTIAL Routine 05/24/2024 9:08 AM EST Other fpc (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 documented in this encounter Results * (ABNORMAL) CBC auto differential (05/24/2024 9:08 AM EST) WBC 5.8 4.8 - 10.8 K/[facility] LAB HEMETOLOGY METHOD 05/24/2024 11:38 AM [facility] LAB RBC 4.80 4.50 - 5.50 M/mcL LAB HEMETOLOGY METHOD 05/24/2024 11:38 AM [facility] LAB Hemoglobin 14.5 13.5 - 17.5 g/dL LAB HEMETOLOGY METHOD 05/24/2024 11:38 AM [facility] LAB Hematocrit 44.4 42.0 - 54.0 % LAB HEMETOLOGY METHOD 05/24/2024 11:38 AM [facility] LAB MCV 92.5 79.0 - 98.0 FL LAB HEMETOLOGY METHOD 05/24/2024 11:38 AM [facility] LAB MCH 30.2 27.0 - 32.0 pcg LAB HEMETOLOGY METHOD 05/24/2024 11:38 AM [facility] LAB MCHC 32.7 32.0 - 37.0 g/dL LAB HEMETOLOGY METHOD 05/24/2024 11:38 AM [facility] LAB RDW 12.8 11.0 - 15.0 % LAB HEMETOLOGY METHOD 05/24/2024 11:38 AM [facility] LAB Platelets 167 130 - 400 K/mcL LAB HEMETOLOGY METHOD 05/24/2024 11:38 AM [facility] LAB MPV 11.6(H) 7.0 - 11.0 FL LAB HEMETOLOGY METHOD 05/24/2024 11:38 AM [facility] LAB NRBC 0.0 <1.0 % LAB HEMETOLOGY METHOD 05/24/2024 11:38 AM [facility] LAB NRBC Absolute 0.00 <0.10 K/mcL LAB HEMETOLOGY METHOD 05/24/2024 11:38 AM [facility] LAB Neutrophils Relative 70.4 % LAB HEMETOLOGY METHOD 05/24/2024 11:38 AM [facility] LAB Lymphocytes Relative 21.6 % LAB HEMETOLOGY METHOD 05/24/2024 11:38 AM [facility] LAB Monocytes Relative 6.5 % LAB HEMETOLOGY METHOD 05/24/2024 11:38 AM [facility] LAB Eosinophils Relative 0.3 % LAB HEMETOLOGY METHOD 05/24/2024 11:38 AM [facility] LAB Basophils Relative 0.9 % LAB HEMETOLOGY METHOD 05/24/2024 11:38 AM [facility] LAB Immature Granulocytes Relative 0.3 % LAB HEMETOLOGY METHOD 05/24/2024 11:38 AM [facility] LAB Neutrophils Absolute 4.10 1.50 - 7.00 K/mcL LAB HEMETOLOGY METHOD 05/24/2024 11:38 AM [facility] LAB Lymphocytes Absolute 1.26 1.00 - 5.00 K/mcL LAB HEMETOLOGY METHOD 05/24/2024 11:38 AM [facility] LAB Monocytes Absolute 0.38 0.20 - 1.00 K/mcL LAB HEMETOLOGY METHOD 05/24/2024 11:38 AM [facility] LAB Eosinophils Absolute 0.02 0.00 - 0.50 K/mcL LAB HEMETOLOGY METHOD 05/24/2024 11:38 AM [facility] LAB Basophils Absolute 0.05 0.00 - 0.20 K/mcL LAB HEMETOLOGY METHOD 05/24/2024 11:38 AM [facility] LAB Immature Granulocytes Absolute 0.02 0.00 - 0.03 K/mcL LAB HEMETOLOGY METHOD 05/24/2024 11:38 AM [facility] LAB Blood Venous blood specimen / Unknown Venipuncture / Unknown 05/24/2024 9:08 AM EST 05/24/2024 10:32 AM EST us Steve Fitzgerald MD LAB BLOOD ORDERABLES Final Resul t [facility] LAB [address] [place] [address], * Travel phlebotomy fee (05/24/2024 9:08 AM EST) [facility] TRAVEL PHLEBOTOMY FEE Completed 05/24/2024 11:02 AM EST [facility] LAB Blood Venous blood specimen / Unknown Venipuncture / Unknown 05/24/2024 9:08 AM EST 05/24/2024 10:32 AM EST Steve Fitzgerald MD LAB BLOOD ORDERABLES Final Resul t Performing Organization Address [facility] Co de Phone Number [facility] LAB [address] [place] [address], documented in this encounter Visit Diagnoses Diagnosis 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
--- OUTSIDE RECORDS SUMMARY | 2025-06-01 17:58 | XMS_ITS | Encounter Summary ---
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 Social History Tobacco Use [...] AM EST) WBC 8.2 4.8 - 10.8 K/[facility] LAB HEMETOLOGY METHOD 08/16/2024 10:05 AM EST [facility] LAB RBC 5.00 4.50 - 5.50 M/[facility] LAB HEMETOLOGY METHOD 08/16/2024 10:05 AM [facility] LAB Hemoglobin 15.5 13.5 - 17.5 g/dL LAB HEMETOLOGY METHOD 08/16/2024 10:05 AM [facility] LAB Hematocrit 46.9 42.0 - 54.0 % LAB HEMETOLOGY METHOD 08/16/2024 10:05 AM [facility] LAB MCV 94.4 79.0 - 98.0 FL LAB HEMETOLOGY METHOD 08/16/2024 10:05 AM [facility] LAB MCH 31.2 27.0 - 32.0 pcg LAB HEMETOLOGY METHOD 08/16/2024 10:05 AM [facility] LAB MCHC 33.0 32.0 - 37.0 g/dL LAB HEMETOLOGY METHOD 08/16/2024 10:05 AM [facility] LAB RDW 13.0 11.0 - 15.0 % LAB HEMETOLOGY METHOD 08/16/2024 10:05 AM [facility] LAB Platelets 180 130 - 400 K/mcL LAB HEMETOLOGY METHOD 08/16/2024 10:05 AM [facility] LAB MPV 11.0 7.0 - 11.0 FL LAB HEMETOLOGY METHOD 08/16/2024 10:05 AM [facility] LAB NRBC 0.0 <1.0 % LAB HEMETOLOGY METHOD 08/16/2024 10:05 AM [facility] LAB NRBC Absolute 0.00 <0.10 K/mcL LAB HEMETOLOGY METHOD 08/16/2024 10:05 AM [facility] LAB Neutrophils Relative 69.6 % LAB HEMETOLOGY METHOD 08/16/2024 10:05 AM [facility] LAB Lymphocytes Relative 21.3 % LAB HEMETOLOGY METHOD 08/16/2024 10:05 AM [facility] LAB Monocytes Relative 7.1 % LAB HEMETOLOGY METHOD 08/16/2024 10:05 AM [facility] LAB Eosinophils Relative 1.3 % LAB HEMETOLOGY METHOD 08/16/2024 10:05 AM [facility] LAB Basophils Relative 0.5 % LAB HEMETOLOGY METHOD 08/16/2024 10:05 AM [facility] LAB Immature Granulocytes Relative 0.2 % LAB HEMETOLOGY METHOD 08/16/2024 10:05 AM [facility] LAB Neutrophils Absolute 5.72 1.50 - 7.00 K/mcL LAB HEMETOLOGY METHOD 08/16/2024 10:05 AM [facility] LAB Lymphocytes Absolute 1.75 1.00 - 5.00 K/mcL LAB HEMETOLOGY METHOD 08/16/2024 10:05 AM [facility] LAB Monocytes Absolute 0.58 0.20 - 1.00 K/mcL LAB HEMETOLOGY METHOD 08/16/2024 10:05 AM EST [facility] LAB Eosinophils Absolute 0.11 0.00 - 0.50 K/mcL LAB HEMETOLOGY METHOD 08/16/2024 10:05 AM [facility] LAB Basophils Absolute 0.04 0.00 - 0.20 K/mcL LAB HEMETOLOGY METHOD 08/16/2024 10:05 AM [facility] LAB Immature Granulocytes Absolute 0.02 0.00 - 0.03 K/mcL LAB HEMETOLOGY METHOD 08/16/2024 10:05 AM [facility] LAB Blood Venous blood specimen / Unknown Venipuncture / Unknown 08/16/2024 6:30 AM EST 08/16/2024 8:35 AM EST us Steve Fitzgerald MD LAB BLOOD ORDERABLES Final Resul t [facility] [address] [place] [address], documented in this encounter Visit Diagnoses Diagnosis Other halfway (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 documented in this encounter Care Teams Agile Scrum Master Relationship Specialty Start Date End Date Keven Kirkland MD [address] [place] [address] PCP - General Internal Medicine 11/28/16 documented as of this encounter
--- OUTSIDE RECORDS SUMMARY | 2025-06-01 17:58 | XMS_ITS | Clinical Summary ---
Author Organization [address] 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 from Last 3 Months Social History Tobacco Use Types Packs/Day Years Used Date Smoking Tobacco: Never Assessed Sex and Gender Information Value Date Recorded Sex Assigned at Not on file Legal Sex Male 10:48 AM EST Gender Identity Not on file Sexual Orientation Not on file Plan of Treatment Health Maintenance Due Date Last Done Comments Colorectal Cancer Screening: Colonoscopy 1954 DTaP,Tdap,and Td Vaccines (1 - Tdap) 1973 Pneumococcal Vaccine: 50+ Ye ars (1 of 1 - PCV) 2004 Zoster Vaccines (1 of 2) 2004 Abdominal Aortic Aneurysm (A AA) Screen 06/23/2022 Cholesterol Screening (Lipid Panel) 06/23/2022 Falls Risk Assessment 06/23/2022 Hepatitis C Screening 06/23/2022 Medicare Annual Wellness Visit 06/23/2022 Social Influencers of Health Screening 06/23/2022 Depression Screening 07/20/2024 COVID-19 Vaccine ( - 2024-2 6 season) 2025 Influenza Vaccine (#1) 2025 RSV Immunization Adult Patie nts (1 - 1-dose 75+ series) 2029 HIB [...] age to complete this topic Meningococcal B Vaccine Aged Out No l onger eligible based on patient's age to complete this topic RSV Immunization Patients Un ramón 20 months Aged Out No longer eligible b ased on patient's age to complete this topic Varicella Vaccines Aged Out No longer eligible based on patient's age to complete this topic Procedures Procedure Name Priority Date/Time Associated Diagnosis Comments CBC WITH AUTO DIFFERENTIAL Routine 05/23/2025 7:10 AM EST Other detention (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 CBC AND DIFFERENTIAL Routine 05/23/2025 7:10 AM EST 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 WBC 5.5 4.8 - 10.8 K/[facility] LAB HEMETOLOGY METHOD 05/23/2025 1:30 PM EST [facility] LAB RBC 4.90 4.50 - 5.50 M/[facility] LAB HEMETOLOGY METHOD 05/23/2025 1:30 PM [facility] LAB Hemoglobin 15.1 13.5 - 17.5 g/dL LAB HEMETOLOGY METHOD 05/23/2025 1:30 PM [facility] LAB Hematocrit 46.2 42.0 - 54.0 % LAB HEMETOLOGY METHOD 05/23/2025 1:30 PM [facility] LAB MCV 94.3 79.0 - 98.0 FL LAB HEMETOLOGY METHOD 05/23/2025 1:30 PM [facility] LAB MCH 30.8 27.0 - 32.0 pcg LAB HEMETOLOGY METHOD 05/23/2025 1:30 PM [facility] LAB MCHC 32.7 32.0 - 37.0 g/dL LAB HEMETOLOGY METHOD 05/23/2025 1:30 PM [facility] LAB RDW 13.0 11.0 - 15.0 % LAB HEMETOLOGY METHOD 05/23/2025 1:30 PM [facility] LAB Platelets 182 130 - 400 K/[facility] LAB HEMETOLOGY METHOD 05/23/2025 1:30 PM [facility] LAB MPV 11.0 7.0 - 11.0 FL LAB HEMETOLOGY METHOD 05/23/2025 1:30 PM [facility] LAB NRBC 0.0 <1.0 % LAB HEMETOLOGY METHOD 05/23/2025 1:30 PM [facility] LAB NRBC Absolute 0.00 <0.10 K/[facility] LAB HEMETOLOGY METHOD 05/23/2025 1:30 PM [facility] LAB Neutrophils Relative 61.1 % LAB HEMETOLOGY METHOD 05/23/2025 1:30 PM [facility] LAB Lymphocytes Relative 29.4 % LAB HEMETOLOGY METHOD 05/23/2025 1:30 PM [facility] LAB Monocytes Relative 7.5 % LAB HEMETOLOGY METHOD 05/23/2025 1:[address] [facility] LAB Eosinophils Relative 1.1 % LAB HEMETOLOGY METHOD 05/23/2025 1:30 PM [facility] LAB Basophils Relative 0.5 % LAB HEMETOLOGY METHOD 05/23/2025 1:30 PM [facility] LAB Immature Granulocytes Relative 0.4 % LAB HEMETOLOGY METHOD 05/23/2025 1:[address] [facility] LAB Neutrophils Absolute 3.34 1.50 - 7.00 K/mcL LAB HEMETOLOGY METHOD 05/23/2025 1:[address] [facility] LAB Lymphocytes Absolute 1.61 1.00 - 5.00 K/mcL LAB HEMETOLOGY METHOD 05/23/2025 1:30 PM [facility] LAB Monocytes Absolute 0.41 0.20 - 1.00 K/mcL LAB HEMETOLOGY METHOD 05/23/2025 1:[address] [facility] LAB Eosinophils Absolute 0.06 0.00 - 0.50 K/mcL LAB HEMETOLOGY METHOD 05/23/2025 1:30 PM [facility] LAB Basophils Absolute 0.03 0.00 - 0.20 K/mcL LAB HEMETOLOGY METHOD 05/23/2025 1:30 PM [facility] LAB Immature Granulocytes Absolute 0.02 0.00 - 0.03 K/mcL LAB HEMETOLOGY METHOD 05/23/2025 1:30 PM [facility] LAB Blood Venous blood specimen / Unknown Venipuncture / Unknown 05/23/2025 7:10 AM EST 05/23/2025 10:02 AM EST us Laura Tello NP LAB BLOOD ORDERABLES Final R esult [facility] [address] [place] [address], from Last 3 Months Insurance MEDICARE MEDICAID - [place] Care Teams Referral Manager Relationship Specialty Start Date End Date Keven Kirkland MD [address] [place] [address] PCP - General Internal Medicine 11/28/16
--- OUTSIDE RECORDS SUMMARY | 2025-06-01 17:58 | XMS_ITS | Encounter Summary ---
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 CBC AND DIFFERENTIAL Routine 05/23/2025 7:10 AM EST 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 manager (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 documented in this encounter Results * CBC auto differential (05/23/2025 7:10 AM EST) WBC 5.5 4.8 - 10.8 K/[facility] LAB HEMETOLOGY METHOD 05/23/2025 1:30 PM EST [facility] LAB RBC 4.90 4.50 - 5.50 M/mcL LAB HEMETOLOGY METHOD 05/23/2025 1:30 PM [facility] LAB Hemoglobin 15.1 13.5 - 17.5 g/dL LAB HEMETOLOGY METHOD 05/23/2025 1:30 PM [facility] LAB Hematocrit 46.2 42.0 - 54.0 % LAB HEMETOLOGY METHOD 05/23/2025 1:30 PM [facility] LAB MCV 94.3 79.0 - 98.0 FL LAB HEMETOLOGY METHOD 05/23/2025 1:30 PM [facility] LAB MCH 30.8 27.0 - 32.0 pcg LAB HEMETOLOGY METHOD 05/23/2025 1:30 PM [facility] LAB MCHC 32.7 32.0 - 37.0 g/dL LAB HEMETOLOGY METHOD 05/23/2025 1:30 PM [facility] LAB RDW 13.0 11.0 - 15.0 % LAB HEMETOLOGY METHOD 05/23/2025 1:30 PM [facility] LAB Platelets 182 130 - 400 K/mcL LAB HEMETOLOGY METHOD 05/23/2025 1:30 PM [facility] LAB MPV 11.0 7.0 - 11.0 FL LAB HEMETOLOGY METHOD 05/23/2025 1:30 PM [facility] LAB NRBC 0.0 <1.0 % LAB HEMETOLOGY METHOD 05/23/2025 1:30 PM [facility] LAB NRBC Absolute 0.00 <0.10 K/mcL LAB HEMETOLOGY METHOD 05/23/2025 1:30 PM [facility] LAB Neutrophils Relative 61.1 % LAB HEMETOLOGY METHOD 05/23/2025 1:30 PM [facility] LAB Lymphocytes Relative 29.4 % LAB HEMETOLOGY METHOD 05/23/2025 1:30 PM [facility] LAB Monocytes Relative 7.5 % LAB HEMETOLOGY METHOD 05/23/2025 1:30 PM EST [facility] LAB Eosinophils Relative 1.1 % LAB HEMETOLOGY METHOD 05/23/2025 1:30 PM [facility] LAB Basophils Relative 0.5 % LAB HEMETOLOGY METHOD 05/23/2025 1:30 PM [facility] LAB Immature Granulocytes Relative 0.4 % LAB HEMETOLOGY METHOD 05/23/2025 1:30 PM EST [facility] LAB Neutrophils Absolute 3.34 1.50 - 7.00 K/mcL LAB HEMETOLOGY METHOD 05/23/2025 1:30 PM [facility] LAB Lymphocytes Absolute 1.61 1.00 - 5.00 K/mcL LAB HEMETOLOGY METHOD 05/23/2025 1:30 PM [facility] LAB Monocytes Absolute 0.41 0.20 - 1.00 K/mcL LAB HEMETOLOGY METHOD 05/23/2025 1:30 PM EST [facility] LAB Eosinophils Absolute 0.06 0.00 - 0.50 K/mcL LAB HEMETOLOGY METHOD 05/23/2025 1:30 PM EST [facility] LAB Basophils Absolute 0.03 0.00 - 0.20 K/mcL LAB HEMETOLOGY METHOD 05/23/2025 1:30 PM [facility] LAB Immature Granulocytes Absolute 0.02 0.00 - 0.03 K/mcL LAB HEMETOLOGY METHOD 05/23/2025 1:30 PM [facility] LAB Blood Venous blood specimen / Unknown Venipuncture / Unknown 05/23/2025 7:10 AM EST 05/23/2025 10:02 AM EST us Laura Tello NP LAB BLOOD ORDERABLES Final R esult [facility] LAB [address] [place], [place] [address] [phone] documented in this encounter Visit Diagnoses Diagnosis Other fci (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 documented in this encounter Care Teams University Professor Relationship Specialty Start Date End Date Keven Kirkland MD [address] [place] [address] [address] [place] [address] PCP - General Internal Medicine 11/28/16 documented as of this encounter
--- OUTSIDE RECORDS SUMMARY | 2025-06-01 17:58 | XMS_ITS | Encounter Summary ---
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 LAB RBC 5.10 4.50 - 5.50 M/mcL LAB HEMETOLOGY METHOD 11/08/2024 8:37 AM [facility] LAB Hemoglobin 15.9 13.5 - 17.5 g/dL LAB HEMETOLOGY METHOD 11/08/2024 8:37 AM [facility] LAB Hematocrit 47.6 42.0 - 54.0 % LAB HEMETOLOGY METHOD 11/08/2024 8:37 AM [facility] LAB MCV 93.5 79.0 - 98.0 FL LAB HEMETOLOGY METHOD 11/08/2024 8:37 AM [facility] LAB MCH 31.2 27.0 - 32.0 pcg LAB HEMETOLOGY METHOD 11/08/2024 8:37 AM [facility] LAB MCHC 33.4 32.0 - 37.0 g/dL LAB HEMETOLOGY METHOD 11/08/2024 8:37 AM [facility] LAB RDW 12.5 11.0 - 15.0 % LAB HEMETOLOGY METHOD 11/08/2024 8:37 AM [facility] LAB Platelets 201 130 - 400 K/mcL LAB HEMETOLOGY METHOD 11/08/2024 8:37 AM [facility] LAB MPV 11.2(H) 7.0 - 11.0 FL LAB HEMETOLOGY METHOD 11/08/2024 8:37 AM [facility] LAB NRBC 0.0 <1.0 % LAB HEMETOLOGY METHOD 11/08/2024 8:37 AM [facility] LAB NRBC Absolute 0.00 <0.10 K/mcL LAB HEMETOLOGY METHOD 11/08/2024 8:37 AM [facility] LAB Neutrophils Relative 64.7 % LAB HEMETOLOGY METHOD 11/08/2024 8:37 AM [facility] LAB Lymphocytes Relative 25.3 % LAB HEMETOLOGY METHOD 11/08/2024 8:37 AM EDT [facility] LAB Monocytes Relative 8.1 % LAB HEMETOLOGY METHOD 11/08/2024 8:37 AM EDT [facility] LAB Eosinophils Relative 1.1 % LAB HEMETOLOGY METHOD 11/08/2024 8:37 AM EDT [facility] LAB Basophils Relative 0.5 % LAB HEMETOLOGY METHOD 11/08/2024 8:37 AM EDT [facility] LAB Immature Granulocytes Relative 0.3 % LAB HEMETOLOGY METHOD 11/08/2024 8:37 AM EDT [facility] LAB Neutrophils Absolute 4.90 1.50 - 7.00 K/mcL LAB HEMETOLOGY METHOD 11/08/2024 8:37 AM EDT [facility] LAB Lymphocytes Absolute 1.91 1.00 - 5.00 K/mcL LAB HEMETOLOGY METHOD 11/08/2024 8:37 AM EDT [facility] LAB Monocytes Absolute 0.61 0.20 - 1.00 K/mcL LAB HEMETOLOGY METHOD 11/08/2024 8:37 AM EDT [facility] LAB Eosinophils Absolute 0.08 0.00 - 0.50 K/mcL LAB [facility]EMETOLOGY METHOD [facility] Basophils Absolute 0.04 0.00 - 0.20 K/mcL LAB HEMETOLOGY METHOD 11/08/2024 8:37 AM EDT [facility] LAB Immature Granulocytes Absolute 0.02 0.00 - 0.03 K/mcL LAB HEMETOLOGY METHOD 11/08/2024 8:37 AM EDT [facility] LAB Blood Venous blood specimen / Unknown Venipuncture / Unknown 11/08/2024 6:10 AM EDT 11/08/2024 7:39 AM EDT us Steve Fitzgerald MD LAB BLOOD ORDERABLES Final Resul t [facility] [place] ([facility]) HOSPITAL LAB [address] [place] [address], documented in this encounter Visit Diagnoses Diagnosis Other skilled nursing (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 documented in this encounter Care Teams Gate Watchman Relationship Specialty Start Date End Date Keven Kirkland MD [address] [place] [address] PCP - General Internal Medicine 11/28/16 documented as of this encounter
--- OUTSIDE RECORDS SUMMARY | 2025-06-01 17:58 | XMS_ITS | Encounter Summary ---
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 LAB Hemoglobin 15.0 13.5 - 17.5 g/dL LAB HEMETOLOGY METHOD 09/13/2024 10:[address] [facility] LAB Hematocrit 45.6 42.0 - 54.0 % LAB HEMETOLOGY METHOD 09/13/2024 10:[address] [facility] LAB MCV 92.1 79.0 - 98.0 FL LAB HEMETOLOGY METHOD 09/13/2024 10:[address] [facility] LAB MCH 30.3 27.0 - 32.0 pcg LAB HEMETOLOGY METHOD 09/13/2024 10:[address] [facility] LAB MCHC 32.9 32.0 - 37.0 g/dL LAB HEMETOLOGY METHOD 09/13/2024 10:[address] [facility] LAB RDW 12.8 11.0 - 15.0 % LAB HEMETOLOGY METHOD 09/13/2024 10:[address] [facility] LAB Platelets 191 130 - 400 K/mcL LAB HEMETOLOGY METHOD 09/13/2024 10:[address] [facility] LAB MPV 10.8 7.0 - 11.0 FL LAB HEMETOLOGY METHOD 09/13/2024 10:[address] [facility] LAB NRBC 0.0 <1.0 % LAB HEMETOLOGY METHOD 09/13/2024 10:[address] [facility] LAB NRBC Absolute 0.00 <0.10 K/mcL LAB HEMETOLOGY METHOD 09/13/2024 10:[address] [facility] LAB Neutrophils Relative 66.3 % LAB HEMETOLOGY METHOD 09/13/2024 10:[address] [facility] LAB Lymphocytes Relative 24.6 % LAB HEMETOLOGY METHOD 09/13/2024 10:[address] [facility] LAB Monocytes Relative 6.6 % LAB HEMETOLOGY METHOD 09/13/2024 10:[address] [facility] LAB Eosinophils Relative 1.4 % LAB HEMETOLOGY METHOD 09/13/2024 10:[address] [facility] LAB Basophils Relative 0.8 % LAB HEMETOLOGY METHOD 09/13/2024 10:[address] [facility] LAB Immature Granulocytes Relative 0.3 % LAB HEMETOLOGY METHOD 09/13/2024 10:[address] [facility] LAB Neutrophils Absolute 4.24 1.50 - 7.00 K/mcL LAB HEMETOLOGY METHOD 09/13/2024 10:[address] [facility] LAB Lymphocytes Absolute 1.57 1.00 - 5.00 K/mcL LAB HEMETOLOGY METHOD 09/13/2024 10:[address] [facility] LAB Monocytes Absolute 0.42 0.20 - 1.00 K/mcL LAB HEMETOLOGY METHOD 09/13/2024 10:27 AM EST [facility] LAB Eosinophils Absolute 0.09 0.00 - 0.50 K/mcL LAB HEMETOLOGY METHOD 09/13/2024 10:[address] [facility] LAB Basophils Absolute 0.05 0.00 - 0.20 K/mcL LAB HEMETOLOGY METHOD 09/13/2024 10:[address] [facility] LAB Immature Granulocytes Absolute 0.02 0.00 - 0.03 K/mcL LAB HEMETOLOGY METHOD 09/13/2024 10:[address] [facility] LAB Blood Venous blood specimen / Unknown Venipuncture / Unknown 09/13/2024 6:46 AM EST 09/13/2024 10:15 AM EST us Steve Fitzgerald MD LAB BLOOD ORDERABLES Final Resul t [facility] LAB [address] [place] [address], documented in this encounter Visit Diagnoses Diagnosis Other shelter (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 documented in this encounter Care Teams Apparel Merchandiser Relationship Specialty Start Date End Date Keven Kirkland MD [address] [place] [address] PCP - General Internal Medicine 11/28/16 documented as of this encounter
--- OUTSIDE RECORDS SUMMARY | 2025-06-01 17:58 | XMS_ITS | Encounter Summary ---
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 LAB HEMETOLOGY METHOD 10/11/2024 12:40 PM EDT [facility] LAB RBC 4.90 4.50 - 5.50 M/[facility] LAB HEMETOLOGY METHOD 10/11/2024 12:40 PM EDT [facility] LAB Hemoglobin 15.2 13.5 - 17.5 g/dL LAB HEMETOLOGY METHOD 10/11/2024 12:40 PM EDT [facility] LAB Hematocrit 45.8 42.0 - 54.0 % LAB HEMETOLOGY METHOD 10/11/2024 12:40 PM EDT [facility] LAB MCV 93.5 79.0 - 98.0 FL LAB HEMETOLOGY METHOD 10/11/2024 12:40 PM EDT [facility] LAB MCH 31.0 27.0 - 32.0 pcg LAB HEMETOLOGY METHOD [facility] MCHC 33.2 32.0 - 37.0 g/dL LAB HEMETOLOGY METHOD 10/11/2024 12:40 PM EDT [facility] LAB RDW 12.7 11.0 - 15.0 % LAB HEMETOLOGY METHOD 10/11/2024 12:40 PM EDT [facility] LAB Platelets 184 130 - 400 K/mcL LAB HEMETOLOGY METHOD 10/11[facility]2024 12[facility] MPV 11.0 7.0 - 11.0 FL LAB HEMETOLOGY METHOD 10/11/2024 12[facility] NRBC 0.0 <1.0 % LAB HEMETOLOGY METHOD 10/11/2024 12:40 PM EDT [facility] LAB NRBC Absolute 0.00 <0.10 K/mcL LAB HEMETOLOGY METHOD 10/11/2024 12:[facility] Neutrophils Relative 66.5 % LAB HEMETOLOGY METHOD 10/11/2024 12:[facility] Lymphocytes Relative 23.7 % LAB HEMETOLOGY METHOD 10/11/2024 12:40 PM EDT [facility] LAB Monocytes Relative 8.6 % LAB HEMETOLOGY METHOD 10/11/2024 12:40 PM EDT [facility] LAB Eosinophils Relative 0.7 % LAB HEMETOLOGY METHOD 10/11/2024 12:40 PM EDT [facility] LAB Basophils Relative 0.4 % LAB HEMETOLOGY METHOD 10/11/2024 12:40 PM EDT [facility] LAB Immature Granulocytes Relative 0.1 % LAB HEMETOLOGY METHOD 10/11/2024 12:40 PM EDT [facility] LAB Neutrophils Absolute 4.73 1.50 - 7.00 K/mcL LAB HEMETOLOGY METHOD 10/11/2024 12:40 PM [facility] LAB Lymphocytes Absolute 1.69 1.00 - 5.00 K/mcL LAB HEMETOLOGY METHOD 10/11/2024 12:40 PM EDT [facility] LAB Monocytes Absolute 0.61 0.20 - 1.00 K/mcL LAB HEMETOLOGY METHOD 10/11/2024 12:40 PM EDT [facility] LAB Eosinophils Absolute 0.05 0.00 - 0.50 K/mcL LAB HEMETOLOGY METHOD 10/11/2024 12[facility] Basophils Absolute 0.03 0.00 - 0.20 K/mcL LAB HEMETOLOGY METHOD 10/11/2024 12:40 PM EDT [facility] LAB Immature Granulocytes Absolute 0.01 0.00 - 0.03 K/mcL LAB HEMETOLOGY METHOD 10/11/2024 12:40 PM EDT [facility] LAB Blood Venous blood specimen / Unknown Venipuncture / Unknown 10/11/2024 11:02 AM EDT 10/11/2024 12:14 PM EDT us Steve Fitzgerald MD LAB BLOOD ORDERABLES Final Resul t [facility]) HOSPITAL LAB [address] [place] [address], documented in this encounter Visit Diagnoses Diagnosis Other detention (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 documented in this encounter Care Teams Copier Repair Technician Relationship Specialty Start Date End Date Keven Kirkland MD [address] [place] [address] Drive [address] [place] [address] PCP - General Internal Medicine 11/28/16 documented as of this encounter
--- OUTSIDE RECORDS SUMMARY | 2025-06-01 17:58 | XMS_ITS | Encounter Summary ---
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 LAB Hemoglobin 14.5 13.5 - 17.5 g/dL LAB HEMETOLOGY METHOD 01/03/2025 10:[address] [facility] LAB Hematocrit 43.6 42.0 - 54.0 % LAB HEMETOLOGY METHOD 01/03/2025 10:[address] [facility] LAB MCV 92.4 79.0 - 98.0 FL LAB HEMETOLOGY METHOD 01/03/2025 10:[address] [facility] LAB MCH 30.7 27.0 - 32.0 pcg LAB HEMETOLOGY METHOD 01/03/2025 10:[address] [facility] LAB MCHC 33.3 32.0 - 37.0 g/dL LAB HEMETOLOGY METHOD 01/03/2025 10:[address] [facility] LAB RDW 12.7 11.0 - 15.0 % LAB HEMETOLOGY METHOD 01/03/2025 10:[address] [facility] LAB Platelets 168 130 - 400 K/mcL LAB HEMETOLOGY METHOD 01/03/2025 10:[address] [facility] LAB MPV 11.2(H) 7.0 - 11.0 FL LAB HEMETOLOGY METHOD 01/03/2025 10:[address] [facility] LAB NRBC 0.0 <1.0 % LAB HEMETOLOGY METHOD 01/03/2025 10:[address] [facility] LAB NRBC Absolute 0.00 <0.10 K/mcL LAB HEMETOLOGY METHOD 01/03/2025 10:[address] [facility] LAB Neutrophils Relative 75.5 % LAB HEMETOLOGY METHOD 01/03/2025 10:[address] [facility] LAB Lymphocytes Relative 15.2 % LAB HEMETOLOGY METHOD 01/03/2025 10:48 AM EDT [facility] LAB Monocytes Relative 7.1 % LAB HEMETOLOGY METHOD 01/03/2025 10:48 AM EDT [facility] LAB Eosinophils Relative 1.3 % LAB HEMETOLOGY METHOD 01/03/2025 10:48 AM EDT [facility] LAB Basophils Relative 0.5 % LAB HEMETOLOGY METHOD 01/03/2025 10:48 AM EDT [facility] LAB Immature Granulocytes Relative 0.4 % LAB HEMETOLOGY METHOD 01/03/2025 10:48 AM EDT [facility] LAB Neutrophils Absolute 6.39 1.50 - 7.00 K/mcL LAB HEMETOLOGY METHOD 01/03/2025 10:48 AM EDT [facility] LAB Lymphocytes Absolute 1.29 1.00 - 5.00 K/mcL LAB HEMETOLOGY METHOD 01/03/2025 10:48 AM EDT [facility] LAB Monocytes Absolute 0.60 0.20 - 1.00 K/mcL LAB HEMETOLOGY METHOD 01/03/2025 10:48 AM EDT [facility] LAB Eosinophils Absolute 0.11 0.00 - 0.50 K/mcL LAB HEMETOLOGY METHOD [facility] Basophils Absolute 0.04 0.00 - 0.20 K/mcL LAB HEMETOLOGY METHOD 01/03/2025 10:48 AM EDT [facility] LAB Immature Granulocytes Absolute 0.03 0.00 - 0.03 K/mcL LAB HEMETOLOGY METHOD 01/03/2025 10:48 AM EDT [facility] LAB Blood Venous blood specimen / Unknown Venipuncture / Unknown 01/03/2025 8:32 AM EDT 01/03/2025 9:32 AM EDT us Steve Fitzgerald MD LAB BLOOD ORDERABLES Final Resul t [facility] [place] ([facility] HOSPITAL LAB [address] [place] [address], documented in this encounter Visit Diagnoses Diagnosis Other detention (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 documented in this encounter Care Teams Customer Support Assistant Relationship Specialty Start Date End Date Keven Kirkland MD [address] [place] [address] PCP - General Internal Medicine 11/28/16 documented as of this encounter
== END 2025-06-01 15:24 | disposition home or self-care (01) ==
LOC: HO.HMCH 14:33
PROVIDERS: PCP Internal Medicine; Visit Provider Internal Medicine
DX: F17.210 Nicotine dependence, cigarettes, uncomplicated (principal); K21.9 Gastro-esophageal reflux disease without esophagitis; E78.5 Hyperlipidemia, unspecified; F20.0 Paranoid schizophrenia; Z23 Encounter for immunization

== ENCOUNTER → 2025-06-01 14:32 | Outpatient (BNVA) | payer MEDICARE, SELFPAY | PROVIDERS: PCP Internal Medicine; Visit Provider Internal Medicine | DX: K21.9 Gastro-esophageal reflux disease without esophagitis (principal); E78.5 Hyperlipidemia, unspecified; F20.0 Paranoid schizophrenia; F17.210 Nicotine dependence, cigarettes, uncomplicated; R73.03 Prediabetes; Z23 Encounter for immunization | CPT/HCPCS: 90471; 90656; 96127; 99212 ==

== ENCOUNTER 2025-06-02 07:19 | Outpatient (REF) | payer MEDICARE, SELFPAY ==
--- OUTSIDE RECORDS SUMMARY | 2025-06-02 07:23 | XMS_ITS | Encounter Summary ---
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 Social History Tobacco Use [...] DIFFERENTIAL Routine 09/13/2024 6:46 AM EST [place] [facility] 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 CBC AND DIFFERENTIAL Routine 09/13/2024 6:46 AM EST Other [place] [facility] (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 documented in this encounter Results * CBC auto differential (09/13/2024 6:46 AM EST) WBC 6.4 4.8 - 10.8 K/[facility] LAB HEMETOLOGY METHOD 09/13/2024 10:27 AM EST [facility] LAB RBC 5.00 4.50 - 5.50 M/[facility] LAB HEMETOLOGY METHOD 09/13/2024 10:27 AM [facility] LAB Hemoglobin 15.0 13.5 - 17.5 g/dL LAB HEMETOLOGY METHOD 09/13/2024 10:27 AM [facility] LAB Hematocrit 45.6 42.0 - 54.0 % LAB HEMETOLOGY METHOD 09/13/2024 10:27 AM [facility] LAB MCV 92.1 79.0 - 98.0 FL LAB HEMETOLOGY METHOD 09/13/2024 10:27 AM [facility] LAB MCH 30.3 27.0 - 32.0 pcg LAB HEMETOLOGY METHOD 09/13/2024 10:27 AM [facility] LAB MCHC 32.9 32.0 - 37.0 g/dL LAB HEMETOLOGY METHOD 09/13/2024 10:27 AM [facility] LAB RDW 12.8 11.0 - 15.0 % LAB HEMETOLOGY METHOD 09/13/2024 10:27 AM [facility] LAB Platelets 191 130 - 400 K/mcL LAB HEMETOLOGY METHOD 09/13/2024 10:27 AM [facility] LAB MPV 10.8 7.0 - 11.0 FL LAB HEMETOLOGY METHOD 09/13/2024 10:27 AM [facility] LAB NRBC 0.0 <1.0 % LAB HEMETOLOGY METHOD 09/13/2024 10:27 AM [facility] LAB NRBC Absolute 0.00 <0.10 K/mcL LAB HEMETOLOGY METHOD 09/13/2024 10:27 AM [facility] LAB Neutrophils Relative 66.3 % LAB HEMETOLOGY METHOD 09/13/2024 10:27 AM [facility] LAB Lymphocytes Relative 24.6 % LAB HEMETOLOGY METHOD 09/13/2024 10:27 AM [facility] LAB Monocytes Relative 6.6 % LAB HEMETOLOGY METHOD 09/13/2024 10:27 AM [facility] LAB Eosinophils Relative 1.4 % LAB HEMETOLOGY METHOD 09/13/2024 10:27 AM [facility] LAB Basophils Relative 0.8 % LAB HEMETOLOGY METHOD 09/13/2024 10:27 AM [facility] LAB Immature Granulocytes Relative 0.3 % LAB HEMETOLOGY METHOD 09/13/2024 10:27 AM [facility] LAB Neutrophils Absolute 4.24 1.50 - 7.00 K/mcL LAB HEMETOLOGY METHOD 09/13/2024 10:27 AM [facility] LAB Lymphocytes Absolute 1.57 1.00 - 5.00 K/mcL LAB HEMETOLOGY METHOD 09/13/2024 10:27 AM [facility] LAB Monocytes Absolute 0.42 0.20 - 1.00 K/mcL LAB HEMETOLOGY METHOD 09/13/2024 10:27 AM EST [facility] LAB Eosinophils Absolute 0.09 0.00 - 0.50 K/mcL LAB HEMETOLOGY METHOD 09/13/2024 10:27 AM [facility] LAB Basophils Absolute 0.05 0.00 - 0.20 K/mcL LAB HEMETOLOGY METHOD 09/13/2024 10:27 AM [facility] LAB Immature Granulocytes Absolute 0.02 0.00 - 0.03 K/mcL LAB HEMETOLOGY METHOD 09/13/2024 10:27 AM [facility] LAB Blood Venous blood specimen / Unknown Venipuncture / Unknown 09/13/2024 6:46 AM EST 09/13/2024 10:15 AM EST us Steve Fitzgerald MD LAB BLOOD ORDERABLES Final Resul t [facility] LAB [address] [place] [address], documented in this encounter Visit Diagnoses Diagnosis Other [place] [facility] (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 documented in this encounter Care Teams Reed Polisher Relationship Specialty Start Date End Date Keven Kirkland MD [address] [place] [address] PCP - General Internal Medicine 11/28/16 documented as of this encounter
--- OUTSIDE RECORDS SUMMARY | 2025-06-02 07:23 | XMS_ITS | Encounter Summary ---
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 LAB HEMETOLOGY METHOD 07/19/2024 12:18 PM EST [facility] LAB RBC 4.80 4.50 - 5.50 /[facility] LAB HEMETOLOGY METHOD 07/19/2024 12:18 PM [facility] LAB Hemoglobin 14.8 13.5 - 17.5 g/dL LAB HEMETOLOGY METHOD 07/19/2024 12:18 PM [facility] LAB Hematocrit 45.0 42.0 - 54.0 % LAB HEMETOLOGY METHOD 07/19/2024 12:18 PM [facility] LAB MCV 93.2 79.0 - 98.0 FL LAB HEMETOLOGY METHOD 07/19/2024 12:18 PM [facility] LAB MCH 30.6 27.0 - 32.0 pcg LAB HEMETOLOGY METHOD 07/19/2024 12:18 PM [facility] LAB MCHC 32.9 32.0 - 37.0 g/dL LAB HEMETOLOGY METHOD 07/19/2024 12:18 PM [facility] LAB RDW 12.7 11.0 - 15.0 % LAB HEMETOLOGY METHOD 07/19/2024 12:18 PM [facility] LAB Platelets 155 130 - 400 K/mcL LAB HEMETOLOGY METHOD 07/19/2024 12:18 PM [facility] LAB MPV 11.1(H) 7.0 - 11.0 FL LAB HEMETOLOGY METHOD 07/19/2024 12:18 PM [facility] LAB NRBC 0.0 <1.0 % LAB HEMETOLOGY METHOD 07/19/2024 12:18 PM [facility] LAB NRBC Absolute 0.00 <0.10 K/mcL LAB HEMETOLOGY METHOD 07/19/2024 12:18 PM [facility] LAB Neutrophils Relative 65.6 % LAB HEMETOLOGY METHOD 07/19/2024 12:18 PM [facility] LAB Lymphocytes Relative 25.4 % LAB HEMETOLOGY METHOD 07/19/2024 12:18 PM [facility] LAB Monocytes Relative 6.9 % LAB HEMETOLOGY METHOD 07/19/2024 12:18 PM EST [facility] LAB Eosinophils Relative 1.4 % LAB HEMETOLOGY METHOD 07/19/2024 12:18 PM [facility] LAB Basophils Relative 0.5 % LAB HEMETOLOGY METHOD 07/19/2024 12:18 PM [facility] LAB Immature Granulocytes Relative 0.2 % LAB HEMETOLOGY METHOD 07/19/2024 12:18 PM EST [facility] LAB Neutrophils Absolute 3.68 1.50 - 7.00 K/mcL LAB HEMETOLOGY METHOD 07/19/2024 12:18 PM [facility] LAB Lymphocytes Absolute 1.43 1.00 - 5.00 K/mcL LAB HEMETOLOGY METHOD 07/19/2024 12:18 PM [facility] LAB Monocytes Absolute 0.39 0.20 - 1.00 K/mcL LAB HEMETOLOGY METHOD 07/19/2024 12:18 PM EST [facility] LAB Eosinophils Absolute 0.08 0.00 - 0.50 K/mcL LAB HEMETOLOGY METHOD 07/19/2024 12:18 PM EST [facility] LAB Basophils Absolute 0.03 0.00 - 0.20 K/mcL LAB HEMETOLOGY METHOD 07/19/2024 12:18 PM [facility] LAB Immature Granulocytes Absolute 0.01 0.00 - 0.03 K/mcL LAB HEMETOLOGY METHOD 07/19/2024 12:18 PM EST [facility] LAB Blood Venous blood specimen / Unknown Venipuncture / Unknown 07/19/2024 7:29 AM EST 07/19/2024 11:33 AM EST us Steve Fitzgerald MD LAB BLOOD ORDERABLES Final Resul t [facility] LAB [address] [place], [place] [address] [phone] documented in this encounter Visit Diagnoses Diagnosis 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
--- OUTSIDE RECORDS SUMMARY | 2025-06-02 07:23 | XMS_ITS | Clinical Summary ---
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 WBC 5.5 4.8 - 10.8 K/[facility] LAB HEMETOLOGY METHOD 05/23/2025 1:30 PM EST [facility] LAB RBC 4.90 4.50 - 5.50 M/[facility] LAB HEMETOLOGY METHOD 05/23/2025 1:30 PM [facility] LAB Hemoglobin 15.1 13.5 - 17.5 g/dL LAB HEMETOLOGY METHOD 05/23/2025 1:30 PM [facility] LAB Hematocrit 46.2 42.0 - 54.0 % LAB HEMETOLOGY METHOD 05/23/2025 1:30 PM [facility] LAB MCV 94.3 79.0 - 98.0 FL LAB HEMETOLOGY METHOD 05/23/2025 1:30 PM [facility] LAB MCH 30.8 27.0 - 32.0 pcg LAB HEMETOLOGY METHOD 05/23/2025 1:30 PM [facility] LAB MCHC 32.7 32.0 - 37.0 g/dL LAB HEMETOLOGY METHOD 05/23/2025 1:30 PM [facility] LAB RDW 13.0 11.0 - 15.0 % LAB HEMETOLOGY METHOD 05/23/2025 1:30 PM [facility] LAB Platelets 182 130 - 400 K/[facility] LAB HEMETOLOGY METHOD 05/23/2025 1:30 PM [facility] LAB MPV 11.0 7.0 - 11.0 FL LAB HEMETOLOGY METHOD 05/23/2025 1:30 PM [facility] LAB NRBC 0.0 <1.0 % LAB HEMETOLOGY METHOD 05/23/2025 1:30 PM [facility] LAB NRBC Absolute 0.00 <0.10 K/[facility] LAB HEMETOLOGY METHOD 05/23/2025 1:30 PM [facility] LAB Neutrophils Relative 61.1 % LAB HEMETOLOGY METHOD 05/23/2025 1:30 PM [facility] LAB Lymphocytes Relative 29.4 % LAB HEMETOLOGY METHOD 05/23/2025 1:30 PM [facility] LAB Monocytes Relative 7.5 % LAB HEMETOLOGY METHOD 05/23/2025 1:30 PM EST [facility] LAB Eosinophils Relative 1.1 % LAB HEMETOLOGY METHOD 05/23/2025 1:30 PM [facility] LAB Basophils Relative 0.5 % LAB HEMETOLOGY METHOD 05/23/2025 1:30 PM [facility] LAB Immature Granulocytes Relative 0.4 % LAB HEMETOLOGY METHOD 05/23/2025 1:30 PM EST [facility] LAB Neutrophils Absolute 3.34 1.50 - 7.00 K/mcL LAB HEMETOLOGY METHOD 05/23/2025 1:30 PM EST [facility] LAB Lymphocytes Absolute 1.61 1.00 - 5.00 K/mcL LAB HEMETOLOGY METHOD 05/23/2025 1:30 PM [facility] LAB Monocytes Absolute 0.41 0.20 - 1.00 K/mcL LAB HEMETOLOGY METHOD 05/23/2025 1:30 PM EST [facility] LAB Eosinophils Absolute 0.06 0.00 - 0.50 K/mcL LAB HEMETOLOGY METHOD 05/23/2025 1:30 PM [facility] LAB Basophils Absolute 0.03 0.00 - 0.20 K/mcL LAB HEMETOLOGY METHOD 05/23/2025 1:30 PM [facility] LAB Immature Granulocytes Absolute 0.02 0.00 - 0.03 K/mcL LAB HEMETOLOGY METHOD 05/23/2025 1:30 PM [facility] LAB Blood Venous blood specimen / Unknown Venipuncture / Unknown 05/23/2025 7:10 AM EST 05/23/2025 10:02 AM EST us Laura Tello NP LAB BLOOD ORDERABLES Final R esult [facility] LAB [address] [place] [address], from Last 3 Months Insurance MEDICARE MEDICAID - [place] Care Teams Plaster Helper Relationship Specialty Start Date End Date Keven Kirkland MD [address] [place] [address] PCP - General Internal Medicine 11/28/16
--- OUTSIDE RECORDS SUMMARY | 2025-06-02 07:23 | XMS_ITS | Encounter Summary ---
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 Social History Tobacco Use [...] DIFFERENTIAL Routine 11/08/2024 6:10 AM EDT Other fpc (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 CBC AND DIFFERENTIAL Routine 11/08/2024 6:10 AM EDT Other fpc (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 documented in this encounter Results * (ABNORMAL) CBC auto differential (11/08/2024 6:10 AM EDT) WBC 7.6 4.8 - 10.8 K/[facility] LAB HEMETOLOGY METHOD 11/08/2024 8:37 AM EDT [facility] LAB RBC 5.10 4.50 - 5.50 M/mcL LAB HEMETOLOGY METHOD 11/08/2024 8:37 AM [facility] LAB Hemoglobin 15.9 13.5 - 17.5 g/dL LAB HEMETOLOGY METHOD 11/08/2024 8:37 AM [facility] LAB Hematocrit 47.6 42.0 - 54.0 % LAB HEMETOLOGY METHOD 11/08/2024 8:37 AM [facility] LAB MCV 93.5 79.0 - 98.0 FL LAB HEMETOLOGY METHOD 11/08/2024 8:37 AM [facility] LAB MCH 31.2 27.0 - 32.0 pcg LAB HEMETOLOGY METHOD 11/08/2024 8:37 AM [facility] LAB MCHC 33.4 32.0 - 37.0 g/dL LAB HEMETOLOGY METHOD 11/08/2024 8:37 AM [facility] LAB RDW 12.5 11.0 - 15.0 % LAB HEMETOLOGY METHOD 11/08/2024 8:37 AM [facility] LAB Platelets 201 130 - 400 K/mcL LAB HEMETOLOGY METHOD 11/08/2024 8:37 AM [facility] LAB MPV 11.2(H) 7.0 - 11.0 FL LAB HEMETOLOGY METHOD 11/08/2024 8:37 AM [facility] LAB NRBC 0.0 <1.0 % LAB HEMETOLOGY METHOD 11/08/2024 8:37 AM [facility] LAB NRBC Absolute 0.00 <0.10 K/mcL LAB HEMETOLOGY METHOD 11/08/2024 8:37 AM [facility] LAB Neutrophils Relative 64.7 % LAB HEMETOLOGY METHOD 11/08/2024 8:37 AM [facility] LAB Lymphocytes Relative 25.3 % LAB HEMETOLOGY METHOD 11/08/2024 8:37 AM EDT [facility] LAB Monocytes Relative 8.1 % LAB HEMETOLOGY METHOD 11/08/2024 8:37 AM EDT [facility] LAB Eosinophils Relative 1.1 % LAB HEMETOLOGY METHOD 11/08/2024 8:37 AM EDT [facility] LAB Basophils Relative 0.5 % LAB HEMETOLOGY METHOD 11/08/2024 8:37 AM EDT [facility] LAB Immature Granulocytes Relative 0.3 % LAB HEMETOLOGY METHOD 11/08/2024 8:37 AM EDT [facility] LAB Neutrophils Absolute 4.90 1.50 - 7.00 K/mcL LAB HEMETOLOGY METHOD 11/08/2024 8:37 AM EDT [facility] LAB Lymphocytes Absolute 1.91 1.00 - 5.00 K/mcL LAB HEMETOLOGY METHOD 11/08/2024 8:37 AM EDT [facility] LAB Monocytes Absolute 0.61 0.20 - 1.00 K/mcL LAB HEMETOLOGY METHOD 11/08/2024 8:37 AM EDT [facility] LAB Eosinophils Absolute 0.08 0.00 - 0.50 K/mcL LAB [facility]EMETOLOGY METHOD [facility] Basophils Absolute 0.04 0.00 - 0.20 K/mcL LAB HEMETOLOGY METHOD 11/08/2024 8:37 AM EDT [facility] LAB Immature Granulocytes Absolute 0.02 0.00 - 0.03 K/mcL LAB HEMETOLOGY METHOD 11/08/2024 8:37 AM EDT [facility] LAB Blood Venous blood specimen / Unknown Venipuncture / Unknown 11/08/2024 6:10 AM EDT 11/08/2024 7:39 AM EDT us Steve Fitzgerald MD LAB BLOOD ORDERABLES Final Resul t [facility] [place] ([facility] H[facility] LAB [address] [place] [address], documented in this encounter Visit Diagnoses Diagnosis Other fpc (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 documented in this encounter Care Teams Choke Reamer Relationship Specialty Start Date End Date Keven Kirkland MD [address] [place] [address] PCP - General Internal Medicine 11/28/16 documented as of this encounter
--- OUTSIDE RECORDS SUMMARY | 2025-06-02 07:23 | XMS_ITS | Encounter Summary ---
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 Social History Tobacco Use [...] AM EDT Other halfway (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 documented in this encounter Results * (ABNORMAL) CBC auto differential (05/05/2025 9:03 AM EDT) WBC 6.0 4.8 - 10.8 K/[facility] LAB HEMETOLOGY METHOD 05/05/2025 9:57 AM EDT [facility] LAB RBC 4.50 4.50 - 5.50 M/mcL LAB HEMETOLOGY METHOD 05/05/2025 9:57 AM T [facility] LAB Hemoglobin 13.6 13.5 - 17.5 g/dL LAB HEMETOLOGY METHOD 05/05/2025 9:[address] [facility] LAB Hematocrit 40.8(L) 42.0 - 54.0 % LAB HEMETOLOGY METHOD 05/05/2025 9:[address] [facility] LAB MCV 91.1 79.0 - 98.0 FL LAB HEMETOLOGY METHOD 05/05/2025 9:[address] [facility] LAB MCH 30.4 27.0 - 32.0 pcg LAB HEMETOLOGY METHOD 05/05/2025 9:[address] [facility] LAB MCHC 33.3 32.0 - 37.0 g/dL LAB HEMETOLOGY METHOD 05/05/2025 9:[address] [facility] LAB RDW 12.7 11.0 - 15.0 % LAB HEMETOLOGY METHOD 05/05/2025 9:[address] [facility] LAB Platelets 162 130 - 400 K/mcL LAB HEMETOLOGY METHOD 05/05/2025 9:[address] [facility] LAB MPV 10.7 7.0 - 11.0 FL LAB HEMETOLOGY METHOD 05/05/2025 9:[address] [facility] LAB NRBC 0.0 <1.0 % LAB HEMETOLOGY METHOD 05/05/2025 9:[address] [facility] LAB NRBC Absolute 0.00 <0.10 K/mcL LAB HEMETOLOGY METHOD 05/05/2025 9:[address] [facility] LAB Neutrophils Relative 70.9 % LAB HEMETOLOGY METHOD 05/05/2025 9:[address] [facility] LAB Lymphocytes Relative 20.0 % LAB HEMETOLOGY METHOD 05/05/2025 9:57 AM EDT [facility] LAB Monocytes Relative 6.8 % LAB HEMETOLOGY METHOD 05/05/2025 9:57 AM EDT [facility] LAB Eosinophils Relative 1.5 % LAB HEMETOLOGY METHOD 05/05/2025 9:57 AM EDT [facility] LAB Basophils Relative 0.5 % LAB HEMETOLOGY METHOD 05/05/2025 9:57 AM EDT [facility] LAB Immature Granulocytes Relative 0.3 % LAB HEMETOLOGY METHOD 05/05/2025 9:57 AM EDT [facility] LAB Neutrophils Absolute 4.26 1.50 - 7.00 K/mcL LAB HEMETOLOGY METHOD 05/05/2025 9:57 AM EDT [facility] LAB Lymphocytes Absolute 1.20 1.00 - 5.00 K/mcL LAB HEMETOLOGY METHOD 05/05/2025 9:57 AM EDT [facility] LAB Monocytes Absolute 0.41 0.20 - 1.00 K/mcL LAB HEMETOLOGY METHOD 05/05/2025 9:57 AM EDT [facility] LAB Eosinophils Absolute 0.09 0.00 - 0.50 K/mcL LAB HEMETOLOGY METHOD 05/05/2025 9:57 AM EDT [facility] LAB Basophils Absolute 0.03 0.00 - 0.20 K/mcL LAB HEMETOLOGY METHOD 05/05/2025 9:57 AM EDT [facility] LAB Immature Granulocytes Absolute 0.02 0.00 - 0.03 K/mcL LAB HEMETOLOGY METHOD 05/05/2025 9:57 AM EDT [facility] LAB Blood Venous blood specimen / Unknown Venipuncture / Unknown 05/05/2025 9:03 AM EDT 05/05/2025 9:43 AM EDT us Steve Fitzgerald MD LAB BLOOD ORDERABLES Final Resul t [facility] [place] ([facility] H[facility] LAB [address] [place] [address], documented in this encounter Visit Diagnoses Diagnosis Other halfway (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 documented in this encounter Care Teams Cryptographic Center Specialist Relationship Specialty Start Date End Date Keven Kirkland MD [address] [place] [address] PCP - General Internal Medicine 11/28/16 documented as of this encounter
--- OUTSIDE RECORDS SUMMARY | 2025-06-02 07:23 | XMS_ITS | Encounter Summary ---
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 LAB RBC 4.90 4.50 - 5.50 M/[facility] LAB HEMETOLOGY METHOD 10/11/2024 12:40 PM EDT [facility] LAB Hemoglobin 15.2 13.5 - 17.5 g/dL LAB HEMETOLOGY METHOD 10/11/2024 12:40 PM EDT [facility] LAB Hematocrit 45.8 42.0 - 54.0 % LAB HEMETOLOGY METHOD 10/11/2024 12:40 PM EDT [facility] LAB MCV 93.5 79.0 - 98.0 FL LAB HEMETOLOGY METHOD 10/11/2024 12:40 PM EDT [facility] LAB MCH 31.0 27.0 - 32.0 pcg LAB HEMETOLOGY METHOD [facility] MCHC 33.2 32.0 - 37.0 g/dL LAB HEMETOLOGY METHOD 10/11/2024 12:40 PM EDT [facility] LAB RDW 12.7 11.0 - 15.0 % LAB HEMETOLOGY METHOD 10/11/2024 12:40 PM EDT [facility] LAB Platelets 184 130 - 400 K/mcL LAB HEMETOLOGY METHOD 10/[facility]24 [facility] MPV 11.0 7.0 - 11.0 FL LAB HEMETOLOGY METHOD 10/11[facility]2024 [facility] NRBC 0.0 <1.0 % LAB HEMETOLOGY METHOD 10/11/2024 12:40 PM EDT [facility] LAB NRBC Absolute 0.00 <0.10 K/mcL LAB HEMETOLOGY METHOD 10/11[facility]2024 [facility] Neutrophils Relative 66.5 % LAB HEMETOLOGY METHOD 10/11/2024 12[facility] Lymphocytes Relative 23.7 % LAB HEMETOLOGY METHOD 10/11/2024 12:40 PM EDT [facility] LAB Monocytes Relative 8.6 % LAB HEMETOLOGY METHOD 10/11/2024 12:40 PM EDT [facility] LAB Eosinophils Relative 0.7 % LAB HEMETOLOGY METHOD 10/11/2024 12:40 PM EDT [facility] LAB Basophils Relative 0.4 % LAB HEMETOLOGY METHOD 10/11/2024 12:40 PM EDT [facility] LAB Immature Granulocytes Relative 0.1 % LAB HEMETOLOGY METHOD 10/11/2024 12:40 PM EDT [facility] LAB Neutrophils Absolute 4.73 1.50 - 7.00 K/mcL LAB HEMETOLOGY METHOD 10/11/2024 12:[address] [facility] LAB Lymphocytes Absolute 1.69 1.00 - 5.00 K/mcL LAB HEMETOLOGY METHOD 10/11/2024 12:40 PM EDT [facility] LAB Monocytes Absolute 0.61 0.20 - 1.00 K/mcL LAB HEMETOLOGY METHOD 10/11/2024 12:40 PM EDT [facility] LAB Eosinophils Absolute 0.05 0.00 - 0.50 K/mcL LAB HEMETOLOGY METHOD 10/11[facility]24 [facility] Basophils Absolute 0.03 0.00 - 0.20 K/mcL LAB HEMETOLOGY METHOD 10/11/2024 12:40 PM EDT [facility] LAB Immature Granulocytes Absolute 0.01 0.00 - 0.03 K/mcL LAB HEMETOLOGY METHOD 10/11/2024 12:40 PM EDT [facility] LAB Blood Venous blood specimen / Unknown Venipuncture / Unknown 10/11/2024 11:02 AM EDT 10/11/2024 12:14 PM EDT us Steve Fitzgerald MD LAB BLOOD ORDERABLES Final Resul t [facility] LAB [address] [place] [address], documented in this encounter Visit Diagnoses Diagnosis Other assisted (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 documented in this encounter Care Teams Manager Health Relationship Specialty Start Date End Date Keven Kirkland MD [address] [place] [address] Drive [address] [place] [address] PCP - General Internal Medicine 11/28/16 documented as of this encounter
--- OUTSIDE RECORDS SUMMARY | 2025-06-02 07:23 | XMS_ITS | Encounter Summary ---
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 Social History Tobacco Use [...] DIFFERENTIAL Routine 06/21/2024 6:31 AM EST Other retirement (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 CBC AND DIFFERENTIAL Routine 06/21/2024 6:31 AM EST Other retirement (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 documented in this encounter Results * (ABNORMAL) CBC auto differential (06/21/2024 6:31 AM EST) WBC 8.9 4.8 - 10.8 K/[facility] LAB HEMETOLOGY METHOD 06/21/2024 10:08 AM EST [facility] LAB RBC 5.00 4.50 - 5.50 M/[facility] LAB HEMETOLOGY METHOD 06/21/2024 10:08 AM [facility] LAB Hemoglobin 15.1 13.5 - 17.5 g/dL LAB HEMETOLOGY METHOD 06/21/2024 10:08 AM [facility] LAB Hematocrit 46.0 42.0 - 54.0 % LAB HEMETOLOGY METHOD 06/21/2024 10:08 AM [facility] LAB MCV 92.2 79.0 - 98.0 FL LAB HEMETOLOGY METHOD 06/21/2024 10:08 AM [facility] LAB MCH 30.3 27.0 - 32.0 pcg LAB HEMETOLOGY METHOD 06/21/2024 10:08 AM [facility] LAB MCHC 32.8 32.0 - 37.0 g/dL LAB HEMETOLOGY METHOD 06/21/2024 10:08 AM [facility] LAB RDW 12.6 11.0 - 15.0 % LAB HEMETOLOGY METHOD 06/21/2024 10:08 AM [facility] LAB Platelets 193 130 - 400 K/mcL LAB HEMETOLOGY METHOD 06/21/2024 10:08 AM [facility] LAB MPV 11.3(H) 7.0 - 11.0 FL LAB HEMETOLOGY METHOD 06/21/2024 10:08 AM [facility] LAB NRBC 0.0 <1.0 % LAB HEMETOLOGY METHOD 06/21/2024 10:08 AM [facility] LAB NRBC Absolute 0.00 <0.10 K/mcL LAB HEMETOLOGY METHOD 06/21/2024 10:08 AM [facility] LAB Neutrophils Relative 72.8 % LAB HEMETOLOGY METHOD 06/21/2024 10:08 AM [facility] LAB Lymphocytes Relative 19.8 % LAB HEMETOLOGY METHOD 06/21/2024 10:08 AM [facility] LAB Monocytes Relative 6.0 % LAB HEMETOLOGY METHOD 06/21/2024 10:08 AM EST [facility] LAB Eosinophils Relative 0.6 % LAB HEMETOLOGY METHOD 06/21/2024 10:08 AM [facility] LAB Basophils Relative 0.5 % LAB HEMETOLOGY METHOD 06/21/2024 10:08 AM [facility] LAB Immature Granulocytes Relative 0.3 % LAB HEMETOLOGY METHOD 06/21/2024 10:08 AM EST [facility] LAB Neutrophils Absolute 6.46 1.50 - 7.00 K/mcL LAB HEMETOLOGY METHOD 06/21/2024 10:08 AM [facility] LAB Lymphocytes Absolute 1.75 1.00 - 5.00 K/mcL LAB HEMETOLOGY METHOD 06/21/2024 10:08 AM [facility] LAB Monocytes Absolute 0.53 0.20 - 1.00 K/mcL LAB HEMETOLOGY METHOD 06/21/2024 10:08 AM EST [facility] LAB Eosinophils Absolute 0.05 0.00 - 0.50 K/mcL LAB HEMETOLOGY METHOD 06/21/2024 10:08 AM [facility] LAB Basophils Absolute 0.04 0.00 - 0.20 K/mcL LAB HEMETOLOGY METHOD 06/21/2024 10:08 AM [facility] LAB Immature Granulocytes Absolute 0.03 0.00 - 0.03 K/mcL LAB HEMETOLOGY METHOD 06/21/2024 10:08 AM [facility] LAB Blood Venous blood specimen / Unknown Venipuncture / Unknown 06/21/2024 6:31 AM EST 06/21/2024 9:47 AM EST us Steve Fitzgerald MD LAB BLOOD ORDERABLES Final Resul t [facility] LAB [address] [place], [place] [address] [phone] documented in this encounter Visit Diagnoses Diagnosis Other retirement (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 documented in this encounter Care Teams Olericulture Professor Relationship Specialty Start Date End Date Keven Kirkland MD [address] [facility] [address] [place] [address] PCP - General Internal Medicine 11/28/16 documented as of this encounter
--- OUTSIDE RECORDS SUMMARY | 2025-06-02 07:23 | XMS_ITS | Encounter Summary ---
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 Social History Tobacco [...] DIFFERENTIAL Routine 12/06/2024 6:38 AM EDT Other care home (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 CBC AND DIFFERENTIAL Routine 12/06/2024 6:38 AM EDT Other care home (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 documented in this encounter Results * CBC auto differential (12/06/2024 6:38 AM EDT) WBC 6.3 4.8 - 10.8 K/[facility] LAB HEMETOLOGY METHOD 12/06/2024 8:25 AM EDT [facility] LAB RBC 5.00 4.50 - 5.50 M/[facility] LAB HEMETOLOGY METHOD 12/06/2024 8:25 AM EDT [facility] LAB Hemoglobin 15.2 13.5 - 17.5 g/dL LAB HEMETOLOGY METHOD 12/06/2024 8:25 AM T [facility] LAB Hematocrit 46.6 42.0 - 54.0 % LAB HEMETOLOGY METHOD 12/06/2024 8:25 AM T [facility] LAB MCV 94.1 79.0 - 98.0 FL LAB HEMETOLOGY METHOD 12/06/2024 8:25 AM EDT [facility] LAB MCH 30.7 27.0 - 32.0 pcg LAB HEMETOLOGY METHOD 12/06/2024 8:25 AM [facility] LAB MCHC 32.6 32.0 - 37.0 g/dL LAB HEMETOLOGY METHOD 12/06/2024 8:25 AM [facility] LAB RDW 12.8 11.0 - 15.0 % LAB HEMETOLOGY METHOD 12/06/2024 8:25 AM [facility] LAB Platelets 194 130 - 400 K/mcL LAB HEMETOLOGY METHOD 12/06/2024 8:25 AM [facility] LAB MPV 11.0 7.0 - 11.0 FL LAB HEMETOLOGY METHOD 12/06/2024 8:25 AM [facility] LAB NRBC 0.0 <1.0 % LAB HEMETOLOGY METHOD 12/06/2024 8:25 AM [facility] LAB NRBC Absolute 0.00 <0.10 K/mcL LAB HEMETOLOGY METHOD 12/06/2024 8[facility] Neutrophils Relative 66.4 % LAB HEMETOLOGY METHOD 12/06/2024 8:25 AM [facility] LAB Lymphocytes Relative 23.3 % LAB HEMETOLOGY METHOD 12/06/2024 8:25 AM EDT [facility] LAB Monocytes Relative 7.1 % LAB HEMETOLOGY METHOD 12/06/2024 8:25 AM EDT [facility] LAB Eosinophils Relative 2.1 % LAB HEMETOLOGY METHOD 12/06/2024 8:25 AM T [facility] LAB Basophils Relative 0.8 % LAB HEMETOLOGY METHOD 12/06/2024 8:25 AM EDT [facility] LAB Immature Granulocytes Relative 0.3 % LAB HEMETOLOGY METHOD 12/06/2024 8:25 AM EDT [facility] LAB Neutrophils Absolute 4.21 1.50 - 7.00 K/mcL LAB HEMETOLOGY METHOD 12/06/2024 8:25 AM [facility] LAB Lymphocytes Absolute 1.48 1.00 - 5.00 K/mcL LAB HEMETOLOGY METHOD 12/06/2024 8:25 AM EDT [facility] LAB Monocytes Absolute 0.45 0.20 - 1.00 K/mcL LAB HEMETOLOGY METHOD 12/06/2024 8:25 AM T [facility] LAB Eosinophils Absolute 0.13 0.00 - 0.50 K/mcL LAB HEMETOLOGY METHOD 12/06/2024 8:25 AM [facility] LAB Basophils Absolute 0.05 0.00 - 0.20 K/mcL LAB HEMETOLOGY METHOD 12/06/2024 8:[facility] Immature Granulocytes Absolute 0.02 0.00 - 0.03 K/mcL LAB HEMETOLOGY METHOD 12/06/2024 8:25 AM [facility] LAB Blood Venous blood specimen / Unknown Venipuncture / Unknown 12/06/2024 6:38 AM EDT 12/06/2024 8:08 AM EDT us Steve Fitzgerald MD LAB BLOOD ORDERABLES Final Resul t [facility] LAB [address] [place] [address], documented in this encounter Visit Diagnoses Diagnosis 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
--- OUTSIDE RECORDS SUMMARY | 2025-06-02 07:23 | XMS_ITS | Encounter Summary ---
Author Organization [facility] Address [address] [place] [address] Care Team Providers Care Party Plan Sales Unit Advisor Name Role Phone Keven Kirkland MD Primary Care Provider [phone] Encounter Details Date Type Department Care Team (Late st Contact Info) Description 08/16/2024 Lab Requisition [facility] - Main Lab 299 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 [...] DIFFERENTIAL Routine 08/16/2024 6:30 AM EST Other care home (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 CBC AND DIFFERENTIAL Routine 08/16/2024 6:30 AM EST Other care home (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 documented in this encounter Results * CBC auto differential (08/16/2024 6:30 AM EST) WBC 8.2 4.8 - 10.8 K/[facility] LAB HEMETOLOGY METHOD 08/16/2024 10:05 AM EST [facility] LAB RBC 5.00 4.50 - 5.50 M/[facility] LAB HEMETOLOGY METHOD 08/16/2024 10:05 AM [facility] LAB Hemoglobin 15.5 13.5 - 17.5 g/dL LAB HEMETOLOGY METHOD 08/16/2024 10:05 AM [facility] LAB Hematocrit 46.9 42.0 - 54.0 % LAB HEMETOLOGY METHOD 08/16/2024 10:05 AM [facility] LAB MCV 94.4 79.0 - 98.0 FL LAB HEMETOLOGY METHOD 08/16/2024 10:05 AM [facility] LAB MCH 31.2 27.0 - 32.0 pcg LAB HEMETOLOGY METHOD 08/16/2024 10:05 AM [facility] LAB MCHC 33.0 32.0 - 37.0 g/dL LAB HEMETOLOGY METHOD 08/16/2024 10:05 AM [facility] LAB RDW 13.0 11.0 - 15.0 % LAB HEMETOLOGY METHOD 08/16/2024 10:05 AM [facility] LAB Platelets 180 130 - 400 K/mcL LAB HEMETOLOGY METHOD 08/16/2024 10:05 AM [facility] LAB MPV 11.0 7.0 - 11.0 FL LAB HEMETOLOGY METHOD 08/16/2024 10:05 AM [facility] LAB NRBC 0.0 <1.0 % LAB HEMETOLOGY METHOD 08/16/2024 10:05 AM [facility] LAB NRBC Absolute 0.00 <0.10 K/mcL LAB HEMETOLOGY METHOD 08/16/2024 10:05 AM [facility] LAB Neutrophils Relative 69.6 % LAB HEMETOLOGY METHOD 08/16/2024 10:05 AM [facility] LAB Lymphocytes Relative 21.3 % LAB HEMETOLOGY METHOD 08/16/2024 10:05 AM [facility] LAB Monocytes Relative 7.1 % LAB HEMETOLOGY METHOD 08/16/2024 10:05 AM [facility] LAB Eosinophils Relative 1.3 % LAB HEMETOLOGY METHOD 08/16/2024 10:05 AM [facility] LAB Basophils Relative 0.5 % LAB HEMETOLOGY METHOD 08/16/2024 10:05 AM [facility] LAB Immature Granulocytes Relative 0.2 % LAB HEMETOLOGY METHOD 08/16/2024 10:05 AM [facility] LAB Neutrophils Absolute 5.72 1.50 - 7.00 K/mcL LAB HEMETOLOGY METHOD 08/16/2024 10:05 AM [facility] LAB Lymphocytes Absolute 1.75 1.00 - 5.00 K/mcL LAB HEMETOLOGY METHOD 08/16/2024 10:05 AM [facility] LAB Monocytes Absolute 0.58 0.20 - 1.00 K/mcL LAB HEMETOLOGY METHOD 08/16/2024 10:05 AM EST [facility] LAB Eosinophils Absolute 0.11 0.00 - 0.50 K/mcL LAB HEMETOLOGY METHOD 08/16/2024 10:05 AM [facility] LAB Basophils Absolute 0.04 0.00 - 0.20 K/mcL LAB HEMETOLOGY METHOD 08/16/2024 10:05 AM [facility] LAB Immature Granulocytes Absolute 0.02 0.00 - 0.03 K/mcL LAB HEMETOLOGY METHOD 08/16/2024 10:05 AM [facility] LAB Blood Venous blood specimen / Unknown Venipuncture / Unknown 08/16/2024 6:30 AM EST 08/16/2024 8:35 AM EST us Steve Fitzgerald MD LAB BLOOD ORDERABLES Final Resul t [facility] LAB [address] [place] [address], documented in this encounter Visit Diagnoses Diagnosis Other care home (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 documented in this encounter Care Teams Party Plan Sales Unit Advisor Relationship Specialty Start Date End Date Keven Kirkland MD [address] [place] [address] PCP - General Internal Medicine 11/28/16 documented as of this encounter
--- OUTSIDE RECORDS SUMMARY | 2025-06-02 07:23 | XMS_ITS | Encounter Summary ---
Author Organization [facility] Address [address] [place] [address] Care Team Providers Care Farm Contractor Name Role Phone Keven Kirkland MD Primary Care Provider [phone] Encounter Details Date Type Department Care Team (Late st Contact Info) Description 05/22/2025 Lab Requisition [facility] - Main Lab [address] [facility] [place] [address] Laura Tello, DOMINICK [address] [place] [address] Other residential (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 Social History Tobacco Use [...] DIFFERENTIAL Routine 05/23/2025 7:10 AM EST 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 CBC AND DIFFERENTIAL Routine 05/23/2025 7:10 AM EST 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 documented in this encounter Results * CBC auto differential (05/23/2025 7:10 AM EST) WBC 5.5 4.8 - 10.8 K/[facility] LAB HEMETOLOGY METHOD 05/23/2025 1:30 PM EST [facility] LAB RBC 4.90 4.50 - 5.50 M/mcL LAB HEMETOLOGY METHOD 05/23/2025 1:30 PM [facility] [...] LAB HEMETOLOGY METHOD 05/23/2025 1:30 PM EST [facility] LAB Eosinophils Relative 1.1 % LAB HEMETOLOGY METHOD 05/23/2025 1:30 PM [facility] LAB Basophils Relative 0.5 % LAB HEMETOLOGY METHOD 05/23/2025 1:30 PM [facility] LAB Immature Granulocytes Relative 0.4 % LAB HEMETOLOGY METHOD 05/23/2025 1:30 PM EST [facility] LAB Neutrophils Absolute 3.34 1.50 - 7.00 K/mcL LAB HEMETOLOGY METHOD 05/23/2025 1:30 PM [facility] LAB Lymphocytes Absolute 1.61 1.00 - 5.00 K/mcL LAB HEMETOLOGY METHOD 05/23/2025 1:30 PM [facility] LAB Monocytes Absolute 0.41 0.20 - 1.00 K/mcL LAB HEMETOLOGY METHOD 05/23/2025 1:30 PM EST [facility] LAB Eosinophils Absolute 0.06 0.00 - 0.50 K/mcL LAB HEMETOLOGY METHOD 05/23/2025 1:30 PM EST [facility] LAB Basophils Absolute 0.03 0.00 - [...] NP LAB BLOOD ORDERABLES Final R esult [facility] LAB [address] [place], [place] [address] [phone] documented in this encounter Visit Diagnoses Diagnosis Other residential (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 documented in this encounter Care Teams Farm Contractor Relationship Specialty Start Date End Date Keven Kirkland MD [address] [place] [address] [place] [address] PCP - General Internal Medicine 11/28/16 documented as of this encounter
--- OUTSIDE RECORDS SUMMARY | 2025-06-02 07:23 | XMS_ITS | Encounter Summary ---
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 Social History Tobacco Use [...] DIFFERENTIAL Routine 01/03/2025 8:32 AM EDT Other fpc (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 CBC AND DIFFERENTIAL Routine 01/03/2025 8:32 AM EDT Other fpc (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 documented in this encounter Results * (ABNORMAL) CBC auto differential (01/03/2025 8:32 AM EDT) WBC 8.5 4.8 - 10.8 K/[facility] LAB HEMETOLOGY METHOD 01/03/2025 10:48 AM EDT [facility] LAB RBC 4.70 4.50 - 5.50 M/mcL LAB HEMETOLOGY METHOD 01/03/2025 10:48 AM [facility] LAB Hemoglobin 14.5 13.5 - 17.5 g/dL LAB HEMETOLOGY METHOD 01/03/2025 10:48 AM [facility] LAB Hematocrit 43.6 42.0 - 54.0 % LAB HEMETOLOGY METHOD 01/03/2025 10:48 AM [facility] LAB MCV 92.4 79.0 - 98.0 FL LAB HEMETOLOGY METHOD 01/03/2025 10:48 AM [facility] LAB MCH 30.7 27.0 - 32.0 pcg LAB HEMETOLOGY METHOD 01/03/2025 10:48 AM [facility] LAB MCHC 33.3 32.0 - 37.0 g/dL LAB HEMETOLOGY METHOD 01/03/2025 10:48 AM [facility] LAB RDW 12.7 11.0 - 15.0 % LAB HEMETOLOGY METHOD 01/03/2025 10:48 AM [facility] LAB Platelets 168 130 - 400 K/mcL LAB HEMETOLOGY METHOD 01/03/2025 10:48 AM [facility] LAB MPV 11.2(H) 7.0 - 11.0 FL LAB HEMETOLOGY METHOD 01/03/2025 10:48 AM [facility] LAB NRBC 0.0 <1.0 % LAB HEMETOLOGY METHOD 01/03/2025 10:48 AM [facility] LAB NRBC Absolute 0.00 <0.10 K/mcL LAB HEMETOLOGY METHOD 01/03/2025 10:48 AM [facility] LAB Neutrophils Relative 75.5 % LAB HEMETOLOGY METHOD 01/03/2025 10:48 AM [facility] LAB Lymphocytes Relative 15.2 % LAB HEMETOLOGY METHOD 01/03/2025 10:48 AM EDT [facility] LAB Monocytes Relative 7.1 % LAB HEMETOLOGY METHOD 01/03/2025 10:48 AM EDT [facility] LAB Eosinophils Relative 1.3 % LAB HEMETOLOGY METHOD 01/03/2025 10:48 AM EDT [facility] LAB Basophils Relative 0.5 % LAB HEMETOLOGY METHOD 01/03/2025 10:48 AM EDT [facility] LAB Immature Granulocytes Relative 0.4 % LAB HEMETOLOGY METHOD 01/03/2025 10:48 AM EDT [facility] LAB Neutrophils Absolute 6.39 1.50 - 7.00 K/mcL LAB HEMETOLOGY METHOD 01/03/2025 10:48 AM EDT [facility] LAB Lymphocytes Absolute 1.29 1.00 - 5.00 K/mcL LAB HEMETOLOGY METHOD 01/03/2025 10:48 AM EDT [facility] LAB Monocytes Absolute 0.60 0.20 - 1.00 K/mcL LAB HEMETOLOGY METHOD 01/03/2025 10:48 AM EDT [facility] LAB Eosinophils Absolute 0.11 0.00 - 0.50 K/mcL LAB HEMETOLOGY METHOD 01/03/2025 10:[facility] Basophils Absolute 0.04 0.00 - 0.20 K/mcL LAB HEMETOLOGY METHOD 01/03/2025 10:48 AM EDT [facility] LAB Immature Granulocytes Absolute 0.03 0.00 - 0.03 K/mcL LAB HEMETOLOGY METHOD 01/03/2025 10:48 AM EDT [facility] LAB Blood Venous blood specimen / Unknown Venipuncture / Unknown 01/03/2025 8:32 AM EDT 01/03/2025 9:32 AM EDT us Steve Fitzgerald MD LAB BLOOD ORDERABLES Final Resul t [facility] [place] [facility] LAB [address] [place] [address], documented in this encounter Visit Diagnoses Diagnosis Other fpc (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 documented in this encounter Care Teams Flat Sorting Machine Clerk Relationship Specialty Start Date End Date Keven Kirkland MD [address] [place] [address] PCP - General Internal Medicine 11/28/16 documented as of this encounter
--- OUTSIDE RECORDS SUMMARY | 2025-06-02 07:23 | XMS_ITS | Encounter Summary ---
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 Social History Tobacco Use [...] FEE Routine 05/24/2024 9:08 AM EST 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 CBC WITH AUTO DIFFERENTIAL Routine 05/24/2024 9:08 AM EST Other residential (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 CBC AND DIFFERENTIAL Routine 05/24/2024 9:08 AM EST Other residential (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 documented in this encounter Results * (ABNORMAL) CBC auto differential (05/24/2024 9:08 AM EST) WBC 5.8 4.8 - 10.8 K/[facility] LAB HEMETOLOGY METHOD 05/24/2024 11:38 AM [facility] RBC 4.80 4.50 - 5.50 M/mcL LAB HEMETOLOGY METHOD 05/24/2024 11:38 AM [facility] Hemoglobin 14.5 13.5 - 17.5 g/dL LAB HEMETOLOGY METHOD 05/24/2024 11:38 AM [facility] Hematocrit 44.4 42.0 - 54.0 % LAB HEMETOLOGY METHOD 05/24/2024 11:38 AM [facility] MCV 92.5 79.0 - 98.0 FL LAB HEMETOLOGY METHOD 05/24/2024 11:38 AM [facility] MCH 30.2 27.0 - 32.0 pcg LAB HEMETOLOGY METHOD 05/24/2024 11:38 AM [facility] MCHC 32.7 32.0 - 37.0 g/dL LAB HEMETOLOGY METHOD 05/24/2024 11:38 AM [facility] RDW 12.8 11.0 - 15.0 % LAB HEMETOLOGY METHOD 05/24/2024 11:38 AM [facility] Platelets 167 130 - 400 K/mcL LAB HEMETOLOGY METHOD 05/24/2024 11:38 AM [facility] MPV 11.6(H) 7.0 - 11.0 FL LAB HEMETOLOGY METHOD 05/24/2024 11:38 AM [facility] NRBC 0.0 <1.0 % LAB HEMETOLOGY METHOD 05/24/2024 11:38 AM [facility] NRBC Absolute 0.00 <0.10 K/mcL LAB HEMETOLOGY METHOD 05/24/2024 11:38 AM [facility] Neutrophils Relative 70.4 % LAB HEMETOLOGY METHOD 05/24/2024 11:38 AM [facility] Lymphocytes Relative 21.6 % LAB HEMETOLOGY METHOD 05/24/2024 11:38 AM [facility] Monocytes Relative 6.5 % LAB HEMETOLOGY METHOD 05/24/2024 11:38 AM [facility] Eosinophils Relative 0.3 % LAB HEMETOLOGY METHOD 05/24/2024 11:38 AM [facility] Basophils Relative 0.9 % LAB HEMETOLOGY METHOD 05/24/2024 11:38 AM [facility] Immature Granulocytes Relative 0.3 % LAB HEMETOLOGY METHOD 05/24/2024 11:38 AM [facility] Neutrophils Absolute 4.10 1.50 - 7.00 K/mcL LAB HEMETOLOGY METHOD 05/24/2024 11:38 AM [facility] Lymphocytes Absolute 1.26 1.00 - 5.00 K/mcL LAB HEMETOLOGY METHOD 05/24/2024 11:38 AM [facility] Monocytes Absolute 0.38 0.20 - 1.00 K/mcL LAB HEMETOLOGY METHOD 05/24/2024 11:38 AM [facility] Eosinophils Absolute 0.02 0.00 - 0.50 K/mcL LAB HEMETOLOGY METHOD 05/24/2024 11:38 AM [facility] Basophils Absolute 0.05 0.00 - 0.20 K/mcL LAB HEMETOLOGY METHOD 05/24/2024 11:38 AM [facility] Immature Granulocytes Absolute 0.02 0.00 - 0.03 K/mcL LAB HEMETOLOGY METHOD 05/24/2024 11:38 AM [facility] Blood Venous blood specimen / Unknown Venipuncture / Unknown 05/24/2024 9:08 AM EST 05/24/2024 10:32 AM EST us Steve Fitzgerald MD LAB BLOOD ORDERABLES Final Resul t [facility] [address] [place] [address], * Travel phlebotomy fee (05/24/2024 9:08 AM EST) [facility] TRAVEL PHLEBOTOMY FEE Completed 05/24/2024 11:02 AM EST [facility] Blood Venous blood specimen / Unknown Venipuncture / Unknown 05/24/2024 9:08 AM EST 05/24/2024 10:32 AM EST Steve Fitzgerald MD LAB BLOOD ORDERABLES Final Resul t Performing Organization Address [facility] Co de Phone Number [facility] [address] [place] [address], documented in this encounter Visit Diagnoses Diagnosis 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
[2025-06-02 07:51] LABS: MANUAL DIFF FLAG NO
[2025-06-02 08:30] LABS: Hematocrit 43.5 % (42.0-52.0); Hemoglobin 14.6 g/dl (14.0-18.0); Imm Gran Abs Auto 0.03 X10*3/uL (0.00-0.03); Imm Gran Pct Auto 0.5 % (0.0-0.4); Lymphocytes Absolute Auto 0.9 X10*3/uL (1.2-4.9); Mean Corpuscular HGB Conc 33.6 g/dl (31.0-36.0); Mean Corpuscular Hemoglobin 30.8 pg (27.0-33.0); Mean Corpuscular Volume 91.8 fL (80.0-98.0); NRBC Abs Auto 0.000 X10*3/uL (0.0-0.012); NRBC Pct Auto 0.0 /100WBC (0.0-0.2); Platelet Count 152 X10*3/uL (160-400); Red Blood Count 4.74 X10*6/uL (4.60-5.80); White Blood Count 6.5 X10*3/uL (4.8-10.8)
[2025-06-02 09:08] LABS: Alanine Aminotransferase 34 U/L (0-40); Albumin Level 4.4 g/dL (3.5-5.0); Alkaline Phosphatase 106 U/L (39-117); Anion Gap 12 (12-20); Aspartate Amino Transferase 28 U/L (5-37); Blood Urea Nitrogen 24 mg/dL (9-16); Calcium 8.7 mg/dL (8.4-10.2); Carbon Dioxide 24 mmol/L (22-29); Chloride 110 mmol/L (96-108); Cholesterol 149 mg/dL (<200); Estimated Glomerular Filt Rate > 60; HDL Cholesterol 40 mg/dL (>40); Potassium 4.5 mmol/L (3.3-5.1); Sodium 141 mmol/L (135-145); Total Protein 6.6 g/dL (6.5-8.0); Triglycerides 75 mg/dL (<150)
[2025-06-02 09:22] LABS: HBS Num1 1.86 mIU/mL (0-7.99); HBc Num1 0.32 S/CO (0.00-0.79); HBsAGNum1 0.31 S/CO (0.00-0.99); Hepatitis B Surface Antigen Negative (Negative); ~HepC Num1 0.11 S/CO (0.00-0.79); ~Hepatitis B Surface Antibody NONREACTIVE (Nonreactive); ~Hepatitis C Antibody Nonreactive (Nonreactive)
[2025-06-02 09:26] LABS: Free T4 (Free Thyroxine) 1.13 ng/dL (0.71-1.85); Thyroid Stimulating Hormone 1.75 uIU/mL (0.32-4.0)
[2025-06-02 09:30] LABS: Uric Acid 3.6 mg/dL (3.4-7.0)
[2025-06-02 09:40] LABS: Folate 10.7 ng/mL (> or = 4.0); Vitamin B12 558 pg/mL (200-900)
[2025-06-05 09:13] LABS: TS Negative Control Passed; TS Panel A 0; TS Panel B 0; TS Positive Control Passed; TSpotTB Negative (Negative)
== END 2025-06-02 07:20 | disposition home or self-care (01) ==
LOC: HO.LAB 07:19
PROVIDERS: PCP Internal Medicine; Visit Provider Internal Medicine
DX: R79.89 Other specified abnormal findings of blood chemistry (principal); E78.00 Pure hypercholesterolemia, unspecified; Z12.5 Encounter for screening for malignant neoplasm of prostate
CPT/HCPCS: 36415; 80053; 80061; 82607; 82746; 83036; 84153; 84439; 84443; 84550; 85025; 86481; 86704; 86706; 86803; 87340

== ENCOUNTER 2025-06-29 12:43 | Outpatient (REF) | payer MEDICARE, SELFPAY ==
--- NOTE | ~2025-06-29 | CT_ITS ---
EXAMINATION: CT LOW-DOSE SCREENING CHEST WITHOUT CONTRAST CLINICAL INFORMATION: F17.210 - Nicotine dependence, cigarettes, uncomplicated COMPARISON: Chest CT on May 06, 2024 TECHNIQUE: Multidetector volumetric CT imaging of the chest is performed on a Siemens SOMATOM Definition scanner without contrast using low dose technique. Additional 2D coronal and sagittal reformatted images and axial 3D maximum intensity projection (MIP) images are generated on the CT workstation. Note that 0.6 mm slice thickness sequence is not available for review. This CT examination was performed using dose optimization techniques as appropriate, variously including the following: *Automated exposure control *Adjustment of mA and/or kV according to patient size (this includes techniques or standardized protocols for targeted exams where dose is matched to indication/reason for exam; i.e. extremities or head) *Use of iterative reconstruction technique CTDIvol: 1.62 mGy. FINDINGS: LUNGS: Central airways are patent. Mild diffuse edema. No focal consolidation. Scattered calcified granulomas. No new or enlarging pulmonary nodules seen. PLEURA: No pneumothorax or pleural effusion. MEDIASTINUM: No thyroid nodules. Heart is normal in size. No pericardial effusion. Scattered calcifications along the nonaneurysmal thoracic aorta. DEGREE OF CORONARY ARTERY CALCIFICATION: Moderate LYMPH NODES: No bulky adenopathy. CHEST WALL/AXILLA: Unremarkable. UPPER ABDOMEN: Vascular calcifications. OSSEOUS STRUCTURES: No suspicious focal findings. CT/CT lung screening IMPRESSION: 1. No new or enlarging pulmonary nodules. 2. Moderate amount of coronary artery calcifications. ASSESSMENT: 1. Lung-RADS Category 2: Benign appearance or behavior of nodules. 2. Lung-RADS Category S: Negative. There are no clinically significant or potentially clinically significant findings not related to the lungs requiring urgent additional evaluation. RECOMMENDATION: Continued routine annual low-dose CT lung screening in 1 year is recommended. An order for CT CHEST LOW DOSE CANCER SCREENING ([id number]) can be placed. Electronically signed by: Hannah Conley MD 06/29/2025 01:56 PM [facility]
== END 2025-06-29 12:44 ==
LOC: HO.CT 12:43
PROVIDERS: PCP Internal Medicine; Visit Provider Physician Assistant Medical
DX: Z12.2 Encounter for screening for malignant neoplasm of respiratory organs (principal); F17.210 Nicotine dependence, cigarettes, uncomplicated
CPT/HCPCS: 71271

== ENCOUNTER → 2025-06-29 12:45 | Outpatient (BNV) | payer MEDICARE, SELFPAY | PROVIDERS: PCP Internal Medicine; Visit Provider Radiology Body Imaging | DX: Z12.2 Encounter for screening for malignant neoplasm of respiratory organs (principal); Z87.891 Personal history of nicotine dependence | CPT/HCPCS: 71271 ==